=== PATIENT | male | born 1945 | race Caucasian/White ===

== ENCOUNTER 2017-10-07 16:19 | Inpatient (IN) | payer OTHER, MEDICARE ==
[~2017-10-07] VITALS: Ht 180.3 cm; Wt 132.9 kg
[~2017-10-07 16:19] MED LIST: ATENOLOL50 M1 PO; BACTRIM DS TAB1 EACH PO; BUSPIRONE HCL15 M1 PO; DULOXETINE HCL60 MG PO; GABAPENTIN600 M1 PO; GLIPIZIDE5 M2 PO; KEFLEX500 M1 PO; LANTUS SOL100 UNIT/1 SC; LISINOPRIL2.5 M1 PO; PRAVASTATIN SOD40 M2 PO; TAMSULOSIN HCL0.4 M1 PO
--- NOTE | 2017-10-07 16:43 | ED DYSPNEA/ASTHMA COMPLAINT ---
History of Present Illness General Chief Complaint: Dyspnea (COPD, CHF, Other) Stated Complaint: SIB DR. FERRARA FOR SOB Source: patient, family, old records Exam Limitations: no limitations Vital Signs & Intake/Output Vital Signs & Intake/Output Vital Signs Date Time Temp Pulse Resp B/P B/P Pulse O2 O2 Flow FiO2 Mean Ox Delivery Rate 10/07 1812 95 Room Air Room Air 10/07 1813 52 18 146/63 98 Room Air Room Air 10/07 1635 98.6 65 18 138/74 98 Room Air Allergies Coded Allergies: bacitracin (RASH 08/20/16) neomycin (From NEOSPORIN ([id number])) (RASH 08/20/16) polymyxin B (From NEOSPORIN ([id number])) (RASH 08/20/16) Reconcile Medications Aspirin (Ecotrin*) 81 MG TABLET.DR 1 TAB PO BID HEART/BLOOD (Reported) Atenolol 50 MG TABLET 1 TAB PO DAILY HTN (Reported) Buspirone HCl 15 MG TABLET 0.5 TAB PO BID SLEEP (Reported) Clopidogrel Bisulfate (Clopidogrel) 75 MG TABLET 1 TAB PO DAILY BLOOD THINNER (Reported) Duloxetine HCl 60 MG CAPSULE.DR 1 CAP PO DAILY ANXIETY (Reported) Ergocalciferol (Vitamin D2) (Vitamin D2) 50,000 UNIT CAPSULE 1 CAP PO Q2W SUPPLEMENT (Reported) Gabapentin 600 MG TABLET 2 TAB PO BID NEUROPATHY (Reported) Glipizide 5 MG TABLET 1 TAB PO BID DM (Reported) Insulin Glargine,Hum.rec.anlog (Lantus Solostar) 100 UNIT/ML (3 ML) INSULN.PEN 60 UNIT SC QAM DM (Reported) Pravastatin Sodium 40 MG TABLET 1 TAB PO QPM CHOL (Reported) Tamsulosin HCl 0.4 MG CAP.ER.24H 1 CAP PO DAILY URINE (Reported) Triage Note: 72 YO MALE TO TRIAGE WITH FAMILY. PER FAMILY PT WAS JUST SEEN AT DR LAL OFFICE AND SENT IN FOR ABNORMAL EKG. PT ARRIVES ALERT. PT STATES FOR THE PAST 3 DAYS HE HAS BEEN HAVING INCREASEING SOB. DENIES CHEST PAIN/ABD PAIN. DR FARAH IS PTS [employer]. PT TO ER ROOM 2 ON ARRIVAL, EKG COMPLETED. PA AT BEDSIDE. Triage Nurses Notes Reviewed? yes Onset: Gradual Duration: week(s): (1) Timing: recent history Severity: mild, moderate HPI: 72 year old male with history of HTN, IDDM, CKD, poorly compliant with medications reports worsening SOB for the past few days. He is unable to climb stairs, gets short of breath with exertion and reports vague complaint of chest discomfort in his chest with exertion that began last week. He feels like he is not getting enough oxygen. Patient also reports orthopnea, LE edema and dry cough. No fever or chills. He went today for a checkup for these symptoms and was referred to the ER by Dr. Ferrara. Patient also history of fempop bypass several years ago for PVD. Patient had ECHO one month ago with small amount of anterior wall dysfunction but "normal EF". Past History Travel History Traveled to [place] past 21 day No Medical History Any Pertinent Medical History? see below for history Neurological: peripheral neuropathy EENT: NONE Cardiovascular: HTN,CHOL Respiratory: NONE Gastrointestinal: NONE Hepatic: NONE Renal: CKD Musculoskeletal: NONE Psychiatric: NONE Endocrine: IDDM Surgical History Surgical History: none Psychosocial History What is your primary language Urdu Tobacco Use: Quit >30 days ago ETOH Use: denies use Illicit Drug Use: denies illicit drug use Family History Comment: father CAD, ATHEROSCLOEROSIS Hx Contributory? Yes Review of Systems Review of Systems Constitutional: Denies: chills, fever. EENTM: Reports: no symptoms. Respiratory: Reports: cough, short of breath. Denies: sputum production. Cardiovascular: Reports: chest pain, peripheral edema. Denies: palpitations, syncope. GI: Denies: abdominal pain. Genitourinary: Denies: discharge, dysuria, frequency, hematuria. Musculoskeletal: Denies: back pain. Skin: Reports: no symptoms. Neurological/Psychological: Reports: no symptoms. Hematologic/Endocrine: Denies: bruising, bleeding, polyuria. Immunologic/Allergic: Denies: splenectomy. All Other Systems: Reviewed and Negative Physical Exam Physical Exam General Appearance: well developed/nourished, alert, awake, mild distress, moderate distress, obese Head: atraumatic, normal appearance Eyes: Bilateral: normal appearance, PERRL, pale conjunctivae. Ears, Nose, Throat: normal pharynx, hearing grossly normal Neck: normal inspection, supple, full range of motion Respiratory: DIMINISHED BS AT BASES Cardiovascular: irregularly irregular, FAINT HEART SOUNDS Peripheral Pulses: 2+ radial (R), 2+ radial (L), 2+ dorsalis pedis (R), 2+ dorsalis pedis (L) Gastrointestinal: normal bowel sounds, soft Rectal: NO STOOL, SCANT AMOUNT OF PINK BLOOD (REPORTS CONSTIPATION/STRAINING) Extremities: swelling (3+ BILATERAL) Neurologic/Psych: no motor/sensory deficits, awake, alert, oriented x 3 Skin: intact, normal color, warm/dry Core Measures ACS in differential dx? Yes CVA/TIA Diagnosis No Sepsis Present: No Sepsis Focused Exam Completed? No Progress Differential Diagnosis: AMI, CHF, NEW ONSET AFIB, PE, PLEURAL EFFUSION, Plan of Care: Orders Procedure Date/time Status Consistent Carbohydrate 1 10/08 B Active ED Holding Orders 10/07 1833 Active Admit to inpatient 10/07 1833 Active Vital Signs 10/07 1833 Active Code Status 10/07 1833 Active Add-on Test (ER Only) 10/07 1800 Active B-TYPE NATRIURETIC PEP (BNP) 10/07 1715 Active MISTAKE 10/07 1655 Active Telemetry/Cotton Stomper 10/07 1655 Active THYROID STIMULATING HORMONE 10/07 1655 Active TROPONIN LEVEL 10/07 1655 Active PARTIAL THROMBOPLASTIN TIME 10/07 1655 Complete PROTHROMBIN TIME 10/07 1655 Complete MAGNESIUM 10/07 1655 Active FREE T4 10/07 1655 Active COMPREHENSIVE METABOLIC PANEL 10/07 1655 Active CBC WITHOUT DIFFERENTIAL 10/07 1655 Complete EKG 10/07 1620 Active Current Medications Sig/Berhane Start time Last Medication Dose Stop Time Status Admin Heparin Sodium 25,000 UNIT Q24H 10/07 1900 UNVr (Porcine) (Heparin) Sodium Chloride 500 ML Laboratory Tests 10/07/17 1715: Anion Gap 7, Estimated GFR 31 L, BUN/Creatinine Ratio 21.4, Glucose 217 H, Calcium 8.5, Magnesium 2.1, Total Bilirubin 0.2, AST 14 L, ALT 33, Alkaline Phosphatase 55, Troponin I 0.02, Eev-M-Lhgnkojzwdu Pept Pending, Total Protein 6.4, Albumin 3.2 L, Globulin 3.2, Albumin/Globulin Ratio 1.0 L, TSH 4.400 H, Free T4 0.82, PT 12.0, INR 1.14, APTT 30, CBC w Diff NO MAN DIFF REQ, RBC 3.77 L, MCV 89.1, MCH 30.3, RDW 14.7 H, MPV 8.4, Gran % 71.1, Lymphocytes % 16.1 L, Monocytes % 9.5 H, Eosinophils % 3.0, Basophils % 0.3, Absolute Granulocytes 4.6, Absolute Lymphocytes 1.0 L, Absolute Monocytes 0.6, Absolute Eosinophils 0.2, Absolute Basophils 0, PUBS MCHC 34.0 Diagnostic Imaging: Viewed by Me: Radiology Read. Discussed w/RAD: Radiology Read. CXR Impression: PATIENT: AJAY ARREDONDO PRESENT AGE: 72 PATIENT ACCOUNT NO: [id number] : 46 LOCATION: [facility] ORDERING PHYSICIAN: Dariana Nugent MD SERVICE DATE: 10/07/17 EXAM TYPE: RAD - XRY-PORTABLE CHEST XRAY EXAMINATION: XR PORTABLE CHEST CLINICAL INFORMATION: Bradycardia and shortness of breath. COMPARISON: None. TECHNIQUE: A portable AP 85 degrees semiupright view of the chest was obtained. FINDINGS: The lung steel are well moderately well-expanded. There are increased interstitial markings in the lower zones bilaterally. The cardiac silhouette is increased in size. There are no pleural effusions. There is mild prominence of the central pulmonary vasculature. The aortic arch is calcified and unfolded. There are monitor leads overlying the chest. There are no acute osseous findings. IMPRESSION: 1. There is cardiomegaly and there are increased interstitial markings with prominence of the central pulmonary vasculature, consistent with mild/early congestive heart failure. Correlate clinically. DICTATED BY: Bryan Jaeger MD DATE/TIME DICTATED: 10/07/171740 MULTI SITE LEASING CONSULTANT:OLIVIA DATE/TIME TRANSCRIBED:10/07/171740 CONFIDENTIAL, DO NOT COPY WITHOUT APPROPRIATE AUTHORIZATION. <Electronically signed in Other Vendor System> SIGNED BY: Bryan Jaeger MD 10/07/171748 Initial ED EKG: AFIB, RATE IN 40'S Prior EKG: changed Rhythm Strip: atrial fibrillation Departure Departure Time of Disposition: 1835 Disposition: STILL A PATIENT Condition: Stable Clinical Impression Primary Impression: CHF (congestive heart failure) Secondary Impressions: New onset a-fib Referrals: Tiffani Ferrara MD (PCP/Family) Departure Forms: Customer Survey General Discharge Information Admission Note Spoke With: Meenakshi Bruno MD Documentation of Exam: Documentation of any treatments & extenuating circumstances including Concerns Regarding Discharge (functional status, medication knowledge or non-compliance, living conditions, etc.) that warrant an admission rather than observation: [ TELE MONITOR, DIURESIS, MONITOR I/O, HOLD BETA BLOCKERS, SERIAL TROPONIN, CARDIOLOGY CONSULTATION, CONSIDER REPEAT ECHO, ] Critical Care Note Critical Care Note Critical Care Time: non-applicable
[2017-10-07] MEDS ORDERED: VITAMIN D250000 UNIT PO (16:52)
[2017-10-07] MEDS ORDERED: ASPIRIN EC81 M1 PO (16:52)
[2017-10-07] MEDS ORDERED: CLOPIDOGREL75 M1 PO (16:54)
[2017-10-07 17:41] LABS: ABSOLUTE BASOPHIL COUNT 0 /CUMM (0.0-0.2); ABSOLUTE EOSINOPHIL COUNT 0.2 /CUMM (0.0-0.7); ABSOLUTE GRANULOCYTE CT 4.6 /CUMM (1.4-6.5); ABSOLUTE MONOCYTE COUNT 0.6 /CUMM (0.10-0.60); BASOPHIL % 0.3 % (0.0-2.0); GRANULOCYTE % 71.1 % (42.2-75.2); HEMATOCRIT 33.6 % (42-52); MEAN CORPUSCULAR HGB 30.3 PG (27.0-31.0); MEAN CORPUSCULAR VOLUME 89.1 FL (80.0-94.0); MEAN PLATELET VOLUME 8.4 FL (7.4-10.4); PLATELET COUNT 206 /CUMM (130-400); RBC DISTRIBUTION WIDTH 14.7 % (11.5-14.5); RED BLOOD CELL CT 3.77 /CUMM (4.70-6.10); WHITE BLOOD CELL COUNT 6.4 /CUMM (4.8-10.8)
--- NOTE | 2017-10-07 17:49 | RADIOLOGY REPORT ---
EXAMINATION: XR PORTABLE CHEST CLINICAL INFORMATION: Bradycardia and shortness of breath. COMPARISON: None. TECHNIQUE: A portable AP 85 degrees semiupright view of the chest was obtained. FINDINGS: The lung steel are well moderately well-expanded. There are increased interstitial markings in the lower zones bilaterally. The cardiac silhouette is increased in size. There are no pleural effusions. There is mild prominence of the central pulmonary vasculature. The aortic arch is calcified and unfolded. There are monitor leads overlying the chest. There are no acute osseous findings. IMPRESSION: 1. There is cardiomegaly and there are increased interstitial markings with prominence of the central pulmonary vasculature, consistent with mild/early congestive heart failure. Correlate clinically.
[2017-10-07 17:51] LABS: PTT 30 SEC (25-37)
--- NOTE | 2017-10-07 19:55 | History & Physical ---
Danilo Nash MD 10/07/171953: General Information and HPI MD Statement: I have seen and personally examined AJAY ARREDONDO and documented this H&P. The patient is a 72 year old M who presented with a patient stated chief complaint of [dyspnea on exertion]. Source of Information: patient, family Exam Limitations: poor historian History of Present Illness: Patient is a 72-year-old male with a PMH significant for HTN, CKD, PVD status post bypass and stent placement, questionable JOANIE, DJD, cervical disc herniation status post surgical repair, who presented to the ED complaining of 3-4 day history of worsening dyspnea on exertion. He was seen by his PCP today Tiffani Corona MD who referred him to the ED. Patient reports that he has mild dyspnea on exertion at baseline which she attributes to poor physical conditioning however over the last 3-4 days dyspnea on exertion has become severe. He has no dyspnea at rest and is able to recover resting. He has had associated cough mostly dry with minimal sputum production, nasal congestion, worsening lower extremity edema and questionable worsening abdominal distention. He denies shortness of breath while lying flat however reports that he has been sleeping in an upright position with his leg elevated for the past several months. He denies any sick contacts, nausea, vomiting, fever, chills, chest pain, chest discomfort, palpitations. He endorses dizziness upon standing which he states is chronic. The remainder of the review of systems was only positive for constipation, however his last bowel movement was this morning. Allergies/Medications Allergies: Coded Allergies: bacitracin (RASH 08/20/16) neomycin (From NEOSPORIN ([id number])) (RASH 08/20/16) polymyxin B (From NEOSPORIN ([id number])) (RASH 08/20/16) Home Med list Aspirin (Ecotrin*) 81 MG TABLET.DR 1 TAB PO BID HEART/BLOOD (Reported) Atenolol 50 MG TABLET 1 TAB PO DAILY HTN (Reported) Buspirone HCl 15 MG TABLET 0.5 TAB PO BID SLEEP (Reported) Clopidogrel Bisulfate (Clopidogrel) 75 MG TABLET 1 TAB PO DAILY BLOOD THINNER (Reported) Duloxetine HCl 60 MG CAPSULE.DR 1 CAP PO DAILY ANXIETY (Reported) Ergocalciferol (Vitamin D2) (Vitamin D2) 50,000 UNIT CAPSULE 1 CAP PO Q2W SUPPLEMENT (Reported) Gabapentin 600 MG TABLET 2 TAB PO BID NEUROPATHY (Reported) Glipizide 5 MG TABLET 1 TAB PO BID DM (Reported) Insulin Glargine,Hum.rec.anlog (Lantus Solostar) 100 UNIT/ML (3 ML) INSULN.PEN 60 UNIT SC QAM DM (Reported) Insulin Glargine,Hum.rec.anlog (Lantus Solostar) 100 UNIT/ML (3 ML) INSULN.PEN 60 UNIT SC QPM DM Lisinopril 2.5 MG TABLET 1 TAB PO DAILY BP Pravastatin Sodium 40 MG TABLET 1 TAB PO QPM CHOL (Reported) Tamsulosin HCl 0.4 MG CAP.ER.24H 1 CAP PO DAILY URINE (Reported) Past History Travel History Traveled to [place] past 21 day No Medical History Neurological: peripheral neuropathy EENT: NONE Cardiovascular: PVD, HTN, HLD Respiratory: NONE Gastrointestinal: NONE Hepatic: NONE Renal: CKD Musculoskeletal: NONE Psychiatric: NONE Endocrine: IDDM Surgical History Surgical History: fempop bypass, LE stent placement Past Family/Social History Psychosocial History Where do you live? Home Who Do You Live With? spouse Primary Language: Libyan Smoking Status: Former Smoker (60 pack year) ETOH Use: denies use Illicit Drug Use: denies illicit drug use Living Will? no Functional Ability Ambulation: cane Review of Systems Review of Systems Constitutional: Denies: chills, fever. Cardiovascular: Reports: orthopena (questionable based on history), peripheral edema. Denies: chest pain, palpitations, syncope. Respiratory: Reports: cough, short of breath, sputum production (minimal). Denies: wheezing. GI: Reports: constipation, distention. Denies: abdominal pain, nausea, bloody stool , vomiting. Genitourinary: Denies: dysuria, frequency, hematuria. Musculoskeletal: Reports: no symptoms. Skin: Reports: no symptoms. Neurological/Psychological: Denies: headache, numbness, tingling, weakness. Exam & Diagnostic Data Last 24 Hrs of Vital Signs/I&O Vital Signs Date Time Temp Pulse Resp B/P B/P Pulse O2 O2 Flow FiO2 Mean Ox Delivery Rate 10/08 0324 64 97 Room Air 10/07 2205 44 134/78 10/07 2044 97.9 41 20 172/78 96 Room Air 10/07 1813 95 Room Air Room Air 10/07 1813 52 18 146/63 98 Room Air Room Air 10/07 1635 98.6 65 18 138/74 98 Room Air Intake & Output 10/08 0800 10/08 0000 10/07 1600 Intake Total Output Total 1800 Balance -1800 Output, Urine 1800 Patient 302 lb Weight Weight Reported by Patient Measurement Method Physical Exam General Appearance Alert, Oriented X3, Cooperative, No Acute Distress HEENT Atraumatic, PERRLA, EOMI, Mucous Membr. moist/pink Neck Supple, No JVD (difficult to assess ) Cardiovascular Normal S1, Normal S2, irregularly irregular rhythm, systolic murmur 2/6, bradycardia HR 40s Lungs diminished breath sounds, not in respiratory distress, able to speak in full sentences, no accessory muscle use Abdomen Normal Bowel Sounds, Soft, No Tenderness, obese Neurological Normal Speech, Strength at 5/5 X4 Ext, Sensation Intact, Cranial Nerves 3-12 NL Extremities 2+ pitting edema of the LEs bilaterally to the knees, feet were cold with faint but palpable pulses. Last 24 Hrs of Labs/Nando: Laboratory Tests 10/08/17 0312: APTT 40 H 10/08/17 0117: Troponin I 0.02 10/07/17 1715: Anion Gap 7, Estimated GFR 31 L, BUN/Creatinine Ratio 21.4, Glucose 217 H, Calcium 8.5, Magnesium 2.1, Total Bilirubin 0.2, AST 14 L, ALT 33, Alkaline Phosphatase 55, Troponin I 0.02, [id number] Pept 5380 H, Total Protein 6.4, Albumin 3.2 L, Globulin 3.2, Albumin/Globulin Ratio 1.0 L, TSH 4.400 H, Free T4 0.82, PT 12.0, INR 1.14, APTT 30, CBC w Diff NO MAN DIFF REQ, RBC 3.77 L, MCV 89.1, MCH 30.3, RDW 14.7 H, MPV 8.4, Gran % 71.1, Lymphocytes % 16.1 L, Monocytes % 9.5 H, Eosinophils % 3.0, Basophils % 0.3, Absolute Granulocytes 4.6, Absolute Lymphocytes 1.0 L, Absolute Monocytes 0.6, Absolute Eosinophils 0.2, Absolute Basophils 0, PUBS MCHC 34.0 Diagnostic Data EKG Results A. Fib vs possbile A flutter, new onset HR 48 QTc 424 CXR Results There is cardiomegaly and there are increased interstitial markings with prominence of the central pulmonary vasculature, consistent with mild/early congestive heart failure. Assessment/Plan Assessment: Patient is a 72-year-old male with a PMH significant for HTN, CKD, PVD status post bypass and stent placement, questionable JOANIE, DJD, cervical disc herniation status post surgical repair, who presented to the ED complaining of 3-4 day history of worsening dyspnea on exertion with mostly nonproductive cough and worsening lower extremity edema who was referred to the ED by his PCP Tiffani Corona MD. VS on admission: T 98.6, P 65 (dropped to 30s40s), RR 18, BP 138/74, pulse ox 98% on room Labs on admission: WBC 6.4, H/H 11.4/33.6, platelets 206, when necessary 45, creatinine 2.1, glucose 217, Pro-BNP 5380, albumin 3.2, TSH 4.4, Free T4 0.82, Trop 0.02, 0.02 While in the ED patient was started on a heparin drip and given 20 mg IV Lasix. Problem list #New-onset A. fib #Bradycardia #CHF #CKD #Chronic medical problems including HTN, DM, PVD -Admit to telemetry floor -Continue heparin drip started in ED, cardiology consult placed follow-up recommendations -Glucagon for reversal of beta esteban, patient's HR increased to 60s. -Hold patient's home dose of atenolol -Patient's GFR appears to be at baseline, nephrology consult placed for recommendations of Lasix dosing for apparent CHF given worsening lower extremity edema, elevated pro-BNP, and CXR findings open claims representative of CHF -Serial troponin and EKG, first two troponins negative and EKG without signs of acute ST segment changes, THIRD set and a.m. -Echocardiogram - Ambulatory pulse oximetry in AM -Nocturnal pulse ox given patient's questionable history for JOANIE -Continue home doses of lisinopril, buspirone, duloxetine, gabapentin, tamsulosin, aspirin, Plavix -Pravastatin converted to atorvastatin 10 mg -We'll start Levemir 20 mg and NovoLog sliding scale with Accu-Cheks TIDACHS DT prophylaxis: IV heparin, ALPS CODE STATUS: Full code As Ranked By This Provider Problem List: 1. New onset a-fib 2. CHF (congestive heart failure) Core Measures/Misc (06/19) Acute Coronary Syndrome ACS Diagnosis: No Congestive Heart Failure Congestive Heart Failure Diagnosis Yes Last Known EF % 60 (unknown, but report says nl) Comment will obtain echo Cerebrovascular Accident CVA/TIA Diagnosis: No VTE (View Protocol) VTE Risk Factors Age>40 No Mechanical VTE Prophylaxis d/t N/A MechProphylax Ordered No VTE Pharm Prophylaxis d/t NA PharmProphylax ordered Sepsis (View protocol) Sepsis Present: No Priscilla JACINTO,[facility] 10/08/17 0247: Resident Review Statement Resident Statement: examined this patient, discussed with corporate strategy intern, agreed with corporate strategy intern, discussed with family Other Findings: Mr. Arredondo is 72 year old male with past medical history significant for hypertension, with past medical history significant for diabetes complicated with peripheral vascular disease, CK D, hypertension, peripheral vascular disease status post bypass and multiple stent placement, questionable obstructive sleep apnea, degenerative disc disease of L2, L3 who presented to ED with chief complaint of shortness of breath. Patient and family are poor historian. Patient reported history of shortness of breath for the last 3-4 days mainly on exertion, increased in severity and he decided to come to ED for evaluation. Patient also reported productive cough, nasal congestion, denied ear pain, throat pain, that if agent, headache, chest pain, palpitation. He has chronic history of dizziness on rapid movement. Patient has unclear history of orthopnea, reported sleeping in a sitting position for the last couple months because of distended abdomen and it's unclear if he has orthopnea. Patient was evaluated a month ago by Dr. Ness, record from the office revealed normal echocardiogram and normal nuclear stress test. History of weight gain and increased abdominal distention for which according to the patient David Ness MD wanted to start him on water pill but was waiting for Juan Carlos Portillo MD evaluation for the chronic kidney disease. Patient has a remote history of smoking, quit 20 years ago, denied alcohol consumption or drugs. On presentation patient was found to have new onset of atrial fibrillation, with bradycardia of 40 and nonsustained decrease heart rate to 30, a symptomatic. On admission blood pressure 138/74, heart rate 65, temperature 98.6, respiratory rate 18 saturating 98% room air Physical exam he is alert, oriented, not in acute distress. HEENT revealed PERRLA, EOMI, cranial nerves II -12 grossly intact. Examination of the neck showed no JVD (however difficult exam), NO cervical lymphadenopathy. Cardiovascular exam pertinent for irregular S1, S2, no murmurs rubs or gallops appreciated, chest was clear to auscultation bilaterally. Abdominal exam was benign and abdomen soft, with normal bowel sounds in all 4 quadrants. Examination of the lower extremities pedal edema +2 bilateral. Neuro exam pertinent for strength 5 out of 5 in all lower extremities, 5 out of 5 in upper extremities, sensation grossly intact. Labs significant for WBC 6.4, H&H 11.4/33.6, sodium 138, potassium 4.9, BUN 45 and creatinine 2.1 which is baseline, proBNP 5380 EKG new onset atrial fibrillation with bradycardia 46 bpm, no ST changes, QTC 424 Chest x-ray revealed cardiomegaly and increased interstitial markings with prominence of the central pulmonary vasculature, consistent with mild/early congestive heart failure. Problem list #New onset atrial fibrillation #Bradycardia #Acute congestive heart failure #Chronic kidney disease creatinine at baseline #Diabetes mellitus #Questionable obstructive sleep apnea #Peripheral vascular disease Plan -Admit to telemetry floor #New onset atrial fibrillation without rapid ventricular response -Patient denied any history of palpitation or previous history of an irregular rhythm. He had recent history of upper respiratory infection that could participate new onset of atrial fibrillation however he also have risk factors hypertension, diabetes and hyperlipidemia and that may participate silent CT -We'll start heparin drip -Cardiology consultation #Bradycardia -Etiology could be medication induced versus ischemia. No EKG evidence of heart block, no risk for Lyme disease. -Cardiology consultation was obtained with recommendation for glucagon as an antidote for beta esteban atenolol -We'll give 1 mg subcutaneous of glucagon Heart block -Hold atenolol 50 mg daily #Acute congestive heart failure -Again could be precipitated by CT, recent echocardiogram according patient's note from Dr. Ness's office revealed normal echocardiogram and normal nuclear stress test -Patient received Lasix IV 20 mg with good urine output -Continue strict in and out measurement -Consider Lasix 40 mg twice a day, waiting recommendation from cardiology and nephrology -History of progressive shortness of breath, weight gain and distended abdomen. obtain ambulatory pulse ox as patient saturating well on rest room air. #Chronic kidney disease creatinine at baseline -Obtain nephrology consultation for recommendations regarding Lasix dose #Hypertension -Continue lisinopril 2.5 mg daily #Hyperlipidemia -Continue statin, converting dose atorvastatin 10 mg daily #Diabetes mellitus -Patient is getting Lantus 60 units Qam. Patient is poor historian and I doubt his compliance of insulin medication nor diet. Will start Levemir 20 mg daily NovoLog sliding scale medium dose and monitor blood sugar. #Questionable obstructive sleep apnea -Questionable history of orthopnea, patient is poor historian and reported sleeping and sitting position for the last several months. We can obtain nocturnal pulse ox during hospital stay. #Peripheral vascular disease -Continue aspirin and Plavix Home medication continue Bu[place], duloxetine, gabapentin, tumsolin DVT prophylaxis heparin IV Diet consistent carbohydrate 3 Code full Consultation cardiology, nephrology Meenakshi Bruno 10/08/17 0443: Attending MD Review Statement Attending Statement Attending MD Statement: examined this patient, discuss w/resident/PA/TRUST OPERATIONS ASSISTANT, agreed w/resident/PA/TRUST OPERATIONS ASSISTANT, reviewed EMR data (avail), reviewed images, amended to note Attending Assessment/Plan: CC: Shortness of breath PMH: HTN, DM on insulin, CK D stage III, possible JOANIE, peripheral neuropathy, peripheral vascular disease S/P stent bilateral lower extremity, cervical disc surgery Patient came in ER for dyspnea on exertion. 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 He denied any diaphoresis, chest pain, palpitations during this episodes, dyspnea relieved after rest. Since last few months patient has been sleeping in a couch in sitting position with stool under leg, he states that he feels very uneasy lying flat. Last 2 days patient could not even sleep in the sitting position because of shortness of breath. He endorses significant weight gain, stomach bloating, leg edema. Questionable dark and foul-smelling urine. He has mild cough with clear phlegm, it was preceded by upper respiratory symptoms, occurred 2 weeks back, currently better. Never had similar symptoms in the past, follows up with Dr. Ness every 6 months and other investigations were in the normal range, last visit was one month back which is unremarkable. In that visit it was considered that he should take Lasix but this to be decided after discussion with quality assurance supervisor chassis given his kidney disease. He went to see her primary care physician today and was found to have A. fib and was sent to ER. Of note patient had a syncopal episode 3 months back, he felt better after drinking orange juice. Vitals: T 98.6, pulse from 25-55, RR 18, blood pressure 138/74, saturating 98% on room air. On exam: A O 3, cooperative, morbidly obese, no acute distress, neck supple, JVD could not be appreciated, no lymphadenopathy, mucosa moist, no focal neurological deficit, +2 leg edema, no obvious skin rashes or inflammation CVS: S1-S2, irregular. RS: Distant sounds clear, no crackles. Abdomen: Soft, NT, ND, bowel sounds present. Labs: WBC 6.4, hemoglobin 11.4, hematocrit 33.6, platelet 206, sodium 138, potassium 4.9, chloride 105, bicarbonate 25, BUN 45, creatinine 2.1, glucose 217 , calcium 8.5, LFT unremarkable, troponin 0.02, proBNP 5380 INR 1.14 CXR: There is cardiomegaly and there are increased interstitial markings with prominence of the central pulmonary vasculature, consistent with mild/early congestive heart failure. Correlate clinically. ECG: A. fib with bradycardia Assessment and plan 72-year-old male with extensive past medical history presented in ER for progressive worsening of dyspnea on exertion over a month duration, acutely worsened over 3 days associated with increased abdominal girth, increased leg swelling, weight gain. Patient has been using couch to sleep in a sitting position because of feeling uncomfortable in the lying down position and was attributing to abdominal hernia and abdominal distention. Patient was also investigated with sleep study for JOANIE but never followed through to use CPAP. So far all his evaluations and [employer]orer [employer] office was within normal range except they were considering to start Lasix in his last visit, awaiting evaluation by quality assurance supervisor chassis. On examination patient is morbidly obese, JVD could not be appreciated, no obvious crackles but significant leg edema, abdominal distention. Patient's heart rate was ranging between 30s to 45 while in ER in monitor, blood pressure stable, peripheral pulses normal. Patient has elevated creatinine which is unchanged since August and elevated proBNP. Chest x-ray suggestive of congestive heart failure. Given his multiple comorbidities (DM, HTN, JOANIE, CKD, PVD), significant family history for cardiac disease any acute cardiac event should be ruled out as a precipitating cause for his heart failure at the same time patient is having significant bradycardia which might be contributory, patient may be having some conduction abnormality. Patient on atenolol 50 mg since long time, we will hold it for now, cardiology was called suggested to try a dose of glucagon, after glucagon his heart rate is around 40s , patient has been asymptomatic throughout. Patient received 20 mg of Lasix in ER with significant symptomatic improvement. + New-onset heart failure + A. fib with bradycardia + CKD stage III + History of HTN, DM on insulin, possible JOANIE, peripheral neuropathy, peripheral vascular disease S/P stent bilateral lower extremity, cervical disc surgery - Admit to telemetry - Continuous telemetry monitoring - Serial troponin and EKGs - 2-D echocardiogram in a.m. - Continue heparin drip ([id number] 6.7%), - Cardiology consult in a.m. - Hold atenolol - Nephrologic consult in a.m. as requested by cardiology for diuresis with current CKD - Continue rest of his home medications, need to readdress use of Plavix as patient will be needing anticoagulation, will increase the risk of bleeding with aspirin, Plavix and new anticoagulation - Continue Levemir 20 units, moderate scale sliding scale short-acting insulin, titrate up if required
[2017-10-07] MEDS ORDERED: LISINOPRIL2.5 M1 PO ×2 (21:47→21:48)
[2017-10-07] MEDS ORDERED: LANTUS SOL100 UNIT/1 SC (21:48)
[2017-10-08 03:33] LABS: PTT 40 SEC (25-37)
--- NOTE | 2017-10-08 04:44 | Admission Certification ---
Admission Certification Certification Statement - As attending physician, I certify that at the time of - admission, based on clinical presentation, severity of - symptoms, need for further diagnostic testing and - therapeutic interventions, and risk of adverse outcomes - without in-hospital treatment, in my clinical assessment, - this patient requires an acute hospital stay for a minimum - of two nights or longer. I have also considered psychsocial - factors such as support system, advanced age, financial - issues, cognitive issues, and failed out-patient treatments, - past re-admission history, safety of patient, and lack of - compliance as applicable. Specific rationale supporting this admission is: New onset A. fib, bradycardia, new onset congestive heart failure
[2017-10-08 06:13] LABS: ABSOLUTE BASOPHIL COUNT 0 /CUMM (0.0-0.2); ABSOLUTE EOSINOPHIL COUNT 0.2 /CUMM (0.0-0.7); ABSOLUTE GRANULOCYTE CT 5.2 /CUMM (1.4-6.5); ABSOLUTE LYMPH COUNT 1.4 /CUMM (1.2-3.4); ABSOLUTE MONOCYTE COUNT 0.7 /CUMM (0.10-0.60); BASOPHIL % 0.5 % (0.0-2.0); GRANULOCYTE % 69.1 % (42.2-75.2); HEMATOCRIT 34.6 % (42-52); MEAN CORPUSCULAR HGB 30.3 PG (27.0-31.0); MEAN CORPUSCULAR HGB CONC 33.8 G/DL (33.0-37.0); MEAN CORPUSCULAR VOLUME 89.5 FL (80.0-94.0); MEAN PLATELET VOLUME 8.7 FL (7.4-10.4); PLATELET COUNT 187 /CUMM (130-400); RBC DISTRIBUTION WIDTH 15.1 % (11.5-14.5); RED BLOOD CELL CT 3.86 /CUMM (4.70-6.10); WHITE BLOOD CELL COUNT 7.5 /CUMM (4.8-10.8)
[2017-10-08 10:51] LABS: PTT > 120 SEC (25-37)
[2017-10-08 13:31] LABS: PTT 59 SEC (25-37)
--- NOTE | 2017-10-08 14:25 | CT SCAN REPORT ---
EXAMINATION: CT HEAD WITHOUT CONTRAST CLINICAL INFORMATION: Overdose of heparin. Bleeding from ear. COMPARISON: MRI scan of the head dated 04/11/2017. PET CT scan dated 07/08/2013. TECHNIQUE: Contiguous axial imaging was performed from the skull base to vertex without intravenous administration of contrast. DLP: 625.95 mGy-cm FINDINGS: Evaluation is mildly limited by motion artifact. There is no evidence of acute intracranial hemorrhage or territorial infarction. No abnormal mass effect or midline shift is seen. Jin to white matter differentiation is well preserved. No extra-axial fluid collections are identified. The ventricles and sulci are mildly enlarged, consistent with involutional change. Mild periventricular low-attenuation is seen, consistent with ischemic small vessel disease. The osseous structures and soft tissues are normal. Mild mucosal thickening of some of the ethmoid air cells is seen. The mastoid air cells and visualized portions of the paranasal sinuses are otherwise well aerated. IMPRESSION: 1. No acute intracranial pathology. 2. Mild involutional changes and ischemic small vessel disease in the deep white matter. 3. Mild mucosal thickening in some of the ethmoid air cells.
--- NOTE | 2017-10-08 15:19 | History & Physical ---
General Information and HPI Source of Information: patient, family Exam Limitations: poor historian Allergies/Medications Allergies: Coded Allergies: bacitracin (RASH 08/20/16) neomycin (From NEOSPORIN ([id number])) (RASH 08/20/16) polymyxin B (From NEOSPORIN ([id number])) (RASH 08/20/16) Home Med list Aspirin (Ecotrin*) 81 MG TABLET.DR 1 TAB PO BID HEART/BLOOD (Reported) Atenolol 50 MG TABLET 1 TAB PO DAILY HTN (Reported) Buspirone HCl 15 MG TABLET 0.5 TAB PO BID SLEEP (Reported) Clopidogrel Bisulfate (Clopidogrel) 75 MG TABLET 1 TAB PO DAILY BLOOD THINNER (Reported) Duloxetine HCl 60 MG CAPSULE.DR 1 CAP PO DAILY ANXIETY (Reported) Ergocalciferol (Vitamin D2) (Vitamin D2) 50,000 UNIT CAPSULE 1 CAP PO Q2W SUPPLEMENT (Reported) Gabapentin 600 MG TABLET 2 TAB PO BID NEUROPATHY (Reported) Glipizide 5 MG TABLET 1 TAB PO BID DM (Reported) Insulin Glargine,Hum.rec.anlog (Lantus Solostar) 100 UNIT/ML (3 ML) INSULN.PEN 60 UNIT SC QAM DM (Reported) Insulin Glargine,Hum.rec.anlog (Lantus Solostar) 100 UNIT/ML (3 ML) INSULN.PEN 60 UNIT SC QPM DM Lisinopril 2.5 MG TABLET 1 TAB PO DAILY BP Pravastatin Sodium 40 MG TABLET 1 TAB PO QPM CHOL (Reported) Tamsulosin HCl 0.4 MG CAP.ER.24H 1 CAP PO DAILY URINE (Reported) Past History Travel History Traveled to [place] past 21 day No Medical History Neurological: peripheral neuropathy EENT: NONE Cardiovascular: PVD, HTN, HLD Respiratory: NONE Gastrointestinal: NONE Hepatic: NONE Renal: CKD Musculoskeletal: NONE Psychiatric: NONE Endocrine: IDDM Surgical History Surgical History: fempop bypass, LE stent placement Past Family/Social History Psychosocial History Where do you live? Home Who Do You Live With? spouse Primary Language: Burundian Smoking Status: Former Smoker (60 pack year) ETOH Use: denies use Illicit Drug Use: denies illicit drug use Living Will? no Functional Ability Ambulation: cane Exam & Diagnostic Data Diagnostic Data EKG Results A. Fib vs possbile A flutter, new onset HR 48 QTc 424 CXR Results There is cardiomegaly and there are increased interstitial markings with prominence of the central pulmonary vasculature, consistent with mild/early congestive heart failure. Core Measures/Misc (06/19) Cerebrovascular Accident CVA/TIA Diagnosis: No VTE (View Protocol) VTE Risk Factors Age>40 Sepsis (View protocol) Sepsis Present: No
--- NOTE | 2017-10-08 15:33 | PN- Housestaff ---
Glenn JACINTO,Mg 10/08/17 1533: Subjective Follow-up For: Follow-up acute on chronic CHF Complaints: generalized weakness Tele-Events Since Last Visit: Sinus bradycardia Subjective: Patient is seen and examined at the bedside. He was complaining of generalized weakness, abdominal distention, bilateral leg edema. He was feeling much better after he got diuretics. He still felt short of breath on minimal exertion. Review of Systems Constitutional: Reports: no symptoms, weakness. Respiratory: Reports: short of breath. Gastrointestinal: Reports: distention. Objective Last 24 Hrs of Vital Signs/I&O Vital Signs Date Time Temp Pulse Resp B/P B/P Pulse O2 O2 Flow FiO2 Mean Ox Delivery Rate 10/08 1922 96.8 57 20 129/74 95 Room Air 10/08 1859 46 16 167/81 96 Room Air 10/08 1711 96.8 60 19 138/72 95 Room Air 10/08 1457 57 20 125/69 96 Room Air 10/08 1412 98.1 44 20 170/78 95 Room Air 10/08 1043 95.8 50 18 163/77 95 Room Air 10/08 0945 97.1 53 20 150/72 10/08 0945 97.1 53 20 150/72 10/08 0755 97.1 53 20 150/72 94 Room Air 10/08 0614 97.0 52 19 160/64 93 Room Air 10/08 0324 64 97 Room Air 10/07 2205 44 134/78 Intake & Output 10/08 1600 10/08 0800 10/08 0000 Intake Total Output Total 1200 1800 Balance -1200 -1800 Output, Urine 1200 1800 Patient 141.974 kg 136.985 kg Weight Weight Standing Scale Reported by Patient Measurement Method Physical Exam General Appearance: Alert, Oriented X3, Cooperative, No Acute Distress Skin: Palor Cardiovascular: Normal S1, Normal S2 Lungs: bilateral decreased air entry with basilar crackles Abdomen: Soft, distended Neurological: Normal Speech Extremities: bilateral lower leg pitting edema Vascular: Normal Pulses, Pulses Symmetrical Current Medications: Current Medications Sig/Berhane Start time Last Medication Dose Route Stop Time Status Admin Acetaminophen 650 MG Q6P PRN 10/07 2044 AC PO Aspirin 0 .STK-MED ONE 10/08 2143 DC PO Aspirin 325 MG DAILY 10/08 1850 AC 10/08 PO 2145 Aspirin 0 .STK-MED ONE 10/07 2231 DC PO Aspirin Buffered 81 MG BID 10/07 2199 DC 10/08 PO 0945 Atenolol 25 MG DAILY 10/08 1854 AC PO Atorvastatin Calcium 10 MG 1700 10/08 1700 AC 10/08 PO 1730 Buspirone HCl 7.5 MG BID 10/07 2199 AC 10/08 PO 2145 Clopidogrel Bisulfate 75 MG DAILY 10/08 1000 AC 10/08 PO 0945 Dextrose 25 GM ONCE ONE 10/08 0500 DC 10/08 IV 10/08 0501 0450 Duloxetine HCl 60 MG DAILY 10/08 1000 AC 10/08 PO 0945 Furosemide 20 MG 7:30 AM, & 4:30 PM 10/09 0730 AC IV Gabapentin 0 .STK-MED ONE 10/08 2144 DC PO Gabapentin 0 .STK-MED ONE 10/07 2230 DC PO Gabapentin 1,200 MG BID 10/07 2199 AC 10/08 PO 2145 Glucagon 0 .STK-MED ONE 10/07 2230 DC .ROUTE Heparin Sodium 0 .STK-MED ONE 10/08 2100 DC (Porcine) .ROUTE Heparin Sodium 25,000 UNIT Q24H 10/08 1900 AC 10/08 (Porcine) IV 2105 Sodium Chloride 500 ML Heparin Sodium 25,000 UNIT Q24H 10/07 1900 DC 10/08 (Porcine) IV 1345 Sodium Chloride 500 ML Insulin Aspart 0 TIDAC 10/08 0800 AC 10/08 SC 1206 Insulin Detemir 20 UNITS QPM 10/08 2200 CAN SC Insulin Detemir 20 UNITS QPM 10/08 2200 AC 10/08 SC 2159 Lisinopril 2.5 MG DAILY 10/08 1000 AC 10/08 PO 0945 Nitroglycerin 1 GM Q6 10/08 1850 AC TOP Tamsulosin HCl 0.4 MG DAILY 10/08 1000 AC 10/08 PO 0945 Last 24 Hrs of Lab/Nando Results Last 24 Hrs of Labs/Mics: Laboratory Tests 10/08/17 2007: D-Dimer High Sensitivty 280 H 10/08/17 2007: APTT 41 H 10/08/17 1313: APTT 59 H 10/08/17 1006: APTT > 120 *H 10/08/17 0556: Anion Gap 11, Estimated GFR 31 L, BUN/Creatinine Ratio 21.9, Troponin I 0.02, CBC w Diff NO MAN DIFF REQ, RBC 3.86 L, MCV 89.5, MCH 30.3, RDW 15.1 H, MPV 8.7, Gran % 69.1, Lymphocytes % 18.6 L, Monocytes % 8.8, Eosinophils % 3.0, Basophils % 0.5, Absolute Granulocytes 5.2, Absolute Lymphocytes 1.4, Absolute Monocytes 0.7 H, Absolute Eosinophils 0.2, Absolute Basophils 0, PUBS MCHC 33.8 10/08/17 0312: APTT 40 H 10/08/17 0117: Troponin I 0.02 Assessment/Plan Assessment: Patient is a 72-year-old male with a PMH significant for HTN, CKD, PVD status post bypass and stent placement, questionable JOANIE, DJD, cervical disc herniation status post surgical repair, who presented to the ED complaining of 3-4 day history of worsening dyspnea on exertion. He was seen by his PCP Dr Tiffani Corona MD who referred him to the ED. Assessment and plan - Patient is a 72-year-old male with past medical history of hypertension, peripheral vascular disease, chronic kidney disease, presented with chief complaints of shortness of breath and exertion. On examination, he was having bilateral basilar crackles and bilateral pedal edema. On blood work up, he was found to have high creatinine. He was given IV Lasix followed by improvement in respiratory symptoms. His proBNP was 5318, d-dimer was 280. His EKG was showing atrial fibrillation with bradycardia in the range of 56. Current diagnosis - * Acute CHF, Secondary to fluid overload * Bradycardia needed glucagon * Atrial fibrillation * Chronic kidney disease * Type 2 diabetes * Anasarca * Peripheral vascular disease * We'll follow the cardiology recommendation - Advised to start on low dose atenolol, nitropaste, aspiring and plavix. * Daily weight measurement * Strict intake output charting * We'll follow nephrology recommendation * We will decide further Lasix,after discussing with disability specialist as his creatinine is going up. - Advised for Lasix 40-80mg IV BID, depends on diuresis. * We'll keep head end of the bed elevated * We'll continue all home medication * We'll hold for atenolol at present * Patient is on heparin drip. * We will follow echocardiogram * Patient wanted to have evaluated from Dr. Ness. CODE STATUS -full code DVT prophylaxis-heparin Diet-heart healthy diet with fluid restriction Problem List: 1. New onset a-fib 2. CHF (congestive heart failure) Pain Ratin Pain Location: n/a Pain Goal: Remain pain free Pain Plan: Avoid NSAIDs Tomorrow's Labs & Rationales: f/u CBC, BEP Akshat Emmanuel 10/08/17 1535: Attending MD Review Statement Attending Statement Attending MD Statement: examined this patient, discuss w/resident/PA/MANUFACTURING HELPER, agreed w/resident/PA/MANUFACTURING HELPER, discussed with family, reviewed EMR data (avail), discussed with nursing, discussed with case mgmt, reviewed images, amended to note Attending Assessment/Plan: 72-year-old male with extensive past medical history presented in ER for progressive worsening of dyspnea on exertion over a month duration, acutely worsened over 3 days associated with increased abdominal girth, increased leg swelling, weight gain. On examination patient is morbidly obese, JVD could not be appreciated, no obvious crackles but significant leg edema, abdominal distention. Patient's heart rate was ranging between 45 - 60 while in ER in monitor, blood pressure stable, peripheral pulses normal. LABS and imaging reports seen. ER course received glucagon with improvement in HR. EKG with documented afib Chronic congestive heart failure A. fib with bradycardia CKD stage III History of HTN, DM on insulin, possible JOANIE, peripheral neuropathy, peripheral vascular disease S/P stent bilateral lower extremity, cervical disc surgery - Continuous telemetry monitoring, transcutaneous pacemkaer bedside. - Serial troponin negative for [place]. - f/u echo, Cardiology consult, a/c as per cards. antiplatelet therapy as per cards. Pacemaker as per cardiology. CT head negative for intracranail bleed. - Held atenolol, monitor heart rate. - Nephrologic consulted as requested by cardiology for diuresis with current CKD - Continue rest of his home medications. - Continue Levemir 20 units, moderate scale sliding scale short-acting insulin, titrate up if required.
--- NOTE | 2017-10-08 17:03 | Cons- Cardiology ---
General Information and HPI Consulting Request Date of Consult: 10/08/17 Requested By: Meenakshi Bruno MD History of Present Illness: Nilson is a 72 year old male with history of hypertension, dyslipidemia, diabetes and peripheral vascular disease. He has not been able to lie flat for a very long time. Over the past week of so this patient has noted weight gain with leg swelling, severe orthopnea and respiratory distress. He also reports a moderate, nonradiating chest pressure which is new. Recently he has noted episodes of lightheadedness and palpitations. In the ER the patient was found to have mild pulmonary congestion on his chest X -ray and he is in atrial fibrillation of unknown duration with slow heart rate. The patient also has stable renal insufficiency. Allergies/Medications Allergies: Coded Allergies: bacitracin (RASH 08/20/16) neomycin (From NEOSPORIN ([id number])) (RASH 08/20/16) polymyxin B (From NEOSPORIN ([id number])) (RASH 08/20/16) Home Med List: Aspirin (Ecotrin*) 81 MG TABLET.DR 1 TAB PO BID HEART/BLOOD (Reported) Atenolol 50 MG TABLET 1 TAB PO DAILY HTN (Reported) Buspirone HCl 15 MG TABLET 0.5 TAB PO BID SLEEP (Reported) Clopidogrel Bisulfate (Clopidogrel) 75 MG TABLET 1 TAB PO DAILY BLOOD THINNER (Reported) Duloxetine HCl 60 MG CAPSULE.DR 1 CAP PO DAILY ANXIETY (Reported) Ergocalciferol (Vitamin D2) (Vitamin D2) 50,000 UNIT CAPSULE 1 CAP PO Q2W SUPPLEMENT (Reported) Gabapentin 600 MG TABLET 2 TAB PO BID NEUROPATHY (Reported) Glipizide 5 MG TABLET 1 TAB PO BID DM (Reported) Insulin Glargine,Hum.rec.anlog (Lantus Solostar) 100 UNIT/ML (3 ML) INSULN.PEN 60 UNIT SC QAM DM (Reported) Insulin Glargine,Hum.rec.anlog (Lantus Solostar) 100 UNIT/ML (3 ML) INSULN.PEN 60 UNIT SC QPM DM Lisinopril 2.5 MG TABLET 1 TAB PO DAILY BP Pravastatin Sodium 40 MG TABLET 1 TAB PO QPM CHOL (Reported) Tamsulosin HCl 0.4 MG CAP.ER.24H 1 CAP PO DAILY URINE (Reported) Review of Systems Review of Systems: A review of systems is remarkable for non-productive cough. Past History Travel History Traveled to [place] past 21 day No Medical History Neurological: peripheral neuropathy EENT: NONE Cardiovascular: PVD, HTN, HLD Respiratory: NONE Gastrointestinal: NONE Hepatic: NONE Renal: CKD Musculoskeletal: NONE Psychiatric: NONE Endocrine: IDDM Surgical History Surgical History: fempop bypass, LE stent placement Psychosocial History Where Do You Live? Home Who Do You Live With? spouse Primary Language: Albanian Smoking Status: Former Smoker (60 pack year) ETOH Use: denies use Illicit Drug Use: denies illicit drug use Living Will? no Functional Ability Ambulation: cane Exam & Diagnostic Data Vital Signs and I&O Vital Signs Date Time Temp Pulse Resp B/P B/P Pulse O2 O2 Flow FiO2 Mean Ox Delivery Rate 10/08 1457 57 20 125/69 96 Room Air 10/08 1412 98.1 44 20 170/78 95 Room Air 10/08 1043 95.8 50 18 163/77 95 Room Air 10/08 0945 97.1 53 20 150/72 10/08 0945 97.1 53 20 150/72 10/08 0755 97.1 53 20 150/72 94 Room Air 10/08 0614 97.0 52 19 160/64 93 Room Air 10/08 0324 64 97 Room Air 10/07 2205 44 134/78 / 2045 97.9 41 20 172/78 96 Room Air 10/07 1813 95 Room Air Room Air 10/07 1813 52 18 146/63 98 Room Air Room Air Intake & Output 10/08 1600 10/08 0800 10/08 0000 10/07 1600 10/07 0800 10/07 0000 Intake Total Output Total 1200 1800 Balance -1200 -1800 Output, Urine 1200 1800 Patient 313 lb 302 lb Weight Weight Standing Scale Reported by Patient Measurement Method Physical Exam: General: WD/morbidly obese male in NAD; alert and oriented x 3 HEENT: NC/AT, PERRL, EOMI Neck: no JVD, no carotid bruit Heart: irregularly irregular w/o murmur Lungs: clear bilaterally Abdomen: soft, obese, NT, +ve bowel sounds Extremties: 2+ bilateral leg edema Assessment/Plan Assessment/Plan * This patient has newly discovered atrial fibrillation of unknown duration. His heart rate is well controlled, if not a bit slow, on a small dose of Atenolol indicative of underlying conduction system disease. In consideration of his comorbidities, I would decrease his Atenolol to 25mg daily to prevent lightheadedness and a pre-renal state. In consideration of his angina a heart rate in the 50-60 range is otherwise beneficial. Begin IV heparin for stroke prophylaxis. Obtain an echocardiogram. * This morbidly obese male with leg swelling, shortness of breath and new onset atrial fibrillation may have had a pulmonary embolism. Obtain a D-dimer and ABG and if abnormal consider a V/Q scan. He is being anticoagulated in the meantime for atrial fibrillation. It should be noted that his shortness of breath is somewhat out of proportion to his evidence of decompensated CHF and I would prefer not to overdiurese this patient for failure in his setting of renal insufficiency when the issue may be a PE. * This patient has copious risk factors for myocardial ischemia including age, male gender, hypertension, dyslipidemia, tobacco abuse, diabetes and premature coronary artery disease. He also has a marker of coronary atherosclerosis in the form of peripheral vascular disease. Finally, this patient had an outpatient stress test that disclosed at least a small area of ischemia. This patient needs a cardiac catheterization. For now we will treat his angina with Atenolol 25mg daily, NTG paste 1 inch Q 6 hours, IV heparin, aspirin 324mg daily and Plavix 75mg daily. He should remain on a statin. Follow three sets of cardiac enzymes. * Obtain a renal consult. Consult Acknowledgment - Thank you for your consult request.
--- NOTE | 2017-10-08 17:18 | Cons- Nephrology ---
General Information and HPI Consulting Request Date of Consult: 10/08/17 Requested By: Meenakshi Bruno MD History of Present Illness: Mr. 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 He is followed by Dr. Portillo and has developed nephrotic range proteinuria over the past several years. His last visit with Dr. Portillo showed a creatinine of 2.0 in the fall and this was thought to be progression of his CKD. He presents to the hospital with SOB and worsening edema. He was given a single dose of lasix (he is not on this at home) and has had copious diuresis. Cr is 2.1 here. Allergies/Medications Allergies: Coded Allergies: bacitracin (RASH 08/20/16) neomycin (From NEOSPORIN ([id number])) (RASH 08/20/16) polymyxin B (From NEOSPORIN ([id number])) (RASH 08/20/16) Home Med List: Aspirin (Ecotrin*) 81 MG TABLET.DR 1 TAB PO BID HEART/BLOOD (Reported) Atenolol 50 MG TABLET 1 TAB PO DAILY HTN (Reported) Buspirone HCl 15 MG TABLET 0.5 TAB PO BID SLEEP (Reported) Clopidogrel Bisulfate (Clopidogrel) 75 MG TABLET 1 TAB PO DAILY BLOOD THINNER (Reported) Duloxetine HCl 60 MG CAPSULE.DR 1 CAP PO DAILY ANXIETY (Reported) Ergocalciferol (Vitamin D2) (Vitamin D2) 50,000 UNIT CAPSULE 1 CAP PO Q2W SUPPLEMENT (Reported) Gabapentin 600 MG TABLET 2 TAB PO BID NEUROPATHY (Reported) Glipizide 5 MG TABLET 1 TAB PO BID DM (Reported) Insulin Glargine,Hum.rec.anlog (Lantus Solostar) 100 UNIT/ML (3 ML) INSULN.PEN 60 UNIT SC QAM DM (Reported) Insulin Glargine,Hum.rec.anlog (Lantus Solostar) 100 UNIT/ML (3 ML) INSULN.PEN 60 UNIT SC QPM DM Lisinopril 2.5 MG TABLET 1 TAB PO DAILY BP Pravastatin Sodium 40 MG TABLET 1 TAB PO QPM CHOL (Reported) Tamsulosin HCl 0.4 MG CAP.ER.24H 1 CAP PO DAILY URINE (Reported) Review of Systems Review of Systems: As in HPI SOB SALEH worsening bilateral edema Past History Travel History Traveled to [place] past 21 day No Medical History Neurological: peripheral neuropathy EENT: NONE Cardiovascular: PVD, HTN, HLD Respiratory: NONE Gastrointestinal: NONE Hepatic: NONE Renal: CKD Musculoskeletal: NONE Psychiatric: NONE Endocrine: IDDM Surgical History Surgical History: fempop bypass, LE stent placement Psychosocial History Where Do You Live? Home Who Do You Live With? spouse Primary Language: Greenlandic Smoking Status: Former Smoker (60 pack year) ETOH Use: denies use Illicit Drug Use: denies illicit drug use Living Will? no Functional Ability Ambulation: cane Exam & Diagnostic Data Vital Signs and I&O Pleasant Gentleman NAD BP 138/72 P 60 T 96.8 Skin neg rash Eyes anicteric ENT moist Lungs diminished bases Cor RRR Abd soft obese N/T edema Ext 3+ pitting edema Results Pertinent Lab Results: 140 / 107 / 46 Hg 11.7 CXR increased marking bilaterally Assessment/Plan Assessment/Recommendations Assessment: CKD III likely due to diabetic kidney disease. Cr is at baseline and I wound not be concerned if Cr chay a bit with diuresis. He is massively fluid overloaded. Part of this very well may be related to his CKD and nephrotic syndrome. Rec: 24 hr urine for protein/Cr Lasix IV bid (prob will need a dose aroudn 40-80 mg) for next few days Thanks will follow. Recommendations: .
[2017-10-08 20:22] LABS: PTT 41 SEC (25-37)
[2017-10-09 03:43] LABS: PTT > 120 SEC (25-37)
[2017-10-09 05:58] LABS: ABSOLUTE BASOPHIL COUNT 0 /CUMM (0.0-0.2); ABSOLUTE EOSINOPHIL COUNT 0.2 /CUMM (0.0-0.7); ABSOLUTE GRANULOCYTE CT 3.8 /CUMM (1.4-6.5); ABSOLUTE LYMPH COUNT 1.3 /CUMM (1.2-3.4); ABSOLUTE MONOCYTE COUNT 0.7 /CUMM (0.10-0.60); BASOPHIL % 0.6 % (0.0-2.0); EOSINOPHIL % 3.5 % (0-5); GRANULOCYTE % 61.7 % (42.2-75.2); HEMATOCRIT 34.1 % (42-52); MEAN CORPUSCULAR HGB 29.4 PG (27.0-31.0); MEAN CORPUSCULAR HGB CONC 33.1 G/DL (33.0-37.0); MEAN CORPUSCULAR VOLUME 88.7 FL (80.0-94.0); MEAN PLATELET VOLUME 8.2 FL (7.4-10.4); PLATELET COUNT 187 /CUMM (130-400); RBC DISTRIBUTION WIDTH 14.8 % (11.5-14.5); RED BLOOD CELL CT 3.85 /CUMM (4.70-6.10); WHITE BLOOD CELL COUNT 6.1 /CUMM (4.8-10.8)
[2017-10-09 08:30] VITALS: BP 170/78
--- NOTE | 2017-10-09 08:47 | PN- Housestaff ---
Nilesh Gambino 10/09/17 0847: Subjective Follow-up For: New onset A. fib Subjective: Seen and examined patient's, lying in bed comfortably. States that his blood sugars have been dropping around 3- 4 AM. As any chest pain, shortness of breath, palpitations, abdominal pain. Review of Systems Constitutional: Denies: chills, diaphoresis, fever, malaise, weakness, unexplained weight loss. Cardiovascular: Denies: chest pain, edema, orthopena, palpitations, peripheral edema, syncope. Respiratory: Denies: cough, hemoptysis, orthopnea, short of breath, sputum production, stridor, wheezing. Objective Last 24 Hrs of Vital Signs/I&O Vital Signs Date Time Temp Pulse Resp B/P B/P Pulse O2 O2 Flow FiO2 Mean Ox Delivery Rate 10/09 0830 Room Air 10/09 08 97.2 58 18 170/78 94 Room Air 10/09 0601 96.1 53 18 121/77 97 Room Air 10/09 0303 56 20 162/74 95 Room Air 10/09 0034 58 178/88 10/09 0012 59 178/88 10/08 2209 97.0 51 22 172/89 98 Room Air 10/08 1922 96.8 57 20 129/74 95 Room Air 10/08 1859 46 16 167/81 96 Room Air 10/08 1711 96.8 60 19 138/72 95 Room Air 10/08 1457 57 20 125/69 96 Room Air 10/08 1412 98.1 44 20 170/78 95 Room Air 10/08 1043 95.8 50 18 163/77 95 Room Air 10/08 0945 97.1 53 20 150/72 10/08 0945 97.1 53 20 150/72 Intake & Output 10/09 1600 10/09 0800 10/09 0000 Intake Total 628 Output Total 200 500 Balance -200 128 Intake, IV 148 Intake, Oral 480 Output, Urine 200 500 Patient 305 lb Weight Weight Bed scale Measurement Method Physical Exam General Appearance: Alert, Oriented X3, Cooperative, No Acute Distress Cardiovascular: irregularly irregular Lungs: Clear to Auscultation, Normal Air Movement Abdomen: Normal Bowel Sounds, distended Extremities: b/l pitting edema Assessment/Plan Assessment: 72-year-old gentleman with a PMH significant for HTN, CKD III, PVD status post bypass and stent placement, questionable JOANIE, DJD, cervical disc herniation status post surgical repair, current admission for 3-4 day history of worsening dyspnea on exertion and found to be in new onset atrial fibrillation. Mild pulmonary congestion on his chest X-ray. Trop neg x3 Problem list: * Bradycardia needed glucagon * New onset Atrial fibrillation * Chronic kidney disease * Type 2 diabetes * CAD * Peripheral vascular disease Plan: * Daily weight measurement * Strict intake output charting * nephrology on board, apprec recommendations * Holding atenolol for bradycardia, Continuous transcutaneous pacemkaer bedside * continue heparin drip. * follow up echocardiogram * Spoke to who said that patient had a sleep study done here at [facility]. Spoke to Negin who works in the sleep lab who verified this. Will keep patient on autopap at night. * accucheck, FBS is 68, will dose his levemir in the am rather that in the evening * Continue home meds of aspirin, lisinopril, Plavix, gabapentin, buspirone, Cymbalta CODE STATUS -full code DVT prophylaxis-heparin Diet-diabetic Problem List: 1. CHF (congestive heart failure) 2. New onset a-fib Pain Ratin Pain Location: na Pain Goal: Pain 4 or less Pain Plan: current regimen Tomorrow's Labs & Rationales: Akshat Knox 10/09/17 1015: Attending MD Review Statement Attending Statement Attending MD Statement: examined this patient, discuss w/resident/PA/SECRETARY TO THE VICE PRESIDENT, agreed w/resident/PA/SECRETARY TO THE VICE PRESIDENT, discussed with family, reviewed EMR data (avail), discussed with nursing, discussed with case mgmt, reviewed images, amended to note Attending Assessment/Plan: 72-year-old male with extensive past medical history presented in ER for progressive worsening of dyspnea on exertion over a month duration, acutely worsened over 3 days associated with increased abdominal girth, increased leg swelling, weight gain. On examination patient is morbidly obese, JVD could not be appreciated, no obvious crackles but significant leg edema, abdominal distention. Patient's heart rate was ranging between 45 - 60 while in ER in monitor, blood pressure stable, peripheral pulses normal. LABS and imaging reports seen. D DIMER 286 ER course received glucagon with improvement in HR. EKG with documented afib Chronic congestive heart failure A. fib with bradycardia CKD stage III History of HTN, DM on insulin, possible JOANIE, peripheral neuropathy, peripheral vascular disease S/P stent bilateral lower extremity, cervical disc surgery - Continuous transcutaneous pacemkaer bedside. Serial troponin negative for [place]. - f/u echo, F/U B/L lower extremity USG r/o DVT, Cardiology F/U, a/c as per cards. antiplatelet therapy as per cards. Pacemaker as per cardiology. CT head negative for intracranial bleed. - Held atenolol, monitor heart rate. - Nephrologic f/u as requested by cardiology for diuresis with current CKD. - Continue rest of his home medications. - RISS and titrate insulin as needed.
[2017-10-09 12:18] LABS: PTT 43 SEC (25-37)
--- NOTE | 2017-10-09 12:47 | PN- Cardiology ---
Subjective Subjective: * Breathing is improved. * This patient carries a history of nephrotic range proteinuria according to nephrology. * atrial fibrillation with slow heart rate off beta blockade Objective Vital Signs and I&Os Vital Signs Date Time Temp Pulse Resp B/P B/P Pulse O2 O2 Flow FiO2 Mean Ox Delivery Rate 10/09 1150 50 176/90 10/09 0830 Room Air 10/09 0830 97.2 58 18 170/78 94 Room Air 10/09 0601 96.1 53 18 121/77 97 Room Air 10/09 0303 56 20 162/74 95 Room Air 10/09 0034 58 178/88 10/09 0012 59 178/88 10/08 2209 97.0 51 22 172/89 98 Room Air 10/08 1922 96.8 57 20 129/74 95 Room Air 10/08 1859 46 16 167/81 96 Room Air 10/08 1711 96.8 60 19 138/72 95 Room Air 10/08 1457 57 20 125/69 96 Room Air 10/08 1412 98.1 44 20 170/78 95 Room Air Intake & Output 10/09 1600 10/09 0800 10/09 0000 10/08 1600 10/08 0800 10/08 0000 Intake Total 628 Output Total 735 238 0654 1800 Balance -200 128 -1200 -1800 Intake, IV 148 Intake, Oral 480 Output, Urine 681 347 0000 1800 Patient 305 lb 313 lb 302 lb Weight Weight Bed scale Standing Scale Reported by Patient Measurement Method Physical Exam: General: WD/morbidly obese male in NAD; alert and oriented x 3 HEENT: NC/AT, PERRL, EOMI Neck: no JVD, no carotid bruit Heart: irregularly irregular w/o murmur Lungs: clear bilaterally Abdomen: soft, obese, NT, +ve bowel sounds Extremties: 2+ bilateral leg edema Assessment/Plan Assessment/Plan * This patient has newly discovered atrial fibrillation of unknown duration. His heart rate is well controlled, if not a bit slow, on a small dose of Atenolol indicative of underlying conduction system disease. Stop his Atenolol since it is being held consistently for slow heart rate. In consideration of his angina a heart rate in the 50-60 range is otherwise beneficial. Continue IV heparin for stroke prophylaxis. Obtain an echocardiogram. * This morbidly obese male with leg swelling and shortness of breath is likely fluid overloaded due to protein loss in the setting of his nephrotic syndrome, however, medications that are associated with fluid retention should be minimized. Wean down Gabapentin to 400mg BID with a plan to decrease further in a week. Increase Lisinopril to 5mg daily as ACEI are beneficial in the setting of nephrotic syndrome. Increase Lasix to 20mg IV BID. * This patient has copious risk factors for myocardial ischemia including age, male gender, hypertension, dyslipidemia, tobacco abuse, diabetes and premature coronary artery disease. He also has a marker of coronary atherosclerosis in the form of peripheral vascular disease. Finally, this patient had an outpatient stress test that disclosed at least a small area of ischemia. This patient needs a cardiac catheterization. For now we will treat his angina with NTG paste 1 inch Q 6 hours, IV heparin, aspirin 324mg daily and Plavix 75mg daily. He should remain on a statin. Continue telemetry? Yes
[2017-10-09 13:18] VITALS: BP 170/76
--- NOTE | 2017-10-09 13:43 | ULTRASOUND REPORT ---
EXAMINATION: US TRIPLEX OF LOWER EXTREMITIES, BILATERAL CLINICAL INFORMATION: Bilateral lower extremity edema. Hypertension. Evaluate for DVT. COMPARISON: None TECHNIQUE: Color-flow triplex imaging with spectral analysis and compression Doppler were performed on the lower extremities. FINDINGS: Examination is slightly limited due to the patient's body habitus and extensive lower extremity edema. Respiratory variation, normal compression and augmented flow are noted throughout the lower extremities. The visualized common femoral vein, superficial femoral vein, profunda femoral vein, popliteal vein and midcalf peroneal and posterior tibial venous segments show no evidence of deep venous thrombosis. There is no Ramírez's cyst. IMPRESSION: Normal triplex scan without evidence of deep venous thrombosis involving the lower extremities.
[2017-10-09 16:00] VITALS: BP 150/80
[2017-10-09 19:43] LABS: PTT 90 SEC (25-37)
[2017-10-09 23:00] VITALS: BP 140/68
--- NOTE | 2017-10-10 07:24 | PN- Housestaff ---
See Addendum Subjective Follow-up For: New onset A. fib Subjective: Mr Brianna was seen and examined this morning. He is resting comfortably in bed. Patient states that he feels remarkably better. States that his dyspnea on exertion is improved. He states he was able to the bathroom this morning without any complications. He also endorses decreasing in bilateral lower extremity edema. He denies any fever, chills, nausea, vomiting. He is tolerating by mouth intake well. States that he like to speak to Dr. Ness regarding whether it is feasible to proceed for a cardiac cath versus medical management. Review of Systems Constitutional: Reports: see HPI. Objective Last 24 Hrs of Vital Signs/I&O Vital Signs Date Time Temp Pulse Resp B/P B/P Pulse O2 O2 Flow FiO2 Mean Ox Delivery Rate 10/10 0520 75 95 10/10 0331 52 10/10 0128 72 96 10/10 0000 92 CPAP Room Air 10/09 2310 56 95 10/09 2300 96.8 48 14 140/68 92 CPAP Room Air 10/09 1759 Room Air 10/09 1600 97.0 72 22 150/80 97 Room Air 10/09 1519 66 170/70 10/09 1318 65 170/76 10/09 1150 50 176/90 Intake & Output 10/10 1600 10/10 0800 10/10 0000 Intake Total 275 477 Output Total 500 2100 Balance -225 -1623 Intake, IV 275 237 Intake, Oral 240 Number 1 0 Bowel Movements Output, Urine 500 2100 Physical Exam General Appearance: Alert, Oriented X3, Cooperative Cardiovascular: Normal S1, Normal S2, Irregular Rate and Rhythm Lungs: Clear to Auscultation Abdomen: Normal Bowel Sounds, Soft, No Tenderness, DIstended Neurological: Normal Gait, Normal Speech, Strength at 5/5 X4 Ext Extremities: No Clubbing, No Cyanosis, Edema 2+ Vascular: Normal Pulses Current Medications: Current Medications Sig/Berhane Start time Last Medication Dose Route Stop Time Status Admin Acetaminophen 650 MG Q6P PRN 10/07 2044 AC PO Aspirin 325 MG DAILY 10/08 1849 AC 10/09 PO 1146 Atenolol 25 MG DAILY 10/08 1854 DC PO Atorvastatin Calcium 10 MG 1700 10/08 1700 AC 10/09 PO 1559 Buspirone HCl 7.5 MG BID 10/07 2199 AC 10/09 PO 2129 Clopidogrel Bisulfate 75 MG AT BEDTIME 10/09 2200 AC 10/09 PO 2130 Clopidogrel Bisulfate 75 MG DAILY 10/08 1000 DC 10/08 PO 0945 Docusate Sodium 100 MG DAILY NEEDED PRN 10/09 1545 AC 10/09 PO 1713 Duloxetine HCl 60 MG AT BEDTIME 10/09 2200 AC 10/09 PO 2130 Duloxetine HCl 60 MG DAILY 10/08 1000 DC 10/08 PO 0945 Furosemide 20 MG 7:30 AM, & 4:30 PM 10/09 1300 AC 10/10 IV 0822 Furosemide 40 MG 7:30 AM, & 4:30 PM 10/09 0730 DC IV Gabapentin 1,200 MG BID 10/07 2200 AC 10/09 PO 2130 Heparin Sodium 5,000 UNIT .STK-MED ONE 10/09 1250 DC (Porcine) IV 10/09 1251 Heparin Sodium 5,000 UNIT ONCE ONE 10/09 1235 DC 10/09 (Porcine) IV 10/09 1236 1257 Heparin Sodium 25,000 UNIT Q24H 10/08 1900 AC 10/09 (Porcine) IV 1844 Sodium Chloride 500 ML Insulin Aspart 0 TIDAC 10/08 0800 AC 10/10 SC 0822 Insulin Detemir 20 UNITS QAM 10/09 1000 DC SC Insulin Detemir 20 UNITS QPM 10/08 2200 DC SC Lisinopril 5 MG DAILY 10/10 1000 AC PO Lisinopril 2.5 MG ONCE ONE 10/09 1245 DC 10/09 PO 10/09 1246 1519 Lisinopril 2.5 MG DAILY 10/08 1000 DC 10/09 PO 1150 Nitroglycerin 1 GM Q6 10/08 1850 AC 10/10 TOP 0635 Tamsulosin HCl 0.8 MG DAILY 10/09 1000 AC 10/09 PO 1148 Tamsulosin HCl 0.4 MG DAILY 10/08 1000 DC 10/08 PO 0945 Last 24 Hrs of Lab/Nando Results Last 24 Hrs of Labs/Mics: Laboratory Tests 10/10/17 0637: Anion Gap 13, Estimated GFR 31 L, BUN/Creatinine Ratio 17.1, Magnesium 2.0, APTT 45 H, CBC w Diff Pending, WBC Pending, RBC Pending, Hgb Pending, Hct Pending, MCV Pending, MCH Pending, RDW Pending, Plt Count Pending, MPV Pending, Gran % Pending, Lymphocytes % Pending, Monocytes % Pending, Eosinophils % Pending, Basophils % Pending, Absolute Granulocytes Pending, Absolute Lymphocytes Pending, Absolute Monocytes Pending, Absolute Eosinophils Pending, Absolute Basophils Pending, PUBS MCHC Pending 10/09/17 1854: APTT 90 H 10/09/17 1200: pH Cancelled, pCO2 Cancelled, pO2 Cancelled, HCO3 Cancelled, ABG O2 Sat ( Measured) Cancelled, P-50 (Temp Corrected) Cancelled, Carboxyhemoglobin Cancelled, O2 Concentration % Cancelled, Temperature Cancelled, O2 Delivery Method Cancelled, Phlebotomy Draw Site Cancelled 10/09/17 1115: APTT 43 H Orders Radiology Findings: AJAY ARREDONDO Age: 72 : 1945 Gender: M Exam Date: 10/09/2017 10:02 Exam Location: [facility] Ht (in): 71 Wt (lb): 302 BSA: 2.68 BP: 121 / 77 Ordering Physician: Robert Wells MD Referring Physician: David Ness MD Technologist: Tania Noble RDCS Room Number: 102 Indications: AFIB/FLUTTER Rhythm: Atrial fibrillation Technical Quality: Fair, Technically difficult study FINDINGS Left Ventricle Normal size left ventricle. No obvious regional wall motion abnormalities. Normal left ventricular ejection fraction estimated at 55-60%. Right Ventricle Right ventricle not well visualized, grossly normal. Right Atrium Normal right atrial size. Left Atrium Mild to moderate left atrial dilatation. Mitral Valve Mitral valve thickened. [id number] mitral regurgitation. Aortic Valve Trileaflet aortic valve. Diffuse thickening (sclerosis) of the aortic valve cusps without reduced excursion. No aortic stenosis. No aortic regurgitation. Tricuspid Valve Tricuspid valve not well visualized, grossly normal. Mild tricuspid regurgitation. Pulmonic Valve Pulmonic valve not well visualized, grossly normal. Pericardium No pericardial effusion. Great Vessels Aortic root and proximal ascending aorta not well visualized, grossly normal. CONCLUSIONS 1. This was a technically difficult study due to the patient's body habitus. 2. Aortic sclerosis is present with no valvular stenosis or insufficiency. Minimal enlargement of the ascending aorta is present 3. Mitral leaflet thickening is present with mild to moderate mitral insufficiency and mild to moderate left atrial enlargement. 4. There is no significant pericardial fluid detected 5. The left ventricular chamber size is normal with mild to moderate concentric hypertrophy and a normal ejection fraction. There are no visible resting wall motion abnormalities. Additional images were obtained following the administration of IV contrast. 6. Right heart structures were not optimally visualized. Mild tricuspid insufficiency is present. The right ventricular systolic pressure was not accurately assessed. David Ness M.D. (Electronically Signed) Final Date: 10 October 2017 07:53 MEASUREMENTS (Male / Female) Normal Values 2D ECHO LV Diastolic Diameter PLAX 3.8 cm 4.2 - 5.9 / 3.9 - 5.3 cm LV Systolic Diameter PLAX 2.1 cm 2.1 - 4.0 cm LV Fractional Shortening PLAX 44.7 % 25 - 46 % LV Ejection Fraction 2D Teich 76.7 % IVS Diastolic Thickness 1.5 cm LVPW Diastolic Thickness 1.5 cm LV Relative Wall Thickness 0.8 RV Internal Dim ED PLAX 2.8 cm 1.9 - 3.8 cm LVOT Diameter 2.1 cm Aortic Root Diameter 2.9 cm LA Systolic Diameter LX 4.6 cm 3.0 - 4.0 / 2.7 - 3.8 cm LA Volume 50.0 cm 18 - 58 / 22 - 52 cm Ascending Aorta Diameter 3.9 cm DOPPLER AV Peak Velocity 113.0 cm/s AV Peak Gradient 5.1 mmHg AV Mean Velocity 73.9 cm/s AV Mean Gradient 3.0 mmHg AV Velocity Time Integral 25.5 cm LVOT Peak Velocity 74.4 cm/s LVOT Peak Gradient 2.2 mmHg LVOT Mean Velocity 47.8 cm/s LVOT Mean Gradient 1.0 mmHg LVOT Velocity Time Integral 18.5 cm LVOT Stroke Volume 64.1 cm AV Area Cont Eq vti 2.5 cm AV Area Cont Eq pk 2.3 cm MV Peak Velocity 143.0 cm/s MV Peak Gradient 8.2 mmHg MV Mean Velocity 58.2 cm/s MV Mean Gradient 2.0 mmHg Mitral E Point Velocity 118.0 cm/s MV PHT Velocity 149.0 cm/s MV Deceleration [place] 514.0 cm/s MV Pressure Half Time 87.0 ms MV Area PHT 2.5 cm MV Deceleration Time 246.0 ms PV Peak Velocity 88.2 cm/s PV Peak Gradient 3.1 mmHg PV Mean Velocity 54.4 cm/s PV Mean Gradient 1.0 mmHg PV Velocity Time Integral 21.6 cm LV E' Lateral Velocity 9.5 cm/s Mitral E to LV E' Lateral Ratio 12.5 LV E' Septal Velocity 7.5 cm/s Mitral E to LV E' Septal Ratio 15.7 DICTATED BY: Azar Ness MD Assessment/Plan Assessment: 72-year-old gentleman with a PMH significant for HTN, CKD III, PVD status post bypass and stent placement, questionable JOANIE, DJD, cervical disc herniation status post surgical repair, currently admitted for worsening dyspnea on exertion and found to be in new onset atrial fibrillation. Mild pulmonary congestion on his chest X-ray. His troponins were initially negative. Problem list: * New onset Atrial fibrillation * Bradycardia needed glucagon * Chronic kidney disease * Type 2 diabetes * CAD * Peripheral vascular disease Plan: * Daily weight measurement * Strict intake output charting * Nephrology on board, apprec recommendations--> 24 hour urines, will defer to Nephro to assess whether needed. * Holding atenolol for bradycardia. * continue heparin drip --> may consider transition to PO anticoagulation, once approved by cardiology.CHADVASC Score: 5 points. * Echocardiogram results attached. * Spoke to who said that patient had a sleep study done here at [place]. Autopap machine was at bedside. Will continue to encourage use. * Accuchecks: last BS: 170. Levemir:10 units BID. Also ameneded Novolog SS to High Dose. Will continue to monitor. Target BS: 140-180 * Continue home meds: aspirin, lisinopril, Plavix, gabapentin, buspirone, Cymbalta DVT prophylaxis-heparin Diet-diabetic CODE STATUS -full code Problem List: 1. New onset a-fib 2. CHF (congestive heart failure) Pain Ratin Pain Location: No Pain Pain Goal: Remain pain free Pain Plan: Acetaminophen PRN Tomorrow's Labs & Rationales: CBC: monitor H/H in the setting of acute illness ICU Bundle: Monitor Electrolytes in the setting acute illness
--- NOTE | 2017-10-10 07:54 | ECHOCARDIOGRAM REPORT ---
AJAY ARREDONDO Age: 72 : 1945 Gender: M Exam Date: 10/09/2017 10:02 Exam Location: [facility] Ht (in): 71 Wt (lb): 302 BSA: 2.68 BP: 121 / 77 Ordering Physician: Robert Wells MD Referring Physician: David Ness MD Technologist: Tania Noble [facility] Room Number: 102 Indications: AFIB/FLUTTER Rhythm: Atrial fibrillation Technical Quality: Fair, Technically difficult study FINDINGS Left Ventricle Normal size left ventricle. No obvious regional wall motion abnormalities. Normal left ventricular ejection fraction estimated at 55-60%. Right Ventricle Right ventricle not well visualized, grossly normal. Right Atrium Normal right atrial size. Left Atrium Mild to moderate left atrial dilatation. Mitral Valve Mitral valve thickened. [id number] mitral regurgitation. Aortic Valve Trileaflet aortic valve. Diffuse thickening (sclerosis) of the aortic valve cusps without reduced excursion. No aortic stenosis. No aortic regurgitation. Tricuspid Valve Tricuspid valve not well visualized, grossly normal. Mild tricuspid regurgitation. Pulmonic Valve Pulmonic valve not well visualized, grossly normal. Pericardium No pericardial effusion. Great Vessels Aortic root and proximal ascending aorta not well visualized, grossly normal. CONCLUSIONS 1. This was a technically difficult study due to the patient's body habitus. 2. Aortic sclerosis is present with no valvular stenosis or insufficiency. Minimal enlargement of the ascending aorta is present 3. Mitral leaflet thickening is present with mild to moderate mitral insufficiency and mild to moderate left atrial enlargement. 4. There is no significant pericardial fluid detected 5. The left ventricular chamber size is normal with mild to moderate concentric hypertrophy and a normal ejection fraction. There are no visible resting wall motion abnormalities. Additional images were obtained following the administration of IV contrast. 6. Right heart structures were not optimally visualized. Mild tricuspid insufficiency is present. The right ventricular systolic pressure was not accurately assessed. David Ness M.D. (Electronically Signed) Final Date: 10 October 2017 07:53 MEASUREMENTS (Male / Female) Normal Values 2D ECHO LV Diastolic Diameter PLAX 3.8 cm 4.2 - 5.9 / 3.9 - 5.3 cm LV Systolic Diameter PLAX 2.1 cm 2.1 - 4.0 cm LV Fractional Shortening PLAX 44.7 % 25 - 46 % LV Ejection Fraction 2D Teich 76.7 % IVS Diastolic Thickness 1.5 cm LVPW Diastolic Thickness 1.5 cm LV Relative Wall Thickness 0.8 RV Internal Dim ED PLAX 2.8 cm 1.9 - 3.8 cm LVOT Diameter 2.1 cm Aortic Root Diameter 2.9 cm LA Systolic Diameter LX 4.6 cm 3.0 - 4.0 / 2.7 - 3.8 cm LA Volume 50.0 cm 18 - 58 / 22 - 52 cm Ascending Aorta Diameter 3.9 cm DOPPLER AV Peak Velocity 113.0 cm/s AV Peak Gradient 5.1 mmHg AV Mean Velocity 73.9 cm/s AV Mean Gradient 3.0 mmHg AV Velocity Time Integral 25.5 cm LVOT Peak Velocity 74.4 cm/s LVOT Peak Gradient 2.2 mmHg LVOT Mean Velocity 47.8 cm/s LVOT Mean Gradient 1.0 mmHg LVOT Velocity Time Integral 18.5 cm LVOT Stroke Volume 64.1 cm AV Area Cont Eq vti 2.5 cm AV Area Cont Eq pk 2.3 cm MV Peak Velocity 143.0 cm/s MV Peak Gradient 8.2 mmHg MV Mean Velocity 58.2 cm/s MV Mean Gradient 2.0 mmHg Mitral E Point Velocity 118.0 cm/s MV PHT Velocity 149.0 cm/s MV Deceleration Travis 514.0 cm/s MV Pressure Half Time 87.0 ms MV Area PHT 2.5 cm MV Deceleration Time 246.0 ms PV Peak Velocity 88.2 cm/s PV Peak Gradient 3.1 mmHg PV Mean Velocity 54.4 cm/s PV Mean Gradient 1.0 mmHg PV Velocity Time Integral 21.6 cm LV E' Lateral Velocity 9.5 cm/s Mitral E to LV E' Lateral Ratio 12.5 LV E' Septal Velocity 7.5 cm/s Mitral E to LV E' Septal Ratio 15.7
[2017-10-10 08:00] VITALS: BP 160/78
[2017-10-10 08:06] LABS: ABSOLUTE BASOPHIL COUNT 0 /CUMM (0.0-0.2); ABSOLUTE EOSINOPHIL COUNT 0.2 /CUMM (0.0-0.7); ABSOLUTE GRANULOCYTE CT 4.9 /CUMM (1.4-6.5); ABSOLUTE LYMPH COUNT 1.2 /CUMM (1.2-3.4); ABSOLUTE MONOCYTE COUNT 0.7 /CUMM (0.10-0.60); BASOPHIL % 0.5 % (0.0-2.0); EOSINOPHIL % 2.9 % (0-5); HEMATOCRIT 35.7 % (42-52); MEAN CORPUSCULAR HGB 29.9 PG (27.0-31.0); MEAN CORPUSCULAR HGB CONC 33.9 G/DL (33.0-37.0); MEAN CORPUSCULAR VOLUME 88.4 FL (80.0-94.0); RBC DISTRIBUTION WIDTH 14.5 % (11.5-14.5); RED BLOOD CELL CT 4.04 /CUMM (4.70-6.10)
[2017-10-10 08:22] LABS: PTT 45 SEC (25-37)
[2017-10-10 09:09] LABS: GRANULOCYTE % 69.2 % (42.2-75.2)
--- NOTE | 2017-10-10 10:33 | PN- Nephrology ---
Assessment/Plan Assessment: 1. Edema. Suspect due to diabetic nephropathy. It may be helpful to obtain the 24-hour urine for total protein and total creatinine and creatinine clearance. If it seems that does not have 10 g per day, it may be helpful to obtain a urine protein electrophoresis on that same specimen. 2. Chronic kidney disease due to diabetic nephropathy 3. Diabetes mellitus Suggestion: 1. 24-hour urine for total protein and total creatinine and creatinine clearance obtain a urine protein left phoresis 2. He instructed with regards to a low-sodium diet. This needs to be a 2 g sodium diet. Apparently, the patient's was not adding any salt however the food selection seem to be a matter of more salt someone to have. Subjective Subjective: Issue and feels better. Reports that is voided quite a bit and that his weight is quite down. He also mentions that Dr. Portillo had performed some studies with regards to the degree of proteinuria recently. I cannot find those results. The ones in the computer here in the hospital date back to 2013. He is down from roughly 305 pounds down to 297. One weight was 3 07/05/2015. Objective Vital Signs and I&Os Vital Signs Date Time Temp Pulse Resp B/P B/P Pulse O2 O2 Flow FiO2 Mean Ox Delivery Rate 10/10 1123 75 124/76 10/10 1016 78 148/82 10/10 0800 Room Air 10/10 0800 98.1 75 20 160/78 95 Room Air 10/10 0520 75 95 10/10 0331 52 10/10 0128 72 96 10/10 0000 92 CPAP Room Air 10/09 2310 56 95 10/09 2300 96.8 48 14 140/68 92 CPAP Room Air 10/09 1759 Room Air 10/09 1600 97.0 72 22 150/80 97 Room Air 10/09 1519 66 170/70 10/09 1318 65 170/76 Intake & Output 10/10 1600 10/10 0400 10/09 1600 10/09 0400 10/08 1600 10/08 0400 Intake Total 275 477 648 628 Output Total 500 2099 2049 700 1200 1800 Balance -225 -1623 -1402 -72 -1200 -1800 Intake, IV 275 237 168 148 Intake, Oral 240 480 480 Number 1 0 Bowel Movements Output, Urine 500 2099 2049 700 1200 1800 Patient 297 lb 305 lb 313 lb 302 lb Weight Weight Bed scale Bed scale Standing Scale Reported by Patient Measurement Method Physical Exam General Appearance: well developed/nourished, no apparent distress, alert, awake , obese Head: atraumatic, normal appearance Ears, Nose, Throat: normal pharynx, hearing grossly normal Respiratory: chest non-tender, no respiratory distress, crackles Cardiovascular: edema Abdomen: normal bowel sounds, soft, non-tender, no organomegaly Back: normal inspection, ppitting sacral edema Current Medications: Current Medications Sig/Berhane Start time Last Medication Dose Route Stop Time Status Admin Acetaminophen 650 MG Q6P PRN 10/07 2045 AC PO Aspirin 325 MG DAILY 10/08 1850 AC 10/10 PO 1017 Atenolol 25 MG DAILY 10/08 1854 DC PO Atorvastatin Calcium 10 MG 1700 10/08 1700 AC 10/09 PO 1559 Buspirone HCl 7.5 MG BID 10/07 2200 AC 10/10 PO 1017 Clopidogrel Bisulfate 75 MG AT BEDTIME 10/09 2200 AC 10/09 PO 2130 Clopidogrel Bisulfate 75 MG DAILY 10/08 1000 DC 10/08 PO 0945 Docusate Sodium 100 MG DAILY NEEDED PRN 10/09 1545 AC 10/09 PO 1713 Duloxetine HCl 60 MG AT BEDTIME 10/09 2200 AC 10/09 PO 2130 Duloxetine HCl 60 MG DAILY 10/08 1000 DC 10/08 PO 0945 Furosemide 20 MG 7:30 AM, & 4:30 PM 10/09 1300 AC 10/10 IV 0822 Furosemide 40 MG 7:30 AM, & 4:30 PM 10/09 0730 DC IV Gabapentin 1,200 MG BID 10/07 2200 AC 10/10 PO 1016 Heparin Sodium 5,400 UNIT ONCE ONE 10/10 0915 DC 10/10 (Porcine) IV 10/10 0916 0913 Heparin Sodium 5,000 UNIT .STK-MED ONE 10/09 1250 DC (Porcine) IV 10/09 1251 Heparin Sodium 5,000 UNIT ONCE ONE 10/09 1235 DC 10/09 (Porcine) IV 10/09 1236 1257 Heparin Sodium 25,000 UNIT Q24H 10/08 1900 AC 10/10 (Porcine) IV 0913 Sodium Chloride 500 ML Insulin Aspart 0 TIDAC 10/08 0800 AC 10/10 SC 0822 Insulin Detemir 20 UNITS QAM 10/09 1000 DC SC Lisinopril 5 MG DAILY 10/10 1000 AC 10/10 PO 1016 Lisinopril 2.5 MG ONCE ONE 10/09 1245 DC 10/09 PO 10/09 1246 1519 Lisinopril 2.5 MG DAILY 10/08 1000 DC 10/09 PO 1150 Nitroglycerin 1 GM Q6 10/08 1850 AC 10/10 TOP 0635 Tamsulosin HCl 0.8 MG DAILY 10/09 1000 AC 10/10 PO 1017 Results Pertinent Lab Results: Laboratory Tests 10/10 10/09 10/09 0637 1854 1200 Blood Gas pH Cancelled pCO2 Cancelled pO2 Cancelled HCO3 Cancelled ABG O2 Sat (Measured) Cancelled P-50 (Temp Corrected) Cancelled Carboxyhemoglobin Cancelled O2 Concentration % Cancelled Temperature Cancelled O2 Delivery Method Cancelled Chemistry Sodium (137 - 145 mmol/L) 141 Potassium (3.5 - 5.1 mmol/L) 4.9 Chloride (98 - 107 mmol/L) 105 Carbon Dioxide (22 - 30 mmol/L) 23 Anion Gap (5 - 16) 13 BUN (9 - 20 mg/dL) 36 H Creatinine (0.7 - 1.2 mg/dL) 2.1 H Estimated GFR (>60 ml/min) 31 L BUN/Creatinine Ratio (7 - 25 %) 17.1 Magnesium (1.6 - 2.3 mg/dL) 2.0 Coagulation APTT (25 - 37 SEC) 45 H 90 H Hematology CBC w Diff NO MAN DIFF REQ WBC (4.8 - 10.8 /CUMM) 7.0 RBC (4.70 - 6.10 /CUMM) 4.04 L Hgb (14.0 - 18.0 G/DL) 12.1 L Hct (42 - 52 %) 35.7 L MCV (80.0 - 94.0 FL) 88.4 MCH (27.0 - 31.0 PG) 29.9 RDW (11.5 - 14.5 %) 14.5 Plt Count (/CUMM) Gran % (42.2 - 75.2 %) 69.2 Lymphocytes % (20.5 - 51.1 %) 17.5 L Monocytes % (1.7 - 9.3 %) 9.9 H Eosinophils % (0 - 5 %) 2.9 Basophils % (0.0 - 2.0 %) 0.5 Absolute Granulocytes (1.4 - 6.5 /CUMM) 4.9 Absolute Lymphocytes (1.2 - 3.4 /CUMM) 1.2 Absolute Monocytes (0.10 - 0.60 /CUMM) 0.7 H Absolute Eosinophils (0.0 - 0.7 /CUMM) 0.2 Absolute Basophils (0.0 - 0.2 /CUMM) 0 PUBS MCHC (33.0 - 37.0 G/DL) 33.9 Miscellaneous Phlebotomy Draw Site Cancelled 10/09 10/09 10/09 5881 0422 0251 Chemistry Sodium (137 - 145 mmol/L) 142 Potassium (3.5 - 5.1 mmol/L) 4.4 Chloride (98 - 107 mmol/L) 108 H Carbon Dioxide (22 - 30 mmol/L) 24 Anion Gap (5 - 16) 10 BUN (9 - 20 mg/dL) 40 H Creatinine (0.7 - 1.2 mg/dL) 2.0 H Estimated GFR (>60 ml/min) 33 L BUN/Creatinine Ratio (7 - 25 %) 20.0 Coagulation APTT (25 - 37 SEC) 43 H > 120 *H Hematology CBC w Diff NO MAN DIFF REQ WBC (4.8 - 10.8 /CUMM) 6.1 RBC (4.70 - 6.10 /CUMM) 3.85 L Hgb (14.0 - 18.0 G/DL) 11.3 L Hct (42 - 52 %) 34.1 L MCV (80.0 - 94.0 FL) 88.7 MCH (27.0 - 31.0 PG) 29.4 RDW (11.5 - 14.5 %) 14.8 H Plt Count (130 - 400 /CUMM) 187 MPV (7.4 - 10.4 FL) 8.2 Gran % (42.2 - 75.2 %) 61.7 Lymphocytes % (20.5 - 51.1 %) 21.9 Monocytes % (1.7 - 9.3 %) 12.3 H Eosinophils % (0 - 5 %) 3.5 Basophils % (0.0 - 2.0 %) 0.6 Absolute Granulocytes (1.4 - 6.5 /CUMM) 3.8 Absolute Lymphocytes (1.2 - 3.4 /CUMM) 1.3 Absolute Monocytes (0.10 - 0.60 /CUMM) 0.7 H Absolute Eosinophils (0.0 - 0.7 /CUMM) 0.2 Absolute Basophils (0.0 - 0.2 /CUMM) 0 PUBS MCHC (33.0 - 37.0 G/DL) 33.1 10/09 10/08 10/08 10/08 0000 2006 2006 1999 Blood Gas pH (7.35 - 7.45 PH) 7.37 pCO2 (35 - 45 TORR) 41 pO2 (80 - 100 TORR) 77 L HCO3 (21 - 28 MEQ/L) 23 ABG O2 Sat (Measured) (>96.0 %) 93.0 L Carboxyhemoglobin (1.5 - 5.0 %) 0.4 L O2 Concentration % RA Temperature (97.0 - 100.0 FARH) 98.6 Coagulation APTT (25 - 37 SEC) 41 H D-Dimer High Sensitivty (0 - 243 ng/ml) 280 H Miscellaneous Phlebotomy Draw Site RIGHT RADIAL Urines Ur Random Creatinine (mg/dL) 30.5 Urine Total Volume (600 - 1500 ML/24HR) 5575 H Urine Creatinine (1.0 - 2.0 g/24HR) 1.7 10/08 10/08 10/08 10/08 1313 1006 0556 0312 Chemistry Sodium (137 - 145 mmol/L) 140 Potassium (3.5 - 5.1 mmol/L) 4.5 Chloride (98 - 107 mmol/L) 107 Carbon Dioxide (22 - 30 mmol/L) 22 Anion Gap (5 - 16) 11 BUN (9 - 20 mg/dL) 46 H Creatinine (0.7 - 1.2 mg/dL) 2.1 H Estimated GFR (>60 ml/min) 31 L BUN/Creatinine Ratio (7 - 25 %) 21.9 Troponin I (<0.11 ng/ml) 0.02 Coagulation APTT (25 - 37 SEC) 59 H > 120 *H 40 H Hematology CBC w Diff NO MAN DIFF REQ WBC (4.8 - 10.8 /CUMM) 7.5 RBC (4.70 - 6.10 /CUMM) 3.86 L Hgb (14.0 - 18.0 G/DL) 11.7 L Hct (42 - 52 %) 34.6 L MCV (80.0 - 94.0 FL) 89.5 MCH (27.0 - 31.0 PG) 30.3 RDW (11.5 - 14.5 %) 15.1 H Plt Count (130 - 400 /CUMM) 187 MPV (7.4 - 10.4 FL) 8.7 Gran % (42.2 - 75.2 %) 69.1 Lymphocytes % (20.5 - 51.1 %) 18.6 L Monocytes % (1.7 - 9.3 %) 8.8 Eosinophils % (0 - 5 %) 3.0 Basophils % (0.0 - 2.0 %) 0.5 Absolute Granulocytes (1.4 - 6.5 /CUMM) 5.2 Absolute Lymphocytes (1.2 - 3.4 /CUMM) 1.4 Absolute Monocytes (0.10 - 0.60 /CUMM) 0.7 H Absolute Eosinophils (0.0 - 0.7 /CUMM) 0.2 Absolute Basophils (0.0 - 0.2 /CUMM) 0 PUBS MCHC (33.0 - 37.0 G/DL) 33.8 10/08 10/07 0117 1715 Chemistry Sodium (137 - 145 mmol/L) 138 Potassium (3.5 - 5.1 mmol/L) 4.9 Chloride (98 - 107 mmol/L) 105 Carbon Dioxide (22 - 30 mmol/L) 25 Anion Gap (5 - 16) 7 BUN (9 - 20 mg/dL) 45 H Creatinine (0.7 - 1.2 mg/dL) 2.1 H Estimated GFR (>60 ml/min) 31 L BUN/Creatinine Ratio (7 - 25 %) 21.4 Glucose (65 - 99 mg/dL) 217 H Calcium (8.4 - 10.2 mg/dL) 8.5 Magnesium (1.6 - 2.3 mg/dL) 2.1 Total Bilirubin (0.2 - 1.3 mg/dL) 0.2 AST (17 - 59 U/L) 14 L ALT (21 - 72 U/L) 33 Alkaline Phosphatase (< 127 U/L) 55 Troponin I (<0.11 ng/ml) 0.02 0.02 Pyd-O-Forggsjyvzg Pept (<125 pg/mL) 5380 H Total Protein (6.3 - 8.2 g/dL) 6.4 Albumin (3.5 - 5.0 g/dL) 3.2 L Globulin (1.9 - 4.2 gm/dL) 3.2 Albumin/Globulin Ratio (1.1 - 2.2 %) 1.0 L TSH (0.270 - 4.200 uIU/mL) 4.400 H Free T4 (0.78 - 2.44 ng/dL) 0.82 Coagulation PT (9.4 - 12.5 SEC) 12.0 INR (0.90 - 1.17) 1.14 APTT (25 - 37 SEC) 30 Hematology CBC w Diff NO MAN DIFF REQ WBC (4.8 - 10.8 /CUMM) 6.4 RBC (4.70 - 6.10 /CUMM) 3.77 L Hgb (14.0 - 18.0 G/DL) 11.4 L Hct (42 - 52 %) 33.6 L MCV (80.0 - 94.0 FL) 89.1 MCH (27.0 - 31.0 PG) 30.3 RDW (11.5 - 14.5 %) 14.7 H Plt Count (130 - 400 /CUMM) 206 MPV (7.4 - 10.4 FL) 8.4 Gran % (42.2 - 75.2 %) 71.1 Lymphocytes % (20.5 - 51.1 %) 16.1 L Monocytes % (1.7 - 9.3 %) 9.5 H Eosinophils % (0 - 5 %) 3.0 Basophils % (0.0 - 2.0 %) 0.3 Absolute Granulocytes (1.4 - 6.5 /CUMM) 4.6 Absolute Lymphocytes (1.2 - 3.4 /CUMM) 1.0 L Absolute Monocytes (0.10 - 0.60 /CUMM) 0.6 Absolute Eosinophils (0.0 - 0.7 /CUMM) 0.2 Absolute Basophils (0.0 - 0.2 /CUMM) 0 PUBS MCHC (33.0 - 37.0 G/DL) 34.0
[2017-10-10 11:23] VITALS: BP 124/76
[2017-10-10 15:57] LABS: PTT 108 SEC (25-37)
[2017-10-10 16:00] VITALS: BP 130/72
--- NOTE | 2017-10-10 18:41 | PN- Cardiology ---
Subjective Subjective: The patient reports that he is feeling better. No chest pain. Shortness of breath is improving. No palpitations. No diaphoresis. No nausea or vomiting. Objective Vital Signs and I&Os Vital Signs Date Time Temp Pulse Resp B/P B/P Pulse O2 O2 Flow FiO2 Mean Ox Delivery Rate 10/10 1123 75 124/76 10/10 1016 78 148/82 10/10 0800 Room Air 10/10 08 98.1 75 20 160/78 95 Room Air 10/10 0520 75 95 10/10 0331 52 10/10 0128 72 96 10/10 0000 92 CPAP Room Air 10/09 2310 56 95 10/09 2300 96.8 48 14 140/68 92 CPAP Room Air Intake & Output 10/10 1600 10/10 0000 10/09 1600 10/09 0000 Intake Total 1942 275 477 648 628 Output Total 2200 500 2100 2049 200 500 Balance -258 -225 -1623 -1402 -200 128 Intake, IV 342 275 237 168 148 Intake, Oral 1600 240 480 480 Number 1 1 0 Bowel Movements Output, Urine 2200 500 2100 2050 200 500 Patient 297 lb 305 lb Weight Weight Bed scale Bed scale Measurement Method Physical Exam: Gen: The patient is in no acute distress HEENT: Normal nose, ears, and oropharynx. Pupils equal bilaterally. Conjunctiva normal. Neck: Supple with no JVD, no masses, and no thyromegaly Lungs: Clear to auscultation with normal respiratory effort Heart: S1, S2, no murmurs. 2+ peripheral edema, 2+ pulses in the lower extremities bilaterally Abdomen: Soft, nontender, no masses. No hepatomegaly. No splenomegaly Extremities: No clubbing or cyanosis. Normal muscle strength in the upper and lower extremities Skin: Normal skin turgor with no skin ulcers or lesions noted. Current Medications: Current Medications Sig/Berhane Start time Last Medication Dose Route Stop Time Status Admin Acetaminophen 650 MG Q6P PRN 10/07 2044 AC PO Aspirin 325 MG DAILY 10/08 1850 AC 10/10 PO 1017 Atorvastatin Calcium 10 MG 1700 10/08 1700 AC 10/10 PO 1715 Buspirone HCl 7.5 MG BID 10/07 2199 AC 10/10 PO 1017 Clopidogrel Bisulfate 75 MG AT BEDTIME 10/09 2199 AC 10/09 PO 2130 Docusate Sodium 100 MG DAILY NEEDED PRN 10/09 1545 AC 10/09 PO 1713 Duloxetine HCl 60 MG AT BEDTIME 10/09 220 AC 10/09 PO 2130 Furosemide 20 MG 7:30 AM, & 4:30 PM 10/09 1300 AC 10/10 IV 1715 Gabapentin 1,200 MG BID 10/07 2200 AC 10/10 PO 1016 Heparin Sodium 5,400 UNIT ONCE ONE 10/10 0915 DC 10/10 (Porcine) IV 10/10 0916 0913 Heparin Sodium 10,000 UNIT .STK-MED ONE 10/10 0903 DC (Porcine) IV 10/10 0904 Heparin Sodium 25,000 UNIT Q24H 10/08 1900 AC 10/10 (Porcine) IV 1608 Sodium Chloride 500 ML Insulin Aspart 0 TIDAC 10/08 0800 AC 10/10 SC 1716 Lisinopril 5 MG DAILY 10/10 1000 AC 10/10 PO 1016 Nitroglycerin 1 GM Q6 10/08 1850 AC 10/10 TOP 1118 Tamsulosin HCl 0.8 MG DAILY 10/09 1000 AC 10/10 PO 1017 Results Last 48 Hrs of Labs/Mics: Laboratory Tests 10/10/17 1500: APTT 108 *H 10/10/17 1304: Ur Creatinine 24 Hour Pending, Ur Total Protein 24 Hr Pending, Protein/Creat Ratio 24h Pending, U Protein Electrophores Pending, Urine Albumin (%) Pending, U Jfxme-2-Jtwwjxus Pending, U Kirqf-2-Ilenxkwo Pending, U Beta Globulin Pending, U Gamma Globulin Pending, U Abnormal Prot Band 1 Pending, U Abnormal Prot Band 2 Pending, U Abnormal Prot Band 3 Pending 10/10/17 0637: Anion Gap 13, Estimated GFR 31 L, BUN/Creatinine Ratio 17.1, Magnesium 2.0, APTT 45 H, CBC w Diff NO MAN DIFF REQ, RBC 4.04 L, MCV 88.4, MCH 29.9, RDW 14.5, Gran % 69.2, Lymphocytes % 17.5 L, Monocytes % 9.9 H, Eosinophils % 2.9, Basophils % 0.5, Absolute Granulocytes 4.9, Absolute Lymphocytes 1.2, Absolute Monocytes 0.7 H, Absolute Eosinophils 0.2, Absolute Basophils 0, PUBS MCHC 33.9 10/09/17 1854: APTT 90 H 10/09/17 1200: pH Cancelled, pCO2 Cancelled, pO2 Cancelled, HCO3 Cancelled, ABG O2 Sat ( Measured) Cancelled, P-50 (Temp Corrected) Cancelled, Carboxyhemoglobin Cancelled, O2 Concentration % Cancelled, Temperature Cancelled, O2 Delivery Method Cancelled, Phlebotomy Draw Site Cancelled 10/09/17 1115: APTT 43 H 10/09/17 0547: Anion Gap 10, Estimated GFR 33 L, BUN/Creatinine Ratio 20.0, CBC w Diff NO MAN DIFF REQ, RBC 3.85 L, MCV 88.7, MCH 29.4, RDW 14.8 H, MPV 8.2, Gran % 61.7, Lymphocytes % 21.9, Monocytes % 12.3 H, Eosinophils % 3.5, Basophils % 0.6, Absolute Granulocytes 3.8, Absolute Lymphocytes 1.3, Absolute Monocytes 0.7 H, Absolute Eosinophils 0.2, Absolute Basophils 0, [facility] 33.1 10/09/17 0258: APTT > 120 *H 10/09/17 0000: pH 7.37, pCO2 41, pO2 77 L, HCO3 23, ABG O2 Sat (Measured) 93.0 L, Carboxyhemoglobin 0.4 L, O2 Concentration % RA, Temperature 98.6, Phlebotomy Draw Site RIGHT RADIAL 10/08/172006: D-Dimer High Sensitivty 280 H 10/08/172006: APTT 41 H 10/08/17 2000: Ur Random Creatinine 30.5, Urine Total Volume 5575 H, Urine Creatinine 1.7 Recent Imaging Studies: Bilateral lower extremity Doppler study: Normal triplex scan without evidence of deep venous thrombosis involving the lower extremities. Echocardiogram October 10, 2017: 1. This was a technically difficult study due to the patient's body habitus. 2. Aortic sclerosis is present with no valvular stenosis or insufficiency. Minimal enlargement of the ascending aorta is present 3. Mitral leaflet thickening is present with mild to moderate mitral insufficiency and mild to moderate left atrial enlargement. 4. There is no significant pericardial fluid detected 5. The left ventricular chamber size is normal with mild to moderate concentric hypertrophy and a normal ejection fraction. There are no visible resting wall motion abnormalities. Additional images were obtained following the administration of IV contrast. 6. Right heart structures were not optimally visualized. Mild tricuspid insufficiency is present. The right ventricular systolic pressure was not accurately assessed. Assessment/Plan Assessment/Plan Assessment: 1. New onset atrial fibrillation 2. Acute on chronic kidney disease 3. Diabetes mellitus 4. Peripheral arterial disease 5. History of coronary artery disease 6. Acute heart failure with preserved ejection fraction plan: * Continue IV Lasix * Monitor input and output with daily weights * Continue IV heparin * Continue other cardiac medications Continue telemetry? Yes
[2017-10-10 23:03] LABS: PTT 48 SEC (25-37)
[2017-10-11] VITALS: BP 130/80
[2017-10-11 06:55] LABS: ABSOLUTE BASOPHIL COUNT 0 /CUMM (0.0-0.2); ABSOLUTE EOSINOPHIL COUNT 0.2 /CUMM (0.0-0.7); ABSOLUTE GRANULOCYTE CT 3.4 /CUMM (1.4-6.5); ABSOLUTE LYMPH COUNT 1.3 /CUMM (1.2-3.4); ABSOLUTE MONOCYTE COUNT 0.8 /CUMM (0.10-0.60); BASOPHIL % 0.4 % (0.0-2.0); EOSINOPHIL % 3.9 % (0-5); GRANULOCYTE % 59.2 % (42.2-75.2); HEMATOCRIT 32.6 % (42-52); MEAN CORPUSCULAR HGB 29.4 PG (27.0-31.0); MEAN CORPUSCULAR HGB CONC 32.9 G/DL (33.0-37.0); MEAN CORPUSCULAR VOLUME 89.4 FL (80.0-94.0); MEAN PLATELET VOLUME 8.1 FL (7.4-10.4); PLATELET COUNT 165 /CUMM (130-400); RBC DISTRIBUTION WIDTH 14.8 % (11.5-14.5); RED BLOOD CELL CT 3.65 /CUMM (4.70-6.10); WHITE BLOOD CELL COUNT 5.8 /CUMM (4.8-10.8)
[2017-10-11 07:03] LABS: PTT 51 SEC (25-37)
--- NOTE | 2017-10-11 07:13 | PN- Housestaff ---
See Addendum Subjective Follow-up For: New Onset A Fib Subjective: Mr Brianna was seen and examined this morning. He is resting comfortably on the chair beside his bed. Patient states that he feels remarkably better. States he's had no issues overnight. Was able to get some rest. Patient also reports that he feels that his lower extremity edema has improved. He denies and chest pain or dyspnea. Denies any fever, chills, nausea or vomiting. He tolerating by mouth intake well. Review of Systems Constitutional: Reports: see HPI. Objective Last 24 Hrs of Vital Signs/I&O Vital Signs Date Time Temp Pulse Resp B/P B/P Pulse O2 O2 Flow FiO2 Mean Ox Delivery Rate 10/11 0300 68 10/11 0103 75 95 10/11 0000 95 Room Air 2.0L 10/11 0000 96.4 64 20 130/80 95 Nasal 2.0L Cannula 10/10 2255 94 96 10/10 1600 94 Room Air 10/10 1600 97.5 74 18 130/72 94 Room Air 10/10 1123 75 124/76 10/10 1016 78 148/82 Intake & Output 10/11 1600 10/11 0800 10/11 0000 Intake Total 650 1094 Output Total 800 1225 Balance -150 -131 Intake, IV 450 194 Intake, Oral 200 900 Output, Urine 800 1225 Patient 132.903 kg Weight Physical Exam General Appearance: Alert, Oriented X3, Cooperative Cardiovascular: Regular Rate, Normal S1, Normal S2 Lungs: Clear to Auscultation Abdomen: Normal Bowel Sounds, Soft, No Tenderness, Distended Neurological: Normal Gait, Normal Speech Extremities: Edema 3+ R>L Vascular: Normal Pulses Assessment/Plan Assessment: 72-year-old gentleman with a PMH significant for HTN, CKD III, PVD status post bypass and stent placement, questionable JOANIE, DJD, cervical disc herniation status post surgical repair, currently admitted for worsening dyspnea on exertion and found to be in new onset atrial fibrillation. Mild pulmonary congestion on his chest X-ray. His troponins were initially negative. Problem list: * New onset Atrial fibrillation, now in sinus rhythm * Bradycardia needed glucagon * Chronic kidney disease * Type 2 diabetes * CAD * Peripheral vascular disease Plan: * Daily weight measurement * Strict intake output charting * Will convert the patient to Lasix PO, 20 BID. To be transitioned to Lasix 20 daily at the time of discharge. * Nephrology on board, apprec recommendations--> 24 hour urines. * Holding atenolol for bradycardia, will christy be disconitnued at the time of discharge. * continue heparin drip --> may consider transition to PO anticoagulation, once approved by cardiology.CHADVASC Score: 5 points. * Echocardiogram performed, No WMA. * Spoke to who said that patient had a sleep study done here at [facility]. Autopap machine was at bedside. Will continue to encourage use. * Accuchecks: FS,142,180 Levemir:10 units BID. Also ameneded Novolog SS to High Dose. Will continue to monitor. Target BS: 140-180, * Continue home meds: aspirin, lisinopril, Plavix, gabapentin, buspirone, Cymbalta DVT prophylaxis-heparin Diet-diabetic CODE STATUS -full code Problem List: 1. New onset a-fib 2. CHF (congestive heart failure) Pain Ratin Pain Location: No Pain Endorsed Pain Goal: Remain pain free Pain Plan: Acetaminophen Tomorrow's Labs & Rationales: No Labs - Patient christy be discharged in AM
[2017-10-11 08:00] VITALS: BP 132/82
--- NOTE | 2017-10-11 10:31 | PN- Cardiology ---
Subjective Subjective: Feeling better. Shortness of breath is slightly improved. No chest pain. No palpitations. No diaphoresis. No nausea or vomiting. The patient is now in sinus rhythm on telemetry. Objective Vital Signs and I&Os Vital Signs Date Time Temp Pulse Resp B/P B/P Pulse O2 O2 Flow FiO2 Mean Ox Delivery Rate 10/11 955 77 140/82 10/11 0800 94 Room Air 10/11 799 97.6 72 20 132/82 95 Room Air 10/11 0300 68 10/11 0103 75 95 10/11 0000 95 Room Air 2.0L 10/11 0000 96.4 64 20 130/80 95 Nasal 2.0L Cannula 10/10 2255 94 96 10/10 1600 94 Room Air 10/10 1600 97.5 74 18 130/72 94 Room Air 10/10 1123 75 124/76 Intake & Output 10/11 1600 10/11 0800 10/11 0000 10/10 1600 10/10 0810/10 0000 Intake Total 650 1094 1942 275 477 Output Total 800 1225 2200 500 2100 Balance -150 -131 -258 -225 -1623 Intake, IV 450 194 342 275 237 Intake, Oral 640 722 4092 240 Number 1 1 0 Bowel Movements Output, Urine 800 1225 2200 500 2100 Patient 293 lb 297 lb Weight Weight Bed scale Measurement Method Physical Exam: Gen: The patient is in no acute distress HEENT: Normal nose, ears, and oropharynx. Pupils equal bilaterally. Conjunctiva normal. Neck: Supple with no JVD, no masses, and no thyromegaly Lungs: Clear to auscultation with normal respiratory effort Heart: S1, S2, no murmurs. 2+ peripheral edema, 2+ pulses in the lower extremities bilaterally Abdomen: Soft, nontender, no masses. No hepatomegaly. No splenomegaly Extremities: No clubbing or cyanosis. Normal muscle strength in the upper and lower extremities Skin: Normal skin turgor with no skin ulcers or lesions noted. Current Medications: Current Medications Sig/Berhane Start time Last Medication Dose Route Stop Time Status Admin Acetaminophen 650 MG Q6P PRN 10/07 204 AC PO Apixaban 5 MG BID 10/11 1030 UNVr PO Aspirin 325 MG DAILY 10/08 1850 AC 10/11 PO 0956 Atorvastatin Calcium 10 MG 1700 10/08 1700 AC 10/10 PO 1715 Buspirone HCl 7.5 MG BID 10/07 2200 AC 10/11 PO 0956 Clopidogrel Bisulfate 75 MG AT BEDTIME 10/09 2200 AC 10/10 PO 2154 Docusate Sodium 100 MG DAILY NEEDED PRN 10/09 1545 AC 10/09 PO 1713 Duloxetine HCl 60 MG AT BEDTIME 10/09 2200 AC 10/10 PO 2154 Furosemide 20 MG 7:30 AM, & 4:30 PM 10/11 1630 AC PO Furosemide 20 MG 7:30 AM, & 4:30 PM 10/09 1300 DC 10/11 IV 0812 Gabapentin 1,200 MG BID 10/07 2200 AC 10/11 PO 0956 Heparin Sodium 5,400 UNIT ONCE ONE 10/11 0845 DC 10/11 (Porcine) IV 10/11 0846 0838 Heparin Sodium 5,000 UNIT .STK-MED ONE 10/10 2335 DC (Porcine) IV 10/10 2336 Heparin Sodium 25,000 UNIT Q24H 10/08 1900 AC 10/11 (Porcine) IV 0834 Sodium Chloride 500 ML Insulin Aspart 0 TIDAC 10/08 0800 AC 10/11 SC 0812 Lisinopril 5 MG DAILY 10/10 1000 AC 10/11 PO 0956 Nitroglycerin 1 GM Q6 10/08 1850 AC 10/11 TOP 0524 Tamsulosin HCl 0.8 MG DAILY 10/09 1000 AC 10/11 PO 0956 Results Last 48 Hrs of Labs/Mics: Laboratory Tests 10/11/17 0600: Anion Gap 12, Estimated GFR 35 L, Glucose 151 H, Calcium 8.8, Phosphorus 4.2, Magnesium 2.0, Total Bilirubin 0.5, AST 19, ALT 35, Albumin 3.3 L, APTT 51 H, CBC w Diff NO MAN DIFF REQ, RBC 3.65 L, MCV 89.4, MCH 29.4, RDW 14.8 H, MPV 8.1, Gran % 59.2, Lymphocytes % 22.6, Monocytes % 13.9 H, Eosinophils % 3.9, Basophils % 0.4, Absolute Granulocytes 3.4, Absolute Lymphocytes 1.3, Absolute Monocytes 0.8 H, Absolute Eosinophils 0.2, Absolute Basophils 0, PUBS MCHC 32.9 L 10/10/17 2225: APTT 48 H 10/10/17 1500: APTT 108 *H 10/10/17 1304: Ur Creatinine 24 Hour Pending, Ur Total Protein 24 Hr Pending, Protein/Creat Ratio 24h Pending, U Protein Electrophores Pending, Urine Albumin (%) Pending, U [id number] Pending, U Fimve-[id number] Pending, U Beta Globulin Pending, U Gamma Globulin Pending, U Abnormal Prot Band 1 Pending, U Abnormal Prot Band 2 Pending, U Abnormal Prot Band 3 Pending 10/10/17 0637: Anion Gap 13, Estimated GFR 31 L, BUN/Creatinine Ratio 17.1, Magnesium 2.0, APTT 45 H, CBC w Diff NO MAN DIFF REQ, RBC 4.04 L, MCV 88.4, MCH 29.9, RDW 14.5, Gran % 69.2, Lymphocytes % 17.5 L, Monocytes % 9.9 H, Eosinophils % 2.9, Basophils % 0.5, Absolute Granulocytes 4.9, Absolute Lymphocytes 1.2, Absolute Monocytes 0.7 H, Absolute Eosinophils 0.2, Absolute Basophils 0, PUBS MCHC 33.9 10/09/17 1854: APTT 90 H 10/09/17 1200: pH Cancelled, pCO2 Cancelled, pO2 Cancelled, HCO3 Cancelled, ABG O2 Sat ( Measured) Cancelled, P-50 (Temp Corrected) Cancelled, Carboxyhemoglobin Cancelled, O2 Concentration % Cancelled, Temperature Cancelled, O2 Delivery Method Cancelled, Phlebotomy Draw Site Cancelled 10/09/17 1115: APTT 43 H Assessment/Plan Assessment/Plan Assessment: 1. New onset atrial fibrillation, converted to sinus rhythm 2. Acute on chronic kidney disease, improved 3. Diabetes mellitus 4. Peripheral arterial disease 5. History of coronary artery disease 6. Acute heart failure with preserved ejection fraction (HFpEF) Plan: * Change Lasix to 20 mg by mouth twice a day while in the hospital, and 20 mg daily after discharge * Start Eliquis 5 mg by mouth twice a day * Discontinue IV heparin when first dose of Eliquis is given * Continue other cardiac medications. * Likely ready for discharge either later today or tomorrow * Follow up with Dr. Ness in one week after discharge Continue telemetry? Yes
--- NOTE | 2017-10-11 11:44 | PN- Nephrology ---
Assessment/Plan Assessment: 1. Edema. Suspect due to diabetic nephropathy. The 24-hour urine for total protein and total creatinine and creatinine clearance are still pending. If it seems that does not have 10 g per day, it may be helpful to obtain a urine protein electrophoresis on that same specimen. 2. Chronic kidney disease due to diabetic nephropathy 3. Diabetes mellitus Suggestion: 1. Await 24-hour urine for total protein and total creatinine and creatinine clearance along with a urine protein electrophoresis 2. Today we discussed not only sodium restriction and also caloric restriction. Discussed the fact with the patient that weight loss would be a good idea. In addition, he mentioned that he does have an exercise cycle. I suggested to him that 70% of weight loss is caloric restriction not exercise. For this reason, a consult with dietitian would be in order Subjective Subjective: Patient feels well. He is pleased with the amount of weight he has lost Objective Vital Signs and I&Os Vital Signs Date Time Temp Pulse Resp B/P B/P Pulse O2 O2 Flow FiO2 Mean Ox Delivery Rate 10/11 0956 77 140/82 10/11 0800 94 Room Air 10/11 0800 97.6 72 20 132/82 95 Room Air 10/11 0300 68 10/11 0103 75 95 10/11 0000 95 Room Air 2.0L 10/11 0000 96.4 64 20 130/80 95 Nasal 2.0L Cannula 10/10 2255 94 96 10/10 1600 94 Room Air 10/10 1600 97.5 74 18 130/72 94 Room Air Intake & Output 10/11 1600 10/11 0400 10/10 1600 10/10 0400 10/09 1600 10/09 0400 Intake Total 650 1094 2217 477 648 628 Output Total 800 1225 2700 2099 2049 700 Balance -150 -131 -483 -1623 -1402 -72 Intake, IV 450 194 617 237 168 148 Intake, Oral 653 648 2373 240 480 480 Number 2 0 Bowel Movements Output, Urine 800 1225 2700 2099 2049 700 Patient 293 lb 297 lb 305 lb Weight Weight Bed scale Bed scale Measurement Method Physical Exam: General Appearance: well developed/nourished, no apparent distress, alert, awake , obese, sitting up in a chair Head: atraumatic, normal appearance Ears, Nose, Throat: normal pharynx, hearing grossly normal Respiratory: chest non-tender, no respiratory distress, crackles Cardiovascular: edema Abdomen: normal bowel sounds, soft, non-tender, no organomegaly Back: normal inspection, ppitting sacral edema Current Medications: Current Medications Sig/Berhane Start time Last Medication Dose Route Stop Time Status Admin Acetaminophen 650 MG Q6P PRN 10/07 2045 AC PO Apixaban 5 MG BID 10/11 1030 AC 10/11 PO 1124 Aspirin 325 MG DAILY 10/08 1850 AC 10/11 PO 0956 Atorvastatin Calcium 10 MG 1700 10/08 1700 AC 10/10 PO 1715 Buspirone HCl 7.5 MG BID 10/07 2200 AC 10/11 PO 0956 Clopidogrel Bisulfate 75 MG AT BEDTIME 10/09 2200 AC 10/10 PO 2154 Docusate Sodium 100 MG DAILY NEEDED PRN 10/09 1545 AC 10/09 PO 1713 Duloxetine HCl 60 MG AT BEDTIME 10/09 2200 AC 10/10 PO 2154 Furosemide 20 MG 7:30 AM, & 4:30 PM 10/11 1630 AC PO Furosemide 20 MG 7:30 AM, & 4:30 PM 10/09 1300 DC 10/11 IV 0812 Gabapentin 1,200 MG BID 10/07 2200 AC 10/11 PO 0956 Heparin Sodium 5,400 UNIT ONCE ONE 10/11 0845 DC 10/11 (Porcine) IV 10/11 0846 0838 Heparin Sodium 5,000 UNIT .STK-MED ONE 10/10 2335 DC (Porcine) IV 10/10 2336 Heparin Sodium 25,000 UNIT Q24H 10/08 1900 DC 10/11 (Porcine) IV 0834 Sodium Chloride 500 ML Insulin Aspart 0 TIDAC 10/08 0800 AC 10/11 SC 0812 Lisinopril 5 MG DAILY 10/10 1000 AC 10/11 PO 0956 Nitroglycerin 1 GM Q6 10/08 1850 AC 10/11 TOP 0524 Tamsulosin HCl 0.8 MG DAILY 10/09 1000 AC 10/11 PO 0956 Results Pertinent Lab Results: Laboratory Tests 10/11 10/10 10/10 10/10 0600 2225 1500 1304 Chemistry Sodium (137 - 145 mmol/L) 141 Potassium (3.5 - 5.1 mmol/L) 4.5 Chloride (98 - 107 mmol/L) 101 Carbon Dioxide (22 - 30 mmol/L) 27 Anion Gap (5 - 16) 12 BUN (9 - 20 mg/dL) 35 H Creatinine (0.7 - 1.2 mg/dL) 1.9 H Estimated GFR (>60 ml/min) 35 L Glucose (65 - 99 mg/dL) 151 H Calcium (8.4 - 10.2 mg/dL) 8.8 Phosphorus (2.5 - 4.5 mg/dL) 4.2 Magnesium (1.6 - 2.3 mg/dL) 2.0 Total Bilirubin (0.2 - 1.3 mg/dL) 0.5 AST (17 - 59 U/L) 19 ALT (21 - 72 U/L) 35 Albumin (3.5 - 5.0 g/dL) 3.3 L Coagulation APTT (25 - 37 SEC) 51 H 48 H 108 *H Hematology CBC w Diff NO MAN DIFF REQ WBC (4.8 - 10.8 /CUMM) 5.8 RBC (4.70 - 6.10 /CUMM) 3.65 L Hgb (14.0 - 18.0 G/DL) 10.7 L Hct (42 - 52 %) 32.6 L MCV (80.0 - 94.0 FL) 89.4 MCH (27.0 - 31.0 PG) 29.4 RDW (11.5 - 14.5 %) 14.8 H Plt Count (130 - 400 /CUMM) 165 MPV (7.4 - 10.4 FL) 8.1 Gran % (42.2 - 75.2 %) 59.2 Lymphocytes % (20.5 - 51.1 %) 22.6 Monocytes % (1.7 - 9.3 %) 13.9 H Eosinophils % (0 - 5 %) 3.9 Basophils % (0.0 - 2.0 %) 0.4 Absolute Granulocytes (1.4 - 6.5 /CUMM) 3.4 Absolute Lymphocytes (1.2 - 3.4 /CUMM) 1.3 Absolute Monocytes (0.10 - 0.60 /CUMM) 0.8 H Absolute Eosinophils (0.0 - 0.7 /CUMM) 0.2 Absolute Basophils (0.0 - 0.2 /CUMM) 0 PUBS MCHC (33.0 - 37.0 G/DL) 32.9 L Urines Ur Creatinine 24 Hour Pending Ur Total Protein 24 Hr Pending Protein/Creat Ratio 24h Pending U Protein Electrophores Pending Urine Albumin (%) Pending U [id number] Pending U Edbws-[id number] Pending U Beta Globulin Pending U Gamma Globulin Pending U Abnormal Prot Band 1 Pending U Abnormal Prot Band 2 Pending U Abnormal Prot Band 3 Pending 10/10 10/09 10/09 0637 1854 1200 Blood Gas pH Cancelled pCO2 Cancelled pO2 Cancelled HCO3 Cancelled ABG O2 Sat (Measured) Cancelled P-50 (Temp Corrected) Cancelled Carboxyhemoglobin Cancelled O2 Concentration % Cancelled Temperature Cancelled O2 Delivery Method Cancelled Chemistry Sodium (137 - 145 mmol/L) 141 Potassium (3.5 - 5.1 mmol/L) 4.9 Chloride (98 - 107 mmol/L) 105 Carbon Dioxide (22 - 30 mmol/L) 23 Anion Gap (5 - 16) 13 BUN (9 - 20 mg/dL) 36 H Creatinine (0.7 - 1.2 mg/dL) 2.1 H Estimated GFR (>60 ml/min) 31 L BUN/Creatinine Ratio (7 - 25 %) 17.1 Magnesium (1.6 - 2.3 mg/dL) 2.0 Coagulation APTT (25 - 37 SEC) 45 H 90 H Hematology CBC w Diff NO MAN DIFF REQ WBC (4.8 - 10.8 /CUMM) 7.0 RBC (4.70 - 6.10 /CUMM) 4.04 L Hgb (14.0 - 18.0 G/DL) 12.1 L Hct (42 - 52 %) 35.7 L MCV (80.0 - 94.0 FL) 88.4 MCH (27.0 - 31.0 PG) 29.9 RDW (11.5 - 14.5 %) 14.5 Plt Count (/CUMM) Gran % (42.2 - 75.2 %) 69.2 Lymphocytes % (20.5 - 51.1 %) 17.5 L Monocytes % (1.7 - 9.3 %) 9.9 H Eosinophils % (0 - 5 %) 2.9 Basophils % (0.0 - 2.0 %) 0.5 Absolute Granulocytes (1.4 - 6.5 /CUMM) 4.9 Absolute Lymphocytes (1.2 - 3.4 /CUMM) 1.2 Absolute Monocytes (0.10 - 0.60 /CUMM) 0.7 H Absolute Eosinophils (0.0 - 0.7 /CUMM) 0.2 Absolute Basophils (0.0 - 0.2 /CUMM) 0 PUBS MCHC (33.0 - 37.0 G/DL) 33.9 Miscellaneous Phlebotomy Draw Site Cancelled 10/09 10/09 10/09 7848 2018 4547 Chemistry Sodium (137 - 145 mmol/L) 142 Potassium (3.5 - 5.1 mmol/L) 4.4 Chloride (98 - 107 mmol/L) 108 H Carbon Dioxide (22 - 30 mmol/L) 24 Anion Gap (5 - 16) 10 BUN (9 - 20 mg/dL) 40 H Creatinine (0.7 - 1.2 mg/dL) 2.0 H Estimated GFR (>60 ml/min) 33 L BUN/Creatinine Ratio (7 - 25 %) 20.0 Coagulation APTT (25 - 37 SEC) 43 H > 120 *H Hematology CBC w Diff NO MAN DIFF REQ WBC (4.8 - 10.8 /CUMM) 6.1 RBC (4.70 - 6.10 /CUMM) 3.85 L Hgb (14.0 - 18.0 G/DL) 11.3 L Hct (42 - 52 %) 34.1 L MCV (80.0 - 94.0 FL) 88.7 MCH (27.0 - 31.0 PG) 29.4 RDW (11.5 - 14.5 %) 14.8 H Plt Count (130 - 400 /CUMM) 187 MPV (7.4 - 10.4 FL) 8.2 Gran % (42.2 - 75.2 %) 61.7 Lymphocytes % (20.5 - 51.1 %) 21.9 Monocytes % (1.7 - 9.3 %) 12.3 H Eosinophils % (0 - 5 %) 3.5 Basophils % (0.0 - 2.0 %) 0.6 Absolute Granulocytes (1.4 - 6.5 /CUMM) 3.8 Absolute Lymphocytes (1.2 - 3.4 /CUMM) 1.3 Absolute Monocytes (0.10 - 0.60 /CUMM) 0.7 H Absolute Eosinophils (0.0 - 0.7 /CUMM) 0.2 Absolute Basophils (0.0 - 0.2 /CUMM) 0 PUBS MCHC (33.0 - 37.0 G/DL) 33.1 10/09 10/08 10/08 10/08 0000 2006 2006 1999 Blood Gas pH (7.35 - 7.45 PH) 7.37 pCO2 (35 - 45 TORR) 41 pO2 (80 - 100 TORR) 77 L HCO3 (21 - 28 MEQ/L) 23 ABG O2 Sat (Measured) (>96.0 %) 93.0 L Carboxyhemoglobin (1.5 - 5.0 %) 0.4 L O2 Concentration % RA Temperature (97.0 - 100.0 FARH) 98.6 Coagulation APTT (25 - 37 SEC) 41 H D-Dimer High Sensitivty (0 - 243 ng/ml) 280 H Miscellaneous Phlebotomy Draw Site RIGHT RADIAL Urines Ur Random Creatinine (mg/dL) 30.5 Urine Total Volume (600 - 1500 ML/24HR) 5575 H Urine Creatinine (1.0 - 2.0 g/24HR) 1.7 10/08 1313 Coagulation APTT (25 - 37 SEC) 59 H
[2017-10-11 16:00] VITALS: BP 118/60
[2017-10-11 22:38] VITALS: BP 150/80
[2017-10-12 06:53] VITALS: BP 190/100
[2017-10-12] MEDS ORDERED: LASIX20 M1 PO ×3 (07:19→13:16)
[2017-10-12] MEDS ORDERED: ELIQUIS5 M1 PO ×2 (07:19→11:56)
--- NOTE | 2017-10-12 07:23 | Patient Discharge Instructions ---
Discharge Instructions General Discharge Information You were seen/treated for: A Fib Edema CHF Special Instructions: Please follow up with your PCP withing seven days. Please have your PCP do a medication reconcilliation. Your Gabapentin dose needs to be weaned down. Please speak to your PCP about this. Please follow up with the tele marketing executive Dr Ness in seven days. We have provided you with a referral. You may need angiogram and cardiac exercise specialist as an outpatient Your Atenolol has been stopped so please talk to your tele marketing executive if you started having high BP or palpitation. Diet Continue normal diet: No Recommended Diet: Heart Healthy, Low Fat, Limit Sodium Activity Full Activity/No Limits: No (As tolerated) Acute Coronary Syndrome Inclusion Criteria At DC or during hospital stay patient has or had the following: ACS DIAGNOSIS No Discharge Core Measures Meds if any: Prescribed or Continued at Discharge Meds if any: NOT Prescribed or Continued at Discharge Congestive Heart Failure Inclusion Criteria At DC or during hospital stay patient has or had the following: CHF DIAGNOSIS No Discharge Core Measures Meds if any: Prescribed or Continued at Discharge Meds if any: NOT Prescribed or Continued at Discharge Cerebrovascular accident Inclusion Criteria At DC or during hospital stay patient has or had the following: CVA/TIA Diagnosis No Discharge Core Measures Meds if any: Prescribed or Continued at Discharge Meds if any: NOT Prescribed or Continued at Discharge Venous thromboembolism Inclusion Criteria VTE Diagnosis No VTE Type NONE VTE Confirmed by (Test) NONE Discharge Core Measures - Per Current guidelines, there needs to be overlap - treatment for the first 5 days of Warfarin therapy. - If discharged on Warfarin prior to 5 days of - overlap therapy, the patient will need to be - assessed for post discharge needs including - *Post discharge parental anticoagulation - *Warfarin and/or parental anticoagulation education - *Follow up date to check INR post discharge At least 5 days overlap therapy as Inpatient No Meds if any: Prescribed or Continued at Discharge Note: Overlap Therapy is Warfarin and Anticoagulant Meds if any: NOT Prescribed or Continued at Discharge
[2017-10-12 08:31] VITALS: BP 176/82
--- NOTE | 2017-10-12 09:54 | PN- Housestaff ---
Glenn JACINTO,Mg 10/12/17 0954: Subjective Follow-up For: Bradycardia secondary to atenolol toxicity Acute on chronic CHF Complaints: no complaints Tele-Events Since Last Visit: No any overnight events Subjective: Patient is seen and examined at the bedside. He was feeling much comfortable. He denies any dyspnea on exertion. Review of Systems Constitutional: Denies: no symptoms. Objective Last 24 Hrs of Vital Signs/I&O Vital Signs Date Time Temp Pulse Resp B/P B/P Pulse O2 O2 Flow FiO2 Mean Ox Delivery Rate 10/12 1021 176/82 10/12 0831 176/82 10/12 0656 68 182/94 10/12 0653 97.6 67 20 190/100 95 Room Air 10/12 0601 60 96 10/12 0226 77 97 10/12 0000 Room Air 10/11 2302 78 95 10/11 2238 98.4 65 20 150/80 95 Intake & Output 10/12 1600 10/12 0800 10/12 0000 Intake Total 500 300 360 Output Total 500 1425 350 Balance 0 -1125 10 Intake, Oral 500 300 360 Output, Urine 500 1425 350 Physical Exam General Appearance: Alert, Oriented X3, Cooperative, No Acute Distress Skin: pale Cardiovascular: Normal S1, Normal S2 Lungs: mild basilar crackles Abdomen: Soft, No Tenderness, distended Extremities: bilateral lower extremity edema Vascular: Normal Pulses, Pulses Symmetrical Current Medications: Current Medications Sig/Berhane Start time Last Medication Dose Route Stop Time Status Admin Acetaminophen 650 MG .STK-MED ONE 10/12 0036 DC PO 10/12 0037 Acetaminophen 650 MG Q6P PRN 10/07 2045 DCD PO Apixaban 5 MG BID 10/11 1030 DCD 10/12 PO 1020 Aspirin 325 MG DAILY 10/08 1850 DCD 10/12 PO 1020 Atorvastatin Calcium 10 MG 1700 10/08 1700 DCD 10/11 PO 1703 Buspirone HCl 7.5 MG BID 10/07 2199 DCD 10/12 PO 1022 Clopidogrel Bisulfate 75 MG AT BEDTIME 10/09 2199 DCD 10/11 PO 2134 Docusate Sodium 100 MG DAILY NEEDED PRN 10/09 1545 DCD 10/09 PO 1713 Duloxetine HCl 60 MG AT BEDTIME 10/09 2199 DCD 10/11 PO 2135 Furosemide 20 MG 7:30 AM, & 4:30 PM 10/11 1630 DCD 10/12 PO 0819 Gabapentin 1,200 MG BID 10/07 2200 DCD 10/12 PO 1022 Insulin Aspart 0 TIDAC 10/08 0800 DCD 10/12 SC 1222 Insulin Detemir 10 UNITS BID 10/11 1203 DCD 10/12 SC 1023 Lisinopril 5 MG DAILY 10/10 1000 DCD 10/12 PO 0656 Nitroglycerin 1 GM Q6 10/08 1850 DCD 10/12 TOP 0547 Sodium Chloride 2 SPRAY Q2P PRN 10/11 1815 DCD 10/11 NGOZI 2014 Tamsulosin HCl 0.8 MG DAILY 10/09 1000 DCD 10/12 PO 1021 Assessment/Plan Assessment: 72-year-old gentleman with a PMH significant for HTN, CKD III, PVD status post bypass and stent placement, questionable JOANIE, DJD, cervical disc herniation status post surgical repair, currently admitted for worsening dyspnea on exertion and found to be in new onset atrial fibrillation. Mild pulmonary congestion on his chest X-ray. His troponins were initially negative. Problem list: * New onset Atrial fibrillation, now in sinus rhythm * Bradycardia needed glucagon * Chronic kidney disease * Type 2 diabetes * CAD * Peripheral vascular disease Plan - * Plan is to discharge today. * Discussed with the exercise equipment repair technician, Dr. Ness advised to discharge patient on tablet, Lasix 20 milligrams once a day. * We discussed with the patient that we hold the atenolol. Because of the bradycardia. He may have rebound tachycardia and hypertension. We advised him to follow-up with exercise equipment repair technician within a week of discharge. Patient * We also advised him to check the weight daily and make a log and follow-up with exercise equipment repair technician within a week of discharge. * We also advised him to take the medication as prescribed. * Continue home meds: aspirin, lisinopril, Plavix, gabapentin, buspirone, Cymbalta * We discussed with the attending about the diabetic management at home. Advised to continue Levemir as before and Glimipride Diet-diabetic CODE STATUS -full code Problem List: 1. Beta esteban toxicity 2. Severe sinus bradycardia Pain Ratin Pain Location: Not applicable Pain Goal: Remain pain free Pain Plan: Avoid NSAIDs Tomorrow's Labs & Rationales: Not applicable DVT/Prophylaxis: early ambulation low risk Akshat Emmanuel 10/12/17 1336: Attending MD Review Statement Attending Statement Attending MD Statement: examined this patient, discuss w/resident/PA/COPY CUTTER, agreed w/resident/PA/COPY CUTTER, discussed with family, reviewed EMR data (avail), discussed with nursing, discussed with case mgmt, reviewed images, amended to note Attending Assessment/Plan: 72-year-old male with extensive past medical history presented in ER for progressive worsening of dyspnea on exertion over a month duration, acutely worsened over 3 days associated with increased abdominal girth, increased leg swelling, weight gain. Patient seen/examined bedside. His swelling has decreased, shortness of breath improving. cr stabilsing. Chronic congestive heart failure A. fib with bradycardia CKD stage III with proteinuria. History of HTN, DM on insulin, possible JOANIE, peripheral neuropathy, peripheral vascular disease S/P stent bilateral lower extremity, cervical disc surgery f/u echo with LVEF 55-60% with no RWMA, F/U B/L lower extremity USG no DVT, Cardiology F/U, a/c as per cards. antiplatelet therapy as per cards. CT head negative for intracranial bleed. Held atenolol, monitor heart rate. C/w lasix PO. Continue rest of his home medications. RISS and titrate insulin as needed. Anticipate discharge as per cardiology and nephrology. O/P ischemic w/u as per cardiology. patient can be discharged in stable condition. f/u cardiology Dr Ness in 1 week of discharge. F/u nephrology in [address] month of [address] Portillo.
[2017-10-12 10:21] VITALS: BP 176/82
--- NOTE | 2017-10-12 11:49 | PN- Cardiology ---
Subjective Subjective: The patient is doing well today. He denies any symptoms. His respiratory status has improved. He is anxious to go home. Objective Vital Signs and I&Os Vital Signs Date Time Temp Pulse Resp B/P B/P Pulse O2 O2 Flow FiO2 Mean Ox Delivery Rate 10/12 1021 176/82 10/12 0831 176/82 10/12 0656 68 182/94 10/12 0653 97.6 67 20 190/100 95 Room Air 10/12 0601 60 96 10/12 0226 77 97 10/12 0000 Room Air 10/11 2302 78 95 10/11 2238 98.4 65 20 150/80 95 10/11 1600 97.6 67 18 118/60 98 Room Air Intake & Output 10/12 1600 10/12 0800 10/12 0000 10/11 1600 10/11 0810/11 0000 Intake Total 300 778 177 6773 650 1094 Output Total 2050 439 9068 800 1225 Balance 300 -1125 10 142 -150 -131 Intake, IV 192 450 194 Intake, Oral 300 306 772 1116 200 900 Output, Urine 5464 291 6339 800 1225 Patient 293 lb Weight Physical Exam: General Appearance: Alert, Oriented X3, Cooperative Cardiovascular: Regular Rate, Normal S1, Normal S2, 1/6 systolic murmur left sternal border Lungs: Clear to Auscultation and percussion bilaterally Abdomen: Normal Bowel Sounds, Soft, No Tenderness, Distended Neurological: Normal/nonfocal Extremities: 1-2+ edema, greater on the right side Vascular: Normal Pulses Current Medications: Current Medications Sig/Berhane Start time Last Medication Dose Route Stop Time Status Admin Acetaminophen 650 MG .STK-MED ONE 10/12 0036 DC PO 10/12 0037 Acetaminophen 650 MG Q6P PRN 10/07 2045 AC PO Apixaban 5 MG BID 10/11 1030 AC 10/12 PO 1020 Aspirin 325 MG DAILY 10/08 1850 AC 10/12 PO 1020 Atorvastatin Calcium 10 MG 1700 10/08 1700 AC 10/11 PO 1703 Buspirone HCl 7.5 MG BID 10/07 2200 AC 10/12 PO 1022 Clopidogrel Bisulfate 75 MG AT BEDTIME 10/09 2200 AC 10/11 PO 2134 Docusate Sodium 100 MG DAILY NEEDED PRN 10/09 1545 AC 10/09 PO 1713 Duloxetine HCl 60 MG AT BEDTIME 10/09 2200 AC 10/11 PO 2135 Furosemide 20 MG 7:30 AM, & 4:30 PM 10/11 1630 AC 10/12 PO 0819 Gabapentin 1,200 MG BID 10/07 2200 AC 10/12 PO 1022 Insulin Aspart 0 TIDAC 10/08 0800 AC 10/12 SC 0819 Insulin Detemir 10 UNITS BID 10/11 1203 AC 10/12 SC 1023 Lisinopril 5 MG DAILY 10/10 1000 AC 10/12 PO 0656 Nitroglycerin 1 GM Q6 10/08 1850 AC 10/12 TOP 0547 Sodium Chloride 2 SPRAY Q2P PRN 10/11 1815 AC 10/11 NGOZI 2014 Tamsulosin HCl 0.8 MG DAILY 10/09 1000 AC 10/12 PO 1021 Results Last 48 Hrs of Labs/Mics: Laboratory Tests 10/11/17 0600: Anion Gap 12, Estimated GFR 35 L, Glucose 151 H, Calcium 8.8, Phosphorus 4.2, Magnesium 2.0, Total Bilirubin 0.5, AST 19, ALT 35, Albumin 3.3 L, APTT 51 H, CBC w Diff NO MAN DIFF REQ, RBC 3.65 L, MCV 89.4, MCH 29.4, RDW 14.8 H, MPV 8.1, Gran % 59.2, Lymphocytes % 22.6, Monocytes % 13.9 H, Eosinophils % 3.9, Basophils % 0.4, Absolute Granulocytes 3.4, Absolute Lymphocytes 1.3, Absolute Monocytes 0.8 H, Absolute Eosinophils 0.2, Absolute Basophils 0, PUBS MCHC 32.9 L 10/10/17 2225: APTT 48 H 10/10/17 1500: APTT 108 *H 10/10/17 1304: Ur Creatinine 24 Hour 2.23, Ur Total Protein 24 Hr 8251 H, Protein/Creat Ratio 24h 3700 H, U Protein Electrophores SEE NOTE, Urine Albumin (%) 62, U Alpha-1- Globulin 4, U Hdajr-8-Lylxjydw 6, U Beta Globulin 12, U Gamma Globulin 16 Assessment/Plan Assessment/Plan Assessment: 1. New onset atrial fibrillation, reverted to sinus rhythm, back in atrial fibrillation today with relatively slow ventricular rate 2. Acute on chronic kidney disease, improved 3. Diabetes mellitus 4. Peripheral arterial disease 5. History of coronary artery disease 6. Acute heart failure with preserved ejection fraction (HFpEF) Plan: * Continue Lasix 20 mg by mouth twice a day while in the hospital, and 20 mg daily after discharge * Continue Eliquis 5 mg by mouth twice a day * From my perspective, the patient is stable for discharge home today. * Continue other cardiac medications. * Follow up with Dr. Ness in one week after discharge * I will obtain an event monitor as an outpatient * At the time of the next office visit in one week, the patient I will discuss further the role of cardiac catheterization as an outpatient. Continue telemetry? No
[2017-10-12] MEDS ORDERED: LISINOPRIL5 M1 PO (11:56)
[2017-10-12] MEDS ORDERED: ASPIRIN325 M2 PO (12:02)
[2017-10-12] MEDS ORDERED: GABAPENTIN400 M2 PO ×2 (12:02→13:16)
--- NOTE | 2017-10-12 12:06 | PN- Nephrology ---
Assessment/Plan Assessment: 1. Edema. It is not surprising that he has 8 g of protein in his urine. 2. Chronic kidney disease due to diabetic nephropathy 3. Diabetes mellitus 4. Congestive heart failure 5. Afib Suggestion: 1. Agree with discharge. He should see Juan Carlos Portillo MD and/or Anamaria Aleman in the office within a month. He is to be followed by the congestive heart failure clinic per Dr. Ness. Subjective Subjective: Still with lower some edema but much better than he was. We had a discussion at the fact that any sort of sodium in virtually all food has sodium, his kidneys will actively retain sodium. Objective Vital Signs and I&Os Vital Signs Date Time Temp Pulse Resp B/P B/P Pulse O2 O2 Flow FiO2 Mean Ox Delivery Rate 10/12 1021 176/82 10/12 0831 176/82 10/12 0656 68 182/94 10/12 0653 97.6 67 20 190/100 95 Room Air 10/12 0601 60 96 10/12 0226 77 97 10/12 0000 Room Air 10/11 2302 78 95 10/11 2238 98.4 65 20 150/80 95 10/11 1600 97.6 67 18 118/60 98 Room Air Intake & Output 10/12 1600 10/12 0400 10/11 1600 10/11 0400 10/10 1600 10/10 0400 Intake Total 021 965 4166 1094 2217 477 Output Total 0470 719 6706 1225 2700 2100 Balance -825 10 -8 -131 -483 -1623 Intake, IV 642 194 617 237 Intake, Oral 788 304 3601 900 1600 240 Number 2 0 Bowel Movements Output, Urine 4800 339 5923 1225 2700 2100 Patient 293 lb 297 lb Weight Weight Bed scale Measurement Method Physical Exam: General Appearance: well developed/nourished, no apparent distress, alert, awake , obese, sitting up in a chair Head: atraumatic, normal appearance Ears, Nose, Throat: normal pharynx, hearing grossly normal Respiratory: chest non-tender, no respiratory distress, crackles Cardiovascular: edema Abdomen: normal bowel sounds, soft, non-tender, no organomegaly Back: normal inspection, ppitting sacral edema Current Medications: Current Medications Sig/Berhane Start time Last Medication Dose Route Stop Time Status Admin Acetaminophen 650 MG .STK-MED ONE 10/12 35 DC PO 01/10 0037 Acetaminophen 650 MG Q6P PRN 10/07 2045 AC PO Apixaban 5 MG BID 10/11 1030 AC 10/12 PO 1020 Aspirin 325 MG DAILY 10/08 1850 AC 10/12 PO 1020 Atorvastatin Calcium 10 MG 1700 10/08 1700 AC 10/11 PO 1703 Buspirone HCl 7.5 MG BID 10/07 2200 AC 10/12 PO 1022 Clopidogrel Bisulfate 75 MG AT BEDTIME 10/09 2200 AC 10/11 PO 2134 Docusate Sodium 100 MG DAILY NEEDED PRN 10/09 1545 AC 10/09 PO 1713 Duloxetine HCl 60 MG AT BEDTIME 10/09 2200 AC 10/11 PO 2135 Furosemide 20 MG 7:30 AM, & 4:30 PM 10/11 1630 AC 10/12 PO 0819 Gabapentin 1,200 MG BID 10/07 2200 AC 10/12 PO 1022 Insulin Aspart 0 TIDAC 10/08 0800 AC 10/12 SC 0819 Insulin Detemir 10 UNITS BID 10/11 1203 AC 10/12 SC 1023 Lisinopril 5 MG DAILY 10/10 1000 AC 10/12 PO 0656 Nitroglycerin 1 GM Q6 10/08 1850 AC 10/12 TOP 0547 Sodium Chloride 2 SPRAY Q2P PRN 10/11 1815 AC 10/11 NGOZI 2014 Tamsulosin HCl 0.8 MG DAILY 10/09 1000 AC 10/12 PO 1021 Results Pertinent Lab Results: Laboratory Tests 10/11 10/10 10/10 0600 2225 1500 Chemistry Sodium (137 - 145 mmol/L) 141 Potassium (3.5 - 5.1 mmol/L) 4.5 Chloride (98 - 107 mmol/L) 101 Carbon Dioxide (22 - 30 mmol/L) 27 Anion Gap (5 - 16) 12 BUN (9 - 20 mg/dL) 35 H Creatinine (0.7 - 1.2 mg/dL) 1.9 H Estimated GFR (>60 ml/min) 35 L Glucose (65 - 99 mg/dL) 151 H Calcium (8.4 - 10.2 mg/dL) 8.8 Phosphorus (2.5 - 4.5 mg/dL) 4.2 Magnesium (1.6 - 2.3 mg/dL) 2.0 Total Bilirubin (0.2 - 1.3 mg/dL) 0.5 AST (17 - 59 U/L) 19 ALT (21 - 72 U/L) 35 Albumin (3.5 - 5.0 g/dL) 3.3 L Coagulation APTT (25 - 37 SEC) 51 H 48 H 108 *H Hematology CBC w Diff NO MAN DIFF REQ WBC (4.8 - 10.8 /CUMM) 5.8 RBC (4.70 - 6.10 /CUMM) 3.65 L Hgb (14.0 - 18.0 G/DL) 10.7 L Hct (42 - 52 %) 32.6 L MCV (80.0 - 94.0 FL) 89.4 MCH (27.0 - 31.0 PG) 29.4 RDW (11.5 - 14.5 %) 14.8 H Plt Count (130 - 400 /CUMM) 165 MPV (7.4 - 10.4 FL) 8.1 Gran % (42.2 - 75.2 %) 59.2 Lymphocytes % (20.5 - 51.1 %) 22.6 Monocytes % (1.7 - 9.3 %) 13.9 H Eosinophils % (0 - 5 %) 3.9 Basophils % (0.0 - 2.0 %) 0.4 Absolute Granulocytes (1.4 - 6.5 /CUMM) 3.4 Absolute Lymphocytes (1.2 - 3.4 /CUMM) 1.3 Absolute Monocytes (0.10 - 0.60 /CUMM) 0.8 H Absolute Eosinophils (0.0 - 0.7 /CUMM) 0.2 Absolute Basophils (0.0 - 0.2 /CUMM) 0 PUBS MCHC (33.0 - 37.0 G/DL) 32.9 L 10/10 10/10 10/09 1304 0637 1854 Chemistry Sodium (137 - 145 mmol/L) 141 Potassium (3.5 - 5.1 mmol/L) 4.9 Chloride (98 - 107 mmol/L) 105 Carbon Dioxide (22 - 30 mmol/L) 23 Anion Gap (5 - 16) 13 BUN (9 - 20 mg/dL) 36 H Creatinine (0.7 - 1.2 mg/dL) 2.1 H Estimated GFR (>60 ml/min) 31 L BUN/Creatinine Ratio (7 - 25 %) 17.1 Magnesium (1.6 - 2.3 mg/dL) 2.0 Coagulation APTT (25 - 37 SEC) 45 H 90 H Hematology CBC w Diff NO MAN DIFF REQ WBC (4.8 - 10.8 /CUMM) 7.0 RBC (4.70 - 6.10 /CUMM) 4.04 L Hgb (14.0 - 18.0 G/DL) 12.1 L Hct (42 - 52 %) 35.7 L MCV (80.0 - 94.0 FL) 88.4 MCH (27.0 - 31.0 PG) 29.9 RDW (11.5 - 14.5 %) 14.5 Plt Count (/CUMM) Gran % (42.2 - 75.2 %) 69.2 Lymphocytes % (20.5 - 51.1 %) 17.5 L Monocytes % (1.7 - 9.3 %) 9.9 H Eosinophils % (0 - 5 %) 2.9 Basophils % (0.0 - 2.0 %) 0.5 Absolute Granulocytes (1.4 - 6.5 /CUMM) 4.9 Absolute Lymphocytes (1.2 - 3.4 /CUMM) 1.2 Absolute Monocytes (0.10 - 0.60 /CUMM) 0.7 H Absolute Eosinophils (0.0 - 0.7 /CUMM) 0.2 Absolute Basophils (0.0 - 0.2 /CUMM) 0 PUBS MCHC (33.0 - 37.0 G/DL) 33.9 Urines Ur Creatinine 24 Hour (0.63 - 2.50 g/24 h) 2.23 Ur Total Protein 24 Hr (<150 mg/24 h) 8251 H Protein/Creat Ratio 24h (< OR = 84) 3700 H U Protein Electrophores (()) SEE NOTE Urine Albumin (%) (() %) 62 U Rfnbr-2-Fpimbfmc (() %) 4 U Ltpef-4-Dizzlfhz (() %) 6 U Beta Globulin (() %) 12 U Gamma Globulin (() %) 16 Imaging/Other Studies: AJAY ARREDONDO Age: 72 : 1945 Gender: M Exam Date: 10/09/2017 10:02 Exam Location: [facility] Ht (in): 71 Wt (lb): 302 BSA: 2.68 BP: 121 / 77 Ordering Physician: Robert Wells MD Referring Physician: David Ness MD Technologist: Tania Noble [facility] Room Number: 102 Indications: AFIB/FLUTTER Rhythm: Atrial fibrillation Technical Quality: Fair, Technically difficult study FINDINGS Left Ventricle Normal size left ventricle. No obvious regional wall motion abnormalities. Normal left ventricular ejection fraction estimated at 55-60%. Right Ventricle Right ventricle not well visualized, grossly normal. Right Atrium Normal right atrial size. Left Atrium Mild to moderate left atrial dilatation. Mitral Valve Mitral valve thickened. Gepv-df-ltpnessg mitral regurgitation. Aortic Valve Trileaflet aortic valve. Diffuse thickening (sclerosis) of the aortic valve cusps without reduced excursion. No aortic stenosis. No aortic regurgitation. Tricuspid Valve Tricuspid valve not well visualized, grossly normal. Mild tricuspid regurgitation. Pulmonic Valve Pulmonic valve not well visualized, grossly normal. Pericardium No pericardial effusion. Great Vessels Aortic root and proximal ascending aorta not well visualized, grossly normal. CONCLUSIONS 1. This was a technically difficult study due to the patient's body habitus. 2. Aortic sclerosis is present with no valvular stenosis or insufficiency. Minimal enlargement of the ascending aorta is present 3. Mitral leaflet thickening is present with mild to moderate mitral insufficiency and mild to moderate left atrial enlargement. 4. There is no significant pericardial fluid detected 5. The left ventricular chamber size is normal with mild to moderate concentric hypertrophy and a normal ejection fraction. There are no visible resting wall motion abnormalities. Additional images were obtained following the administration of IV contrast. 6. Right heart structures were not optimally visualized. Mild tricuspid insufficiency is present. The right ventricular systolic pressure was not accurately assessed. David Ness M.D. (Electronically Signed) Final Date: 10 October 2017 07:53 MEASUREMENTS (Male / Female) Normal Values 2D ECHO LV Diastolic Diameter PLAX 3.8 cm 4.2 - 5.9 / 3.9 - 5.3 cm LV Systolic Diameter PLAX 2.1 cm 2.1 - 4.0 cm LV Fractional Shortening PLAX 44.7 % 25 - 46 % LV Ejection Fraction 2D Teich 76.7 % IVS Diastolic Thickness 1.5 cm LVPW Diastolic Thickness 1.5 cm LV Relative Wall Thickness 0.8 RV Internal Dim ED PLAX 2.8 cm 1.9 - 3.8 cm LVOT Diameter 2.1 cm Aortic Root Diameter 2.9 cm LA Systolic Diameter LX 4.6 cm 3.0 - 4.0 / 2.7 - 3.8 cm LA Volume 50.0 cm 18 - 58 / 22 - 52 cm Ascending Aorta Diameter 3.9 cm DOPPLER AV Peak Velocity 113.0 cm/s AV Peak Gradient 5.1 mmHg AV Mean Velocity 73.9 cm/s AV Mean Gradient 3.0 mmHg AV Velocity Time Integral 25.5 cm LVOT Peak Velocity 74.4 cm/s LVOT Peak Gradient 2.2 mmHg LVOT Mean Velocity 47.8 cm/s LVOT Mean Gradient 1.0 mmHg LVOT Velocity Time Integral 18.5 cm LVOT Stroke Volume 64.1 cm AV Area Cont Eq vti 2.5 cm AV Area Cont Eq pk 2.3 cm MV Peak Velocity 143.0 cm/s MV Peak Gradient 8.2 mmHg MV Mean Velocity 58.2 cm/s MV Mean Gradient 2.0 mmHg Mitral E Point Velocity 118.0 cm/s MV PHT Velocity 149.0 cm/s MV Deceleration [place] 514.0 cm/s MV Pressure Half Time 87.0 ms MV Area PHT 2.5 cm MV Deceleration Time 246.0 ms PV Peak Velocity 88.2 cm/s PV Peak Gradient 3.1 mmHg PV Mean Velocity 54.4 cm/s PV Mean Gradient 1.0 mmHg PV Velocity Time Integral 21.6 cm LV E' Lateral Velocity 9.5 cm/s Mitral E to LV E' Lateral Ratio 12.5 LV E' Septal Velocity 7.5 cm/s Mitral E to LV E' Septal Ratio 15.7 DICTATED BY: Azar Ness MD DATE/TIME DICTATED:10/10/17752 DIE CUTTER:OLIVIA DATE/TIME TRANSCRIBED:10/10/17752 CONFIDENTIAL, DO NOT COPY WITHOUT APPROPRIATE AUTHORIZATION. <Electronically signed in Other Vendor System> SIGNED BY: Azar Ness MD 10/10/17753
[2017-10-12] MEDS ORDERED: GLIPIZIDE5 M2 PO (13:16)
[2017-10-12] MEDS ORDERED: VITAMIN D250000 UNIT PO (13:16)
[2017-10-12] MEDS ORDERED: LANTUS SOL100 UNIT/1 SC (13:16)
== END 2017-10-12 13:45 | DRG 291 ==
LOC: ERH 16:19 → ERHI 18:33 → CRI 18:33 → ERHI 10-08 14:57 → ENRESERV 10-09 06:58 → ENTRNSPT 10-09 07:43 → EDTRNSPTSTS 10-09 07:47 → CRI 10-09 08:01 → CMPTRNSPT 10-09 08:16 → CRI 10-09 11:35 → 1NO 10-11 22:37 → ENPENDDIS 10-12 11:59 → ENTRNSPT 10-12 13:25 → EDTRNSPTSTS 10-12 13:33 → EDTRNSPT 10-12 13:33 → 1NO 10-12 13:45 → CMPTRNSPT 10-12 13:55
PROVIDERS: Emergency Medicine; Internal Medicine; Internal Medicine Adolescent Medicine; Student in an Organized Health Care Education/Training Program
PROC: 5A09357 Assistance with Respiratory Ventilation, Less than 24 Consecutive Hours, Continuous Positive Airway Pressure (ICD-10-PCS; principal; 2017-10-09)
DX: I13.0 Hypertensive heart and chronic kidney disease with heart failure and stage 1 through stage 4 chronic kidney disease, or unspecified chronic kidney disease (principal); I50.33 Acute on chronic diastolic (congestive) heart failure; E11.22 Type 2 diabetes mellitus with diabetic chronic kidney disease; E11.42 Type 2 diabetes mellitus with diabetic polyneuropathy; Z68.41 Body mass index [BMI] 40.0-44.9, adult; I48.91 Unspecified atrial fibrillation; E66.01 Morbid (severe) obesity due to excess calories; G47.33 Obstructive sleep apnea (adult) (pediatric); R00.1 Bradycardia, unspecified; Z87.891 Personal history of nicotine dependence; N18.3 Chronic kidney disease, stage 3 (moderate); E11.51 Type 2 diabetes mellitus with diabetic peripheral angiopathy without gangrene
CPT/HCPCS: 1NP; CCU; ERO; 36415; 71045; 82436; 82570; 84166; 93005; 93010; 93970; 96374; 97116-GO; 97161-GP; 97530-GO; C8929; J1610; J1644; J1940; J3490; Q9957

== ENCOUNTER 2017-11-08 11:42 | Inpatient (IN) | payer OTHER, MEDICARE ==
[~2017-11-08] VITALS: Ht 180.3 cm; Wt 125.6 kg
[~2017-11-08 11:42] MED LIST changes: +ASPIRIN EC81 M1 PO; +ASPIRIN325 M2 PO; +CLOPIDOGREL75 M1 PO; +ELIQUIS5 M1 PO; +GABAPENTIN400 M2 PO; +LASIX20 M1 PO; +LISINOPRIL5 M1 PO; +VITAMIN D250000 UNIT PO
[2017-11-08 12:46] LABS: ABSOLUTE BASOPHIL COUNT 0 /CUMM (0.0-0.2); ABSOLUTE EOSINOPHIL COUNT 0.2 /CUMM (0.0-0.7); ABSOLUTE GRANULOCYTE CT 5.2 /CUMM (1.4-6.5); ABSOLUTE LYMPH COUNT 1.1 /CUMM (1.2-3.4); ABSOLUTE MONOCYTE COUNT 0.4 /CUMM (0.10-0.60); BASOPHIL % 0.3 % (0.0-2.0); EOSINOPHIL % 2.2 % (0-5); GRANULOCYTE % 75.4 % (42.2-75.2); HEMATOCRIT 23.9 % (42-52); MEAN CORPUSCULAR HGB CONC 33.8 G/DL (33.0-37.0); MEAN CORPUSCULAR VOLUME 88.5 FL (80.0-94.0); MEAN PLATELET VOLUME 8.6 FL (7.4-10.4); PLATELET COUNT 238 /CUMM (130-400); RBC DISTRIBUTION WIDTH 14.5 % (11.5-14.5); WHITE BLOOD CELL COUNT 6.9 /CUMM (4.8-10.8)
--- NOTE | 2017-11-08 15:29 | ED AMS/SEIZURE/WEAK/DIZZY ---
History of Present Illness General Chief Complaint: Fall Stated Complaint: RIGHT SIDE PAIN/BACK PAIN S/P FALL Source: patient, family Exam Limitations: no limitations Allergies Coded Allergies: bacitracin (RASH 08/20/16) neomycin (From NEOSPORIN ([id number])) (RASH 08/20/16) polymyxin B (From NEOSPORIN ([id number])) (RASH 08/20/16) Reconcile Medications Apixaban (Eliquis) 5 MG TABLET 5 MG PO BID A. Fib Aspirin (Aspirin*) 325 MG TABLET 325 MG PO DAILY [facility] Buspirone HCl 15 MG TABLET 0.5 TAB PO BID SLEEP (Reported) Clopidogrel Bisulfate (Clopidogrel) 75 MG TABLET 1 TAB PO DAILY BLOOD THINNER (Reported) Duloxetine HCl 60 MG CAPSULE.DR 1 CAP PO DAILY ANXIETY (Reported) Ergocalciferol (Vitamin D2) (Vitamin D2) 50,000 UNIT CAPSULE 1 CAP PO Q2W SUPPLEMENT . Furosemide (Lasix) 20 MG TABLET 1 TAB PO DAILY Fluid Retention . Gabapentin 400 MG CAPSULE 1 CAP PO BID Nerve Pain . Glipizide 5 MG TABLET 1 TAB PO BID DM . Insulin Glargine,Hum.rec.anlog (Lantus Solostar) 100 UNIT/ML (3 ML) INSULN.PEN 60 UNIT SC QPM DM . Lisinopril 5 MG TABLET 5 MG PO DAILY HTN Pravastatin Sodium 40 MG TABLET 1 TAB PO QPM CHOL (Reported) Tamsulosin HCl 0.4 MG CAP.ER.24H 2 CAP PO DAILY URINE (Reported) Triage Note: PT STATES THAT HE FELL YESTERDAY HITTING HIS R SIDE FLANK AREA, ALSO STATES THAT PT WAS DISCHARGED FROM HERE 3 WEEKS AGO AFTER BEING ADMITTED FOR CHF, VISITING NURSE CAME OUT THIS AM AND TOOK PTS VITALS AND TOLD HIME NOT TO TAKE HIS AM LASIX OR BP MEDS, BP 92/61, PT ALERT AND ORIENTED AND DENIES FEELING WEAK, DOES COMPLAINS THAT HIS VISION HAS BEEN OFF. STATES THAT PTS BLOOD SUGAR HAS BEEN OFF ALSO Triage Nurses Notes Reviewed? yes Onset: Gradual Duration: day(s): Timing: single episode today Injury Environment: home No Modifying Factors: none HPI: PATIENT IS A 72 Y/O MALE, PMH OF STAGE 3 CKD, CHF, TYPE 2 DM, HTN, HLD, PAD (S/P FEMPOP BIPASS AND BILATERAL STENTING), DIABETIC NEUROPATHY, AND DEPRESSION, PRESENTING FOR 1 DAY OF DIZZINESS AND GAIT INSTABILITY LEADING TO A FALL. PATIENT STATES HE COMMONLY GETS DIZZIY WHEN SITTING/STANDING UP. PATIENT STOOD UP AND BEGAN WALKING YESTERDAY WHEN HIS LEGS GAVE OUT AND HE FELL ONTO A DOG CRATE, HITTING HIS HEAD, SHOULDER, FLANK, AND HIP ON HIS RIGHT SIDE. HE REPORTS PAIN IN THOSE AREAS TO TOUCH AND MOVEMENT. HE DENIES LOC AND ANY LACERATIONS. PATIENT REPORTS THAT HE WAS RECENTLY HOSPITALIZED AND DIAGNOSED WITH CHF FOR WHICH HE WAS PLACED ON LASIX. PATIENT HAS NOT BEEN HYDRATING PROPERLY AT HOME AND STATES HIS URINE HAS BEEN CLOUDY AND DARK. PATIENT HAD A CAROTID US YESTERDAY REVEALING 60-65% STENOSIS BILATERALLY AND HE WAS ADVISED TO GO TO THE HOSPITAL AT THAT TIME BUT HE REFUSED. PATIENT DENIES FEVER, CHILLS, HEADACHE, BLURRY VISION, CP, SOB, ABDOMINAL PAIN, N/V, DIARRHEA, CONSTIPATION, AND DYSURIA. (Mp Stevenson) Vital Signs & Intake/Output Vital Signs & Intake/Output Vital Signs Date Time Temp Pulse Resp B/P B/P Pulse O2 O2 Flow FiO2 Mean Ox Delivery Rate 11/08 1814 98.0 57 16 138/65 99 Room Air 11/08 1654 Room Air 11/08 1529 97.5 71 16 121/59 99 Room Air 11/08 1211 94.0 71 20 92/61 95 Room Air (Fabienne JACINTO,Piyush Leal) Past History Travel History Traveled to [place] past 21 day No Medical History Any Pertinent Medical History? see below for history Neurological: peripheral neuropathy EENT: NONE Cardiovascular: PVD, HTN, HLD Respiratory: NONE Gastrointestinal: NONE Hepatic: NONE Renal: CKD Musculoskeletal: disk herniation, ARTHRITIS Psychiatric: anxiety, depression Endocrine: IDDM Blood Disorders: NONE Cancer(s): NONE MAIL MESSENGER CONTRACTOR/Reproductive: NONE History of MRSA: No History of VRE: No History of CDIFF: No Influenza Vaccine: 09/05/17 Surgical History Surgical History: fempop bypass, LE stent placement CERIVCAL C5 Psychosocial History Who do you live with Family Services at Home Home Health Aide, Nursing, Occupational Therapy, Physical Therapy What is your primary language Syriac Tobacco Use: Never used ETOH Use: denies use Illicit Drug Use: denies illicit drug use Family History Hx Contributory? No (Mp Stevenson) Review of Systems Review of Systems Constitutional: Reports: see HPI. EENTM: Reports: no symptoms. Respiratory: Reports: no symptoms. Cardiovascular: Reports: edema. GI: Reports: no symptoms. Genitourinary: Reports: see HPI. Musculoskeletal: Reports: see HPI. Skin: Reports: no symptoms. Neurological/Psychological: Reports: see HPI. Hematologic/Endocrine: Reports: no symptoms. Immunologic/Allergic: Reports: no symptoms. All Other Systems: Reviewed and Negative (Mp Stevenson) Physical Exam Physical Exam General Appearance: no apparent distress, alert, awake, comfortable, obese Head: atraumatic, normal appearance Eyes: Bilateral: normal appearance, PERRL, EOMI. Ears, Nose, Throat: normal ENT inspection Neck: supple, full range of motion Respiratory: normal breath sounds, chest non-tender, no respiratory distress, lungs clear Gastrointestinal: soft, non-tender Rectal: heme positive stool, no gross blood/melena Back: normal inspection Extremities: pedal edema Neurologic/Psych: alert, oriented x 3, normal gait Skin: intact Core Measures ACS in differential dx? No CVA/TIA Diagnosis No Sepsis Present: No Sepsis Focused Exam Completed? No (Mp Stevenson) Progress Differential Diagnosis: anemia, electrolyte imbalance, GI bleed Diagnostic Imaging: Viewed by Me: Radiology Read, CT Scan. Discussed w/RAD: Radiology Read, CT Scan. Radiology Impression: PATIENT: AJAY ARREDONDO PRESENT AGE: 72 PATIENT ACCOUNT NO: [id number] : 46 LOCATION: [facility] ORDERING PHYSICIAN: Mp BARBOZA SERVICE DATE: 11/08/17 EXAM TYPE : RAD - XRY-PORTABLE CHEST XRAY EXAMINATION: XR PORTABLE CHEST CLINICAL INFORMATION: Dizziness and lightheaded COMPARISON: 10/07/2017 TECHNIQUE: Portable frontal view of the chest was obtained. FINDINGS: The lungs are well expanded. No consolidation, edema, or significant effusion. No pneumothorax. The cardiomediastinal silhouette remains prominent. Degenerative changes at the shoulders. IMPRESSION: No acute pulmonary finding. DICTATED BY: Tanya JACINTO, Baljinder DATE/TIME DICTATED:11/08/171629 EDUCATION PROFESSIONAL:OLIVIA DATE/TIME TRANSCRIBED:11/08/171629 CONFIDENTIAL, DO NOT COPY WITHOUT APPROPRIATE AUTHORIZATION. <Electronically signed in Other Vendor System> SIGNED BY: Tanya JACINTO,Baljinder 11/08/17 1634 Initial ED EKG: rate (47), AFIB (Mp Stevenson) Plan of Care: Orders Procedure Date/time Status Consistent Carbohydrate 1 11/09 B Active Pathway - chart 11/08 1909 Active House Staff 11/08 191 Active Code Status 11/08 191 Active Intake & Output 11/08 1828 Active BLOOD PRODUCT PICKUP 11/[address] in observation 11/08 170 Active Misc Message 11/08 170 Active ED Holding Orders 11/08 170 Active Vital Signs 11/08 170 Active Code Status 11/08 1702 Complete Patient Data 11/08 1646 Active LEUKOCYTE POOR (PACKED CELLS) 11/08 1643 Active Add-on Test (ER Only) 11/08 1559 Active Add-on Test (ER Only) 11/08 1529 Active FingerStick- Glucose 11/08 1313 Active TYPE & SCREEN (NOT X-MATCH) 11/08 1230 Active URINALYSIS 11/08 1216 Complete TROPONIN LEVEL 11/08 1216 Complete COMPREHENSIVE METABOLIC PANEL 11/08 1216 Complete CBC WITHOUT DIFFERENTIAL 11/08 1216 Complete EKG 11/08 1216 Active VTE Mechanical Prophylaxis 11/08 UNK Active Current Medications Sig/Berhane Start time Last Medication Dose Stop Time Status Admin Sodium Chloride 1,000 ML ONCE ONE 11/08 1700 AC 11/08 (Normal Saline 0.9%) 11/09 0619 1813 Laboratory Tests 11/08/17 1520: Urinalysis LIGHT H, Urine Color YEL, Urine Clarity CLEAR, Urine pH 6.0, Ur Specific [place] 1.020, Urine Protein 30 H, Urine Ketones NEG, Urine Nitrite NEG, Urine Bilirubin NEG, Urine Urobilinogen 0.2, Ur Leukocyte Esterase NEG, Ur Microscopic SEDIMENT EXAMINED, Urine WBC RARE, Urine Hemoglobin NEG, Urine Glucose NEG 11/08/17 1230: Anion Gap 13, Estimated GFR 19 L, BUN/Creatinine Ratio 37.3 H, Glucose 152 H, Calcium 9.2, Total Bilirubin 0.2, AST 14 L, ALT 28, Alkaline Phosphatase 45, Troponin I 0.04, Total Protein 6.3, Albumin 3.5, Globulin 2.8, Albumin/Globulin Ratio 1.3, CBC w Diff NO MAN DIFF REQ, RBC 2.70 L, MCV 88.5, MCH 30.0, MCHC 33.8, RDW 14.5, MPV 8.6, Gran % 75.4 H, Lymphocytes % 15.8 L, Monocytes % 6.3, Eosinophils % 2.2, Basophils % 0.3, Absolute Granulocytes 5.2, Absolute Lymphocytes 1.1 L, Absolute Monocytes 0.4, Absolute Eosinophils 0.2, Absolute Basophils 0 (Fabienne JACINTO,Piyush Leal) Departure Departure Disposition: STILL A PATIENT Condition: Stable Clinical Impression Primary Impression: Symptomatic anemia Secondary Impressions: Acute blood loss anemia, Acute kidney injury Referrals: Chloe JACINTO,Tiffani Leal (PCP/Family) Departure Forms: Customer Survey General Discharge Information Observation Note Spoke With: Liat Harris MD Physician Advisor Notified: PIYUSH FONTANEZ DO Place Patient In: Non-ED OBS Care Area Rationale for Observation: My rational for observation is as follows . Patient will require blood transfusion. GI consultation. Colonoscopy. High risk. Acute blood loss. Symptomatic. Unsteady on his feet. Medically not safe for discharge. Physical therapy consultation. (Mp Stevenson) PA/PUBLIC ADDRESS SYSTEMS MECHANIC Co-Sign Statement Statement: ED Attending supervision documentation- [X] I saw and evaluated the patient. I have also reviewed all the pertinent lab results and diagnostic results. I agree with the findings and the plan of care as documented in the PA's/PUBLIC ADDRESS SYSTEMS MECHANIC's documentation. Patient presents for evaluation of injury sustained status post fall yesterday. Physical examination reveals a nonfocal neurologic exam but patient's color appears somewhat pale. [] I have reviewed the ED Record and agree with the PA's/PUBLIC ADDRESS SYSTEMS MECHANIC's documentation. [] Additions or exceptions (if any) to the PAs/PUBLIC ADDRESS SYSTEMS MECHANIC's note and plan are summarized below: [] (Fabienne JACINTO,Piyush Leal) Critical Care Note Critical Care Note Critical Care Time: 30-74 min (35) (Mp Stevenson)
--- NOTE | 2017-11-08 16:34 | RADIOLOGY REPORT ---
EXAMINATION: XR PORTABLE CHEST CLINICAL INFORMATION: Dizziness and lightheaded COMPARISON: 10/07/2017 TECHNIQUE: Portable frontal view of the chest was obtained. FINDINGS: The lungs are well expanded. No consolidation, edema, or significant effusion. No pneumothorax. The cardiomediastinal silhouette remains prominent. Degenerative changes at the shoulders. IMPRESSION: No acute pulmonary finding.
--- NOTE | 2017-11-08 16:54 | RADIOLOGY REPORT ---
EXAMINATION: XR SHOULDER, RIGHT CLINICAL INFORMATION: Shoulder pain after fall. COMPARISON: Right shoulder radiographs dated June 08, 2012. TECHNIQUE: AP external rotation, Grashey, scapular Y, and axillary views of the right shoulder. FINDINGS: The humeral head appears well-seated within the glenoid fossa. The acromioclavicular joint appears maintained. No definite fracture. The visualized right hemithorax is clear. IMPRESSION: No fracture or dislocation. No change from prior study.
--- NOTE | 2017-11-08 17:14 | CT SCAN REPORT ---
EXAMINATION: CT HEAD WITHOUT CONTRAST CLINICAL INFORMATION: Fall hit head. COMPARISON: Prior CT examinations most recent 10/08/2017 TECHNIQUE: Contiguous axial imaging was performed from the skull base to vertex without intravenous administration of contrast. DLP: 620 mGy-cm FINDINGS: There is no evidence of acute intracranial hemorrhage or territorial infarction. No abnormal mass effect or midline shift is seen. Jin to white matter differentiation is well preserved. No extra-axial fluid collections are identified. The ventricles are normal in size. There is no abnormal attenuation within the brain parenchyma. The osseous structures and soft tissues are normal. The mastoid air cells and visualized portions of the paranasal sinuses are well aerated. IMPRESSION: No acute intracranial pathology.
--- NOTE | 2017-11-08 19:04 | History & Physical ---
Marifer JACINTO,[facility] 11/08/17 1904: General Information and HPI MD Statement: I have seen and personally examined AJAY ARREDONDO and documented this H&P. The patient is a 72 year old M who presented with a patient stated chief complaint of [GI bleed]. Source of Information: patient, family, old records Exam Limitations: no limitations History of Present Illness: 72 year-old male with a PMH significant for HTN, T2DM, HLD, CAD, CKD3, PVD S/P bypass and stenting, recent diagnosis CHF and A.fib who presented to the ED complaining. Last month the patient was diagnosed with new also CHF and atrial fibrillation for which he was started on Lasix, Eliquis, and aspirin dose was increased to 325. For 24 hours prior to admission patient started to feel dizzy especially when he stands from sitting, he reported one backward fall and hitting the back of his head. The patient denies palpitation, shortness breath, or chest pain prior to the fall. He denies loss of consciousness or seizure activity. The patient endorsed intermittent bright red per rectum. The last episode was after he started taking liquids around 15 days ago. He also reported dark stool and dark urine. The patient has never had colonoscopy in the past. Allergies/Medications Allergies: Coded Allergies: bacitracin (RASH 08/20/16) neomycin (From NEOSPORIN ([id number])) (RASH 08/20/16) polymyxin B (From NEOSPORIN ([id number])) (RASH 08/20/16) Home Med list Apixaban (Eliquis) 5 MG TABLET 5 MG PO BID A. Fib Aspirin (Aspirin*) 325 MG TABLET 325 MG PO DAILY Heart Health Buspirone HCl 15 MG TABLET 0.5 TAB PO BID SLEEP (Reported) Clopidogrel Bisulfate (Clopidogrel) 75 MG TABLET 1 TAB PO DAILY BLOOD THINNER (Reported) Duloxetine HCl 60 MG CAPSULE.DR 1 CAP PO DAILY ANXIETY (Reported) Ergocalciferol (Vitamin D2) (Vitamin D2) 50,000 UNIT CAPSULE 1 CAP PO Q2W SUPPLEMENT . Furosemide (Lasix) 20 MG TABLET 1 TAB PO DAILY Fluid Retention . Gabapentin 400 MG CAPSULE 1 CAP PO BID Nerve Pain . Glipizide 5 MG TABLET 1 TAB PO BID DM . Insulin Glargine,Hum.rec.anlog (Lantus Solostar) 100 UNIT/ML (3 ML) INSULN.PEN 60 UNIT SC QPM DM . Lisinopril 5 MG TABLET 5 MG PO DAILY HTN Pravastatin Sodium 40 MG TABLET 1 TAB PO QPM CHOL (Reported) Tamsulosin HCl 0.4 MG CAP.ER.24H 2 CAP PO DAILY URINE (Reported) Past History Travel History Traveled to [place] past 21 day No Medical History Neurological: peripheral neuropathy EENT: NONE Cardiovascular: PVD, HTN, HLD Respiratory: NONE Gastrointestinal: NONE Hepatic: NONE Renal: CKD Musculoskeletal: disk herniation, ARTHRITIS Psychiatric: anxiety, depression Endocrine: IDDM Blood Disorders: NONE Cancer(s): NONE SPRAY BLENDER/Reproductive: NONE History of MRSA: No History of VRE: No History of CDIFF: No Influenza Vaccine: 09/05/17 Surgical History Surgical History: fempop bypass, LE stent placement CERIVCAL C5 Past Family/Social History Psychosocial History Who Do You Live With? spouse Services at Home: Home Health Aide, Nursing, Occupational Therapy, Physical Therapy Primary Language: Latvian ETOH Use: denies use Illicit Drug Use: denies illicit drug use Living Will? no Functional Ability Ambulation: cane Review of Systems Review of Systems Constitutional: Reports: weakness. Denies: chills, diaphoresis, fever, malaise, unexplained weight loss. EENTM: Reports: visual changes. Denies: blurred vision, double vision, epistaxis, nasal pain. Cardiovascular: Reports: peripheral edema. Denies: chest pain, orthopena, palpitations. Respiratory: Denies: cough, orthopnea, short of breath, stridor, wheezing. GI: Reports: melena, bloody stool, changes in stool. Denies: constipation, diarrhea , nausea, vomiting. Genitourinary: Denies: dysuria, hematuria. Musculoskeletal: Denies: back pain. Skin: Denies: rash. Neurological/Psychological: Denies: headache, numbness, tingling. Exam & Diagnostic Data Last 24 Hrs of Vital Signs/I&O Vital Signs Date Time Temp Pulse Resp B/P B/P Pulse O2 O2 Flow FiO2 Mean Ox Delivery Rate 11/08 1814 98.0 57 16 138/65 99 Room Air 11/08 1654 Room Air 11/08 1529 97.5 71 16 121/59 99 Room Air 11/08 1211 94.0 71 20 92/61 95 Room Air Intake & Output 11/08 1600 11/08 0800 02 0000 Intake Total Output Total Balance Patient 124.738 kg Weight Physical Exam General Appearance Alert, Oriented X3, Cooperative, No Acute Distress Skin No Rashes HEENT Atraumatic, PERRLA, EOMI, Mucous Membr. moist/pink Neck No JVD Cardiovascular Normal S1, Normal S2, irregular , 1/6 systolic murmur on the left sternal border Lungs Clear to Auscultation, decrease air-entry over lung base bl Abdomen Soft, No Tenderness, large 5 X 6 umbilical hernia, no tenderness Neurological Normal Speech Extremities No Clubbing, No Cyanosis, +1 bl LE edema Last 24 Hrs of Labs/Nando: Laboratory Tests 11/08/17 1520: Urinalysis LIGHT H, Urine Color YEL, Urine Clarity CLEAR, Urine pH 6.0, Ur Specific [place] 1.020, Urine Protein 30 H, Urine Ketones NEG, Urine Nitrite NEG, Urine Bilirubin NEG, Urine Urobilinogen 0.2, Ur Leukocyte Esterase NEG, Ur Microscopic SEDIMENT EXAMINED, Urine WBC RARE, Urine Hemoglobin NEG, Urine Glucose NEG 11/08/17 1230: Anion Gap 13, Estimated GFR 19 L, BUN/Creatinine Ratio 37.3 H, Glucose 152 H, Calcium 9.2, Total Bilirubin 0.2, AST 14 L, ALT 28, Alkaline Phosphatase 45, Troponin I 0.04, Total Protein 6.3, Albumin 3.5, Globulin 2.8, Albumin/Globulin Ratio 1.3, CBC w Diff NO MAN DIFF REQ, RBC 2.70 L, MCV 88.5, MCH 30.0, MCHC 33.8, RDW 14.5, MPV 8.6, Gran % 75.4 H, Lymphocytes % 15.8 L, Monocytes % 6.3, Eosinophils % 2.2, Basophils % 0.3, Absolute Granulocytes 5.2, Absolute Lymphocytes 1.1 L, Absolute Monocytes 0.4, Absolute Eosinophils 0.2, Absolute Basophils 0 Assessment/Plan Assessment: 72-year-old male with extensive past medical history who was recently diagnosed with CHF and atrial fibrillation and was started on Lasix and Eliquis who presented with 1 day of dizziness, dark stool, one episode of bright red blood per rectum, and orthostatic hypotension. The patient also reported one episode of fall where he strike his head against the floor. On the ED the patient was found to be hypotensive, WLILOW, elevated BUN/creatinine ratio, with a hemoglobin of 8 that dropped from 12 week ago. The patient is taking aspirin 325 mg daily even though he denies abdominal pain upper GI still high in the list given the massive drop in hemoglobin coupled with the hypotension and dark stool. #Hemorrhagic anemia most likely secondary to GI bleed: Given the patient's presentation upper GI bleed will need to be ruled out but also he hse never had colonoscopy done and he reported long history of intermittent lower GI bleed(can be hemorrhoids) so also colonoscopy will most likely be needed at some point. * patinet will be placed in [facility] * We will transfuse patient with 1 pack of RBCs given the symptomatic anemia * We will continue patient IV fluid * We will keep patient nothing by mouth starting midnight for upper endoscopy * We will start patient IV Protonix twice a day * We will hold all antihypertensive medication * We will hold aspirin 325 mg daily * We will hold Eliquis * We will order CBCT every 8 hours * We will call GI consult #CHF/atrial fibrillation * We will hold Eliquis and aspirin * We will continue clopidogrel( for PAD stent) * We will continue Lasix * We will consult cardiology #PAD stent The patient had peripheral artery disease status post stenting less than a year ago. * We will continue clopidogrel * We will consult vascular to discuss if we can hold clopidogrel #WILLOW Most likely related to prerenal related to hypotension and blood loss * Patient received 1 pack of RBCs * We'll continue IV fluids * Repeat renal function frequently #T2DM/HTN * We will stop the oral antihypertensive * We will stop all oral antihyperglycemic * We will start patient insulin sliding scale * Patient will be on diabetic diet when he is ready to be on diet * Frequent finger stick glucose level Nothing by mouth DVT prophylaxis with Alps only given the GI bleed' Full codeFC As Ranked By This Provider Problem List: 1. Acute kidney injury 2. Acute blood loss anemia Core Measures/Misc (06/19) Acute Coronary Syndrome ACS Diagnosis: No Congestive Heart Failure Congestive Heart Failure Diagnosis No Cerebrovascular Accident CVA/TIA Diagnosis: No VTE (View Protocol) VTE Risk Factors Age>40 No Mechanical VTE Prophylaxis d/t N/A MechProphylax Ordered No VTE Pharm Prophylaxis d/t Bleeding (Active) Sepsis (View protocol) Sepsis Present: No Liat Harris MD 11/09/17 1320: Core Measures/Misc (06/19) Acute Coronary Syndrome ACS Diagnosis: No Congestive Heart Failure Congestive Heart Failure Diagnosis No Attending MD Review Statement Attending Statement Attending MD Statement: examined this patient, discuss w/resident/PA/DISC SANDER, agreed w/resident/PA/DISC SANDER, reviewed EMR data (avail) Attending Assessment/Plan: 72M PMH HTN, T2DM, HLD, PVD s/p multiple lower extremity stents on ASA and Plavix, HFpEF, recently diagnosed atrial fibrillation placed on Eliquis, presents with 1 week of worsening fatigue, dyspnea on exertion, and pallor. Had a fall a few days ago landing on his right side and hitting his head without loss of consciousness. Has had no complaints of confusion, vision changes, or neurological deficit. He does reports some black stools and some bloody stools in the past week. He was found to have a Hgb of 8.1 down from 12 a week ago. He is hemodynamically stable. EKG shows rate controlled atrial fibrillation at 48. 1. Acute upper GI bleed 2. Symptomatic acute blood loss anemia 3. PVD 4. Chronic atrial fibrillation Plan - Admit to general medicine - PPI - Clear liquid diet, no reds - GI consult - Hold ASA and Eliquis - Cardiology and vascular consults - Trend CBC - Continue remaining home medications - Avoid NSAIDs - DVT PPx with ALPS
[2017-11-08 21:36] VITALS: BP 132/84
[2017-11-09 00:53] LABS: ABSOLUTE BASOPHIL COUNT 0 /CUMM (0.0-0.2); ABSOLUTE EOSINOPHIL COUNT 0.2 /CUMM (0.0-0.7); ABSOLUTE LYMPH COUNT 1.6 /CUMM (1.2-3.4); ABSOLUTE MONOCYTE COUNT 0.6 /CUMM (0.10-0.60); BASOPHIL % 0.4 % (0.0-2.0); EOSINOPHIL % 3.4 % (0-5); GRANULOCYTE % 63.1 % (42.2-75.2); HEMATOCRIT 24.9 % (42-52); MEAN CORPUSCULAR HGB 30.2 PG (27.0-31.0); MEAN CORPUSCULAR HGB CONC 33.8 G/DL (33.0-37.0); MEAN CORPUSCULAR VOLUME 89.2 FL (80.0-94.0); MEAN PLATELET VOLUME 8.6 FL (7.4-10.4); PLATELET COUNT 212 /CUMM (130-400); RED BLOOD CELL CT 2.79 /CUMM (4.70-6.10); WHITE BLOOD CELL COUNT 6.4 /CUMM (4.8-10.8)
[2017-11-09 04:11] LABS: ABSOLUTE BASOPHIL COUNT 0 /CUMM (0.0-0.2); ABSOLUTE EOSINOPHIL COUNT 0.2 /CUMM (0.0-0.7); ABSOLUTE GRANULOCYTE CT 3.6 /CUMM (1.4-6.5); ABSOLUTE LYMPH COUNT 1.7 /CUMM (1.2-3.4); ABSOLUTE MONOCYTE COUNT 0.6 /CUMM (0.10-0.60); BASOPHIL % 0.6 % (0.0-2.0); EOSINOPHIL % 3.6 % (0-5); HEMATOCRIT 24.5 % (42-52); MEAN CORPUSCULAR HGB 29.7 PG (27.0-31.0); MEAN CORPUSCULAR HGB CONC 32.9 G/DL (33.0-37.0); MEAN PLATELET VOLUME 8.5 FL (7.4-10.4); PLATELET COUNT 217 /CUMM (130-400); RBC DISTRIBUTION WIDTH 14.6 % (11.5-14.5); RED BLOOD CELL CT 2.72 /CUMM (4.70-6.10); WHITE BLOOD CELL COUNT 6.2 /CUMM (4.8-10.8)
--- NOTE | 2017-11-09 06:32 | Cons- Gastroenterology ---
General Information and HPI Consulting Request Date of Consult: 11/09/17 Requested By: Liat Harris MD Reason for Consult: Notified of a.m. consult by hospitalist service to assess anemia & intermittent OB-positive stool (currently OB-neg), in patient on outpt ASA, Plavix, & Eliquis. 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 JOANIE, DJD, recently in [facility] 10/07/17 to 10/12/17, with SOB & SALEH, found to be in afib then, with slow VR. 10/07/17: EKG- new onset atrial fibrillation with bradycardia 46 bpm, no ST changes, QTC 424. At that time, labs were significant for WBC 6.4, H&H 11.4/33.6, sodium 138, potassium 4.9, BUN /Cr 45/2.1, GFR 31, which were baseline, proBNP 5380. CXR then showed CHF. He was initially treated with IV heparin, ASA, & Plavix. He had been on Plavix per vascular surgery. 10/09/17: Echo- LVEF 55-60%, w/o wall motion abnl, mild to mod dilated LA, mild to mod MR, mild TR, no . His ACEI were increased & he was diuresed. *He was D/C 10/12/17, on ASA 325 mg daily, Plavix & Eliquis. He denied any NSAID use. The pt presented to the [place] [facility] 11/08/17 at 11:42 a.m. c/o dizziness. 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 He denied any preceding chest pain, shortness of breath, palpitations, seizure, or LOC. Upon arrival, BP 92/61, P 71 , R 20, T "94" (97.5 on repeat), O2 sat RA 95%. He was found to have worsening anemia and worsening CKD. His BP improved after IVF. He denied any abdominal trauma, but apparently hit his right flank when he fell. The patient denied any overt GI bleeding, hematemesis, or melena (*although this contradicted what he allegedly told the medical team). He rarely had GERD, for which he took Tums. He denied any odynophagia or dysphagia, aside from the fact that he had issues with mastication, due to being edentulous. He denied any nausea, vomiting, abdominal pain, early satiety, diarrhea, constipation, obstipation, tenesmus, or change in stool caliber. He denied any fevers, chills, jaundice, symptoms of UTI, or URI. He denied any weight loss or change in appetite. He denied any FHx of GI Ca, GI disease, or inherited liver disease. He had never had an EGD or baseline colonoscopy. He was given solids to eat the p.m. of 11/08/17. He was transfused 1u PRBC the p.m. of admission, on 11/08/17. He denied any prior transfusions. He remotely smoked over 40 years ago. He denied any EtOH or illicit drugs. He reportedly had OB-positive stool on 11/08/17. However, my digital rectal exam of 11/09/17 showed brown, OB-negative stool. The medical service held his aspirin and Eliquis on admission, but continued his Plavix. The patient was not certain when he last took his Eliquis. I advised both cardiology & vascular consults to comment on these issues, as the patient was not certain when his B/L LE stents were placed. He denied any epistaxis, gum bleeding, hemoptysis, or gross hematuria. Aside from his chronic peripheral neuropathy, he denied any acute neurologic symptoms. He was empirically rxd Protonix 40 mg IV BID. *No coags were sent on admission, as the patient was on Eliquis. 11/03/15: B12 627, folate 9.7 08/26/17: Hep Bs Ab, Hep Bs Ag, Hep B core Ab, Hep C Ab- all neg. 10/07/17: PT 12.0, INR 1.14, PTT 30. 11/08/17: Admission labs 12:30 p.m.- WBC 6.9, H/H 8.1/23.9, MCV 88.5, RDW 14.5, PLT 238, glu 152, BUN/Cr 123/3.3, GFR 19, Na 138, K 5.7, HCO3 20, AG 13, Ca 9.2, alb 3.5, glob 2.8, TBil 0.2, alk phos 45, AST 14, ALT 28, troponin 0.04; U/A- clear, yellow, 1.020, 6.0, rare WBC, light amorph, 30+ prot, micro-otherwise neg , neg nitrite, neg esterase. 11/08/17: 10:32 p.m.- WBC 6.4, H/H 8.4/24.9 (*post 1u PRBC), PLT 212, BUN/Cr 116 /3.2, GFR 19, Na 140, K 4.9, HCO3 21, AG 13. 11/09/17: 03:54 a.m.- WBC 6.2, H/H 8.1/24.5, PLT 217. 11/09/07: 07:55 a.m.- WBC 5.5, H/H 8.3/24.9, PLT 221, BUN/Cr 109/2.9, GFR 22, Na 142, K 4.8, HCO3 19, AG 12. 11/08/17: XRY-PORTABLE CHEST XRAY- No acute pulmonary finding. DJD. 11/08/17: XR SHOULDER, RIGHT- No fracture or dislocation. No change from prior study. 11/08/17: CT HEAD WO IV CONTRAST- No acute intracranial pathology. 11/08/17: EKG- slow afib @ 48, nl axis, NSST. Allergies/Medications Allergies: Coded Allergies: bacitracin (RASH 08/20/16) neomycin (From NEOSPORIN ([id number])) (RASH 08/20/16) polymyxin B (From NEOSPORIN ([id number])) (RASH 08/20/16) Home Med List: Apixaban (Eliquis) 5 MG TABLET 5 MG PO BID A. Fib Aspirin (Aspirin*) 325 MG TABLET 325 MG PO DAILY Heart Health Buspirone HCl 15 MG TABLET 0.5 TAB PO BID SLEEP (Reported) Clopidogrel Bisulfate (Clopidogrel) 75 MG TABLET 1 TAB PO DAILY BLOOD THINNER (Reported) Duloxetine HCl 60 MG CAPSULE.DR 1 CAP PO DAILY ANXIETY (Reported) Ergocalciferol (Vitamin D2) (Vitamin D2) 50,000 UNIT CAPSULE 1 CAP PO Q2W SUPPLEMENT . Furosemide (Lasix) 20 MG TABLET 1 TAB PO DAILY Fluid Retention . Gabapentin 400 MG CAPSULE 1 CAP PO BID Nerve Pain . Glipizide 5 MG TABLET 1 TAB PO BID DM . Insulin Glargine,Hum.rec.anlog (Lantus Solostar) 100 UNIT/ML (3 ML) INSULN.PEN 60 UNIT SC QPM DM . Lisinopril 5 MG TABLET 5 MG PO DAILY HTN Pravastatin Sodium 40 MG TABLET 1 TAB PO QPM CHOL (Reported) Tamsulosin HCl 0.4 MG CAP.ER.24H 2 CAP PO DAILY URINE (Reported) Current Medications: Current Medications Sig/Berhane Start time Last Medication Dose Route Stop Time Status Admin Atorvastatin Calcium 20 MG 1700 11/09 1700 AC PO Buspirone HCl 7.5 MG BID 11/09 2200 AC PO Buspirone HCl 7.5 MG BID 11/08 2200 DC 11/09 PO 1144 Clopidogrel Bisulfate 75 MG DAILY 11/09 1000 DC PO Dextrose/Sodium 1,000 ML Q20H 11/10 0000 AC Chloride IV Dextrose/Sodium 1,000 ML Q20H 11/09 1415 DC Chloride IV Duloxetine HCl 60 MG DAILY 11/09 1000 CAN PO Furosemide 20 MG DAILY 11/09 1024 AC 11/09 PO 1141 Furosemide 20 MG DAILY 11/09 1000 CAN PO Gabapentin 400 MG BID 11/08 2200 AC 11/09 PO 1141 Insulin Aspart 0 Q6 11/09 1800 CAN SC Insulin Aspart 0 TIDAC 11/09 0800 DC SC Insulin Detemir 30 UNITS ONCE ONE 11/08 2130 DC 11/08 SC 11/08 213 2147 Insulin Human Regular 0 Q6 11/09 1800 AC SC Lisinopril 5 MG DAILY 11/09 1000 CAN PO Pantoprazole Sodium 40 MG BID 11/08 2200 AC 11/09 IV 1141 Pantoprazole Sodium 40 MG BID 11/08 2200 CAN IV Pantoprazole Sodium 0 .STK-MED ONE 11/08 2055 DC IV Polyethylene Glycol 1 GAL ONCE ONE 11/09 1600 AC PO 11/09 1601 Sodium Chloride 1,000 ML ONCE ONE 11/08 1700 DC 11/08 IV 11/09 0519 1813 Tamsulosin HCl 0.8 MG DAILY 11/09 1000 AC 11/09 PO 1141 Past History Travel History Traveled to [place] past 21 day No Medical History Blood Transfusion Hx: Yes (04/07/18) Neurological: peripheral neuropathy EENT: hearing loss Cardiovascular: CHF, PVD, HTN, HLD Respiratory: NONE Gastrointestinal: NONE Hepatic: NONE Renal: CKD Musculoskeletal: disk herniation (C5), degen joint disease, falls, ARTHRITIS Psychiatric: anxiety, depression Endocrine: IDDM (peripheral neuropathy) Blood Disorders: anemia Cancer(s): NONE 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 FATHER (CA/CABG). , Age 80; Cause: ESRD (end stage renal disease). Psychosocial History Where Do You Live? Home Who Do You Live With? spouse (ex- (his 2nd)) Services at Home: Home Health Aide, Nursing, Occupational Therapy, Physical Therapy Primary Language: Hebrew Smoking Status: Former Smoker ETOH Use: denies use Illicit Drug Use: denies illicit drug use Living Will? no Power of Area Relief Pilot/HCP? no Other Social History: x 2. Lives with 2nd ex-. Remote < 10 pk yr cigarette smoker, D/C late 's. No EtOH. No illicit drugs. Multiple tattoos. Had 3 children. 1 son- 32, suicide. 2 dtrs- [employer]. 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 Functional Ability ADLs Independent: dressing, eating, toileting, bathing. Ambulation: cane IADLs Independent: shopping, housework, finances, food prep, telephone, transportation , medication admin. 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 Review of Systems Constitutional: Denies: chills, diaphoresis, fever, malaise, weakness, unexplained weight loss. EENTM: Reports: hearing changes (ASSINIBOINE AND GROS VENTRE TRIBES). Denies: blurred vision, double vision, visual changes, eye pain, eye drainage, eye tearing, icterus, ear discharge, ear pain, ear redness, nasal congestion, epistaxis, nasal pain, throat pain, throat swelling, mouth pain, tooth pain (edentulous). Cardiovascular: Reports: peripheral edema (mild). Denies: chest pain, edema, orthopena, palpitations, syncope. Respiratory: Denies: cough, hemoptysis, orthopnea, short of breath, sputum production, stridor, wheezing. GI: Denies: abdominal pain, bloating, constipation, diarrhea, distention, bowel incontinence, melena, nausea, bloody stool, changes in stool, vomiting, steatorrhea. Genitourinary: Denies: discharge, dysuria, frequency, hematuria, hesitation, nocturia, pain, urgency. Musculoskeletal: Reports: joint pain (DJD/C5 surgery), muscle pain (right flank post fall). Denies: back pain, gout, joint swelling, muscle stiffness, neck pain. Skin: Denies: cysts, change in skin color, change in hair/nails, dryness, erythema, jaundice, lesions, lymphangitis, lumps, moles, rash. Neurological/Psychological: Reports: numbness (hx peripheral neuropathy). Denies: anxiety, ataxia, cognitive dysfunction, confusion, depressed, dementia, emotional problems, headache, paresthesia, pre-existing deficit, petit mal seizures, tingling, tremors, tonic-clonic seizures, unable to move lower ext, unable to move upper ext, weakness. Hematologic/Endocrine: Denies: bruising, bleeding, polyuria, polydipsia. Immunologic/Allergic: Denies: splenectomy, HIV/AIDS, lymphadenopathy. All Other Systems: Reviewed and Negative Exam & Diagnostic Data Vital Signs and I&O Vital Signs Date Time Temp Pulse Resp B/P B/P Pulse O2 O2 Flow FiO2 Mean Ox Delivery Rate 11/08 2135 98.4 60 18 132/84 99 Room Air 11/08 2054 97.2 61 20 155/70 100 Room Air 11/08 1814 98.0 57 16 138/65 99 Room Air 11/08 1654 Room Air 11/08 1529 97.5 71 16 121/59 99 Room Air 11/08 1211 94.0 71 20 92/61 95 Room Air Intake & Output 11/09 1600 11/09 0400 11/08 1600 11/08 0400 11/07 0400 Intake Total 500 Output Total 1000 300 Balance -1000 200 Intake, Blood 350 Product Intake, Oral 150 Output, Urine 1000 300 Patient 275 lb 275 lb Weight Physical Exam: Well-developed, well-nourished, obese elderly male, non-toxic appearing, chronically ill, in no apparent distress. ASSINIBOINE AND GROS VENTRE TRIBES. Sclera anicteric. Conjunctiva slightly pale. Oropharynx clear. No oral thrush. No aphthous ulcers. Edentulous. There is no adenopathy, thyromegaly, or JVD. Post C-spine scar. No peripheral stigmata of inflammatory bowel disease or chronic liver disease on exam. No spiders on the anterior chest wall. No gynecomastia. No CVA tenderness. Lungs: clear to A&P. No wheezing, rales, or rhonchi. Heart exam: irregularly irregular rate rhythm, S1 and S2, with I/ systolic murmur. Abdominal exam: normal bowel sounds, soft obese belly, nontender, without guarding or rebound. Small reducible ventral hernia; otherwise no mass. No organomegaly. No fluid shift. No pulsatile mass. No epigastric bruit. Digital rectal exam by myself 11/09/17: *brown stool, OB-negative, no mass, normal sphincter tone, smooth minimally enlarged prostate without nodule, no external hemorrhoids, no fissure. (Reportedly had OB+ stool on admission, 11/08/17). Extremities: without cyanosis or clubbing. Trace edema. No palpable cords. + DJD. Multiple tattoos. No palmar erythema. No Dupuytren's contractures. Distal pulses 1+ bilaterally. DTRs 2+ bilaterally. Alert and oriented x 3. Motor 5/5 B/L. Moves all extremities. No focal CN defects. A detailed exam for peripheral neuropathy was deferred, but was present by history. No tremor. No asterixis. Results Pertinent Lab Results: Laboratory Tests 11/09 11/09 0755 0354 Chemistry Sodium (137 - 145 mmol/L) 142 Potassium (3.5 - 5.1 mmol/L) 4.8 Chloride (98 - 107 mmol/L) 110 H Carbon Dioxide (22 - 30 mmol/L) 19 L Anion Gap (5 - 16) 12 BUN (9 - 20 mg/dL) 109 *H Creatinine (0.7 - 1.2 mg/dL) 2.9 H Estimated GFR (>60 ml/min) 22 L BUN/Creatinine Ratio (7 - 25 %) 37.6 H Hematology CBC w Diff NO MAN DIFF REQ NO MAN DIFF REQ WBC (4.8 - 10.8 /CUMM) 5.5 6.2 RBC (4.70 - 6.10 /CUMM) 2.80 L 2.72 L Hgb (14.0 - 18.0 G/DL) 8.3 L 8.1 L Hct (42 - 52 %) 24.9 L 24.5 L MCV (80.0 - 94.0 FL) 88.8 90.0 MCH (27.0 - 31.0 PG) 29.7 29.7 MCHC (33.0 - 37.0 G/DL) 33.4 32.9 L RDW (11.5 - 14.5 %) 14.9 H 14.6 H Plt Count (130 - 400 /CUMM) 221 217 MPV (7.4 - 10.4 FL) 9.0 8.5 Gran % (42.2 - 75.2 %) 60.7 59.0 Lymphocytes % (20.5 - 51.1 %) 26.4 27.7 Monocytes % (1.7 - 9.3 %) 8.8 9.1 Eosinophils % (0 - 5 %) 3.5 3.6 Basophils % (0.0 - 2.0 %) 0.6 0.6 Absolute Granulocytes (1.4 - 6.5 /CUMM) 3.3 3.6 Absolute Lymphocytes (1.2 - 3.4 /CUMM) 1.5 1.7 Absolute Monocytes (0.10 - 0.60 /CUMM) 0.5 0.6 Absolute Eosinophils (0.0 - 0.7 /CUMM) 0.2 0.2 Absolute Basophils (0.0 - 0.2 /CUMM) 0 0 /11/08 2232 1520 Chemistry Sodium (137 - 145 mmol/L) 140 Potassium (3.5 - 5.1 mmol/L) 4.9 Chloride (98 - 107 mmol/L) 107 Carbon Dioxide (22 - 30 mmol/L) 21 L Anion Gap (5 - 16) 13 BUN (9 - 20 mg/dL) 116 *H Creatinine (0.7 - 1.2 mg/dL) 3.2 H Estimated GFR (>60 ml/min) 19 L BUN/Creatinine Ratio (7 - 25 %) 36.9 H Hematology CBC w Diff NO MAN DIFF REQ WBC (4.8 - 10.8 /CUMM) 6.4 RBC (4.70 - 6.10 /CUMM) 2.79 L Hgb (14.0 - 18.0 G/DL) 8.4 L Hct (42 - 52 %) 24.9 L MCV (80.0 - 94.0 FL) 89.2 MCH (27.0 - 31.0 PG) 30.2 MCHC (33.0 - 37.0 G/DL) 33.8 RDW (11.5 - 14.5 %) 15.0 H Plt Count (130 - 400 /CUMM) 212 MPV (7.4 - 10.4 FL) 8.6 Gran % (42.2 - 75.2 %) 63.1 Lymphocytes % (20.5 - 51.1 %) 24.3 Monocytes % (1.7 - 9.3 %) 8.8 Eosinophils % (0 - 5 %) 3.4 Basophils % (0.0 - 2.0 %) 0.4 Absolute Granulocytes (1.4 - 6.5 /CUMM) 4.0 Absolute Lymphocytes (1.2 - 3.4 /CUMM) 1.6 Absolute Monocytes (0.10 - 0.60 /CUMM) 0.6 Absolute Eosinophils (0.0 - 0.7 /CUMM) 0.2 Absolute Basophils (0.0 - 0.2 /CUMM) 0 Urines Urinalysis LIGHT H Urine Color (YEL,AMB,STR) YEL Urine Clarity (CLEAR) CLEAR Urine pH (5.0 - 8.0) 6.0 Ur Specific [place] (1.001 - 1.035) 1.020 Urine Protein (NEG,<30 MG/DL) 30 H Urine Ketones (NEG) NEG Urine Nitrite (NEG) NEG Urine Bilirubin (NEG) NEG Urine Urobilinogen (0.1 - 1.0 EU/dl) 0.2 Ur Leukocyte Esterase (NEG) NEG Ur Microscopic SEDIMENT EXAMINED Urine WBC (0 - 2 /HPF) RARE Urine Hemoglobin (NEG) NEG Urine Glucose (N MG/DL) NEG 11/08 1230 Chemistry Sodium (137 - 145 mmol/L) 138 Potassium (3.5 - 5.1 mmol/L) 5.7 H Chloride (98 - 107 mmol/L) 105 Carbon Dioxide (22 - 30 mmol/L) 20 L Anion Gap (5 - 16) 13 BUN (9 - 20 mg/dL) 123 *H Creatinine (0.7 - 1.2 mg/dL) 3.3 H Estimated GFR (>60 ml/min) 19 L BUN/Creatinine Ratio (7 - 25 %) 37.3 H Glucose (65 - 99 mg/dL) 152 H Calcium (8.4 - 10.2 mg/dL) 9.2 Total Bilirubin (0.2 - 1.3 mg/dL) 0.2 AST (17 - 59 U/L) 14 L ALT (21 - 72 U/L) 28 Alkaline Phosphatase (< 127 U/L) 45 Troponin I (<0.11 ng/ml) 0.04 Total Protein (6.3 - 8.2 g/dL) 6.3 Albumin (3.5 - 5.0 g/dL) 3.5 Globulin (1.9 - 4.2 gm/dL) 2.8 Albumin/Globulin Ratio (1.1 - 2.2 %) 1.3 Hematology CBC w Diff NO MAN DIFF REQ WBC (4.8 - 10.8 /CUMM) 6.9 RBC (4.70 - 6.10 /CUMM) 2.70 L Hgb (14.0 - 18.0 G/DL) 8.1 L Hct (42 - 52 %) 23.9 L MCV (80.0 - 94.0 FL) 88.5 MCH (27.0 - 31.0 PG) 30.0 MCHC (33.0 - 37.0 G/DL) 33.8 RDW (11.5 - 14.5 %) 14.5 Plt Count (130 - 400 /CUMM) 238 MPV (7.4 - 10.4 FL) 8.6 Gran % (42.2 - 75.2 %) 75.4 H Lymphocytes % (20.5 - 51.1 %) 15.8 L Monocytes % (1.7 - 9.3 %) 6.3 Eosinophils % (0 - 5 %) 2.2 Basophils % (0.0 - 2.0 %) 0.3 Absolute Granulocytes (1.4 - 6.5 /CUMM) 5.2 Absolute Lymphocytes (1.2 - 3.4 /CUMM) 1.1 L Absolute Monocytes (0.10 - 0.60 /CUMM) 0.4 Absolute Eosinophils (0.0 - 0.7 /CUMM) 0.2 Absolute Basophils (0.0 - 0.2 /CUMM) 0 Imaging/Other Studies: 11/08/17: XRY-PORTABLE CHEST XRAY- No acute pulmonary finding. DJD. 11/08/17: XR SHOULDER, RIGHT- No fracture or dislocation. No change from prior study. 11/08/17: CT HEAD WO IV CONTRAST- No acute intracranial pathology. 11/08/17: EKG- slow afib @ 48, nl axis, NSST. 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 JOANIE, DJD, recently in [facility] 10/07/17 to 10/12/17, with SOB & SALEH, found to be in afib then, with slow VR. 10/07/17: EKG- new onset atrial fibrillation with bradycardia 46 bpm, no ST changes, QTC 424. At that time, labs were significant for WBC 6.4, H&H 11.4/33.6, sodium 138, potassium 4.9, BUN /Cr 45/2.1, GFR 31, which were baseline, proBNP 5380. CXR then showed CHF. He was initially treated with IV heparin, ASA, & Plavix. He had been on Plavix per vascular surgery. 10/09/17: Echo- LVEF 55-60%, w/o wall motion abnl, mild to mod dilated LA, mild to mod MR, mild TR, no . His ACEI were increased & he was diuresed. *He was D/C 10/12/17, on ASA 325 mg daily, Plavix & Eliquis. He denied any NSAID use. The pt presented to the [facility] 11/08/17 at 11:42 a.m. c/o dizziness. 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 He denied any preceding chest pain, shortness of breath, palpitations, seizure, or LOC. Upon arrival, BP 92/61, P 71 , R 20, T "94" (97.5 on repeat), O2 sat RA 95%. He was found to have worsening anemia and worsening CKD. His BP improved after IVF. He denied any abdominal trauma, but apparently hit his right flank when he fell. The patient denied any overt GI bleeding, hematemesis, or melena (*although this contradicted what he allegedly told the medical team). He rarely had GERD, for which he took Tums. He denied any odynophagia or dysphagia, aside from the fact that he had issues with mastication, due to being edentulous. He denied any nausea, vomiting, abdominal pain, early satiety, diarrhea, constipation, obstipation, tenesmus, or change in stool caliber. He denied any fevers, chills, jaundice, symptoms of UTI, or URI. He denied any weight loss or change in appetite. He denied any FHx of GI Ca, GI disease, or inherited liver disease. He had never had an EGD or baseline colonoscopy. He was given solids to eat the p.m. of 11/08/17. He was transfused 1u PRBC the p.m. of admission, on 11/08/17. He denied any prior transfusions. He remotely smoked over 40 years ago. He denied any EtOH or illicit drugs. He reportedly had OB-positive stool on 11/08/17. However, my digital rectal exam of 11/09/17 showed brown, OB-negative stool. The medical service held his aspirin and Eliquis on admission, but continued his Plavix. The patient was not certain when he last took his Eliquis. I advised both cardiology & vascular consults to comment on these issues, as the patient was not certain when his B/L LE stents were placed. He denied any epistaxis, gum bleeding, hemoptysis, or gross hematuria. Aside from his chronic peripheral neuropathy, he denied any acute neurologic symptoms. He was empirically rxd Protonix 40 mg IV BID. *No coags were sent on admission, as the patient was on Eliquis. 11/03/15: B12 627, folate 9.7 08/26/17: Hep Bs Ab, Hep Bs Ag, Hep B core Ab, Hep C Ab- all neg. 10/07/17: PT 12.0, INR 1.14, PTT 30. 11/08/17: Admission labs 12:30 p.m.- WBC 6.9, H/H 8.1/23.9, MCV 88.5, RDW 14.5, PLT 238, glu 152, BUN/Cr 123/3.3, GFR 19, Na 138, K 5.7, HCO3 20, AG 13, Ca 9.2, alb 3.5, glob 2.8, TBil 0.2, alk phos 45, AST 14, ALT 28, troponin 0.04; U/A- clear, yellow, 1.020, 6.0, rare WBC, light amorph, 30+ prot, micro-otherwise neg , neg nitrite, neg esterase. 11/08/17: 10:32 p.m.- WBC 6.4, H/H 8.4/24.9 (*post 1u PRBC), PLT 212, BUN/Cr 116 /3.2, GFR 19, Na 140, K 4.9, HCO3 21, AG 13. 11/09/17: 03:54 a.m.- WBC 6.2, H/H 8.1/24.5, PLT 217. 11/09/07: 07:55 a.m.- WBC 5.5, H/H 8.3/24.9, PLT 221, BUN/Cr 109/2.9, GFR 22, Na 142, K 4.8, HCO3 19, AG 12. 11/08/17: XRY-PORTABLE CHEST XRAY- No acute pulmonary finding. DJD. 11/08/17: XR SHOULDER, RIGHT- No fracture or dislocation. No change from prior study. 11/08/17: CT HEAD WO IV CONTRAST- No acute intracranial pathology. 11/08/17: EKG- slow afib @ 48, nl axis, NSST. *The patient has numerous comorbidities. He reportedly had OB positive stool on admission 11/08/17, at which point, he was on ASA, Plavix, & Eliquis. The patient is an extremely poor historian. He could not recall when his B/L LE stents were placed. He was reportedly brown Plavix by vascular surgery. The patient's ASA & Eliquis were held on admission 11/08/17. The patient was not certain when he last took his Eliquis. His Plavix was continued until 11/09/17. He had worsening of his CKD. He was seen by cardiology, who agreed with holding ASA and Eliquis for now, but they deferred to vascular surgery regarding the Plavix issue. I spoke with the medical house staff at length, and they are awaiting a return call from vascular surgery. *From a GI perspective, if one antiplatelet agent had to be continued, I would prefer to continue the aspirin, instead of Plavix. Even though the Plavix was eventually held by the medical team, it is still on board in the patient's system for 4-5 days. Theoretically, this could make a large polypectomy challenging. No anemia workup was sent prior to the 11/08/17: transfusion 1u PRBC. I am not certain of the patient's iron studies, nor EPO level. Additionally, when the patient fell and reportedly hit his head (initial CT head- negative), he reportedly hit his right flank. My 04/19: digital rectal exam showed brown, OB-negative stool (although stools were reportedly OB-positive on admission, 11/08/17). It is probably unlikely, but a retroperitoneal bleed should probably be excluded. The patient had never had an EGD or baseline colonoscopy. The risks and benefits of EGD and colonoscopy were discussed with the patient, and he wished to proceed. There was no FHx pertinent to the GI tract. *SUGGEST: Clears po, then NPO after 11:59 p.m. on Tue11/09/17, for baseline EGD/baseline colonoscopy on 11/10/17. *Golytely- 1 gallon po on Tue11/09/17, to start at 4 p.m., over 4-5 hours. *Agree with empiric IV Protonix 40 mg BID. *ASA & Eliquis on hold, per cardiology. *Advise vascular surgery input regarding holding Plavix (uncertain when B/L LE stents placed). *Consider adding Fe, TIBC, ferritin, B12, RBC folate, MMA, EPO levels to pre-transfx admit labs (defer to renal for IV Fe/EPO, etc.). *Check CBC BID for now. *Keep Hgb > 8 (prob ASHD & PAD). Supplemental O2 as needed. Strict I/O's. If H/H drop further, consideration for non-contrast CT AP to r/o retroperitoneal bleed. No NSAIDS. If any new neuro changes occur, agree with cardiology to consider repeat CT head, to r/o SDH or ICB. The above was discussed with the medical house staff & with Dr. Ness. Further GI recommendations to follow, depending on clinical course. Problem List: 1. Symptomatic anemia 2. Acute kidney injury 3. Stool guaiac positive Copies To: Steven JACINTO,Liat; Alvarado JACINTO,Franco Garcia; Aureliano JACINTO,Diane; Chloe JACINTO,Tiffani DRosa; Grover JACINTO,W Sriram Consult Acknowledgment - Thank you for your consult request.
[2017-11-09 06:54] VITALS: BP 134/76
--- NOTE | 2017-11-09 08:19 | Cons- Cardiology ---
Tristan Flores 11/09/17 0819: General Information and HPI Consulting Request Date of Consult: 11/09/17 Requested By: Liat Harris MD Reason for Consult: lower GI bleeding to address his current anticoagulation treatment. Source of Information: patient, old records Exam Limitations: no limitations History of Present Illness: This is 72 year-old man with medical history of A-fib currently on Eliquis, DM type 2, CAD, CKD stage 4, peripheral vascular disease status post bypass and stenting, diastolic congestive heart failure with HEpEF. he presented to the ED with c/o of dizziness and inability to walk due to gait issues. also , he report that he felt down and hit his head, back and right side. Also he report having black stools for the past days no bright bleeding, fever, chills or ABD pain. the Hemoccult test done in the emergency department came back positive, on his recent hospitalization in October 2017 patient was started on heparin at that time and his Hemoccult was negative. he is currently on ASA, Plavix and Eliquis. His aspirin at the leak was stopped by the primary team yesterday on the day of admission the continue his Plavix giving his high risk in the bilateral femoral stent. he was evaluated by the oil and gas exploration technician and the patient will undergo EGD and colonoscopy for further evaluation. he received 1 unit of packed RBCs as His H&H in 11/01/2017 was 12.6/37.4 that dropped to 8.1/23.9. He denies any chest pain, shortness breath, fever, chills, abdominal pain, constipation, diarrhea, hematuria, dysuria, headaches. Allergies/Medications Allergies: Coded Allergies: bacitracin (RASH 08/20/16) neomycin (From NEOSPORIN ([id number])) (RASH 08/20/16) polymyxin B (From NEOSPORIN ([id number])) (RASH 08/20/16) Home Med List: Apixaban (Eliquis) 5 MG TABLET 5 MG PO BID A. Fib Aspirin (Aspirin*) 81 MG TAB.CHEW 1 TAB PO DAILY cad/pvd Buspirone HCl 15 MG TABLET 0.5 TAB PO BID SLEEP (Reported) Duloxetine HCl 60 MG CAPSULE.DR 1 CAP PO DAILY ANXIETY (Reported) Ergocalciferol (Vitamin D2) (Vitamin D2) 50,000 UNIT CAPSULE 1 CAP PO Q2W SUPPLEMENT . Furosemide (Lasix) 20 MG TABLET 1 TAB PO DAILY Fluid Retention . Gabapentin 400 MG CAPSULE 1 CAP PO BID Nerve Pain . Glipizide 5 MG TABLET 1 TAB PO BID DM . Insulin Glargine,Hum.rec.anlog (Lantus Solostar) 100 UNIT/ML (3 ML) INSULN.PEN 60 UNIT SC QPM DM . Lisinopril 5 MG TABLET 5 MG PO DAILY HTN Pantoprazole Sodium (Protonix) 40 MG TABLET.DR 1 TAB PO BID GI BLEED . Pravastatin Sodium 40 MG TABLET 1 TAB PO QPM CHOL (Reported) Tamsulosin HCl 0.4 MG CAP.ER.24H 2 CAP PO DAILY URINE (Reported) Current Medications: Current Medications Sig/Berhane Start time Last Medication Dose Route Stop Time Status Admin Atorvastatin Calcium 20 MG 1700 11/09 1700 AC PO Buspirone HCl 7.5 MG BID 11/08 2200 AC 11/08 PO 2110 Clopidogrel Bisulfate 75 MG DAILY 11/09 1000 AC PO Duloxetine HCl 60 MG DAILY 11/09 1000 CAN PO Furosemide 20 MG DAILY 11/09 1024 AC PO Furosemide 20 MG DAILY 11/09 1000 CAN PO Gabapentin 400 MG BID 11/08 2200 AC 11/08 PO 2110 Insulin Aspart 0 TIDAC 11/09 0800 AC SC Insulin Detemir 30 UNITS ONCE ONE 11/08 2130 DC 11/08 SC 11/08 2131 2147 Lisinopril 5 MG DAILY 11/09 1000 CAN PO Pantoprazole Sodium 40 MG BID 11/08 2200 AC 11/08 IV 2100 Pantoprazole Sodium 40 MG BID 11/08 2200 CAN IV Pantoprazole Sodium 0 .STK-MED ONE 11/08 205 DC IV Sodium Chloride 1,000 ML ONCE ONE 11/08 1700 DC 11/08 IV 11/09 0619 1813 Tamsulosin HCl 0.8 MG DAILY 11/09 1000 AC PO Review of Systems Review of Systems: See HPI. Past History Travel History Traveled to [place] past 21 day No Medical History Blood Transfusion Hx: Yes Neurological: peripheral neuropathy EENT: NONE Cardiovascular: CHF, PVD, HTN, HLD Respiratory: NONE Gastrointestinal: NONE Hepatic: NONE Renal: CKD Musculoskeletal: disk herniation, ARTHRITIS Psychiatric: anxiety, depression Endocrine: IDDM Blood Disorders: NONE Cancer(s): NONE REIMBURSEMENT LIAISON/Reproductive: NONE Surgical History Surgical History: fempop bypass, LE stent placement CERIVCAL C5 Psychosocial History Who Do You Live With? spouse Services at Home: Home Health Aide, Nursing, Occupational Therapy, Physical Therapy Primary Language: [place] Smoking Status: Former Smoker ETOH Use: denies use Illicit Drug Use: denies illicit drug use Living Will? no Functional Ability Ambulation: cane ECHO Results (as available) Date of last Echo 10/09/17 EF% 60 Exam & Diagnostic Data Vital Signs and I&O Vital Signs Date Time Temp Pulse Resp B/P B/P Pulse O2 O2 Flow FiO2 Mean Ox Delivery Rate 11/09 0654 98.2 65 18 134/76 96 11/08 2136 98.4 60 18 132/84 99 Room Air 11/08 2054 97.2 61 20 155/70 100 Room Air 11/08 1814 98.0 57 16 138/65 99 Room Air 11/08 1654 Room Air 11/08 1529 97.5 71 16 121/59 99 Room Air 11/08 1211 94.0 71 20 92/61 95 Room Air Intake & Output 11/09 1600 11/09 0800 11/09 0000 11/08 1600 11/08 0800 11/08 0000 Intake Total 500 Output Total 1000 300 Balance -1000 200 Intake, Blood 350 Product Intake, Oral 150 Output, Urine 1000 300 Patient 276 lb 275 lb 275 lb Weight Weight Bed scale Measurement Method Physical Exam: Gen: The patient is in no acute distress HEENT: Normal nose, ears, and oropharynx. Pupils equal bilaterally. Conjunctiva normal. Neck: Supple with no JVD, no masses, and no thyromegaly Lungs: Clear to auscultation with normal respiratory effort Heart: Irregular irregular, S1, S2, no murmurs. 1+ peripheral edema on the left side mainly, 2+ pulses in the lower extremities bilaterally. Abdomen: Soft, nontender, no masses. No hepatomegaly. No splenomegaly Extremities: No clubbing or cyanosis. Normal muscle strength in the upper and lower extremities Labs/Nando Results: Laboratory Tests 11/09 11/09 0755 0354 Chemistry Sodium (137 - 145 mmol/L) 142 Potassium (3.5 - 5.1 mmol/L) 4.8 Chloride (98 - 107 mmol/L) 110 H Carbon Dioxide (22 - 30 mmol/L) 19 L Anion Gap (5 - 16) 12 BUN (9 - 20 mg/dL) 109 *H Creatinine (0.7 - 1.2 mg/dL) 2.9 H Estimated GFR (>60 ml/min) 22 L BUN/Creatinine Ratio (7 - 25 %) 37.6 H Hematology CBC w Diff NO MAN DIFF REQ NO MAN DIFF REQ WBC (4.8 - 10.8 /CUMM) 5.5 6.2 RBC (4.70 - 6.10 /CUMM) 2.80 L 2.72 L Hgb (14.0 - 18.0 G/DL) 8.3 L 8.1 L Hct (42 - 52 %) 24.9 L 24.5 L MCV (80.0 - 94.0 FL) 88.8 90.0 MCH (27.0 - 31.0 PG) 29.7 29.7 MCHC (33.0 - 37.0 G/DL) 33.4 32.9 L RDW (11.5 - 14.5 %) 14.9 H 14.6 H Plt Count (130 - 400 /CUMM) 221 217 MPV (7.4 - 10.4 FL) 9.0 8.5 Gran % (42.2 - 75.2 %) 60.7 59.0 Lymphocytes % (20.5 - 51.1 %) 26.4 27.7 Monocytes % (1.7 - 9.3 %) 8.8 9.1 Eosinophils % (0 - 5 %) 3.5 3.6 Basophils % (0.0 - 2.0 %) 0.6 0.6 Absolute Granulocytes (1.4 - 6.5 /CUMM) 3.3 3.6 Absolute Lymphocytes (1.2 - 3.4 /CUMM) 1.5 1.7 Absolute Monocytes (0.10 - 0.60 /CUMM) 0.5 0.6 Absolute Eosinophils (0.0 - 0.7 /CUMM) 0.2 0.2 Absolute Basophils (0.0 - 0.2 /CUMM) 0 0 02/06 02/ 2232 1520 Chemistry Sodium (137 - 145 mmol/L) 140 Potassium (3.5 - 5.1 mmol/L) 4.9 Chloride (98 - 107 mmol/L) 107 Carbon Dioxide (22 - 30 mmol/L) 21 L Anion Gap (5 - 16) 13 BUN (9 - 20 mg/dL) 116 *H Creatinine (0.7 - 1.2 mg/dL) 3.2 H Estimated GFR (>60 ml/min) 19 L BUN/Creatinine Ratio (7 - 25 %) 36.9 H Hematology CBC w Diff NO MAN DIFF REQ WBC (4.8 - 10.8 /CUMM) 6.4 RBC (4.70 - 6.10 /CUMM) 2.79 L Hgb (14.0 - 18.0 G/DL) 8.4 L Hct (42 - 52 %) 24.9 L MCV (80.0 - 94.0 FL) 89.2 MCH (27.0 - 31.0 PG) 30.2 MCHC (33.0 - 37.0 G/DL) 33.8 RDW (11.5 - 14.5 %) 15.0 H Plt Count (130 - 400 /CUMM) 212 MPV (7.4 - 10.4 FL) 8.6 Gran % (42.2 - 75.2 %) 63.1 Lymphocytes % (20.5 - 51.1 %) 24.3 Monocytes % (1.7 - 9.3 %) 8.8 Eosinophils % (0 - 5 %) 3.4 Basophils % (0.0 - 2.0 %) 0.4 Absolute Granulocytes (1.4 - 6.5 /CUMM) 4.0 Absolute Lymphocytes (1.2 - 3.4 /CUMM) 1.6 Absolute Monocytes (0.10 - 0.60 /CUMM) 0.6 Absolute Eosinophils (0.0 - 0.7 /CUMM) 0.2 Absolute Basophils (0.0 - 0.2 /CUMM) 0 Urines Urinalysis LIGHT H Urine Color (YEL,AMB,STR) YEL Urine Clarity (CLEAR) CLEAR Urine pH (5.0 - 8.0) 6.0 Ur Specific [place] (1.001 - 1.035) 1.020 Urine Protein (NEG,<30 MG/DL) 30 H Urine Ketones (NEG) NEG Urine Nitrite (NEG) NEG Urine Bilirubin (NEG) NEG Urine Urobilinogen (0.1 - 1.0 EU/dl) 0.2 Ur Leukocyte Esterase (NEG) NEG Ur Microscopic SEDIMENT EXAMINED Urine WBC (0 - 2 /HPF) RARE Urine Hemoglobin (NEG) NEG Urine Glucose (N MG/DL) NEG 11/08 1230 Chemistry Sodium (137 - 145 mmol/L) 138 Potassium (3.5 - 5.1 mmol/L) 5.7 H Chloride (98 - 107 mmol/L) 105 Carbon Dioxide (22 - 30 mmol/L) 20 L Anion Gap (5 - 16) 13 BUN (9 - 20 mg/dL) 123 *H Creatinine (0.7 - 1.2 mg/dL) 3.3 H Estimated GFR (>60 ml/min) 19 L BUN/Creatinine Ratio (7 - 25 %) 37.3 H Glucose (65 - 99 mg/dL) 152 H Calcium (8.4 - 10.2 mg/dL) 9.2 Total Bilirubin (0.2 - 1.3 mg/dL) 0.2 AST (17 - 59 U/L) 14 L ALT (21 - 72 U/L) 28 Alkaline Phosphatase (< 127 U/L) 45 Troponin I (<0.11 ng/ml) 0.04 Total Protein (6.3 - 8.2 g/dL) 6.3 Albumin (3.5 - 5.0 g/dL) 3.5 Globulin (1.9 - 4.2 gm/dL) 2.8 Albumin/Globulin Ratio (1.1 - 2.2 %) 1.3 Hematology CBC w Diff NO MAN DIFF REQ WBC (4.8 - 10.8 /CUMM) 6.9 RBC (4.70 - 6.10 /CUMM) 2.70 L Hgb (14.0 - 18.0 G/DL) 8.1 L Hct (42 - 52 %) 23.9 L MCV (80.0 - 94.0 FL) 88.5 MCH (27.0 - 31.0 PG) 30.0 MCHC (33.0 - 37.0 G/DL) 33.8 RDW (11.5 - 14.5 %) 14.5 Plt Count (130 - 400 /CUMM) 238 MPV (7.4 - 10.4 FL) 8.6 Gran % (42.2 - 75.2 %) 75.4 H Lymphocytes % (20.5 - 51.1 %) 15.8 L Monocytes % (1.7 - 9.3 %) 6.3 Eosinophils % (0 - 5 %) 2.2 Basophils % (0.0 - 2.0 %) 0.3 Absolute Granulocytes (1.4 - 6.5 /CUMM) 5.2 Absolute Lymphocytes (1.2 - 3.4 /CUMM) 1.1 L Absolute Monocytes (0.10 - 0.60 /CUMM) 0.4 Absolute Eosinophils (0.0 - 0.7 /CUMM) 0.2 Absolute Basophils (0.0 - 0.2 /CUMM) 0 Diagnostic Data CXR Results EXAMINATION: XR PORTABLE CHEST CLINICAL INFORMATION: Dizziness and lightheaded COMPARISON: 10/07/2017 TECHNIQUE: Portable frontal view of the chest was obtained. FINDINGS: The lungs are well expanded. No consolidation, edema, or significant effusion. No pneumothorax. The cardiomediastinal silhouette remains prominent. Degenerative changes at the shoulders. IMPRESSION: No acute pulmonary finding. Other Results EXAMINATION: CT HEAD WITHOUT CONTRAST CLINICAL INFORMATION: Fall hit head. COMPARISON: Prior CT examinations most recent 10/08/2017 TECHNIQUE: Contiguous axial imaging was performed from the skull base to vertex without intravenous administration of contrast. DLP: 620 mGy-cm FINDINGS: There is no evidence of acute intracranial hemorrhage or territorial infarction. No abnormal mass effect or midline shift is seen. Jin to white matter differentiation is well preserved. No extra-axial fluid collections are identified. The ventricles are normal in size. There is no abnormal attenuation within the brain parenchyma. The osseous structures and soft tissues are normal. The mastoid air cells and visualized portions of the paranasal sinuses are well aerated. IMPRESSION: No acute intracranial pathology. EXAM TYPE: RAD - XRY-SHOULDER COMPLETE-RIGHT EXAMINATION: XR SHOULDER, RIGHT CLINICAL INFORMATION: Shoulder pain after fall. COMPARISON: Right shoulder radiographs dated June 08, 2012. TECHNIQUE: AP external rotation, Grashey, scapular Y, and axillary views of the right shoulder. FINDINGS: The humeral head appears well-seated within the glenoid fossa. The acromioclavicular joint appears maintained. No definite fracture. The visualized right hemithorax is clear. IMPRESSION: No fracture or dislocation. No change from prior study. Assessment/Plan Assessment/Plan This is 72 year-old man with medical history of A-fib currently on Eliquis, DM type 2, CAD, CKD stage 4, peripheral vascular disease status post bypass and stenting, diastolic congestive heart failure with HEpEF. he presented to the ED with c/o of dizziness and inability to walk due to gait issues. Assessment: -Gastroenterology bleeding with acute blood loss anemia -Acute on chronic anemia due to both blood loss and the CKD. -Atrial fibrillation-currently rate under control. -Acute on chronic kidney disease -Generalized weakness/ fall and hit his head. -Diabetes mellitus -Peripheral arterial disease -History of coronary artery disease -heart failure with preserved ejection fraction (HFpEF) Recommendation: -Continue stopping his Eliquis and aspirin as he will under go EGD and colonoscopy. -We'll need to contact his vascular surgeon to address the need of the dual antiplatelet therapy for his stent as that with his eliquis for the A-fib increase his risk for bleeding. -Also obtain the records from vascular surgeon. -Continue the patient home by mouth Lasix to prevernt the patient undergo to decompensating diastolic CHF as his kidney function improved compared with the date of admission and he may need additional blood transfusion to keep his H&H > 8 g/dl. -Monitor input and output with daily weight. -Monitor his blood pressure. -Also, he will need PT eval. -If he develop any neurologic abnormality reconsiders rescanning his head to rule out any hematoma or hemorrhage. Copies To: Marry JACINTO,Tj Wills; Chloe JACINTO,Tiffani Leal; Lindsey JACINTO,Juan Carlos Pederson. Consult Acknowledgment - Thank you for your consult request. Jonathan Ness MD 11/09/17 6371: Assessment/Plan Assessment/Plan Attending addendum: The patient was seen and examined by myself and I agree with the plan as outlined above. Consult Acknowledgment - Thank you for your consult request.
--- NOTE | 2017-11-09 09:14 | PN- Housestaff ---
Thee JACINTO,Dallin 11/09/17 0914: Subjective Follow-up For: GI bleed symptomatic anemia Subjective: patient is complaining of some right sided back pain after his fall prior to admission, otherwise no new complaints denies melena or BRBPR since admission Review of Systems Constitutional: Reports: see HPI. Objective Last 24 Hrs of Vital Signs/I&O Vital Signs Date Time Temp Pulse Resp B/P B/P Pulse O2 O2 Flow FiO2 Mean Ox Delivery Rate 11/09 1508 98.2 62 20 126/60 98 Room Air 11/09 1141 80 132/80 11/09 0654 98.2 65 18 134/76 96 11/08 2136 98.4 60 18 132/84 99 Room Air 11/08 2054 97.2 61 20 155/70 100 Room Air Intake & Output 11/09 1600 11/09 0800 11/09 0000 Intake Total 720 500 Output Total 650 1000 300 Balance 70 -1000 200 Intake, Blood 350 Product Intake, IV 20 Intake, Oral 700 150 Number 0 Bowel Movements Output, Urine 650 1000 300 Patient 124.965 kg 124.738 kg Weight Weight Bed scale Measurement Method Physical Exam General Appearance: Alert, Oriented X3, Cooperative, No Acute Distress Cardiovascular: Normal S1, Normal S2, No Murmurs Lungs: Clear to Auscultation, Normal Air Movement Abdomen: Normal Bowel Sounds, Soft, No Tenderness, No Masses, guiaic negative Extremities: No Clubbing, No Cyanosis, Normal Pulses, mild b/l le edema Current Medications: Current Medications Sig/Berhane Start time Last Medication Dose Route Stop Time Status Admin Atorvastatin Calcium 20 MG 1700 11/09 1700 AC 11/09 PO 1650 Buspirone HCl 7.5 MG BID 11/09 2200 AC PO Buspirone HCl 7.5 MG BID 11/08 220 DC 11/09 PO 1144 Clopidogrel Bisulfate 75 MG DAILY 11/09 1000 DC PO Dextrose/Sodium 1,000 ML Q20H 11/10 0000 AC Chloride IV Dextrose/Sodium 1,000 ML Q20H 11/09 1415 DC 11/09 Chloride IV 1443 Duloxetine HCl 60 MG DAILY 11/09 1000 CAN PO Furosemide 20 MG DAILY 11/09 1024 AC 11/09 PO 1141 Furosemide 20 MG DAILY 11/09 1000 CAN PO Gabapentin 400 MG BID 11/08 2200 AC 11/09 PO 1141 Guaifenesin 10 ML Q6P PRN 11/09 1700 AC PO Insulin Aspart 0 Q6 11/09 1800 CAN SC Insulin Aspart 0 TIDAC 11/09 0800 DC SC Insulin Detemir 30 UNITS ONCE ONE 11/080 DC 11/08 SC 11/08 213 2147 Insulin Human Regular 0 Q6 11/09 1800 AC SC Lisinopril 5 MG DAILY 11/09 1000 CAN PO Pantoprazole Sodium 40 MG BID 11/08 2200 AC 11/09 IV 1141 Pantoprazole Sodium 40 MG BID 11/08 2200 CAN IV Pantoprazole Sodium 0 .STK-MED ONE 11/08 2055 DC IV Polyethylene Glycol 1 GAL ONCE ONE 11/09 1600 DC 11/09 PO 11/09 1601 1650 Sodium Chloride 1,000 ML ONCE ONE 11/08 1700 DC 11/08 IV 11/09 06 1813 Tamsulosin HCl 0.8 MG DAILY 11/09 1000 AC 11/09 PO 1141 Last 24 Hrs of Lab/Nando Results Last 24 Hrs of Labs/Mics: Laboratory Tests 11/09/17 0755: Anion Gap 12, Estimated GFR 22 L, BUN/Creatinine Ratio 37.6 H, CBC w Diff NO MAN DIFF REQ, RBC 2.80 L, MCV 88.8, MCH 29.7, MCHC 33.4, RDW 14.9 H, MPV 9.0, Gran % 60.7, Lymphocytes % 26.4, Monocytes % 8.8, Eosinophils % 3.5, Basophils % 0.6, Absolute Granulocytes 3.3, Absolute Lymphocytes 1.5, Absolute Monocytes 0.5 , Absolute Eosinophils 0.2, Absolute Basophils 0 11/09/17 0354: CBC w Diff NO MAN DIFF REQ, RBC 2.72 L, MCV 90.0, MCH 29.7, MCHC 32.9 L, RDW 14.6 H, MPV 8.5, Gran % 59.0, Lymphocytes % 27.7, Monocytes % 9.1, Eosinophils % 3.6, Basophils % 0.6, Absolute Granulocytes 3.6, Absolute Lymphocytes 1.7, Absolute Monocytes 0.6, Absolute Eosinophils 0.2, Absolute Basophils 0 11/08/172: Anion Gap 13, Estimated GFR 19 L, BUN/Creatinine Ratio 36.9 H, CBC w Diff NO MAN DIFF REQ, RBC 2.79 L, MCV 89.2, MCH 30.2, MCHC 33.8, RDW 15.0 H, MPV 8.6, Gran % 63.1, Lymphocytes % 24.3, Monocytes % 8.8, Eosinophils % 3.4, Basophils % 0.4, Absolute Granulocytes 4.0, Absolute Lymphocytes 1.6, Absolute Monocytes 0.6 , Absolute Eosinophils 0.2, Absolute Basophils 0 Assessment/Plan Assessment: 72-year-old male with extensive past medical history who was recently diagnosed with CHF and atrial fibrillation and was started on Lasix and Eliquis who presented with 1 day of GI bleed and dizziness. The patient fell without loss of consciousness prior to admission consistent with orthostatic hypotension from acute blood loss anemia and hypovolemia. On arrival, the patient was hypotensive with WILLOW, hemoglobin dropped to 8 from 12 acutely. The patient is taking aspirin 325mg, plavix and eliquis. Acute blood loss anemia: Secondary to GI bleed with multiple anticoagulats/antiplatelet agents Guiaic positive on presentation, subsequently negative after blood thinners held CBC stable s/p 1 unit pRBC transfusion Continue to trend CBC GI consulted, appreciate recommendations Cardiology and vascular surgery consulted regarding anticoagulation and preop risk eval Continue IV PPI BID NPO for colonoscopy EGD with GI tmrw Antihypertensives on hold Discussed withholding antiplatelet agents with vascular surgery for possible GI intervention Will discuss between specialists, ongoing anticoagulation plan prior to discharge is patients clinical condition is stabilized CHF: Resume lasix Continue statin Recently prescribed atenolol? Plan to resume ACEi when WILLOW improves Atrial fibrillation: Continue rate control medications Hold anticoagulation pending upper endoscopy and colonoscopy Appreciate cardiology's recommendations PVD with stent: Hold plavix periprocedure until bleeding abates and CBC stable Await formal vascular surgery consultation Acute kidney injury: Prerenal from hypovolemia and acute blood loss anemia Renal function improved s/p 1 unit pRBC transfusion and intravascular volume resuscitation Trend BEP, Cr 3.3 -> 2.9, baseline < 2 DM Hold oral hypoglycemics Accuchecks TIDAC/HS, Q6H while NPO Novolog insulin sliding scale Novolin with D5-1/2NS while NPO prior to EGD/colonoscopy NPO DVT ppx-mechanical ALPs with active bleeding Full code Problem List: 1. CHF (congestive heart failure) 2. New onset a-fib 3. Acute blood loss anemia 4. Acute kidney injury 5. Stool guaiac positive Pain Ratin Pain Location: right lumbar back Pain Goal: Pain 4 or less Pain Plan: prn Tomorrow's Labs & Rationales: cbc, bep Liat Harris MD 11/09/17 1324: Attending MD Review Statement Attending Statement Attending MD Statement: examined this patient, discuss w/resident/PA/PHARMACEUTICAL LABORATORY TECHNICIAN, agreed w/resident/PA/PHARMACEUTICAL LABORATORY TECHNICIAN, reviewed EMR data (avail) Attending Assessment/Plan: 72M PMH HTN, T2DM, HLD, PVD s/p multiple lower extremity stents on ASA and Plavix, HFpEF, recently diagnosed atrial fibrillation placed on Eliquis, presents with 1 week of worsening fatigue, dyspnea on exertion, and pallor. Had a fall a few days ago landing on his right side and hitting his head without loss of consciousness. Has had no complaints of confusion, vision changes, or neurological deficit. He does reports some black stools and some bloody stools in the past week. He was found to have a Hgb of 8.1 down from 12 a week ago. He is hemodynamically stable. EKG shows rate controlled atrial fibrillation at 48. 1. Acute upper GI bleed 2. Symptomatic acute blood loss anemia 3. PVD 4. Chronic atrial fibrillation Plan - Continue on general medicine - NPO after midnight - Bowel prep tonight for upper and lower endoscopy tomorrow - PPI - Clear liquid diet, no reds - GI consult - Hold ASA and Eliquis - Cardiology and vascular consults - Trend CBC - Continue remaining home medications - Avoid NSAIDs - DVT PPx with ALPS
[2017-11-09 09:40] LABS: ABSOLUTE BASOPHIL COUNT 0 /CUMM (0.0-0.2); ABSOLUTE EOSINOPHIL COUNT 0.2 /CUMM (0.0-0.7); ABSOLUTE GRANULOCYTE CT 3.3 /CUMM (1.4-6.5); ABSOLUTE LYMPH COUNT 1.5 /CUMM (1.2-3.4); ABSOLUTE MONOCYTE COUNT 0.5 /CUMM (0.10-0.60); BASOPHIL % 0.6 % (0.0-2.0); EOSINOPHIL % 3.5 % (0-5); GRANULOCYTE % 60.7 % (42.2-75.2); HEMATOCRIT 24.9 % (42-52); MEAN CORPUSCULAR HGB 29.7 PG (27.0-31.0); MEAN CORPUSCULAR HGB CONC 33.4 G/DL (33.0-37.0); MEAN CORPUSCULAR VOLUME 88.8 FL (80.0-94.0); PLATELET COUNT 221 /CUMM (130-400); RBC DISTRIBUTION WIDTH 14.9 % (11.5-14.5); WHITE BLOOD CELL COUNT 5.5 /CUMM (4.8-10.8)
[2017-11-09 15:08] VITALS: BP 126/60
--- NOTE | 2017-11-09 17:50 | Cons- Vascular Surgery ---
General Information and HPI Consulting Request Date of Consult: 11/09/17 Requested By: Liat Harris MD History of Present Illness: 72-year-old man with multiple medical issues who in summer of 2016 underwent lower extremity stent placement. He also has history of A. fib and has been maintained on eliquis. He is also on aspirin and Plavix. He presented with GI bleed and dizziness and was found to have anemia. After surgery was consulted there is okay to stop Plavix prior to colonoscopy. Allergies/Medications Allergies: Coded Allergies: bacitracin (RASH 08/20/16) neomycin (From NEOSPORIN ([id number])) (RASH 08/20/16) polymyxin B (From NEOSPORIN ([id number])) (RASH 08/20/16) Home Med List: Apixaban (Eliquis) 5 MG TABLET 5 MG PO BID A. Fib Aspirin (Aspirin*) 325 MG TABLET 325 MG PO DAILY [facility] Buspirone HCl 15 MG TABLET 0.5 TAB PO BID SLEEP (Reported) Clopidogrel Bisulfate (Clopidogrel) 75 MG TABLET 1 TAB PO DAILY BLOOD THINNER (Reported) Duloxetine HCl 60 MG CAPSULE.DR 1 CAP PO DAILY ANXIETY (Reported) Ergocalciferol (Vitamin D2) (Vitamin D2) 50,000 UNIT CAPSULE 1 CAP PO Q2W SUPPLEMENT . Furosemide (Lasix) 20 MG TABLET 1 TAB PO DAILY Fluid Retention . Gabapentin 400 MG CAPSULE 1 CAP PO BID Nerve Pain . Glipizide 5 MG TABLET 1 TAB PO BID DM . Insulin Glargine,Hum.rec.anlog (Lantus Solostar) 100 UNIT/ML (3 ML) INSULN.PEN 60 UNIT SC QPM DM . Lisinopril 5 MG TABLET 5 MG PO DAILY HTN Pravastatin Sodium 40 MG TABLET 1 TAB PO QPM CHOL (Reported) Tamsulosin HCl 0.4 MG CAP.ER.24H 2 CAP PO DAILY URINE (Reported) Past History Medical History Blood Transfusion Hx: Yes (04/07/18) Neurological: peripheral neuropathy EENT: hearing loss Cardiovascular: CHF, PVD, HTN, HLD Respiratory: NONE Gastrointestinal: NONE Hepatic: NONE Renal: CKD Musculoskeletal: disk herniation (C5), degen joint disease, falls, ARTHRITIS Psychiatric: anxiety, depression Endocrine: IDDM (peripheral neuropathy) Blood Disorders: anemia Cancer(s): NONE CELLAR PACKER/Reproductive: NONE Surgical History Pertinent Surgical History: laminectomy (C5), fempop bypass, B/L LE stent placement CERIVCAL C5 Family History Relations & Conditions If Any: MOTHER, , Age 80; Cause: Cancer of unknown origin. FATHER (SD/CABG). , Age 80; Cause: ESRD (end stage renal disease). Psychosocial History Where Do You Live? Home Who Do You Live With? spouse (ex- (his 2nd)) Services at Home: Home Health Aide, Nursing, Occupational Therapy, Physical Therapy Primary Language: Macedonian Smoking Status: Former Smoker ETOH Use: denies use Illicit Drug Use: denies illicit drug use Living Will? 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 no Other Social History: x 2. Lives with 2nd ex-. Remote < 10 pk yr cigarette smoker, D/C late s. No EtOH. No illicit drugs. Multiple tattoos. Had 3 children. 1 son- 32, suicide. 2 dtrs- [employer]. 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 Functional Ability ADLs Independent: dressing, eating, toileting, bathing. Ambulation: cane IADLs Independent: shopping, housework, finances, food prep, telephone, transportation , medication admin. 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/Employer: Owned [employer] Review of Systems Review of Systems: Patient denies headache, complaining of dizziness, denies cough, palpitation, diarrhea, obstipation Exam & Diagnostic Data Vital Signs and I&O Vital Signs Date Time Temp Pulse Resp B/P B/P Pulse O2 O2 Flow FiO2 Mean Ox Delivery Rate 11/09 1508 98.2 62 20 126/60 98 Room Air 11/09 1141 80 132/80 11/09 0654 98.2 65 18 134/76 96 11/08 2136 98.4 60 18 132/84 99 Room Air 11/08 2054 97.2 61 20 155/70 100 Room Air 11/08 1814 98.0 57 16 138/65 99 Room Air Intake & Output 11/09 1600 11/09 0800 11/09 0000 11/08 1600 11/08 0800 11/08 0000 Intake Total 720 500 Output Total 650 1000 300 Balance 70 -1000 200 Intake, Blood 350 Product Intake, IV 20 Intake, Oral 700 150 Number 0 Bowel Movements Output, Urine 650 1000 300 Patient 276 lb 275 lb 275 lb Weight Weight Bed scale Measurement Method Physical Exam: Patient is alert and oriented 3 Lungs: Clear Cardiovascular: Irregular Abdomen: Obese, nontender nondistended Extremities: Well perfused. Assessment/Plan Assessment/Plan 72-year-old man with multiple medical issues with GI bleed who will undergo colonoscopy tomorrow. The patient has been on Eliquis, aspirin and Plavix. From the Peripheral vascular standpoint, it is certainly okay to stop Plavix prior to colonoscopy in the setting of GI bleed and anemia. If the patient will be maintained on Eliquis post colonoscopy, then baby aspirin alone in addition to Eliquis shall be enough. Consult Acknowledgment - Thank you for your consult request. Attending MD Review Statement Attending Statement Attending MD Statement: examined this patient, discuss w/resident/PA/DISPATCHER CLERK
[2017-11-09 22:06] VITALS: BP 140/70
--- NOTE | 2017-11-10 06:49 | PN- Housestaff ---
Thee JACINTO,Dallin 11/10/17 0649: Subjective Follow-up For: fall, gi bleed, symptomatic anemia Subjective: patient did golytely bowel prep overnight, no complaints of dizziness or orthostatic symptoms, only fatigue. no nausea, vomiting or bright red blood per rectum, frequent bms overnight with prep Review of Systems Constitutional: Reports: see HPI. Objective Last 24 Hrs of Vital Signs/I&O Vital Signs Date Time Temp Pulse Resp B/P B/P Pulse O2 O2 Flow FiO2 Mean Ox Delivery Rate 11/10 1415 97.9 62 20 136/62 98 Room Air 11/10 1059 Room Air Room Air 11/10 0840 80 128/80 11/10 0735 97.5 64 18 136/64 97 11/10 0000 96 Room Air 11/09 2206 97.7 66 19 140/70 96 Room Air 11/09 1508 98.2 62 20 126/60 98 Room Air Intake & Output 11/10 1600 11/10 0800 11/10 0000 Intake Total 319 585 8612 Output Total 600 Balance 0 250 2700 Intake, IV 600 250 Intake, Oral 0 0 2700 Number 1 0 Bowel Movements Output, Urine 600 Patient 124.483 kg 124.483 kg Weight Weight Bed scale Measurement Method Physical Exam General Appearance: Alert, Oriented X3, Cooperative, No Acute Distress Cardiovascular: Regular Rate, Normal S1, Normal S2, No Murmurs Lungs: Clear to Auscultation, Normal Air Movement Abdomen: Normal Bowel Sounds, Soft, No Tenderness, No Masses Extremities: No Clubbing, No Cyanosis, Normal Pulses, 2+ b/l lower extremity pitting edema Current Medications: Current Medications Sig/Berhane Start time Last Medication Dose Route Stop Time Status Admin Atorvastatin Calcium 20 MG 1700 11/09 1700 AC 11/09 PO 1650 Buspirone HCl 7.5 MG BID 11/09 2200 AC 11/10 PO 0840 Dextrose/Sodium 1,000 ML Q20H 11/10 0000 AC 11/10 Chloride IV 0100 Furosemide 20 MG DAILY 11/09 1024 AC 11/10 PO 0840 Gabapentin 400 MG BID 11/08 2200 AC 11/10 PO 0840 Guaifenesin 10 ML Q6P PRN 11/09 1700 AC PO Insulin Human Regular 0 Q6 11/09 1800 AC 11/09 SC 1930 Pantoprazole Sodium 40 MG BID 11/08 2200 AC 11/10 IV 0840 Polyethylene Glycol 1 GAL ONCE ONE 11/09 1600 DC 11/09 PO 11/09 1601 1650 Tamsulosin HCl 0.8 MG DAILY 11/09 1000 AC 11/10 PO 0840 Last 24 Hrs of Lab/Nando Results Last 24 Hrs of Labs/Mics: Laboratory Tests 11/10/17 06: Anion Gap 14, Estimated GFR 23 L, BUN/Creatinine Ratio 33.7 H, PT 13.8 H, INR 1.32 H, CBC w Diff NO MAN DIFF REQ, RBC 2.60 L, MCV 89.3, MCH 30.4, MCHC 34.0, RDW 15.0 H, MPV 8.9, Gran % 54.8, Lymphocytes % 30.3, Monocytes % 10.9 H, Eosinophils % 3.6, Basophils % 0.4, Absolute Granulocytes 3.0, Absolute Lymphocytes 1.7, Absolute Monocytes 0.6, Absolute Eosinophils 0.2, Absolute Basophils 0 11/10/17 0408: PT Cancelled, INR Cancelled Assessment/Plan Assessment: 72-year-old male with extensive past medical history who was recently diagnosed with CHF and atrial fibrillation and was started on Lasix and Eliquis who presented with 1 day of GI bleed and dizziness. The patient fell without loss of consciousness prior to admission consistent with orthostatic hypotension from acute blood loss anemia and hypovolemia. On arrival, the patient was hypotensive with WILLOW, hemoglobin dropped to 8 from 12 acutely. The patient is taking aspirin 325mg, plavix and eliquis. Acute blood loss anemia: Secondary to GI bleed with multiple anticoagulats/antiplatelet agents Guiaic positive on presentation, subsequently negative after blood thinners held CBC stable s/p 1 unit pRBC transfusion Continue to trend CBC consider 1 more unit pRBC transfusion as hemoglobin <8 this morning GI consulted, appreciate recommendations Cardiology and vascular surgery consulted regarding anticoagulation and preop risk eval Continue IV PPI BID NPO on d5-1/2ns awaiting colonoscopy/EGD with GI Antihypertensives on hold Will discuss between specialists,anticoagulation regimen prior to discharge CHF: Resume lasix Continue statin Plan to resume ACEi when WILLOW improves Atrial fibrillation: Continue rate control medications Hold anticoagulation pending upper endoscopy and colonoscopy Appreciate cardiology's recommendations PVD with stent: Hold plavix periprocedure until bleeding abates and CBC stable Await formal vascular surgery consultation Acute kidney injury: Prerenal from hypovolemia and acute blood loss anemia Renal function improved s/p 1 unit pRBC transfusion and intravascular volume resuscitation Trend BEP, Cr 3.3 -> 2.9, baseline < 2 DM Hold oral hypoglycemics Accuchecks TIDAC/HS, Q6H while NPO Novolog insulin sliding scale Novolin with D5-1/2NS while NPO prior to EGD/colonoscopy NPO DVT ppx-mechanical ALPs with active bleeding Full code Problem List: 1. CHF (congestive heart failure) 2. New onset a-fib 3. Acute blood loss anemia 4. Acute kidney injury 5. Symptomatic anemia Pain Ratin Pain Location: n/a Pain Goal: Pain 4 or less Pain Plan: prn Tomorrow's Labs & Rationales: cbc, bep Liat Harris MD 11/10/17 1319: Attending MD Review Statement Attending Statement Attending MD Statement: examined this patient, discuss w/resident/PA/MARKETING ADMINISTRATIVE ASSISTANT, agreed w/resident/PA/MARKETING ADMINISTRATIVE ASSISTANT, reviewed EMR data (avail) Attending Assessment/Plan: 72M PMH HTN, T2DM, HLD, PVD s/p multiple lower extremity stents on ASA and Plavix, HFpEF, recently diagnosed atrial fibrillation placed on Eliquis, presents with 1 week of worsening fatigue, dyspnea on exertion, and pallor. Had a fall a few days ago landing on his right side and hitting his head without loss of consciousness. Has had no complaints of confusion, vision changes, or neurological deficit. He does reports some black stools and some bloody stools in the past week. He was found to have a Hgb of 8.1 down from 12 a week ago. He is hemodynamically stable. EKG shows rate controlled atrial fibrillation at 48. No complaints today. CBC stable. 1. Acute upper GI bleed 2. Symptomatic acute blood loss anemia 3. PVD 4. Chronic atrial fibrillation Plan - Continue on general medicine - Bowel prep tonight for upper and lower endoscopy today - PPI - Resume diet post-procedure - GI consult - Hold ASA and Eliquis, follow GI recommendations - Cardiology and vascular consults - Trend CBC - Continue remaining home medications - Avoid NSAIDs - DVT PPx with ALPS
[2017-11-10 07:35] VITALS: BP 136/64
[2017-11-10 08:23] LABS: ABSOLUTE BASOPHIL COUNT 0 /CUMM (0.0-0.2); ABSOLUTE EOSINOPHIL COUNT 0.2 /CUMM (0.0-0.7); ABSOLUTE LYMPH COUNT 1.7 /CUMM (1.2-3.4); ABSOLUTE MONOCYTE COUNT 0.6 /CUMM (0.10-0.60); BASOPHIL % 0.4 % (0.0-2.0); EOSINOPHIL % 3.6 % (0-5); GRANULOCYTE % 54.8 % (42.2-75.2); HEMATOCRIT 23.2 % (42-52); MEAN CORPUSCULAR HGB 30.4 PG (27.0-31.0); MEAN CORPUSCULAR VOLUME 89.3 FL (80.0-94.0); MEAN PLATELET VOLUME 8.9 FL (7.4-10.4); PLATELET COUNT 182 /CUMM (130-400); PT 13.8 SEC (9.4-12.5); WHITE BLOOD CELL COUNT 5.5 /CUMM (4.8-10.8)
--- NOTE | 2017-11-10 11:31 | PN- Cardiology ---
Subjective Subjective: Feeling well. No palpitations. No chest pain. No shortness of breath. No diaphoresis. No urther bleeding noted Objective Vital Signs and I&Os Vital Signs Date Time Temp Pulse Resp B/P B/P Pulse O2 O2 Flow FiO2 Mean Ox Delivery Rate 11/10 1059 Room Air Room Air 11/10 0840 80 128/80 11/10 0735 97.5 64 18 136/64 97 11/10 0000 96 Room Air 11/09 2206 97.7 66 19 140/70 96 Room Air 11/09 1508 98.2 62 20 126/60 98 Room Air 11/09 1141 80 132/80 Intake & Output 11/10 1600 11/10 0800 11/10 0000 11/09 1600 11/09 0800 11/09 0000 Intake Total 250 2700 720 500 Output Total 650 1000 300 Balance 250 2700 70 -1000 200 Intake, Blood 350 Product Intake, IV 250 20 Intake, Oral 0 2700 700 150 Number 0 0 Bowel Movements Output, Urine 650 1000 300 Patient 274 lb 276 lb 275 lb Weight Weight Bed scale Bed scale Measurement Method Physical Exam: Gen: The patient is in no acute distress HEENT: Normal nose, ears, and oropharynx. Pupils equal bilaterally. Conjunctiva normal. Neck: Supple with no JVD, no masses, and no thyromegaly Lungs: Clear to auscultation with normal respiratory effort Heart: Irregular irregular, S1, S2, no murmurs. 1+ peripheral edema on the left side mainly, 2+ pulses in the lower extremities bilaterally. Abdomen: Soft, nontender, no masses. No hepatomegaly. No splenomegaly Extremities: No clubbing or cyanosis. Normal muscle strength in the upper and lower extremities Results Last 48 Hrs of Labs/Mics: Laboratory Tests 11/10/17626: Anion Gap 14, Estimated GFR 23 L, BUN/Creatinine Ratio 33.7 H, PT 13.8 H, INR 1.32 H, CBC w Diff NO MAN DIFF REQ, RBC 2.60 L, MCV 89.3, MCH 30.4, MCHC 34.0, RDW 15.0 H, MPV 8.9, Gran % 54.8, Lymphocytes % 30.3, Monocytes % 10.9 H, Eosinophils % 3.6, Basophils % 0.4, Absolute Granulocytes 3.0, Absolute Lymphocytes 1.7, Absolute Monocytes 0.6, Absolute Eosinophils 0.2, Absolute Basophils 0 11/10/17 0408: PT Cancelled, INR Cancelled 11/09/17 0755: Anion Gap 12, Estimated GFR 22 L, BUN/Creatinine Ratio 37.6 H, CBC w Diff NO MAN DIFF REQ, RBC 2.80 L, MCV 88.8, MCH 29.7, MCHC 33.4, RDW 14.9 H, MPV 9.0, Gran % 60.7, Lymphocytes % 26.4, Monocytes % 8.8, Eosinophils % 3.5, Basophils % 0.6, Absolute Granulocytes 3.3, Absolute Lymphocytes 1.5, Absolute Monocytes 0.5 , Absolute Eosinophils 0.2, Absolute Basophils 0 11/09/17 0354: CBC w Diff NO MAN DIFF REQ, RBC 2.72 L, MCV 90.0, MCH 29.7, MCHC 32.9 L, RDW 14.6 H, MPV 8.5, Gran % 59.0, Lymphocytes % 27.7, Monocytes % 9.1, Eosinophils % 3.6, Basophils % 0.6, Absolute Granulocytes 3.6, Absolute Lymphocytes 1.7, Absolute Monocytes 0.6, Absolute Eosinophils 0.2, Absolute Basophils 0 11/08/17 2232: Anion Gap 13, Estimated GFR 19 L, BUN/Creatinine Ratio 36.9 H, CBC w Diff NO MAN DIFF REQ, RBC 2.79 L, MCV 89.2, MCH 30.2, MCHC 33.8, RDW 15.0 H, MPV 8.6, Gran % 63.1, Lymphocytes % 24.3, Monocytes % 8.8, Eosinophils % 3.4, Basophils % 0.4, Absolute Granulocytes 4.0, Absolute Lymphocytes 1.6, Absolute Monocytes 0.6 , Absolute Eosinophils 0.2, Absolute Basophils 0 11/08/17 1520: Urinalysis LIGHT H, Urine Color YEL, Urine Clarity CLEAR, Urine pH 6.0, Ur Specific [place] 1.020, Urine Protein 30 H, Urine Ketones NEG, Urine Nitrite NEG, Urine Bilirubin NEG, Urine Urobilinogen 0.2, Ur Leukocyte Esterase NEG, Ur Microscopic SEDIMENT EXAMINED, Urine WBC RARE, Urine Hemoglobin NEG, Urine Glucose NEG 11/08/17 1230: Anion Gap 13, Estimated GFR 19 L, BUN/Creatinine Ratio 37.3 H, Glucose 152 H, Calcium 9.2, Total Bilirubin 0.2, AST 14 L, ALT 28, Alkaline Phosphatase 45, Troponin I 0.04, Total Protein 6.3, Albumin 3.5, Globulin 2.8, Albumin/Globulin Ratio 1.3, CBC w Diff NO MAN DIFF REQ, RBC 2.70 L, MCV 88.5, MCH 30.0, MCHC 33.8, RDW 14.5, MPV 8.6, Gran % 75.4 H, Lymphocytes % 15.8 L, Monocytes % 6.3, Eosinophils % 2.2, Basophils % 0.3, Absolute Granulocytes 5.2, Absolute Lymphocytes 1.1 L, Absolute Monocytes 0.4, Absolute Eosinophils 0.2, Absolute Basophils 0 Recent Imaging Studies: Echocardiogram 10/10/17: 1. This was a technically difficult study due to the patient's body habitus. 2. Aortic sclerosis is present with no valvular stenosis or insufficiency. Minimal enlargement of the ascending aorta is present 3. Mitral leaflet thickening is present with mild to moderate mitral insufficiency and mild to moderate left atrial enlargement. 4. There is no significant pericardial fluid detected 5. The left ventricular chamber size is normal with mild to moderate concentric hypertrophy and a normal ejection fraction. There are no visible resting wall motion abnormalities. Additional images were obtained following the administration of IV contrast. 6. Right heart structures were not optimally visualized. Mild tricuspid insufficiency is present. The right ventricular systolic pressure was not accurately assessed. Assessment/Plan Assessment/Plan Assessment: 1. Atrial fibrillation, with rate under control 2. Acute on chronic kidney disease 3. Diabetes mellitus 4. Coronary artery disease 5. HFpEF 6. GI bleed with acute blood loss anemia while on antiplatelet medications and anticoagulation Plan: * Anticoagulation and antiplatelet medications are on hold for GI bleed. * GI workup pending. * Restart Eliquis and aspirin once cleared by cardiology. Cleared by vascular to stay off Plavix while on Eliquis and aspirin * Continue other cardiac medications Continue telemetry? Not applicable
[2017-11-10 14:15] VITALS: BP 136/62
--- NOTE | 2017-11-10 17:39 | Proc Note Gastroenterology ---
Gastroenterology Procedure Date of Last Colonoscopy: Never Procedure Date: 11/10/17 GI Procedure(s): Combined baseline upper endoscopy to the third portion of the duodenum, plus baseline colonoscopy to the terminal ileum General Handling Supervisor: ZACHARY YAÑEZ MD ASA Classification: IV Indications: (*Please refer to my inpatient GI consultation of 11/09/17: symptomatic anemia, intermittent OB positive stool, acute on chronic renal insufficiency, post ASA 325 mg daily, Plavix, & Eliquis). 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 JOANIE, DJD, recently in [facility] 10/07/17 to 10/12/17, with SOB & SALEH, found to be in new onset afib then, with slow VR. *He was D/C 10/12/17, on ASA 325 mg daily, Plavix & Eliquis. He denied any NSAID use. *The patient was readmitted to [facility] 11/08/17, presenting with symptomatic anemia and intermittent brown OB-positive stool. *GI review of systems from above and below were negative. 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 Imaging studies of his head were negative. He claimed he hit his right flank when he fell, but otherwise denied any abdominal trauma. *The patient denied having had any prior EGD or baseline colonoscopy. There was no family history pertinent to the GI tract. ASA & Eliquis were held on admission, 11/08/17. Plavix was held on 11/09/17. The patient was seen in consultation by cardiology & vascular surgery. As per vascular surgery consult of 11/09/17, they would be okay with resumption of only single agent anti-platelet therapy in the form of ECASA 81 mg daily (without resumption of Plavix), in conjunction with resumption of A/C therapy (i.e.- Eliquis), after the patient's GI tract is cleared via EGD/colonoscopy. Meds Received: O2- 10L via NRB mask, & MAC, as per Dr. Rodgers, of [place] [facility]. Patient's Tolerance: good Complications: None Extent Reached: D3/TI Procedure: Combined baseline upper endoscopy to the third portion of the duodenum, plus baseline colonoscopy to the terminal ileum, were performed with the Olympus high -definition videoscopes from above and below, after obtaining informed consent from the patient for each procedure prior to IV sedation, with the manager cardiac and pulse oximeter, after 1 gallon of GoLYTELY, with the assistance of Dr. Rodgers, of [place] [facility]. *Documenting photographs were obtained from above and below, and placed inside the patient's chart, at the conclusion of the procedures. Baseline upper endoscopy to the third portion of the duodenum was performed with the Olympus high definition videoendoscope, after obtaining informed consent from the patient, with the manager cardiac and pulse oximeter, with the assistance of Dr. Rodgers, of [place] [facility]. The patient was edentulous. A mouthpiece was placed in the usual fashion to protect the patient 's oral cavity. The patient was placed in the left lateral decubitus position and sedated by [place] [facility]. At this point, the endoscope was advanced through the fenestrated hole in the NRB mask, into the mouth, then into the esophagus, using direct visualization technique. The vocal cords appeared normal. The esophageal mucosa appeared normal. There were no esophageal rings, webs, lesions, strictures, or ulcers. There was no monilia or vesicles. There was no esophageal ribbing. The Z line was well demarcated at 45 cm. There was no hiatal hernia pouch. No significant esophageal inflammation was seen. There were no ectopic islands, nor gross Mcmillan's esophagus. There were no esophageal or gastric varices, nor any Aysha Navarro tear. The farias of the stomach distended normally with air insufflation. Direct and retroflexed views of the stomach were performed. There was nothing endoscopically to suggest gastroparesis or portal gastropathy. The mucosa of the gastric cardia, fundus, lesser curvature, incisura, & body appeared normal, without any gastric ulcers or gastric lesions. There were some faint, nonbleeding linear antral erosions in the prepyloric region. Biopsies were deferred, as theoretically, antiplatelet agents were still on board, although most of the Eliquis had probably worn off ( CKD). The pylorus was patent, without any gastric outlet obstruction or channel ulcer. The duodenal bulb had some erythema at the posterior aspect, consistent with duodenitis. For similar reasons, biopsies were deferred. The duodenal sweep & third portion of the duodenum appeared normal, without any duodenal ulcers, distal ulcerations, or angiodysplasias. I was not able to see the ampulla with the direct-viewing scope. The folds of the second & third portions of the duodenum were normal in caliber, without any flattening, nodularity, scalloping, or mosaic pattern. No active upper GI bleeding was seen. The patient tolerated the procedure well. After completing the preliminary baseline upper endoscopy to the third portion of the duodenum, baseline colonoscopy to the terminal ileum was performed with the Olympus high-definition video colonoscope, after obtaining informed consent from the patient, with the manager cardiac and pulse oximeter, after 1 gallon of GoLYTELY, with the assistance of Dr. Rodgers, of [place] [facility]. The prep was fair. Some tenacious, thick, dark brown liquid stool, was tediously washed and suctioned clear, as best as possible. The disposable brush was used to unclog the channels of the colonoscope. The dark liquid was aggressively washed from the rectosigmoid. The prep improved to a certain extent in the transverse colon, but dark liquid recurred in the lower right colon & cecum. Again, the vast majority of this was tediously washed and suctioned clear. Additionally, seeds were washed clear from the base of the cecum. The patient was in the left lateral decubitus position throughout the procedure. Direct views of the rectum failed to reveal any external hemorrhoids, fissures, or perianal disease. Digital rectal exam was unremarkable, without any masses. Sphincter tone was normal. Retroflexion in the rectum failed to reveal any gross proctitis, rectal ulcers, or rectal lesions. There were some mild internal hemorrhoids, without any active bleeding. The colonic mucosa was carefully inspected, both upon insertion and upon withdrawal of the colonoscope. Withdrawal time was exceedingly adequate. Visibility was improved, when washing while exiting the terminal ileum. No definite diverticula were seen. The cecum, base of the appendix, and ileocecal valve were all identified. The last 10 cm of the terminal ileum were entered, and appeared normal. Confirmatory photographs were obtained & placed inside the patient's chart. The colonic mucosa appeared intact and within normal limits to the terminal ileum, without any large polyps, lesions, gross colitis, ileitis, or angiodysplasias, although theoretically, a tiny incidental polyp could have been obscured by the prep. The patient was made aware of this postoperatively. No active upper or lower GI bleeding was seen. The patient tolerated both procedures well. Impression: 1. Faint, nonbleeding linear antral erosions in the prepyloric region (biopsies deferred). 2. Erythema of posterior aspect of duodenal bulb, consistent with duodenitis ( biopsies deferred). 3. Mild internal hemorrhoids, without any active bleeding. 4. Normal colonic mucosa to the terminal ileum, but fair prep, despite 1 gallon GoLYTELY. [*No active upper or lower GI bleeding seen to D3/TI]. Recommendations: The patient's anemia is multifactorial (GI ooze, post dual anti-platelet agents & A/C therapy; CKD; rule out retroperitoneal bleed post fall, etc.). *Transfuse to Hgb > 8, with hx ASHD & PAD. *If H/H drop further, consideration for non- contrast CT AP to r/o retroperitoneal bleed. No NSAIDS. Supplemental O2 as needed. Strict I/O's. If any new neuro changes occur, agree with cardiology to consider repeat CT head, to r/o SDH or ICB. Feed patient as tolerated. *If no evidence of retroperitoneal bleed, resume Eliquis along with ECASA 81 mg po daily, without resuming Plavix (*please refer to vascular surgery consult note of 11/09/17). Check CBC BID for now. *Check stool Ag for H. pylori, in view of antral gastritis (bxs deferred). *Consider adding Fe, TIBC, ferritin, B12, RBC folate, MMA, EPO levels to pre-transfx admit labs (defer to renal for IV Fe/EPO, etc.). May switch IV PPI to po route BID. *The patient was advised to contact my office for an outpatient PillCam, while on Eliquis & ECASA 81 mg daily. He had been given my office number. *Please call GI if patient actively bleeds (? tagged RBC, ? CTA but CKD). Otherwise, the patient was advised to call my office for an outpatient PillCam, as above. Although the colonic mucosa was normal to the TI on this baseline study, with the fair prep, consider follow-up surveillance colonoscopy in 5 years (i.e.- 11/2022), after a 2 day prep. The above was discussed with the patient, the medical house staff, Dr. Pederson ( covering for Dr. Ness), & Dr. Harris, postoperatively. *Further inpatient GI follow-up as needed.* Follow-up Colonscopy Screening in 5 years CC: Steven JACINTO,Liat; Alvarado JACINTO,Franco Garcia; [facility]; Chloe JACINTO,Tiffani Leal; Grover JACINTO,Azar Bhatia; [facility]; Loc Pederson MD
--- NOTE | 2017-11-10 18:24 | CT SCAN REPORT ---
EXAMINATION: CT ABDOMEN AND PELVIS WITHOUT CONTRAST CLINICAL INFORMATION: Back pain. Anemia. Blood loss. Presumptive diagnosis of retroperitoneal bleed. COMPARISON: Chest x-ray dated 11/08/2017. TECHNIQUE: Multidetector volumetric imaging was performed from the superior aspect of the liver through the pubic symphysis. Sagittal and coronal reformatted images were obtained on the technologist workstation. DLP: 1373.37 mGy-cm. FINDINGS: RETROPERITONEUM: No evidence of retroperitoneal hematoma seen. LUNG BASES: There are multiple 2 mm diameter micronodules in the lung bases bilaterally, some of which are densely calcified, most likely all representing incidental granulomas, not appreciated on previous portable chest x-ray. Mild dependent atelectatic changes are noted in the lung bases bilaterally. LIVER, GALLBLADDER, AND BILIARY TREE: The liver is normal in size, shape, and heterogeneous in attenuation with patchy areas of low attenuation seen likely related to beam hardening artifact given patient's body habitus. No focal hepatic lesion on noncontrast imaging. No biliary ductal dilatation is present. The gallbladder is unremarkable with no evidence of radiopaque gallstones, gallbladder wall thickening, or obvious pericholecystic inflammatory changes. PANCREAS: Markedly atrophic with prominent fatty infiltration seen in region of the pancreatic head and uncinate process. No pancreatic ductal dilatation or peripancreatic stranding/collection seen. SPLEEN, ADRENAL GLANDS: 1.4 x 1.2 cm accessory splenule is seen along the anterior margin of the splenic hilum. Spleen and adrenal glands are unremarkable on noncontrast imaging. KIDNEYS AND URETERS: The kidneys are bilaterally mildly atrophic with macro lobulations, cortical thinning and perinephric stranding seen. No hydronephrosis, hydroureter, or calculi seen. No perinephric stranding. BLADDER: Markedly distended, but otherwise unremarkable. No bladder calculi or wall thickening. PELVIC VISCERA: Heterogeneous prostate gland is seen with coarse internal calcifications. Seminal vesicles bilaterally are symmetric and unremarkable. GASTROINTESTINAL TRACT: The small and large bowel are unremarkable. The appendix is unremarkable. ABDOMINAL WALL: No significant hernia is appreciated. LYMPH NODES, VASCULAR: Moderate atherosclerotic calcifications of the aorta and branch vessels, including both renal artery origins are noted. No abdominal or pelvic adenopathy or free fluid collection is seen. Several small subcentimeter sized periportal lymph nodes are noted. OSSEOUS STRUCTURES: There is prominent vertebral spondylosis seen in the lower thoracic spine and mild vertebral spondylosis in the lumbar spine. Moderate degenerative disc disease is seen at L2-L3 with small posterior disc osteophyte complex causing indentation of the thecal sac. There is also moderate degenerative disc disease at T12-L1 and L1-L2. IMPRESSION: 1. No evidence of retroperitoneal hematoma. No intra-abdominal hematoma. 2. Several incidental findings include multiple calcified and noncalcified micronodules in the lung bases bilaterally, most consistent with granulomatous lung disease, atrophic pancreas and kidneys, markedly distended bladder, moderate atherosclerotic calcifications and multilevel degenerative changes in the spine.
[2017-11-10 21:58] VITALS: BP 112/64
[2017-11-11 05:27] VITALS: BP 128/76
--- NOTE | 2017-11-11 06:51 | PN- Housestaff ---
Subjective Follow-up For: GI bleeding symptomatic anemia acute kidney injury Subjective: slept well overnight, still complains of fatigue no dizziness, lightheaded, or orthostatic hypotension no more episodes of GI bleeding Review of Systems Constitutional: Reports: see HPI. Objective Last 24 Hrs of Vital Signs/I&O Vital Signs Date Time Temp Pulse Resp B/P B/P Pulse O2 O2 Flow FiO2 Mean Ox Delivery Rate 11/11 526 98.2 65 20 128/76 96 11/10 2158 97.9 71 19 112/64 98 Room Air 11/10 1652 Room Air 11/10 1415 97.9 62 20 136/62 98 Room Air 11/10 1059 Room Air Room Air Intake & Output 11/11 1600 11/11 0800 11/11 0000 Intake Total 450 250 Output Total Balance 450 250 Intake, Blood 350 Product Intake, Oral 100 250 Number 1 Bowel Movements Patient 125.645 kg Weight Physical Exam General Appearance: Alert, Oriented X3, Cooperative, No Acute Distress Neck: Supple, No JVD Cardiovascular: Regular Rate, Normal S1, Normal S2, No Murmurs Abdomen: Normal Bowel Sounds, Soft, No Tenderness, No Masses Extremities: No Clubbing, No Cyanosis, Normal Pulses, 2+ bilateral lower extremity edema Current Medications: Current Medications Sig/Berhane Start time Last Medication Dose Route Stop Time Status Admin Apixaban 5 MG BID 11/11 1000 AC PO Aspirin 81 MG DAILY 11/11 1000 AC PO Atorvastatin Calcium 20 MG 1700 11/09 1700 AC 11/10 PO 1822 Buspirone HCl 7.5 MG BID 11/09 2200 AC 11/10 PO 2114 Chlorhexidine 1 GM .STK-MED ONE 11/10 1611 DC Gluconate TOP 11/10 1612 Dextrose/Sodium 1,000 ML Q20H 11/10 0000 DC 11/10 Chloride IV 0100 Ferrous Sulfate 325 MG DAILY 11/10 1620 AC 11/10 PO 1822 Furosemide 20 MG DAILY 11/09 1024 AC 11/10 PO 0840 Gabapentin 400 MG BID 11/08 2200 AC 11/10 PO 2114 Guaifenesin 10 ML Q6P PRN 11/09 1700 AC PO Insulin Aspart 0 TIDAC 11/10 1700 AC 11/11 SC 0826 Insulin Human Regular 0 Q6 11/09 1800 DC 11/09 SC 1930 Omeprazole 40 MG 1/2H B/BREAKF/DINNER 11/10 1630 AC 11/11 PO 0600 Pantoprazole Sodium 40 MG BID 11/08 2200 DC 11/10 IV 0840 Tamsulosin HCl 0.8 MG DAILY 11/09 1000 AC 11/10 PO 0840 Last 24 Hrs of Lab/Nando Results Last 24 Hrs of Labs/Mics: Laboratory Tests 11/11/17 0737: Sodium Pending, Potassium Pending, Chloride Pending, Carbon Dioxide Pending, Anion Gap Pending, BUN Pending, Creatinine Pending, BUN/Creatinine Ratio Pending , Total Bilirubin Pending, Direct Bilirubin Pending, AST Pending, ALT Pending, Alkaline Phosphatase Pending, Total Protein Pending, Albumin Pending, CBC w Diff NO MAN DIFF REQ, RBC 2.99 L, MCV 89.1, MCH 30.2, MCHC 33.9, RDW 16.0 H, MPV 8.7, Gran % 61.1, Lymphocytes % 24.0, Monocytes % 10.1 H, Eosinophils % 4.4, Basophils % 0.4, Absolute Granulocytes 3.1, Absolute Lymphocytes 1.2, Absolute Monocytes 0.5, Absolute Eosinophils 0.2, Absolute Basophils 0 Assessment/Plan Assessment: 72-year-old male with extensive past medical history who was recently diagnosed with CHF and atrial fibrillation and was started on Lasix and Eliquis who presented with 1 day of GI bleed and dizziness. The patient fell without loss of consciousness prior to admission consistent with orthostatic hypotension from acute blood loss anemia and hypovolemia. On arrival, the patient was hypotensive with WILLOW, hemoglobin dropped to 8 from 12 acutely. The patient was taking aspirin 325mg, plavix and eliquis. Acute blood loss anemia: Secondary to GI bleed with multiple anticoagulants/antiplatelet agents Received 2 units pRBC transfusion s/p EGD and colonoscopy with some small non bleeding ulcers in antrum and duodenum and mild internal hemorrhoids CT negative for retroperitoneal hemorrhage Cardiology and vascular surgery consulted regarding anticoagulation, appreciate recommendations Change to PO PPI BID CHF: Resume lasix Continue statin Resume ACEi on discharge Atrial fibrillation: Continue rate control medications Hold anticoagulation pending upper endoscopy and colonoscopy Appreciate cardiology's recommendations PVD with stent: Hold plavix periprocedure until bleeding abates and CBC stable Await formal vascular surgery consultation Acute kidney injury: Prerenal from hypovolemia and acute blood loss anemia Renal function improved s/p 2 unit pRBC transfusion and intravascular volume resuscitation Trend BEP, baseline < 2 Atrophic kidneys and distended bladder on CT Continue tamsulosin DM Hold oral hypoglycemics Accuchecks TIDAC/HS Novolog insulin sliding scale Heart healthy diet DVT ppx-mechanical ALPs Full code Problem List: 1. CHF (congestive heart failure) 2. New onset a-fib 3. Symptomatic anemia 4. Acute blood loss anemia 5. Acute kidney injury 6. Stool guaiac positive Pain Ratin Pain Location: n/a Pain Goal: Pain 4 or less Pain Plan: prn Tomorrow's Labs & Rationales: none
[2017-11-11] MEDS ORDERED: ASPIRIN81 M4 PO (09:00)
--- NOTE | 2017-11-11 09:04 | Patient Discharge Instructions ---
Discharge Instructions General Discharge Information You were seen/treated for: GI bleed Special Instructions: You had a GI bleed that required blood transfusion. Your blood thinner medications have been changed. Continue eliquis. Stop plavix. Aspirin dose reduced from 325mg to 81mg. Follow up with your vascular surgeon, computer programmer chief, and primary care physician after discharge. You should follow up with Dr. Tuttle in two weeks for further workup and treatment of your GI bleed. Acute Coronary Syndrome Inclusion Criteria At DC or during hospital stay patient has or had the following: ACS DIAGNOSIS No Discharge Core Measures Meds if any: Prescribed or Continued at Discharge Meds if any: NOT Prescribed or Continued at Discharge Congestive Heart Failure Inclusion Criteria At DC or during hospital stay patient has or had the following: CHF DIAGNOSIS No Discharge Core Measures Meds if any: Prescribed or Continued at Discharge Meds if any: NOT Prescribed or Continued at Discharge Cerebrovascular accident Inclusion Criteria At DC or during hospital stay patient has or had the following: CVA/TIA Diagnosis No Discharge Core Measures Meds if any: Prescribed or Continued at Discharge Meds if any: NOT Prescribed or Continued at Discharge Venous thromboembolism Inclusion Criteria VTE Diagnosis No VTE Type NONE VTE Confirmed by (Test) NONE Discharge Core Measures - Per Current guidelines, there needs to be overlap - treatment for the first 5 days of Warfarin therapy. - If discharged on Warfarin prior to 5 days of - overlap therapy, the patient will need to be - assessed for post discharge needs including - *Post discharge parental anticoagulation - *Warfarin and/or parental anticoagulation education - *Follow up date to check INR post discharge At least 5 days overlap therapy as Inpatient No Meds if any: Prescribed or Continued at Discharge Note: Overlap Therapy is Warfarin and Anticoagulant Meds if any: NOT Prescribed or Continued at Discharge
[2017-11-11 09:27] LABS: ABSOLUTE BASOPHIL COUNT 0 /CUMM (0.0-0.2); ABSOLUTE EOSINOPHIL COUNT 0.2 /CUMM (0.0-0.7); ABSOLUTE GRANULOCYTE CT 3.1 /CUMM (1.4-6.5); ABSOLUTE LYMPH COUNT 1.2 /CUMM (1.2-3.4); ABSOLUTE MONOCYTE COUNT 0.5 /CUMM (0.10-0.60); BASOPHIL % 0.4 % (0.0-2.0); EOSINOPHIL % 4.4 % (0-5); GRANULOCYTE % 61.1 % (42.2-75.2); HEMATOCRIT 26.6 % (42-52); MEAN CORPUSCULAR HGB 30.2 PG (27.0-31.0); MEAN CORPUSCULAR HGB CONC 33.9 G/DL (33.0-37.0); MEAN CORPUSCULAR VOLUME 89.1 FL (80.0-94.0); MEAN PLATELET VOLUME 8.7 FL (7.4-10.4); PLATELET COUNT 205 /CUMM (130-400); RED BLOOD CELL CT 2.99 /CUMM (4.70-6.10)
[2017-11-11] MEDS ORDERED: PROTONIX40 M3 PO ×2 (09:35→10:39)
[2017-11-11 11:15] VITALS: BP 124/52
--- NOTE | 2017-11-11 11:52 | PN- Cardiology ---
Subjective Subjective: Feeling well. No cardiac complaints. No chest pain. No shortness of breath. No diaphoresis. No palpitations. Objective Vital Signs and I&Os Vital Signs Date Time Temp Pulse Resp B/P B/P Pulse O2 O2 Flow FiO2 Mean Ox Delivery Rate 11/11 1115 62 124/52 11/11 0527 98.2 65 20 128/76 96 11/10 2158 97.9 71 19 112/64 98 Room Air 11/10 1652 Room Air 11/10 1415 97.9 62 20 136/62 98 Room Air Intake & Output 11/11 1600 11/11 0811/11 0000 11/10 1600 11/10 0811/10 0000 Intake Total 450 250 078 512 7952 Output Total 600 Balance 450 250 0 250 2700 Intake, Blood 350 Product Intake, IV 600 250 Intake, Oral 100 250 0 0 2700 Number 1 1 0 Bowel Movements Output, Urine 600 Patient 277 lb 274 lb 274 lb Weight Weight Bed scale Measurement Method Physical Exam: Gen: The patient is in no acute distress HEENT: Normal nose, ears, and oropharynx. Pupils equal bilaterally. Conjunctiva normal. Neck: Supple with no JVD, no masses, and no thyromegaly Lungs: Clear to auscultation with normal respiratory effort Heart: Irregular irregular, S1, S2, no murmurs. 1+ peripheral edema on the left side mainly, 2+ pulses in the lower extremities bilaterally. Abdomen: Soft, nontender, no masses. No hepatomegaly. No splenomegaly Extremities: No clubbing or cyanosis. Normal muscle strength in the upper and lower extremities Current Medications: Current Medications Sig/Berhane Start time Last Medication Dose Route Stop Time Status Admin Apixaban 5 MG BID 11/11 1000 AC 11/11 PO 1113 Aspirin 81 MG DAILY 11/11 1000 AC 11/11 PO 1111 Atorvastatin Calcium 20 MG 1700 11/09 1700 AC 11/10 PO 1822 Buspirone HCl 7.5 MG BID 11/09 2200 AC 11/11 PO 1112 Chlorhexidine 1 GM .STK-MED ONE 11/10 1611 DC Gluconate TOP 11/10 1612 Dextrose/Sodium 1,000 ML Q20H 11/10 0000 DC 11/10 Chloride IV 0100 Ferrous Sulfate 325 MG DAILY 11/10 1620 AC 11/11 PO 1115 Furosemide 20 MG DAILY 11/11 1038 AC 11/11 PO 1117 Furosemide 20 MG DAILY 11/09 1024 DC 11/10 PO 0840 Gabapentin 400 MG BID 11/08 2200 AC 11/11 PO 1117 Guaifenesin 10 ML Q6P PRN 11/09 1700 AC PO Insulin Aspart 0 TIDAC 11/10 1700 AC 11/11 SC 0826 Insulin Human Regular 0 Q6 11/09 1800 DC 11/09 SC 1930 Omeprazole 40 MG 1/2H B/BREAKF/DINNER 11/10 1630 AC 11/11 PO 0600 Pantoprazole Sodium 40 MG BID 11/08 2200 DC 11/10 IV 0840 Tamsulosin HCl 0.8 MG DAILY 11/09 1000 AC 11/11 PO 1115 Results Last 48 Hrs of Labs/Mics: Laboratory Tests 11/11/17 0737: Anion Gap 9, Estimated GFR 26 L, BUN/Creatinine Ratio 27.2 H, Total Bilirubin 0.4, Direct Bilirubin 0.3, AST 16 L, ALT 26, Alkaline Phosphatase 48, Total Protein 6.2 L, Albumin 3.4 L, CBC w Diff NO MAN DIFF REQ, RBC 2.99 L, MCV 89.1, MCH 30.2, MCHC 33.9, RDW 16.0 H, MPV 8.7, Gran % 61.1, Lymphocytes % 24.0 , Monocytes % 10.1 H, Eosinophils % 4.4, Basophils % 0.4, Absolute Granulocytes 3.1, Absolute Lymphocytes 1.2, Absolute Monocytes 0.5, Absolute Eosinophils 0.2, Absolute Basophils 0 11/10/17 0627: Anion Gap 14, Estimated GFR 23 L, BUN/Creatinine Ratio 33.7 H, Total Bilirubin 0.2, Direct Bilirubin 0.2, AST 18, ALT 32, Alkaline Phosphatase 46, Total Protein 6.1 L, Albumin 3.5, PT 13.8 H, INR 1.32 H, CBC w Diff NO MAN DIFF REQ , RBC 2.60 L, MCV 89.3, MCH 30.4, MCHC 34.0, RDW 15.0 H, MPV 8.9, Gran % 54.8, Lymphocytes % 30.3, Monocytes % 10.9 H, Eosinophils % 3.6, Basophils % 0.4, Absolute Granulocytes 3.0, Absolute Lymphocytes 1.7, Absolute Monocytes 0.6, Absolute Eosinophils 0.2, Absolute Basophils 0 11/10/17 0408: PT Cancelled, INR Cancelled Assessment/Plan Assessment/Plan Assessment: 1. Atrial fibrillation, with rate under control 2. Acute on chronic kidney disease 3. Diabetes mellitus 4. Coronary artery disease 5. HFpEF 6. GI bleed with acute blood loss anemia while on antiplatelet medications and anticoagulation Plan: * Anticoagulation and antiplatelet medications are on hold for GI bleed. * Cleared by GI to restart aspirin and Eliquis. Okay to keep off Plavix as per vascular * Continue other cardiac medications * Follow up with Dr. Ness after discharge Continue telemetry? Not applicable
--- NOTE | 2017-11-11 12:58 | Discharge Summary ---
Visit Information Visit Dates Admission Date: 11/09/17 Discharge Date: 11/11/17 Hospital Course Course Attending Physician: Liat Harris MD Primary Care Physician: Tiffani Corona MD Hospital Course: 72-year-old male with extensive past medical history who was recently diagnosed with CHF and atrial fibrillation and was started on Lasix and Eliquis who presented with 1 day of GI bleed and dizziness. The patient fell without loss of consciousness prior to admission consistent with orthostatic hypotension from acute blood loss anemia and hypovolemia. On arrival, the patient was hypotensive with WILLOW, hemoglobin dropped to 8 from 12 acutely. The patient was taking aspirin 325mg, plavix and eliquis. Acute blood loss anemia: Secondary to GI bleed with multiple anticoagulants/antiplatelet agents Received 2 units pRBC transfusion s/p EGD and colonoscopy with some small non bleeding ulcers in antrum and duodenum and mild internal hemorrhoids CT negative for retroperitoneal hemorrhage Cardiology and vascular surgery consulted regarding anticoagulation, appreciate recommendations Change to PO PPI BID CHF: Resume lasix Continue statin Resume ACEi on discharge Atrial fibrillation: Continue rate control medications Hold anticoagulation pending upper endoscopy and colonoscopy Appreciate cardiology's recommendations PVD with stent: Hold plavix periprocedure until bleeding abates and CBC stable Await formal vascular surgery consultation Acute kidney injury: Prerenal from hypovolemia and acute blood loss anemia Renal function improved s/p 2 unit pRBC transfusion and intravascular volume resuscitation Trend BEP, baseline < 2 Atrophic kidneys and distended bladder on CT Continue tamsulosin DM Hold oral hypoglycemics Accuchecks TIDAC/HS Novolog insulin sliding scale Heart healthy diet DVT ppx-mechanical ALPs Allergies: Coded Allergies: bacitracin (RASH //) neomycin (From NEOSPORIN ([id number])) (RASH //) polymyxin B (From NEOSPORIN ([id number])) (RASH //) Disposition Summary Disposition Principal Diagnosis: Acute blood loss anemia GI bleed Discharge Instructions General Discharge Information Code Status: Full Code Medications at Discharge Discharge Medications: Stop taking the following medications: Clopidogrel Bisulfate (Clopidogrel) 75 MG TABLET ORAL DAILY Qty = 90 Aspirin (Aspirin*) 325 MG TABLET ORAL DAILY Qty = 30 Continue taking these medications: Duloxetine HCl (Duloxetine HCl) 60 MG CAPSULE. 1 Capsule ORAL DAILY Qty = 30 Comments: NOT GIVEN IN HOSPITAL Tamsulosin HCl (Tamsulosin HCl) 0.4 MG CAP.ER.24H 2 Capsule ORAL DAILY Qty = 180 Comments: Last Taken: 11/11/17 Time: 1115 AM Buspirone HCl (Buspirone HCl) 15 MG TABLET 0.5 Tablet ORAL TWICE DAILY Qty = 90 Comments: Last Taken: 11/11/17 Time: 1115 AM Pravastatin Sodium (Pravastatin Sodium) 40 MG TABLET 1 Tablet ORAL Every night Qty = 90 Comments: Last Taken: 11/10/17 Time: 6:30 PM LIPITOR (ATORVASTATIN) 20 MG GIVEN Apixaban (Eliquis) 5 MG TABLET 5 Milligram ORAL TWICE DAILY Qty = 60 Comments: Last Taken: 11/11/17 Time: 1115 AM Lisinopril (Lisinopril) 5 MG TABLET 5 Milligram ORAL DAILY Qty = 30 Comments: NOT GIVEN IN HOSPITAL Furosemide (Lasix) 20 MG TABLET 1 Tablet ORAL DAILY Qty = 30 Instructions: . Comments: Last Taken: 11/11/17 Time: 1115 AM Glipizide (Glipizide) 5 MG TABLET 1 Tablet ORAL TWICE DAILY Qty = 90 Instructions: . Comments: NOT GIVEN IN HOSPITAL Ergocalciferol (Vitamin D2) (Vitamin D2) 50,000 UNIT CAPSULE 1 Capsule ORAL EVERY 2 WEEKS Qty = 60 Instructions: . Comments: NOT GIVEN IN HOSPITAL Insulin Glargine,Hum.rec.anlog (Lantus Solostar) 100 UNIT/ML (3 ML) INSULN.PEN 60 Unit Inject into fatty tissue Every night Qty = 15 Instructions: . Comments: NOT GIVEN IN HOSPITAL Gabapentin (Gabapentin) 400 MG CAPSULE 1 Capsule ORAL TWICE DAILY Qty = 30 Instructions: . Comments: Last Taken: 11/11/17 Time: 1115 AM Start taking the following new medications: Pantoprazole Sodium (Protonix) 40 MG TABLET.DR 1 Tablet ORAL TWICE DAILY Qty = 30 No Refills Instructions: . Comments: Last Taken:11/10/17 Time: 0830 AM IV Aspirin (Aspirin*) 81 MG TAB.CHEW 1 Tablet ORAL DAILY Qty = 30 No Refills Comments: Last Taken:11/11/17 Time: 1115 AM
== END 2017-11-11 13:22 | disposition home health service (06) | DRG 378 ==
LOC: ERH 11:42 → ERHI 17:02 → ENRESERV 19:31 → ENTRNSPT 21:03 → EDTRNSPTSTS 21:06 → EDTRNSPT 21:06 → 2NB 21:15 → CMPTRNSPT 21:31 → 2NB 11-09 10:19 → ENPENDDIS 11-11 10:48 → ENTRNSPT 11-11 13:10 → CMPTRNSPT 11-11 13:18 → 2NB 11-11 13:22
PROVIDERS: Emergency Medicine; Student in an Organized Health Care Education/Training Program
PROC: 30233N1 Transfusion of Nonautologous Red Blood Cells into Peripheral Vein, Percutaneous Approach (ICD-10-PCS; 2017-11-08)
PROC: 0DJ08ZZ Inspection of Upper Intestinal Tract, Via Natural or Artificial Opening Endoscopic (ICD-10-PCS; principal; 2017-11-10)
PROC: 0DJD8ZZ Inspection of Lower Intestinal Tract, Via Natural or Artificial Opening Endoscopic (ICD-10-PCS; principal; 2017-11-10)
DX: K92.2 Gastrointestinal hemorrhage, unspecified (principal); N17.9 Acute kidney failure, unspecified; D62 Acute posthemorrhagic anemia; I13.0 Hypertensive heart and chronic kidney disease with heart failure and stage 1 through stage 4 chronic kidney disease, or unspecified chronic kidney disease; I50.30 Unspecified diastolic (congestive) heart failure; E11.22 Type 2 diabetes mellitus with diabetic chronic kidney disease; E11.42 Type 2 diabetes mellitus with diabetic polyneuropathy; I48.91 Unspecified atrial fibrillation; D63.1 Anemia in chronic kidney disease; E86.1 Hypovolemia; N18.3 Chronic kidney disease, stage 3 (moderate); I73.9 Peripheral vascular disease, unspecified; I25.10 Atherosclerotic heart disease of native coronary artery without angina pectoris; Z79.4 Long term (current) use of insulin; K29.80 Duodenitis without bleeding; K64.8 Other hemorrhoids; Z79.02 Long term (current) use of antithrombotics/antiplatelets; Z79.84 Long term (current) use of oral hypoglycemic drugs; Z87.891 Personal history of nicotine dependence
CPT/HCPCS: 2NBSP; 36415; 71045; 73030-RT; 74176; 81001; 82436; 86920; 93005; 93010; J1815; J3490; J7042; P9016

== ENCOUNTER 2018-04-17 17:38 | Inpatient (IN) | payer OTHER, MEDICARE ==
[~2018-04-17] VITALS: Ht 180.3 cm; Wt 121.6 kg
[~2018-04-17 17:38] MED LIST changes: +ASPIRIN81 M4 PO; +PROTONIX40 M3 PO
[2018-04-17 18:49] LABS: ABSOLUTE BASOPHIL COUNT 0 /CUMM (0.0-0.2); ABSOLUTE EOSINOPHIL COUNT 0.2 /CUMM (0.0-0.7); ABSOLUTE GRANULOCYTE CT 3.9 /CUMM (1.4-6.5); ABSOLUTE LYMPH COUNT 1.5 /CUMM (1.2-3.4); ABSOLUTE MONOCYTE COUNT 0.6 /CUMM (0.10-0.60); BASOPHIL % 0.8 % (0.0-2.0); GRANULOCYTE % 62.8 % (42.2-75.2); HEMATOCRIT 26.9 % (42-52); MEAN CORPUSCULAR HGB 29.2 PG (27.0-31.0); MEAN CORPUSCULAR HGB CONC 33.5 G/DL (33.0-37.0); MEAN CORPUSCULAR VOLUME 87.2 FL (80.0-94.0); MEAN PLATELET VOLUME 7.9 FL (7.4-10.4); PLATELET COUNT 247 /CUMM (130-400); RBC DISTRIBUTION WIDTH 17.6 % (11.5-14.5); RED BLOOD CELL CT 3.09 /CUMM (4.70-6.10); WHITE BLOOD CELL COUNT 6.2 /CUMM (4.8-10.8)
--- NOTE | 2018-04-17 18:55 | RADIOLOGY REPORT ---
EXAMINATION: XR CHEST CLINICAL INFORMATION: Chest pain COMPARISON: Chest x-ray 11/08/2017 TECHNIQUE: 2 views of the chest were obtained. FINDINGS: Lungs are clear. No pulmonary vascular congestion. There is no pleural effusion. The heart size is normal. The cardiac and mediastinal contours are normal. There are calcifications of the thoracic aorta. There are multilevel degenerative changes of dorsal spine. IMPRESSION: Unremarkable examination.
--- NOTE | 2018-04-17 19:46 | ED GENERAL ADULT ---
History of Present Illness General Chief Complaint: Chest Pain Stated Complaint: SIB DR DOMINIQUE "FLUID AROUND HEART IN LUNGS"? Source: patient, family Exam Limitations: no limitations Vital Signs & Intake/Output Vital Signs & Intake/Output Vital Signs Date Time Temp Pulse Resp B/P B/P Pulse O2 O2 Flow FiO2 Mean Ox Delivery Rate 04/17 2215 98.4 46 20 120/76 98 04/17 2206 Room Air 04/17 2023 42 18 116/56 99 Room Air 04/17 1910 Room Air 04/17 1857 98.6 45 18 152/70 97 Room Air ED Intake and Output 04/18 0000 04/17 1200 Intake Total 120 Output Total 600 Balance -480 Intake, Oral 120 Output, Urine 600 Patient 279 lb Weight Weight Bed scale Measurement Method Allergies Coded Allergies: bacitracin (RASH 08/20/16) neomycin (From NEOSPORIN ([id number])) (RASH 08/20/16) polymyxin B (From NEOSPORIN ([id number])) (RASH 08/20/16) Reconcile Medications Aspirin (Aspirin*) 81 MG TAB.CHEW 1 TAB PO DAILY cad/pvd Buspirone HCl 15 MG TABLET 0.5 TAB PO BID SLEEP (Reported) Duloxetine HCl 60 MG CAPSULE. 1 CAP PO DAILY ANXIETY (Reported) Ergocalciferol (Vitamin D2) (Vitamin D2) 50,000 UNIT CAPSULE 1 CAP PO Q2W SUPPLEMENT . Furosemide (Lasix) 20 MG TABLET 1 TAB PO DAILY Fluid Retention . Gabapentin 400 MG CAPSULE 1 CAP PO BID Nerve Pain . Glipizide 5 MG TABLET 1 TAB PO BID DM . Insulin Degludec (Tresiba Flextouch U-100) 100 UNIT/ML (3 ML) INSULN.PEN 44 UNITS SC DAILY DIABETES (Reported) Lisinopril 5 MG TABLET 5 MG PO DAILY HTN Pantoprazole Sodium (Protonix) 40 MG TABLET.DR 1 TAB PO BID GI BLEED . Pravastatin Sodium 40 MG TABLET 1 TAB PO QPM CHOL (Reported) Tamsulosin HCl 0.4 MG CAP.ER.24H 1 CAP PO DAILY URINE (Reported) Warfarin Sodium (Coumadin) 5 MG TABLET 1 TAB PO DAILY afib (Reported) Triage Note: PT WAS AT [facility]IMARY D[facility]. WHEN WAS CONCERED THAT HE MAY HAVE ASPIRATED. ALSO CONCERED FOR LOW HBG. HX OF BLOOD TRANSFUSIONS. HX DIABETES,AFIB AND KIDNEY FAILURE SENT FOR EVAL. Triage Nurses Notes Reviewed? yes HPI: This is a 72-year-old male with past medical history significant for CAD, CHF, hypertension, hyperlipidemia, insulin dependent diabetes, neuropathy, presented to the emergency department with several days of progressive dyspnea. Patient also states that he has had increased weakness. He has had increased swelling in his legs. Ports that he has been compliant with his medications. He reports that he has had a change in the color of his stool. He had a history of upper GI bleed, requiring endoscopy. (Bakari Lyle MD) Past History Travel History Traveled to [place] past 21 day No Medical History Any Pertinent Medical History? see below for history Neurological: peripheral neuropathy EENT: hearing loss Cardiovascular: CHF, PVD, HTN, HLD Respiratory: NONE Gastrointestinal: NONE Hepatic: NONE Renal: CKD Musculoskeletal: disk herniation (C5), degen joint disease, falls, ARTHRITIS Psychiatric: anxiety, depression Endocrine: IDDM (peripheral neuropathy) Blood Disorders: anemia Cancer(s): NONE FACE WORKER/Reproductive: NONE History of MRSA: No History of VRE: No History of CDIFF: No Influenza Vaccine: 09/05/17 Surgical History Surgical History: laminectomy (C5), fempop bypass, B/L LE stent placement CERIVCAL C5 Psychosocial History Who do you live with Family Services at Home 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 FATHER ([place]/CABG). , Age 80; Cause: ESRD (end stage renal disease). Hx Contributory? No (Bakari Lyle MD) Review of Systems Review of Systems Constitutional: Reports: malaise, weakness. Denies: chills, diaphoresis, fever, unexplained weight loss. EENTM: Reports: no symptoms. Respiratory: Reports: short of breath. Cardiovascular: Reports: edema. Denies: chest pain. GI: Reports: no symptoms. Genitourinary: Reports: no symptoms. Musculoskeletal: Reports: no symptoms. Skin: Reports: no symptoms. Neurological/Psychological: Reports: no symptoms. Hematologic/Endocrine: Reports: no symptoms. Immunologic/Allergic: Reports: no symptoms. (Bakari Lyle MD) Physical Exam Physical Exam General Appearance: well developed/nourished, no apparent distress, alert, awake , comfortable Head: atraumatic, normal appearance Eyes: Bilateral: normal appearance. Ears, Nose, Throat: normal pharynx, normal ENT inspection Neck: normal inspection, supple, full range of motion, JVD Respiratory: crackles Cardiovascular: edema, bradycardia Gastrointestinal: normal bowel sounds, soft, non-tender Back: normal inspection, normal range of motion Extremities: swelling Neurologic/Psych: no motor/sensory deficits, awake, alert, oriented x 3 Comments: Obese elderly gentleman, no acute distress. Become short of breath with minimal exertion. Crackles in bilateral bases. 3+ bilateral pedal edema. Core Measures ACS in differential dx? Yes CVA/TIA Diagnosis: No Sepsis Present: No Sepsis Focused Exam Completed? No (Valdo JACINTO,[place]) Progress Differential Diagnoses I considered the following diagnoses in my evaluation of the patient: CHF exacerbation, lower suspicion for ACS, some concern for upper GI bleed versus lower GI bleed given change in stool color. Doubt pulmonary embolism in this patient based on exam, history, and presentation. Likewise, low suspicion for thoracic aortic disease. Low suspicion for acute CVA. Plan of Care: Orders Procedure Date/time Status CHF Diet 04/18 B Active TROPONIN LEVEL 04/18 0800 Active EKG 04/18 0800 Active PROTHROMBIN TIME 04/18 0600 Active CBC WITHOUT DIFFERENTIAL 04/18 0600 Active BASIC ELECTROLYTES PLUS BUN&CR 04/18 0600 Active TROPONIN LEVEL 04/18 0000 Active EKG 04/18 0000 Active Weight 04/17 2205 Complete Vital Signs 04/17 2205 Complete Teach/Educate 04/17 2205 Active Pain Treatment and Response 04/17 2205 Active Nutritional Intake, Monitor 04/17 2205 Active Isolation 04/17 2205 Active Intake & Output 04/17 2205 Complete Patient Care Conference 04/17 2205 Active Activity/Ambulation 04/17 2205 Complete FingerStick- Glucose 04/17 2112 Active Pathway - chart 04/17 2110 Active House Staff 04/17 2110 Active EKG 04/17 2051 Active Patient Data 04/17 2019 Active Admit to inpatient 04/17 2016 Active Code Status 04/17 2016 Active Intake & Output 04/17 1909 Active PARTIAL THROMBOPLASTIN TIME 04/17 190 Complete PROTHROMBIN TIME 04/17 1908 Complete TYPE & SCREEN (NOT X-MATCH) 07/16 1908 Complete TSH REFLEX 04/17 180 Complete B-TYPE NATRIURETIC PEP (BNP) 04/17 180 Complete TROPONIN LEVEL 04/17 180 Complete MAGNESIUM 04/17 180 Complete COMPREHENSIVE METABOLIC PANEL 04/17 180 Complete CBC WITHOUT DIFFERENTIAL 04/17 1804 Complete EKG 04/17 1742 Active TRC EVALUATION (GEN) 04/17 UNK Active Saline Lock 04/17 UNK Active Lab Add-on Test 04/17 UNK Active Weight 04/17 UNK Active VTE Mechanical Prophylaxis 04/17 UNK Active Vital Signs 04/17 UNK Active Nursing Misc 04/17 UNK Active Intake & Output 04/17 UNK Complete Activity/Ambulation 04/17 UNK Active Current Medications Sig/Berhane Start time Last Medication Dose Stop Time Status Admin Pravastatin Sodium 40 MG 1700 04/18 1700 AC (Pravachol) Buspirone HCl 7.5 MG BID 04/18 0900 AC (Buspar) Duloxetine HCl 60 MG DAILY 04/18 09 AC (Cymbalta) Furosemide 20 MG DAILY 04/18 0900 AC (Lasix) Insulin Detemir 20 UNITS BID 04/18 0900 AC (Levemir) Lisinopril 5 MG DAILY 04/18 09 CAN (Prinivil) Tamsulosin HCl 0.4 MG DAILY 04/18 09 AC (Flomax) Insulin Aspart 0 TIDAC 04/18 0800 AC (NovoLOG) Omeprazole 40 MG DAILY AC 04/18 0700 AC (Prilosec) Atropine Sulfate 0.5 MG DAILY PRN 04/18 0000 AC (Atropine) Pantoprazole Sodium 40 MG ONCE ONE 04/17 220 CAN (Protonix) 04/17 220 Tramadol HCl 50 MG Q8P PRN 04/17 2145 AC (Ultram) Gabapentin 400 MG BID 04/17 2131 AC 04/17 (Neurontin) 2300 Acetaminophen 650 MG Q6P PRN 04/17 2115 AC (Tylenol) Laboratory Tests 04/17/182005: PT 31.7 H, INR 2.88 H, APTT 42 H 04/17/181907: Iiu-H-Fbebbjbneuv Pept Cancelled 04/17/18 180: Anion Gap 10, Estimated GFR 26 L, BUN/Creatinine Ratio 22.0, Glucose 103 H, Calcium 8.5, Magnesium 2.2, Total Bilirubin 0.3, AST 19, ALT 38, Alkaline Phosphatase 69, Troponin I < 0.01, Cdp-X-Jupsmtbaktm Pept 3400 H, Total Protein 6.5, Albumin 3.3 L, Globulin 3.2, Albumin/Globulin Ratio 1.0 L, TSH &T3 &Free T4 Intrp 3.400, CBC w Diff NO MAN DIFF REQ, RBC 3.09 L, MCV 87.2, MCH 29.2, MCHC 33.5, RDW 17.6 H, MPV 7.9, Gran % 62.8, Lymphocytes % 23.4, Monocytes % 10.0 H, Eosinophils % 3.0, Basophils % 0.8, Absolute Granulocytes 3.9, Absolute Lymphocytes 1.5, Absolute Monocytes 0.6, Absolute Eosinophils 0.2, Absolute Basophils 0 Labs show ongoing microcytic anemia. Troponin negative, EKG is nonischemic but does reveal a bradycardic atrial fibrillation. We will start IV Lasix, admit inpatient service for further management. Patient remained stable while in the emergency department. Initial ED EKG: bradycardic afib (Bakari Lyle MD) Departure Departure Time of Disposition: 2051 Disposition: STILL A PATIENT Condition: Stable Clinical Impression Primary Impression: Acute exacerbation of CHF (congestive heart failure) Secondary Impressions: Anemia Referrals: Chloe JACINTO,Tiffani Leal (PCP/Family) Departure Forms: Customer Survey General Discharge Information Admission Note Spoke With: Geno Anderson MD Documentation of Exam: Documentation of any treatments & extenuating circumstances including Concerns Regarding Discharge (functional status, medication knowledge or non-compliance, living conditions, etc.) that warrant an admission rather than observation: IV diuresis, repeat EKG, serial labs, possible endoscopy/colonoscopy for suspected GI bleed. (Bakari Lyle MD) Resident Co-Sign Statement Statement: ED Attending supervision documentation- [] I saw and evaluated the patient. I have also reviewed all the pertinent lab results and diagnostic results. I agree with the findings and the plan of care as documented in the Resident's documentation. [X] I have reviewed the ED Record and agree with the Resident's documentation. [] Additions or exceptions (if any) to the Resident's note and plan are summarized below: [] (Opal JACINTO,Danilo Sanchez) Critical Care Note Critical Care Note Critical Care Time: non-applicable (Valdo JACINTO,Bakari)
[2018-04-17 20:26] LABS: PT 31.7 SEC (9.4-12.5); PTT 42 SEC (25-37)
--- NOTE | 2018-04-17 21:15 | History & Physical ---
Mick Sylvester 04/17/182113: General Information and HPI History of Present Illness: Nilson Reed is a 72 YO male with a PMHx. of AFib, HFpEF, T2DM, and HTN who presents to the ED with a chief complaint of "lower extremity edema, dyspnea, and melena." Patient states that over the past four days he has been experiencing dark, tarry stools. Patient, however, denies any abdominal pain and blood in the stool. Patient also notes increasingly being short of breath, for which he states he was last normal about one week ago. Patient also states he has noticed weight gain of approximately 10 pounds over the past week. Patient states he has difficulty laying flat due to experiencing dyspnea when supine or laying on his side. Patient denies chest pain, dizziness, and lightheadedness. Patient also admits to neuropathy in his feet with increased swelling of the legs, left greater than the right. Patient also notes right hand numbness, lower extremity tingling, and difficulty walking due to generalized weakness, for which he utilizes a cane for ambulation. Patient lives at home with his ex-. Patient denies any alcohol consumption. Patient follows Dr. Corona (PCP), Dr. Ansari (Cardiology), and Dr. Tuttle ( Gastroenterology). Allergies/Medications Allergies: Coded Allergies: bacitracin (RASH 08/20/16) neomycin (From NEOSPORIN ([id number])) (RASH 08/20/16) polymyxin B (From NEOSPORIN ([id number])) (RASH 08/20/16) Home Med list Aspirin (Aspirin*) 81 MG TAB.CHEW 1 TAB PO DAILY cad/pvd Buspirone HCl 15 MG TABLET 0.5 TAB PO BID SLEEP (Reported) Duloxetine HCl 60 MG CAPSULE.DR 1 CAP PO DAILY ANXIETY (Reported) Ergocalciferol (Vitamin D2) (Vitamin D2) 50,000 UNIT CAPSULE 1 CAP PO Q2W SUPPLEMENT . Furosemide (Lasix) 20 MG TABLET 1 TAB PO DAILY Fluid Retention . Gabapentin 400 MG CAPSULE 1 CAP PO BID Nerve Pain . Glipizide 5 MG TABLET 1 TAB PO BID DM . Insulin Degludec (Tresiba Flextouch U-100) 100 UNIT/ML (3 ML) INSULN.PEN 44 UNITS SC DAILY DIABETES (Reported) Lisinopril 5 MG TABLET 5 MG PO DAILY HTN Pantoprazole Sodium (Protonix) 40 MG TABLET.DR 1 TAB PO BID GI BLEED . Pravastatin Sodium 40 MG TABLET 1 TAB PO QPM CHOL (Reported) Tamsulosin HCl 0.4 MG CAP.ER.24H 1 CAP PO DAILY URINE (Reported) Warfarin Sodium (Coumadin) 5 MG TABLET 1 TAB PO DAILY afib (Reported) Past History Travel History Traveled to [place] past 21 day No Medical History Neurological: peripheral neuropathy EENT: hearing loss Cardiovascular: CHF, PVD, HTN, HLD Respiratory: NONE Gastrointestinal: NONE Hepatic: NONE Renal: CKD Musculoskeletal: disk herniation (C5), degen joint disease, falls, ARTHRITIS Psychiatric: anxiety, depression Endocrine: IDDM (peripheral neuropathy) Blood Disorders: anemia Cancer(s): NONE APPLICATIONS SPECIALIST/Reproductive: NONE History of MRSA: No History of VRE: No History of CDIFF: No Influenza Vaccine: 09/05/17 Surgical History Surgical History: laminectomy (C5), fempop bypass, B/L LE stent placement CERIVCAL C5 Past Family/Social History Family History Relations & Conditions if any MOTHER, , Age 80; Cause: Cancer of unknown origin. FATHER (ND/CABG). , Age 80; Cause: ESRD (end stage renal disease). Psychosocial History Who Do You Live With? spouse (ex- (his 2nd)) Services at Home: Home Health Aide, Nursing, Occupational Therapy, Physical Therapy Primary Language: Telugu ETOH Use: denies use Living Will? no Power of Kitchen Designer/HCP? no Functional Ability ADLs Independent: dressing, eating, toileting, bathing. Ambulation: cane IADLs Independent: shopping, housework, finances, food prep, telephone, transportation , medication admin. Review of Systems Review of Systems Constitutional: Denies: diaphoresis, fever, malaise. EENTM: Denies: double vision, visual changes. Cardiovascular: Reports: edema, orthopena, peripheral edema. Denies: chest pain, palpitations. Respiratory: Reports: orthopnea, short of breath. Denies: cough. GI: Reports: melena, changes in stool. Denies: abdominal pain, constipation, diarrhea, bloody stool. Genitourinary: Denies: dysuria. Musculoskeletal: Denies: joint pain. Skin: Denies: no symptoms. Neurological/Psychological: Reports: numbness, tingling. Denies: headache, weakness. Exam & Diagnostic Data Last 24 Hrs of Vital Signs/I&O Vital Signs Date Time Temp Pulse Resp B/P B/P Pulse O2 O2 Flow FiO2 Mean Ox Delivery Rate 04/175 98.4 46 20 120/76 98 04/17 2206 Room Air 04/17 2023 42 18 116/56 99 Room Air 04/17 1910 Room Air 04/17 1857 98.6 45 18 152/70 97 Room Air Physical Exam General Appearance Alert, Oriented X3, No Acute Distress Skin No Rashes, No Breakdown HEENT Atraumatic, PERRLA Neck Supple, No JVD Lymphatic Cervical nl Cardiovascular Regular Rate (bradycardia), Normal S1, Normal S2 Lungs Clear to Auscultation, Normal Air Movement Abdomen Normal Bowel Sounds, Soft Neurological Strength at 5/5 X4 Ext, Normal Tone, Sensation Intact Extremities 2+ pedal edema extending to knees Vascular Normal Pulses Assessment/Plan Assessment: Imaging: CXR: Lungs are clear. No pulmonary vascular congestion. There is no pleural effusion. The heart size is normal. The cardiac and mediastinal contours are normal. There are calcifications of the thoracic aorta. There are multilevel degenerative changes of dorsal spine. Unremarkable examination. Last ECHO 10/10/2017 - Normal size left ventricle. No obvious regional wall motion abnormalities. Normal left ventricular ejection fraction estimated at 55-60%. 1. This was a technically difficult study due to the patient's body habitus. 2. Aortic sclerosis is present with no valvular stenosis or insufficiency. Minimal enlargement of the ascending aorta is present 3. Mitral leaflet thickening is present with mild to moderate mitral insufficiency and mild to moderate left atrial enlargement. 4. There is no significant pericardial fluid detected 5. The left ventricular chamber size is normal with mild to moderate concentric hypertrophy and a normal ejection fraction. There are no visible resting wall motion abnormalities. Additional images were obtained following the administration of IV contrast. 6. Right heart structures were not optimally visualized. Mild tricuspid insufficiency is present. The right ventricular systolic pressure was not accurately assessed. Pertinent Labs: pBNP 3400; Alb 3.3 PT 31.7; INR 2.88; PTT 42 Hgb 9.0; Hct 26.9 BUN 55; Cr 2.5 Assessment: 1. CHF exacerbation 2. Anemia, with history of GI related bleeding 3. Bradycardia 4. h/o Diabetes Mellitus with assoiciated peripheral neuropathy 5. h/o Atrial Fibrillation 6. h/o HTN Plan: * Congestive Heart Failure - Admit to telemetry for cardiac monitoring and assessment of vitals - Follow Serial EKG and Troponin - Lasix 20 mg BID diuresis; markers of adequate diuresis include resolution of dyspnea, decreased JVP, Cr normalization, return to baseline weight. - pBNP 3400; pBNP value > 400, highly suggestive of HF > 95% probability - AM Cardiology Consultation; ECHO in morning to assess EF and ventricular wall motion - If needed, oxygen therapy to maintain saturation > 92% via NC or face mask - Assess progression/resolution of sx.; correlate with Alderson Heart Failure score - Diet: Salt restriction - Positioning: Elevate head of bed and/or extra head pillows - Monitor K, Mg, & Cr - Daily weights; restrict fluids (<1500 ml) - Strict I&Os - IV Atropine 0.5 mg prn; bradycardia at baseline - PPI GI PPx.; Omeprazole PO 40 mg - DVT PPx.; Intermittent pnuematic compression device * Anemia - Low Hgb/Hct with a past history of gastric and duodenal ulcers and internal hemorrhoids - Monitor Heme/Hct. with CBC every 8 hours; transfuse to maintain hemoglobin at > 8 g/dl - Hold anticoagulation at present - Consult GI if Hgb continues to decrease As Ranked By This Provider Problem List: 1. Acute exacerbation of CHF (congestive heart failure) 2. Anemia 3. Diabetes 4. Hypertension Core Measures/Misc (06/19) Acute Coronary Syndrome ACS Diagnosis: No Congestive Heart Failure Congestive Heart Failure Diagnosis Yes Last Known EF % 55 (10/10/2017) Cerebrovascular Accident CVA/TIA Diagnosis: No VTE (View Protocol) VTE Risk Factors Acute Medical Illness No Mechanical VTE Prophylaxis d/t N/A MechProphylax Ordered No VTE Pharm Prophylaxis d/t NA PharmProphylax ordered Sepsis (View protocol) Sepsis Present: No If YES complete Sepsis Event Note If YES complete Sepsis Event Note Geno Anderson MD 04/17/182: Core Measures/Misc (06/19) Sepsis (View protocol) If YES complete Sepsis Event Note If YES complete Sepsis Event Note Attending Review Statement Attending Statement Attending MD Statement: examined this patient, discuss w/resident/PA/SHOP WORKER, agreed w/resident/PA/SHOP WORKER, discussed with family (is), reviewed EMR data (avail), discussed with nursing, amended to note Attending Assessment/Plan: 72-year-old male with history of heart failure with preserved ejection fraction, chronic kidney disease stage IV, atrial fibrillation on anticoagulation, insulin -dependent diabetes mellitus, gastrointestinal bleed during last hospitalization with EGD revealing nonbleeding antral erosions as well as duodenitis. He was also noted to have mild internal hemorrhoids at that time with no active bleeding. Was in his usual state of health for the past few days but has been complaining of progressively worsening lower extremity swelling and progressively worsening dyspnea on exertion. He also reports having dark stools recently. He saw his primary care provider and reported the above complaints and was promptly referred to the emergency room for further evaluation. He arrived emergency room afebrile hemodynamically table. Did not appear to be in any respiratory distress. He did not require oxygen supplementation. He was given Lasix 20 mg intravenously and referred to the medical service for further management. On evaluation by the medical team we found the patient in no distress. He denies any history of chest pain or palpitations. Denied any bright red blood per rectum. Reports compliance with his medications including his diuretics. He has never been referred to the CHF clinic according to the patient. Records reveal that he was on Eliquis in the past but appears at some point following discharge he was transitioned to Coumadin. He is also on atenolol. On examination we found him sitting up comfortably in his chair speaking in complete sentences. Not requiring oxygen supplementation. He had adequate entry bilaterally with no added sounds. He had no jugular venous distention. He did have bilateral lower extremity pedal edema of 1-2+. No calf tenderness. Chest x-ray was reported as normal with no report of congestion. His BNP was elevated at over 3000 however this is in the setting of chronic kidney disease. Renal function is at baseline. Hemoglobin level is noted to be slightly lower at baseline. INR is therapeutic. He was guaiac positive in the emergency room. In the ER patient was noted to be bradycardic with heart rates in the 40s and going down as low as 30s. No ischemic changes. Heart rate did improve while he was active. Problems: 1. Dyspnea on exertion 2. Gastrointestinal bleed 3. Atrial fibrillation: Currently bradycardic. Rule out sick sinus syndrome 4. Chronic kidney stage IV 5. Chronic anemia; multifactorial Plan: -Patient shortness of breath is likely due to a combination of his worsening anemia, bradycardia superimposed his chronic heart failure with preserved ejection fraction. His leg swelling be suggestive of volume overload secondary to acute decompensation of his CHF. -Admit to the in-patient medical service. Monitor on the telemetry unit. Serial cardiac enzynmes and repeat EKG in am. Cariology Consult. Hold off repeat echo pending evaluation by his cardiology service -Diuresis with lasix 20mg IV daily. Daily in/ot and weights. -Hold Atenolol given his bradycardia. Atropine at the bedside. -Check TSH level. -Monitor H/H q 8h. Hold coumadin for now. Trasnfuse for Hb < 8. GI consultation if Hb continues to trend down. Dimitri Felix 04/17/18 2207: Core Measures/Misc (06/19) Sepsis (View protocol) If YES complete Sepsis Event Note If YES complete Sepsis Event Note Resident Review Statement Resident Statement: examined this patient, discussed with equine intern, agreed with equine intern, amended to note Other Findings: Mr Reed is a 72 year old man w/ a PMHx of HFpEF, Afib on DOAC(10/20 w/ bradycardia), GI bleedperipheral vascular disease, hypertension, hyperlipidemia, Chronic kidney disease stage IIIB, PAD post mult outpt B/L LE stents, degenerative joint disease, anxiety, depression, insulin-dependent diabetes with peripheral neuropathy, anemia (previous blood transfusions) was sent to the hospital by her primary care physician for chief concern of pedal edema, acute onset of dyspnea and melena. Last admission to [facility] November 2017. He was known to be in his usual state of health until one week ago, when he started noticing acute onset of dyspnea on exertion, which progressed to dyspnea at rest in the last 24 hours. Orthopnea positive. Also noticed that he had worsening pedal edema in the last 3-4 days, and increasing weight gain of approximately 10 pounds in the last 1 week. Reported to have medication noncompliance. Also reported to have dark tarry stools, 3-4 episodes so far. No bright red bleeding per rectum. No changes in appetite, abdominal pain nausea or vomiting. No recent use of NSAIDs. No chest pain, palpitations, lightheadedness or dizziness. He follows up with his dinner cook, Dr. Dillard who evaluated with a Holter monitor in less than one week ago, results of which are currently unknown to the patient. He was seen by his primary care physician, and was sent to the emergency room for evaluation. Last EGD and colonoscopy 11/20 with gastroenterology with found some small non bleeding antral and duodenal ulcers and mild internal hemorrhoids but no evidence of active bleeding. At the time of admission-temperature 98.6, pulse rate 45 (bradycardia), respiration 18, blood pressure 152/70, 97% on room air. General Exam: AAOx3, No acute distress, Skin: No rashes, no breakdown;HEENT: PERRLA, EOMI;Neck: Supple, No JVD; No cervical lymphadenopathy;CVS: irregular Rate, bradycardia, Normal S1,S2, No MGR;Resp: Normal air entry, no ronchi/rales; Abdomen: Soft, No tenderness, Normal Bowel Sounds, umbilical hernia;Neuro: Normal Speech, Strength 5/5 b/l x 4 extremities, Sensation intact, CN III-XII NL , Reflexes 2+;Extremities: No cyanosis, 2+pedal edema upto knee. Pertinent lab findings: WBC 6.2, hemoglobin 9.0 (12.1 in 10/2017), MCV 87.2, RDW 17.6, platelet count 247. Sodium 142, potassium 5.0, chloride 106, bicarbonate 25. BUN 55, creatinine 2.5 ( 2.1- sr Cr baseline ) Glucose 103 Liver chemistries-AST 19, ALT 38, alkaline phosphatase 29 Troponin I 0.01. TSH-pending INR 2.88 ProBNP-3400 Guiac positive. Chest x ray- Lungs are clear. No pulmonary vascular congestion. There is no pleural effusion. Last echo- 10 October 2017 1. Normal left ventricular ejection fraction estimated at 55-60%. 2. Aortic sclerosis is present with no valvular stenosis or insufficiency. Minimal enlargement of the ascending aorta is present 3. Mitral leaflet thickening is present with mild to moderate mitral insufficiency and mild to moderate left atrial enlargement. 4. There is no significant pericardial fluid detected 5. The left ventricular chamber size is normal with mild to moderate concentric hypertrophy and a normal ejection fraction. There are no visible resting wall motion abnormalities. Additional images were obtained following the administration of IV contrast. 6. Right heart structures were not optimally visualized. Mild tricuspid insufficiency is present. The right ventricular systolic pressure was not accurately assessed. Etiology in this case is likely multifactorial w/ acute decompensated heart failure due to medication noncompliance, or natural progression of disease. He also had giuseppe, arrythmia and low albminemia is likely contributing to dyspnea.P Ossible precipitating event, increase salt intake+medication noncompliance chronic diastolic left-sided+right-sided heart failure. Other etiologies such as myocardial ischemia, dysrhythmia, hypertension, nephrotic syndrome should be kept in mind. In regards to management of diabetes, he should be long acting insulin and iss. Problem list: #1 acute on chronic HFpEF #2 bradycardia, paroxysmal atrial fibrillation #3 insulin-dependent diabetes with neuropathy #4 acute on chronic anemia, likely blood loss and anemia of chronic disease #5 history of CTD stage IV #6 history of depression, anxiety #7 history of hypertension Plan: -admit the patient on telemetry -follow serial EKGs, troponins -daily Ins and Outs -daily weights -IV diuretics furosemide 20 mg daily -Check BEP daily while on diuretics. -Check TSHR -2D cardiac echo after conferring w/ cardiology -Pacer pads at bedside, and hold all beta blockers. iv Atropine 0.5mg availabe at bedside prn. -Elevate head of the bed to reduce venous return, given his orthopnea. -Consider NIPPV, if worsening clincial state. - Avoid ACEi for now. Restart after checking BEP in the am. -CHF diet, 2gm salt restriction -Machine Learning Intern on dietary compliance -Continue levemir 20 units bid. He has taken his AM dose of insulin today, and would check blood sugar in the pm again, but would start long acting in the am. -Continue buspirone and duloxetine. -Hold all oral-hypoglycemic drugs -Given his INR 2.88, and giuseppe would hold off on AC for now. Redose in the am after being evaluated by cardia and GI. -Recheck CBC In the am. type and cross match. Protonix po. Checklist: 1. DVT PPx- ALPS for now. INR 2.88 on coumadin 2. Consults- Cardiology, GI if Hb drops. 3. Full code.
--- NOTE | 2018-04-17 21:23 | Admission Certification ---
Admission Certification Certification Statement - As attending physician, I certify that at the time of - admission, based on clinical presentation, severity of - symptoms, need for further diagnostic testing and - therapeutic interventions, and risk of adverse outcomes - without in-hospital treatment, in my clinical assessment, - this patient requires an acute hospital stay for a minimum - of two nights or longer. I have also considered psychsocial - factors such as support system, advanced age, financial - issues, cognitive issues, and failed out-patient treatments, - past re-admission history, safety of patient, and lack of - compliance as applicable. Specific rationale supporting this admission is: Patient is being admitted for management of CHF
[2018-04-17] MEDS ORDERED: LANTUS SOL100 UNIT/1 SC (21:31)
[2018-04-17] MEDS ORDERED: TRESIBA FL100 UNIT/1 SC (21:32)
[2018-04-17] MEDS ORDERED: COUMADIN5 M2 PO (21:59)
[2018-04-17 22:15] VITALS: BP 120/76
[2018-04-18 06:48] VITALS: BP 144/68
--- NOTE | 2018-04-18 07:05 | PN- Housestaff ---
Hero Palma 04/18/18 0704: Subjective Follow-up For: Acute on chronic CHF exacerbation, atrial fibrillation, melena Tele-Events Since Last Visit: Patient bradycardic overnight in atrial fibrillation, with prolonged MN interval of 0.8 seconds. Rate overnight ranged from 29-40, additionally with multiple stops of 3 seconds. Subjective: Patient seen resting comfortably in the bed. Overnight the patient was bradycardic with the lowest being 29 bpm, associated with prolonged QR of 0.8 seconds as well as 3.0 second pause between beats. While in the patient's room, the patient again had a 3 second pause and was bradycardic to the high 20s, but the patient was acutely asymptomatic. Patient complains of generalized fatigue that has been worsening for the last week or so, accompanied by shortness of breath, that brought him to the emergency department. The patient follows with Dr. Otero for atrial fibrillation, but is on no AV lynette blocking agents and does not yet have any implanted cardiac pacemaker, pacer pads by the bedside. In this setting the patient also complained of darkening stools over the last week. The patient is on iron supplementation at home. He had previously been seen here at the hospital in early November, and worked up for similar complaints. The patient had a colonoscopy in October that found nonbleeding antral erosions in the prepyloric region, and erythema of the duodenal bulb consistent with duodenitis, as well as mild internal hemorrhoids without active bleeding. Of note, the patient also complains of night sweats overnight in the hospital bed, but reports that he has not had the symptoms before. Review of Systems Constitutional: Reports: fever, weakness. Denies: chills. Cardiovascular: Reports: peripheral edema. Denies: chest pain, palpitations, syncope. Respiratory: Reports: short of breath. Denies: cough, wheezing. Gastrointestinal: Reports: melena. Denies: abdominal pain, vomiting. Objective Last 24 Hrs of Vital Signs/I&O Vital Signs Date Time Temp Pulse Resp B/P B/P Pulse O2 O2 Flow FiO2 Mean Ox Delivery Rate 04/18 0648 98.8 34 20 144/68 95 Room Air 04/17 2215 98.4 46 20 120/76 98 04/17 2206 Room Air 04/173 42 18 116/56 99 Room Air 04/17 1910 Room Air 04/17 1857 98.6 45 18 152/70 97 Room Air Intake & Output 04/18 0800 04/18 0000 04/17 1600 Intake Total 120 120 Output Total 1000 600 Balance -880 -480 Intake, Oral 120 120 Output, Urine 1000 600 Patient 126.552 kg Weight Weight Bed scale Measurement Method Physical Exam General Appearance: Alert, Oriented X3, Cooperative, No Acute Distress HEENT: Atraumatic, PERRLA, EOMI Neck: Supple, No JVD, No thryomegaly, +2 Carotid Pulse wo Bruit Cardiovascular: Bradycardic and irregular, difficult to distinguish heart sounds due to rate Lungs: Clear to Auscultation Abdomen: Normal Bowel Sounds, Soft, No Tenderness, Fluid wave positive Neurological: Normal Gait, Normal Speech, Strength at 5/5 X4 Ext Extremities: Edema and diminished peripheral pulses Current Medications: Current Medications Sig/Berhane Start time Last Medication Dose Route Stop Time Status Admin Acetaminophen 650 MG Q6P PRN 04/17 2115 AC PO Atropine Sulfate 0.5 MG DAILY PRN 04/18 0000 AC IV Buspirone HCl 7.5 MG BID 04/18 900 AC PO Buspirone HCl 7.5 MG BID 04/17 2131 DC PO Dextrose 25 GM ONCE ONE 04/18 0645 DC 04/18 IV 04/18 0646 0639 Duloxetine HCl 60 MG DAILY 04/18 09 AC PO Furosemide 40 MG DAILY 04/18 09 DC IV Furosemide 20 MG DAILY 04/18 09 AC IV Furosemide 0 .STK-MED ONE 04/17 2009 DC IV Furosemide 20 MG ONCE ONE 04/17 1930 DC 04/17 IV 04/17 1932011 Gabapentin 400 MG BID 04/17 2131 AC 04/17 PO 2300 Insulin Aspart 0 TIDAC 04/18 0800 AC SC Insulin Detemir 20 UNITS BID 04/18 0900 AC SC Lisinopril 5 MG DAILY 04/18 0900 CAN PO Omeprazole 40 MG DAILY AC 04/18 0700 AC 04/18 PO 0609 Pantoprazole Sodium 40 MG ONCE ONE 04/17 2200 CAN IV 04/17 220 Pravastatin Sodium 40 MG 1700 04/18 1700 AC PO Tamsulosin HCl 0.4 MG DAILY 04/18 0900 AC PO Tramadol HCl 50 MG Q8P PRN 04/17 2145 AC PO Last 24 Hrs of Lab/Nando Results Last 24 Hrs of Labs/Mics: Laboratory Tests 04/18/18 0640: Sodium Pending, Potassium Pending, Chloride Pending, Carbon Dioxide Pending, Anion Gap Pending, BUN Pending, Creatinine Pending, BUN/Creatinine Ratio Pending , PT Pending, INR Pending, CBC w Diff Pending, WBC Pending, RBC Pending, Hgb Pending, Hct Pending, MCV Pending, MCH Pending, MCHC Pending, RDW Pending, Plt Count Pending, MPV Pending 04/18/18 0000: Glucose Pending, Troponin I 0.01 04/17/182005: PT 31.7 H, INR 2.88 H, APTT 42 H 04/17/18 1908: Xzx-Y-Zvjrdicsyae Pept Cancelled 04/17/18 1805: Anion Gap 10, Estimated GFR 26 L, BUN/Creatinine Ratio 22.0, Glucose 103 H, Calcium 8.5, Magnesium 2.2, Total Bilirubin 0.3, AST 19, ALT 38, Alkaline Phosphatase 69, Troponin I < 0.01, Qaq-D-Ppdysczaucd Pept 3400 H, Total Protein 6.5, Albumin 3.3 L, Globulin 3.2, Albumin/Globulin Ratio 1.0 L, TSH &T3 &Free T4 Intrp 3.400, CBC w Diff NO MAN DIFF REQ, RBC 3.09 L, MCV 87.2, MCH 29.2, MCHC 33.5, RDW 17.6 H, MPV 7.9, Gran % 62.8, Lymphocytes % 23.4, Monocytes % 10.0 H, Eosinophils % 3.0, Basophils % 0.8, Absolute Granulocytes 3.9, Absolute Lymphocytes 1.5, Absolute Monocytes 0.6, Absolute Eosinophils 0.2, Absolute Basophils 0, Lyme Disease Antibody Pending Assessment/Plan Assessment: Patient is a 72-year-old male with heart failure with preserved ejection fraction, atrial fibrillation and severe bradycardia, presenting with worsening fatigue and shortness of breath. 1. Atrial fibrillation with slow ventricular response and severe bradycardia symptomatic secondary to bradycardia INR 2.64, INR needs to be lower for the patient go for pacemaker placement, so holding coumadin dopamine drip 2. Acute on chronic exacerbation of HFpEF positive abdominal fluid wave, but is nondistended and does not complain of abdominal pain 3. Anemia 7.0 hemoglobin supplementation 4. Chronic kidney disease 5. Diabetes mellitus units insulin detemir twice daily Problem List: 1. Atrial fibrillation with slow ventricular response 2. Bradycardia 3. Acute exacerbation of CHF (congestive heart failure) 4. Anemia 5. Chronic kidney disease (CKD) 6. Diabetes 7. Hypertension Pain Ratin Pain Location: none Pain Goal: Remain pain free Pain Plan: Tylenol Tomorrow's Labs & Rationales: CBC this afternoon to monitor H&H DVT/Prophylaxis: mechanical Sybil Ansari MD 04/18/18 1009: Attending MD Review Statement Attending Statement Attending MD Statement: examined this patient, discuss w/resident/PA/ASSISTANT FRONT END MANAGER, agreed w/resident/PA/ASSISTANT FRONT END MANAGER, discussed with family, reviewed EMR data (avail), discussed with nursing, discussed with case mgmt, reviewed images Attending Assessment/Plan: 72-year-old male past medical history of diabetes, CKD fairly advanced with GFR in the 20s, chronic heart failure with preserved ejection fraction and history of anemia with a GI bleed. He is here with complaints of shortness of breath and what appears to be a CHF exacerbation. We are giving him IV Lasix 20 mg daily. Is complaining of dark stool but we are attributing that to the oral iron as his crit is stable. The issue is bradycardia and significant pauses. He is on no AV lynette blocking drugs and overnight he dipped down to the 20s with 3 second pauses. We spoke to Dr. Gonzalez who is covering for Dr. 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 His INR is drifting down it was 2.8 on admission is 2.6 today.
[2018-04-18 08:04] LABS: ABSOLUTE BASOPHIL COUNT 0 /CUMM (0.0-0.2); ABSOLUTE EOSINOPHIL COUNT 0.2 /CUMM (0.0-0.7); ABSOLUTE LYMPH COUNT 1.5 /CUMM (1.2-3.4); ABSOLUTE MONOCYTE COUNT 0.7 /CUMM (0.10-0.60); BASOPHIL % 0.5 % (0.0-2.0); EOSINOPHIL % 3.5 % (0-5); GRANULOCYTE % 61.4 % (42.2-75.2); MEAN CORPUSCULAR HGB CONC 33.1 G/DL (33.0-37.0); MEAN CORPUSCULAR VOLUME 87.8 FL (80.0-94.0); MEAN PLATELET VOLUME 8.1 FL (7.4-10.4); PLATELET COUNT 245 /CUMM (130-400); RBC DISTRIBUTION WIDTH 17.9 % (11.5-14.5); RED BLOOD CELL CT 3.42 /CUMM (4.70-6.10); WHITE BLOOD CELL COUNT 6.5 /CUMM (4.8-10.8)
[2018-04-18 08:20] LABS: PT 29.1 SEC (9.4-12.5)
--- NOTE | 2018-04-18 12:15 | Cons- Cardiology ---
General Information and HPI Consulting Request Date of Consult: 04/18/18 Requested By: Sybil Ansari MD Reason for Consult: Atrial fibrillation, bradycardia, dyspnea Source of Information: patient, old records Exam Limitations: no limitations History of Present Illness: The patient is a 72-year-old gentleman with a past medical history of atrial fibrillation, chronic congestive heart failure with preserved LV systolic function, type 2 diabetes mellitus and hypertension. He presents to our hospital with symptoms of increasing dyspnea, severe fatigue as well as lower extremity edema. The patient states he has had chronic fatigue for several months, and has had concurrent increasing dyspnea over the past several weeks. There has been an overall weight gain of approximately 10 pounds over the past several weeks as well. Symptoms of dyspnea occur with exertion; however, he has well describes increasing orthopnea. There is no concurrent chest pain or palpitations. As an outpatient, the patient has been noted to be in atrial fibrillation chronically and is anticoagulated with warfarin (due to underlying renal dysfunction). He has been tolerant of and compliant with his medication regimen. He has had long-standing bradycardia with his atrial fibrillation. On arrival, the patient was noted to be in mild congestive heart failure. Telemetry demonstrated underlying bradycardia with heart rates of 40; however, with severe bradycardia and heart rates of 20s while sleeping. Allergies/Medications Allergies: Coded Allergies: bacitracin (RASH 08/20/16) neomycin (From NEOSPORIN ([id number])) (RASH 08/20/16) polymyxin B (From NEOSPORIN ([id number])) (RASH 08/20/16) Home Med List: Aspirin (Aspirin*) 81 MG TAB.CHEW 1 TAB PO DAILY cad/pvd Buspirone HCl 15 MG TABLET 0.5 TAB PO BID SLEEP (Reported) Duloxetine HCl 60 MG CAPSULE.DR 1 CAP PO DAILY ANXIETY (Reported) Ergocalciferol (Vitamin D2) (Vitamin D2) 50,000 UNIT CAPSULE 1 CAP PO Q2W SUPPLEMENT . Furosemide (Lasix) 20 MG TABLET 1 TAB PO DAILY Fluid Retention . Gabapentin 400 MG CAPSULE 1 CAP PO BID Nerve Pain . Glipizide 5 MG TABLET 1 TAB PO BID DM . Insulin Degludec (Tresiba Flextouch U-100) 100 UNIT/ML (3 ML) INSULN.PEN 44 UNITS SC DAILY DIABETES (Reported) Lisinopril 5 MG TABLET 5 MG PO DAILY HTN Pantoprazole Sodium (Protonix) 40 MG TABLET.DR 1 TAB PO BID GI BLEED . Pravastatin Sodium 40 MG TABLET 1 TAB PO QPM CHOL (Reported) Tamsulosin HCl 0.4 MG CAP.ER.24H 1 CAP PO DAILY URINE (Reported) Warfarin Sodium (Coumadin) 5 MG TABLET 1 TAB PO DAILY afib (Reported) Current Medications: Current Medications Sig/Berhane Start time Last Medication Dose Route Stop Time Status Admin Acetaminophen 650 MG Q6P PRN 04/17 2115 AC PO Atropine Sulfate 0.5 MG DAILY PRN 04/18 0000 AC IV Buspirone HCl 7.5 MG BID 04/18 0900 AC 04/18 PO 0834 Buspirone HCl 7.5 MG BID 04/17 2131 DC PO Dextrose 25 GM ONCE ONE 04/18 0645 DC 04/18 IV 04/18 0646 0639 Duloxetine HCl 60 MG DAILY 04/18 0900 AC 04/18 PO 0834 Furosemide 40 MG DAILY 04/18 0900 DC IV Furosemide 20 MG DAILY 04/18 0900 AC 04/18 IV 0835 Furosemide 0 .STK-MED ONE 04/17 2009 DC IV Furosemide 20 MG ONCE ONE 04/17 1930 DC 04/17 IV 04/17 1932011 Gabapentin 400 MG BID 04/17 2131 AC 04/18 PO 0835 Insulin Aspart 0 TIDAC 04/18 0800 AC 04/18 SC 0833 Insulin Detemir 20 UNITS BID 04/18 0900 AC 04/18 SC 0835 Lisinopril 5 MG DAILY 04/18 0900 CAN PO Omeprazole 40 MG DAILY AC 04/18 0700 AC 04/18 PO 0609 Pantoprazole Sodium 40 MG ONCE ONE 04/17 2200 CAN IV 04/17 2201 Pravastatin Sodium 40 MG 1700 04/18 1700 AC PO Tamsulosin HCl 0.4 MG DAILY 04/18 0900 AC 04/18 PO 0836 Tramadol HCl 50 MG Q8P PRN 04/17 2145 AC PO Review of Systems Review of Systems: The review of systems is negative for chest pains, palpitations nor lightheadedness. Positive for increasing fatigue as well as dyspnea as above The remainder of the 14 point review of systems is noncontributory with the exception of above. Past History Travel History Traveled to [place] past 21 day No Medical History Neurological: peripheral neuropathy EENT: hearing loss Cardiovascular: CHF, PVD, HTN, HLD Respiratory: NONE Gastrointestinal: NONE Hepatic: NONE Renal: CKD Musculoskeletal: disk herniation (C5), degen joint disease, falls, ARTHRITIS Psychiatric: anxiety, depression Endocrine: IDDM (peripheral neuropathy) Blood Disorders: anemia Cancer(s): NONE FLATWORK PRESSER/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 FATHER ([place]AB[place]). , Age 80; Cause: ESRD (end stage renal disease). Psychosocial History Who Do You Live With? spouse (ex- (his 2nd)) Services at Home: Home Health Aide, Nursing, Occupational Therapy, Physical Therapy Primary Language: Citizen Of [place] Smoking Status: Former Smoker ETOH Use: denies use Living Will? no Power of Manager Medicaid/HCP? no Functional Ability ADLs Independent: dressing, eating, toileting, bathing. Ambulation: cane IADLs Independent: shopping, housework, finances, food prep, telephone, transportation , medication admin. Exam & Diagnostic Data Vital Signs and I&O Vital Signs Date Time Temp Pulse Resp B/P B/P Pulse O2 O2 Flow FiO2 Mean Ox Delivery Rate 04/18 0836 41 144/68 04/18 0800 95 Room Air 04/18 0648 98.8 34 20 144/68 95 Room Air 04/17 2215 98.4 46 20 120/76 98 04/17 2206 Room Air 04/17 2023 42 18 116/56 99 Room Air 04/17 1910 Room Air 04/17 1857 98.6 45 18 152/70 97 Room Air Intake & Output 04/18 1600 04/18 0800 04/18 0000 04/17 1600 04/17 0800 04/17 0000 Intake Total 120 120 Output Total 1000 600 Balance -880 -480 Intake, Oral 120 120 Output, Urine 1000 600 Patient 279 lb Weight Weight Bed scale Measurement Method Physical Exam: General: Nontoxic, no apparent distress. HEENT: Sclera and conjunctiva within normal limits, without xanthelasmas. Neck: Carotids 2+ without bruits. Respiratory: Clear to auscultation, air movement is good, without accessory respiratory muscle use. Heart: Irregularly irregular rate and rhythm, without murmurs, without JVD. Abdomen: Soft, nontender, no masses, normoactive bowel sounds. Extremities: Without clubbing, cyanosis, without edema. Neuro: Nonfocal exam, strength, 5 out of 5 Skin: Within normal limits without lesions. Psych: Mood and affect: Normal Labs/Nando Results: Laboratory Tests 04/18 04/18 04/18 0815 0800 0640 Chemistry Sodium (137 - 145 mmol/L) 142 Potassium (3.5 - 5.1 mmol/L) 4.1 Chloride (98 - 107 mmol/L) 106 Carbon Dioxide (22 - 30 mmol/L) 25 Anion Gap (5 - 16) 11 BUN (9 - 20 mg/dL) 47 H Creatinine (0.7 - 1.2 mg/dL) 2.3 H Estimated GFR (>60 ml/min) 28 L BUN/Creatinine Ratio (7 - 25 %) 20.4 Troponin I Cancelled Coagulation PT (9.4 - 12.5 SEC) 29.1 H INR (0.90 - 1.17) 2.64 H Hematology CBC w Diff NO MAN DIFF REQ WBC (4.8 - 10.8 /CUMM) 6.5 RBC (4.70 - 6.10 /CUMM) 3.42 L Hgb (14.0 - 18.0 G/DL) 9.9 L Hct (42 - 52 %) 30.0 L MCV (80.0 - 94.0 FL) 87.8 MCH (27.0 - 31.0 PG) 29.0 MCHC (33.0 - 37.0 G/DL) 33.1 RDW (11.5 - 14.5 %) 17.9 H Plt Count (130 - 400 /CUMM) 245 MPV (7.4 - 10.4 FL) 8.1 Gran % (42.2 - 75.2 %) 61.4 Lymphocytes % (20.5 - 51.1 %) 23.5 Monocytes % (1.7 - 9.3 %) 11.1 H Eosinophils % (0 - 5 %) 3.5 Basophils % (0.0 - 2.0 %) 0.5 Absolute Granulocytes (1.4 - 6.5 /CUMM) 4.0 Absolute Lymphocytes (1.2 - 3.4 /CUMM) 1.5 Absolute Monocytes (0.10 - 0.60 /CUMM) 0.7 H Absolute Eosinophils (0.0 - 0.7 /CUMM) 0.2 Absolute Basophils (0.0 - 0.2 /CUMM) 0 Serology Lyme Disease Antibody Pending 04/18 04/17 04/17 0000 2005 190 Chemistry Sodium (137 - 145 mmol/L) 143 Potassium (3.5 - 5.1 mmol/L) 4.0 Chloride (98 - 107 mmol/L) 107 Carbon Dioxide (22 - 30 mmol/L) 22 Anion Gap (5 - 16) 13 Glucose (65 - 99 mg/dL) 85 Magnesium (1.6 - 2.3 mg/dL) 2.2 Troponin I (<0.11 ng/ml) 0.01 Iaw-M-Afrvsoatgfj Pept Cancelled Coagulation PT (9.4 - 12.5 SEC) 31.7 H INR (0.90 - 1.17) 2.88 H APTT (25 - 37 SEC) 42 H 04/17 1805 Chemistry Sodium (137 - 145 mmol/L) 142 Potassium (3.5 - 5.1 mmol/L) 5.0 Chloride (98 - 107 mmol/L) 106 Carbon Dioxide (22 - 30 mmol/L) 25 Anion Gap (5 - 16) 10 BUN (9 - 20 mg/dL) 55 H Creatinine (0.7 - 1.2 mg/dL) 2.5 H Estimated GFR (>60 ml/min) 26 L BUN/Creatinine Ratio (7 - 25 %) 22.0 Glucose (65 - 99 mg/dL) 103 H Calcium (8.4 - 10.2 mg/dL) 8.5 Magnesium (1.6 - 2.3 mg/dL) 2.2 Total Bilirubin (0.2 - 1.3 mg/dL) 0.3 AST (17 - 59 U/L) 19 ALT (21 - 72 U/L) 38 Alkaline Phosphatase (< 127 U/L) 69 Troponin I (<0.11 ng/ml) < 0.01 Ben-F-Vbayfldudqq Pept (<125 pg/mL) 3400 H Total Protein (6.3 - 8.2 g/dL) 6.5 Albumin (3.5 - 5.0 g/dL) 3.3 L Globulin (1.9 - 4.2 gm/dL) 3.2 Albumin/Globulin Ratio (1.1 - 2.2 %) 1.0 L TSH &T3 &Free T4 Intrp (0.27 - 4.20 uIU/mL) 3.400 Hematology CBC w Diff NO MAN DIFF REQ WBC (4.8 - 10.8 /CUMM) 6.2 RBC (4.70 - 6.10 /CUMM) 3.09 L Hgb (14.0 - 18.0 G/DL) 9.0 L Hct (42 - 52 %) 26.9 L MCV (80.0 - 94.0 FL) 87.2 MCH (27.0 - 31.0 PG) 29.2 MCHC (33.0 - 37.0 G/DL) 33.5 RDW (11.5 - 14.5 %) 17.6 H Plt Count (130 - 400 /CUMM) 247 MPV (7.4 - 10.4 FL) 7.9 Gran % (42.2 - 75.2 %) 62.8 Lymphocytes % (20.5 - 51.1 %) 23.4 Monocytes % (1.7 - 9.3 %) 10.0 H Eosinophils % (0 - 5 %) 3.0 Basophils % (0.0 - 2.0 %) 0.8 Absolute Granulocytes (1.4 - 6.5 /CUMM) 3.9 Absolute Lymphocytes (1.2 - 3.4 /CUMM) 1.5 Absolute Monocytes (0.10 - 0.60 /CUMM) 0.6 Absolute Eosinophils (0.0 - 0.7 /CUMM) 0.2 Absolute Basophils (0.0 - 0.2 /CUMM) 0 Serology Lyme Disease Antibody Cancelled Assessment/Plan Assessment/Plan 72-year-old gentleman with a past medical history of atrial fibrillation, chronic congestive heart failure with preserved LV systolic function, type 2 diabetes mellitus and hypertension. He presents to our hospital with symptoms of increasing dyspnea, severe fatigue as well as lower extremity edema Dyspnea: The patient presents with dyspnea, consistent with acute on chronic congestive heart failure with preserved LV systolic function. His presenting BNP was elevated; however, this is in the setting of chronic renal insufficiency. He has been diuresed overnight with a net output of approximately 1.2 L and is improved. The underlying acute trigger for his congestive heart failure may be secondary to bradycardia. Atrial fibrillation/bradycardia: The patient has had long-standing bradycardia with atrial fibrillation; however, is currently demonstrating increasing symptoms with fatigue as well as congestive heart failure. There may as well be a component of significant cardiac output reduction due to bradycardia affecting his kidney function. At this time, we will hold his anticoagulation of warfarin and plan on transferring to [facility] on April 20 for a pacemaker implantation of either a biventricular device or his lead placement pacemaker. Thank you for allowing us to participate in the care of your patient. Please do not hesitate to contact us further with any questions. Sincerely, Oleksandr Yoder MD [facility] Consult Acknowledgment - Thank you for your consult request.
[2018-04-18 14:09] VITALS: BP 140/90
[2018-04-18 16:19] VITALS: BP 158/56
[2018-04-18 16:41] LABS: ABSOLUTE BASOPHIL COUNT 0 /CUMM (0.0-0.2); ABSOLUTE EOSINOPHIL COUNT 0.2 /CUMM (0.0-0.7); ABSOLUTE GRANULOCYTE CT 3.9 /CUMM (1.4-6.5); ABSOLUTE LYMPH COUNT 1.3 /CUMM (1.2-3.4); ABSOLUTE MONOCYTE COUNT 0.7 /CUMM (0.10-0.60); BASOPHIL % 0.5 % (0.0-2.0); EOSINOPHIL % 3.1 % (0-5); GRANULOCYTE % 63.6 % (42.2-75.2); HEMATOCRIT 28.5 % (42-52); MEAN CORPUSCULAR HGB CONC 33.4 G/DL (33.0-37.0); MEAN CORPUSCULAR VOLUME 86.9 FL (80.0-94.0); MEAN PLATELET VOLUME 7.7 FL (7.4-10.4); PLATELET COUNT 241 /CUMM (130-400); RBC DISTRIBUTION WIDTH 18.1 % (11.5-14.5); RED BLOOD CELL CT 3.28 /CUMM (4.70-6.10); WHITE BLOOD CELL COUNT 6.1 /CUMM (4.8-10.8)
[2018-04-18 21:44] VITALS: BP 140/76
[2018-04-19 06:35] VITALS: BP 180/82
[2018-04-19 06:38] VITALS: BP 188/84
--- NOTE | 2018-04-19 07:04 | PN- Housestaff ---
Hero Palma 04/19/18 0704: Subjective Follow-up For: Acute on chronic CHF exacerbation, atrial fibrillation, melena Tele-Events Since Last Visit: Overnight patient in A. fib from rate 31-40 Subjective: Patient seen resting comfortably in the bed. Overnight, patient was bradycardic but no other acute events. This morning his blood pressure was noted to be elevated Review of Systems Constitutional: Denies: diaphoresis, fever, weakness. Cardiovascular: Reports: orthopena, peripheral edema. Denies: chest pain, palpitations. Respiratory: Reports: orthopnea, short of breath. Denies: cough. Gastrointestinal: Denies: abdominal pain, nausea, vomiting. Neurological/Psychological: Reports: headache. Objective Last 24 Hrs of Vital Signs/I&O Vital Signs Date Time Temp Pulse Resp B/P B/P Pulse O2 O2 Flow FiO2 Mean Ox Delivery Rate 04/19 0638 98.4 36 18 188/84 97 Room Air 04/19 0635 36 180/82 04/18 2144 98.3 52 18 140/76 95 Room Air 04/18 1600 95 Room Air 04/18 1409 98.1 52 18 140/90 95 Room Air 04/18 1159 Room Air 04/18 0836 41 144/68 04/18 0800 95 Room Air Intake & Output 04/19 0800 04/19 0000 04/18 1600 Intake Total 200 400 700 Output Total 650 1250 1800 Balance -450 -850 -1100 Intake, Oral 200 400 700 Output, Urine 650 1250 1800 Patient 124.908 kg Weight Weight Bed scale Measurement Method Physical Exam General Appearance: Alert, Oriented X3, Cooperative, No Acute Distress HEENT: Atraumatic, PERRLA, EOMI Cardiovascular: Normal S1, Normal S2, Bradycardic rate, irregular Lungs: Clear to Auscultation Abdomen: Soft, No Tenderness Neurological: Normal Gait, Normal Speech Extremities: Bilateral peripheral edema Current Medications: Current Medications Sig/Berhane Start time Last Medication Dose Route Stop Time Status Admin Acetaminophen 650 MG Q6P PRN 04/17 2115 AC PO Atropine Sulfate 0.5 MG DAILY PRN 04/18 0000 AC IV Buspirone HCl 7.5 MG BID 04/18 09 AC 04/18 PO 2204 Dextrose 25 GM .STK-MED ONE 04/18 1829 DC IV 04/18 183 Duloxetine HCl 60 MG DAILY 04/18 0900 AC 04/18 PO 0834 Furosemide 20 MG DAILY 04/18 0900 AC 04/19 IV 0618 Gabapentin 400 MG BID 04/17 2131 AC 04/18 PO 2204 Insulin Aspart 0 TIDAC 04/18 08 AC 04/18 SC 1737 Insulin Detemir 20 UNITS BID 04/18 0900 AC 04/18 SC 2205 Omeprazole 40 MG DAILY AC 04/18 07 AC 04/19 PO 0618 Patient Medication 1 ED ONE ONE 04/18 1715 DC Teaching ED 04/18 1716 Pravastatin Sodium 40 MG 1700 04/18 1700 AC 04/18 PO 1737 Tamsulosin HCl 0.4 MG DAILY 04/18 09 AC 04/18 PO 0836 Tramadol HCl 50 MG Q8P PRN 04/17 2145 AC PO Last 24 Hrs of Lab/Nando Results Last 24 Hrs of Labs/Mics: Laboratory Tests 04/19/18 0615: Sodium Pending, Potassium Pending, Chloride Pending, Carbon Dioxide Pending, Anion Gap Pending, BUN Pending, Creatinine Pending, BUN/Creatinine Ratio Pending , PT Pending, INR Pending, CBC w Diff Pending, WBC Pending, RBC Pending, Hgb Pending, Hct Pending, MCV Pending, MCH Pending, MCHC Pending, RDW Pending, Plt Count Pending, MPV Pending 04/18/18 1600: Ferritin Cancelled 04/18/18 1555: CBC w Diff NO MAN DIFF REQ, RBC 3.28 L, MCV 86.9, MCH 29.0, MCHC 33.4, RDW 18.1 H, MPV 7.7, Gran % 63.6, Lymphocytes % 21.8, Monocytes % 11.0 H, Eosinophils % 3.1, Basophils % 0.5, Absolute Granulocytes 3.9, Absolute Lymphocytes 1.3, Absolute Monocytes 0.7 H, Absolute Eosinophils 0.2, Absolute Basophils 0 04/18/18 0815: Anion Gap 11, Estimated GFR 28 L, BUN/Creatinine Ratio 20.4 04/18/18 0800: Troponin I Cancelled Assessment/Plan Assessment: Patient is a 72-year-old male with heart failure with preserved ejection fraction, atrial fibrillation and severe bradycardia, presenting with worsening fatigue and shortness of breath. 1. Atrial fibrillation with slow ventricular response and severe bradycardia symptomatic secondary to bradycardia coumadin and 5 mg vitamin K p.o. given today dopamine drip 2. Acute on chronic exacerbation of HFpEF positive abdominal fluid wave, but is nondistended and does not complain of abdominal pain 3. Hypertension after amlodipine 4. Anemia 7.0 5. Chronic kidney disease 6. Diabetes mellitus units insulin detemir twice daily Problem List: 1. Atrial fibrillation with slow ventricular response 2. Acute exacerbation of CHF (congestive heart failure) 3. Bradycardia 4. Hypertension 5. Diabetes 6. Anemia 7. Chronic kidney disease (CKD) Pain Ratin Pain Location: none Pain Goal: Pain 4 or less Pain Plan: tylenol Tomorrow's Labs & Rationales: BEP & INR Sybil Ansari MD 04/19/18 0959: Attending MD Review Statement Attending Statement Attending MD Statement: examined this patient, discuss w/resident/PA/SENIOR SALES MANAGER, agreed w/resident/PA/SENIOR SALES MANAGER, reviewed EMR data (avail), discussed with nursing, discussed with case mgmt, reviewed images Attending Assessment/Plan: Overall patient is feeling okay. We discussed with cardiology and the INR is 2.2 so we will give him low-dose vitamin K 5 mg p.o. in anticipation of him getting his pacemaker placed tomorrow. We will switch the IV Lasix to p.o. as we are treating acute diastolic heart failure and will follow closely for transfer to [place] for pacemaker with HIS lead.
[2018-04-19 07:57] LABS: ABSOLUTE BASOPHIL COUNT 0 /CUMM (0.0-0.2); ABSOLUTE EOSINOPHIL COUNT 0.2 /CUMM (0.0-0.7); ABSOLUTE GRANULOCYTE CT 4.3 /CUMM (1.4-6.5); ABSOLUTE LYMPH COUNT 1.3 /CUMM (1.2-3.4); ABSOLUTE MONOCYTE COUNT 0.6 /CUMM (0.10-0.60); BASOPHIL % 0.5 % (0.0-2.0); EOSINOPHIL % 3.4 % (0-5); HEMATOCRIT 31.4 % (42-52); MEAN CORPUSCULAR HGB 29.1 PG (27.0-31.0); MEAN CORPUSCULAR HGB CONC 33.1 G/DL (33.0-37.0); MEAN CORPUSCULAR VOLUME 87.7 FL (80.0-94.0); PLATELET COUNT 253 /CUMM (130-400); RBC DISTRIBUTION WIDTH 18.1 % (11.5-14.5); RED BLOOD CELL CT 3.58 /CUMM (4.70-6.10); WHITE BLOOD CELL COUNT 6.5 /CUMM (4.8-10.8)
--- NOTE | 2018-04-19 10:14 | PN- Cardiology ---
Subjective Subjective: The patient is awake, alert, feels improved following diuresis The patient has had an approximate 4 L of diuresis net over the past 72 hours The events of the last 24 hours as well as telemetry were reviewed. Telemetry demonstrates continued significant bradycardia with pauses of up to 3 seconds. Review of Systems: The review of systems is negative for chest pains, palpitations nor lightheadedness. The remainder of the 14 point review of systems is noncontributory with the exception of above. Objective Vital Signs and I&Os Vital Signs Date Time Temp Pulse Resp B/P B/P Pulse O2 O2 Flow FiO2 Mean Ox Delivery Rate 04/19 0928 154/68 04/19 0638 98.4 36 18 188/84 97 Room Air 04/19 0635 36 180/82 04/18 2144 98.3 52 18 140/76 95 Room Air 04/18 1600 95 Room Air 04/18 1409 98.1 52 18 140/90 95 Room Air 04/18 1159 Room Air Intake & Output 04/19 1600 04/19 0800 04/19 0000 04/18 1600 04/18 0800 04/18 0000 Intake Total 200 400 700 120 120 Output Total 650 1250 1800 1000 600 Balance -450 -850 -1100 -880 -480 Intake, Oral 200 400 700 120 120 Output, Urine 650 1250 1800 1000 600 Patient 275 lb 279 lb Weight Weight Bed scale Bed scale Measurement Method Physical Exam: General: Nontoxic, no apparent distress. HEENT: Sclera and conjunctiva within normal limits, without xanthelasmas. Neck: Carotids 2+ without bruits. Respiratory: Clear to auscultation, air movement is good, without accessory respiratory muscle use. Heart: Irregularly irregular, bradycardic rate and rhythm, without murmurs, without JVD. Abdomen: Soft, nontender, no masses, normoactive bowel sounds. Extremities: Without clubbing, cyanosis, without edema. Neuro: Nonfocal exam, strength, 5 out of 5 Skin: Within normal limits without lesions. Psych: Mood and affect: Normal Current Medications: Current Medications Sig/Berhane Start time Last Medication Dose Route Stop Time Status Admin Acetaminophen 650 MG Q6P PRN 04/17 2115 AC PO Atropine Sulfate 0.5 MG DAILY PRN 04/18 0000 AC IV Buspirone HCl 7.5 MG BID 04/18 09 AC 04/19 PO 0928 Dextrose 25 GM .STK-MED ONE 04/18 1829 DC IV 04/18 1830 Duloxetine HCl 60 MG DAILY 04/18 09 AC 04/19 PO 0928 Furosemide 20 MG DAILY 04/20 09 AC PO Furosemide 20 MG DAILY 04/18 0900 DC 04/19 IV 0618 Gabapentin 400 MG BID 04/17 2131 AC 04/19 PO 0928 Insulin Aspart 0 TIDAC 04/18 08 AC 04/19 SC 0929 Insulin Detemir 20 UNITS BID 04/18 09 AC 04/19 SC 0929 Omeprazole 40 MG DAILY AC 04/18 07 AC 04/19 PO 0618 Patient Medication 1 ED ONE ONE 04/18 1715 DC Teaching ED 04/18 1716 Phytonadione 5 MG ONCE ONE 04/19 930 DC 04/19 PO 04/19 0931 0934 Pravastatin Sodium 40 MG 1700 04/18 1700 AC 04/18 PO 1737 Tamsulosin HCl 0.4 MG DAILY 04/18 09 AC 04/19 PO 0928 Tramadol HCl 50 MG Q8P PRN 04/17 2145 AC PO Results Last 48 Hrs of Labs/Mics: Laboratory Tests 04/19/18 0615: Anion Gap 12, Estimated GFR 30 L, BUN/Creatinine Ratio 20.5, PT 25.0 H, INR 2.27 H, CBC w Diff NO MAN DIFF REQ, RBC 3.58 L, MCV 87.7, MCH 29.1, MCHC 33.1, RDW 18.1 H, MPV 8.0, Gran % 66.0, Lymphocytes % 20.2 L, Monocytes % 9.9 H, Eosinophils % 3.4, Basophils % 0.5, Absolute Granulocytes 4.3, Absolute Lymphocytes 1.3, Absolute Monocytes 0.6, Absolute Eosinophils 0.2, Absolute Basophils 0 04/18/18 1600: Ferritin Cancelled 04/18/18 1555: CBC w Diff NO MAN DIFF REQ, RBC 3.28 L, MCV 86.9, MCH 29.0, MCHC 33.4, RDW 18.1 H, MPV 7.7, Gran % 63.6, Lymphocytes % 21.8, Monocytes % 11.0 H, Eosinophils % 3.1, Basophils % 0.5, Absolute Granulocytes 3.9, Absolute Lymphocytes 1.3, Absolute Monocytes 0.7 H, Absolute Eosinophils 0.2, Absolute Basophils 0 04/18/18 0815: Anion Gap 11, Estimated GFR 28 L, BUN/Creatinine Ratio 20.4 04/18/18 0800: Troponin I Cancelled 04/18/18 0640: PT 29.1 H, INR 2.64 H, CBC w Diff NO MAN DIFF REQ, RBC 3.42 L, MCV 87.8, MCH 29.0, MCHC 33.1, RDW 17.9 H, MPV 8.1, Gran % 61.4, Lymphocytes % 23.5, Monocytes % 11.1 H, Eosinophils % 3.5, Basophils % 0.5, Absolute Granulocytes 4.0, Absolute Lymphocytes 1.5, Absolute Monocytes 0.7 H, Absolute Eosinophils 0.2, Absolute Basophils 0, Retic Count 3.37 H, Lyme Disease Antibody 0.32 04/18/18 0000: Anion Gap 13, Glucose 85, Magnesium 2.2, Iron 54, TIBC 343, % Saturation 15 L, Ferritin 30.9, Troponin I 0.01 04/17/18 2006: PT 31.7 H, INR 2.88 H, APTT 42 H 04/17/18 1908: Zlt-M-Sfwhsrbdfnl Pept Cancelled 04/17/18 1805: Anion Gap 10, Estimated GFR 26 L, BUN/Creatinine Ratio 22.0, Glucose 103 H, Calcium 8.5, Magnesium 2.2, Total Bilirubin 0.3, AST 19, ALT 38, Alkaline Phosphatase 69, Troponin I < 0.01, Jqx-B-Kxdgrwgugwh Pept 3400 H, Total Protein 6.5, Albumin 3.3 L, Globulin 3.2, Albumin/Globulin Ratio 1.0 L, TSH &T3 &Free T4 Intrp 3.400, CBC w Diff NO MAN DIFF REQ, RBC 3.09 L, MCV 87.2, MCH 29.2, MCHC 33.5, RDW 17.6 H, MPV 7.9, Gran % 62.8, Lymphocytes % 23.4, Monocytes % 10.0 H, Eosinophils % 3.0, Basophils % 0.8, Absolute Granulocytes 3.9, Absolute Lymphocytes 1.5, Absolute Monocytes 0.6, Absolute Eosinophils 0.2, Absolute Basophils 0, Lyme Disease Antibody Cancelled Assessment/Plan Assessment/Plan 72-year-old gentleman with a past medical history of atrial fibrillation, chronic congestive heart failure with preserved LV systolic function, type 2 diabetes mellitus and hypertension. He presents to our hospital with symptoms of increasing dyspnea, severe fatigue as well as lower extremity edema Dyspnea: The patient presents with dyspnea, consistent with acute on chronic congestive heart failure with preserved LV systolic function. His presenting BNP was elevated; however, this is in the setting of chronic renal insufficiency. He has been diuresed, and has subjectively improved. The underlying acute trigger for his congestive heart failure may be secondary to bradycardia. Atrial fibrillation/bradycardia: The patient has had long-standing bradycardia with atrial fibrillation; however, is currently demonstrating increasing symptoms with fatigue as well as congestive heart failure, including a slower rate response despite not being on rate control agents. There may as well be a component of significant cardiac output reduction due to bradycardia affecting his kidney function. At this time, we will hold his anticoagulation of warfarin, with added 5 mg of vitamin K given his current INR level and plan on transferring to [facility] on April 20 for a pacemaker implantation of either a his lead placement pacemaker, or biventricular device if a his lead is unable to be implanted Hypertension: Suboptimally controlled. The addition of an agent such as amlodipine may be used. Further titration was made as an outpatient. Continue telemetry? Yes
--- NOTE | 2018-04-19 11:42 | Patient Discharge Instructions ---
Discharge Instructions General Discharge Information You were seen/treated for: Heart failure with preserved ejection fraction, severe bradycardia. Watch for these problems: With sudden shortness of breath, severe swelling of your legs, dizziness, fainting/feeling flush, or chest pain please go to your nearest emergency department. Special Instructions: Please follow-up with your primary care doctor and tableau architect about your recent hospitalization. Diet Continue normal diet: Yes Recommended Diet: Heart Healthy (CHF Diet) Activity Full Activity/No Limits: No Activity Self Limited: Yes Acute Coronary Syndrome Inclusion Criteria At DC or during hospital stay patient has or had the following: ACS DIAGNOSIS No Discharge Core Measures Meds if any: Prescribed or Continued at Discharge Meds if any: NOT Prescribed or Continued at Discharge Congestive Heart Failure Inclusion Criteria At DC or during hospital stay patient has or had the following: CHF DIAGNOSIS Yes Discharge Core Measures Meds if any: Prescribed or Continued at Discharge ALEXIS/ARB for EF <40% No Meds if any: NOT Prescribed or Continued at Discharge No ALEXIS/ARB d/t Renal Failure/Azotemia Cerebrovascular accident Inclusion Criteria At DC or during hospital stay patient has or had the following: CVA/TIA Diagnosis No Discharge Core Measures Meds if any: Prescribed or Continued at Discharge Meds if any: NOT Prescribed or Continued at Discharge Venous thromboembolism Inclusion Criteria VTE Diagnosis No VTE Type NONE VTE Confirmed by (Test) NONE Discharge Core Measures - Per Current guidelines, there needs to be overlap - treatment for the first 5 days of Warfarin therapy. - If discharged on Warfarin prior to 5 days of - overlap therapy, the patient will need to be - assessed for post discharge needs including - *Post discharge parental anticoagulation - *Warfarin and/or parental anticoagulation education - *Follow up date to check INR post discharge At least 5 days overlap therapy as Inpatient No Meds if any: Prescribed or Continued at Discharge Note: Overlap Therapy is Warfarin and Anticoagulant Meds if any: NOT Prescribed or Continued at Discharge
[2018-04-19 14:35] VITALS: BP 144/72
[2018-04-19 23:00] VITALS: BP 142/76
[2018-04-20 06:35] VITALS: BP 144/80
--- NOTE | 2018-04-20 06:44 | Discharge Summary ---
Visit Information Visit Dates Admission Date: 04/17/18 Discharge Date: 04/20/19 Hospital Course Course Attending Physician: Coty JACINTO,Sybil Sanches Primary Care Physician: Tiffani Corona MD Consulting Request: Consulting Specialty: Cardiology Hospital Course: 72-year-old male with history of heart failure with preserved ejection fraction, chronic kidney disease stage IV, atrial fibrillation on anticoagulation, insulin -dependent diabetes mellitus, gastrointestinal bleed during last hospitalization with EGD revealing nonbleeding antral erosions as well as duodenitis. He was also noted to have mild internal hemorrhoids at that time with no active bleeding. Was in his usual state of health for the past few days but has been complaining of progressively worsening lower extremity swelling and progressively worsening dyspnea on exertion. He also reports having dark stools recently. He saw his primary care provider and reported the above complaints and was promptly referred to the emergency room for further evaluation. He arrived emergency room afebrile hemodynamically table. Did not appear to be in any respiratory distress. He did not require oxygen supplementation. He was given Lasix 20 mg intravenously and referred to the medical service for further management. On evaluation by the medical team we found the patient in no distress. He denies any history of chest pain or palpitations. Denied any bright red blood per rectum. Reports compliance with his medications including his diuretics. He has never been referred to the CHF clinic according to the patient. Records reveal that he was on Eliquis in the past but appears at some point following discharge he was transitioned to Coumadin. He is also on atenolol. On examination we found him sitting up comfortably in his chair speaking in complete sentences. Not requiring oxygen supplementation. He had adequate entry bilaterally with no added sounds. He had no jugular venous distention. He did have bilateral lower extremity pedal edema of 1-2+. No calf tenderness. Chest x-ray was reported as normal with no report of congestion. His BNP was elevated at over 3000 however this is in the setting of chronic kidney disease. Renal function is at baseline. Hemoglobin level is noted to be slightly lower at baseline. INR is therapeutic. He was guaiac positive in the emergency room. Hospital course 1. Atrial fibrillation with slow ventricular response and severe bradycardia symptomatic secondary to bradycardia 2. Acute on chronic exacerbation of HFpEF positive abdominal fluid wave, but is nondistended and does not complain of abdominal pain. Patient was initially treated with IV Lasix and then switched to p.o. Lasix. 3. Hypertension 70s. Hence decided to start him on calcium channel esteban. Amlodipine 2.5 mg p.o. was added. 4. Anemia 7.0 5. Chronic kidney disease Pt INR on discharge 1.5. Allergies: Coded Allergies: bacitracin (RASH 08/20/16) neomycin (From NEOSPORIN ([id number])) (RASH 08/20/16) polymyxin B (From NEOSPORIN ([id number])) (RASH 08/20/16) Pertinent Lab Results: Chest x-ray Unremarkable examination Disposition Summary Disposition Principal Diagnosis: Acute exacerbation of congestive heart failure Additional Diagnosis: Atrial fibrillation-tachybradycardia syndrome Discharge Disposition: other general hospital Discharge Instructions General Discharge Information Code Status: Full Code Patient's Diet: Heart healthy diet Patient's Activity: As tolerated Follow-Up Instructions/Appts: Follow-up with primary care physician/nitroglycerin neutralizer within 1-2 weeks of discharge Medications at Discharge Discharge Medications: Stop taking the following medications: Warfarin Sodium (Coumadin) 5 MG TABLET ORAL DAILY Continue taking these medications: Duloxetine HCl (Duloxetine HCl) 60 MG CAPSULE.DR 1 Capsule ORAL DAILY Qty = 30 Comments: NOT GIVEN IN HOSPITAL Tamsulosin HCl (Tamsulosin HCl) 0.4 MG CAP.ER.24H 1 Capsule ORAL DAILY Qty = 180 Comments: Last Taken: 04/19/18 Time: 9AM Buspirone HCl (Buspirone HCl) 15 MG TABLET 0.5 Tablet ORAL TWICE DAILY Qty = 90 Comments: Last Taken: 04/19/18 Time: 9PM Pravastatin Sodium (Pravastatin Sodium) 40 MG TABLET 1 Tablet ORAL Every night Qty = 90 Comments: Last Taken: 04/19/18 Time: 5PM Lisinopril (Lisinopril) 5 MG TABLET 5 Milligram ORAL DAILY Qty = 30 Comments: NOT GIVEN IN HOSPITAL Furosemide (Lasix) 20 MG TABLET 1 Tablet ORAL DAILY Qty = 30 Instructions: . Comments: NOT GIVEN IN HOSPITAL Glipizide (Glipizide) 5 MG TABLET 1 Tablet ORAL TWICE DAILY Qty = 90 Instructions: . Comments: NOT GIVEN IN HOSPITAL Ergocalciferol (Vitamin D2) (Vitamin D2) 50,000 UNIT CAPSULE 1 Capsule ORAL EVERY 2 WEEKS Qty = 60 Instructions: . Comments: NOT GIVEN IN HOSPITAL Gabapentin (Gabapentin) 400 MG CAPSULE 1 Capsule ORAL TWICE DAILY Qty = 30 Instructions: . Comments: Last Taken: 04/19/18 Time: 9PM Aspirin (Aspirin*) 81 MG TAB.CHEW 1 Tablet ORAL DAILY Qty = 30 Comments: NOT GIVEN IN HOSPITAL Pantoprazole Sodium (Protonix) 40 MG TABLET.DR 1 Tablet ORAL TWICE DAILY Qty = 30 Instructions: . Comments: Last Taken: 04/19/18 Time: 6AM Insulin Degludec (Tresiba Flextouch U-100) 100 UNIT/ML (3 ML) INSULN.PEN 44 Units SC DAILY Comments: NOT GIVEN IN HOSPITAL Copies To: Chloe JACINTO,Tiffani Leal; Paresh JACINTO,Oleksandr
--- NOTE | 2018-04-20 07:00 | PN- Housestaff ---
Hero Palma 04/20/18 0659: Subjective Follow-up For: Acute on chronic CHF exacerbation, atrial fibrillation, melena Tele-Events Since Last Visit: Atrial fibrillation with rate 36-49 overnight Subjective: Patient seen resting comfortably in the bed. No complaints overnight, heart rate still bradycardic. Patient is ready to be transferred for the pacemaker implantation. Denies chest pain, palpitations, shortness of breath. Patient does endorse some wheezing that started since yesterday, but denies cough, denies worsening swelling and no soreness in his bilateral lower extremities. Review of Systems Constitutional: Denies: chills, fever, weakness. Cardiovascular: Reports: orthopena, peripheral edema. Denies: chest pain, palpitations. Respiratory: Reports: orthopnea, wheezing. Denies: cough, short of breath. Gastrointestinal: Denies: abdominal pain, nausea, vomiting. Objective Last 24 Hrs of Vital Signs/I&O Vital Signs Date Time Temp Pulse Resp B/P B/P Pulse O2 O2 Flow FiO2 Mean Ox Delivery Rate 04/20 0635 98.4 46 20 144/80 98 Room Air 04/19 2300 98.1 44 20 142/76 96 Room Air 04/19 1704 154/78 04/19 1435 98.1 47 18 144/72 97 04/19 0928 154/68 Intake & Output 04/20 0800 04/20 0000 04/19 1600 Intake Total 600 240 600 Output Total 1200 700 325 Balance -600 -460 275 Intake, IV 600 Intake, Oral 0 240 600 Number 0 Bowel Movements Output, Urine 1200 700 325 Patient 121.591 kg Weight Weight Bed scale Measurement Method Physical Exam General Appearance: Alert, Oriented X3, Cooperative, No Acute Distress HEENT: Atraumatic, PERRLA, EOMI Neck: Supple, No JVD, No thryomegaly Cardiovascular: Normal S1, Normal S2, No Murmurs, Bradycardic Lungs: Increased breath sounds in bilateral lung bases Abdomen: Normal Bowel Sounds, Soft, No Tenderness Current Medications: Current Medications Sig/Berhane Start time Last Medication Dose Route Stop Time Status Admin Acetaminophen 650 MG Q6P PRN 04/17 2115 AC PO Amlodipine Besylate 2.5 MG DAILY 04/19 1200 AC 04/19 PO 1704 Atropine Sulfate 0.5 MG DAILY PRN 04/18 0000 AC IV Buspirone HCl 7.5 MG BID 04/18 0900 AC 04/19 PO 2133 Dextrose/Sodium 1,000 ML Q13H 04/20 0015 AC 04/20 Chloride IV 04/20 1314 0039 Duloxetine HCl 60 MG DAILY 04/18 09 AC 04/19 PO 0928 Furosemide 20 MG DAILY 04/20 09 AC PO Furosemide 20 MG DAILY 04/18 0900 DC 04/19 IV 0618 Gabapentin 400 MG BID 04/17 2131 AC 04/19 PO 2133 Insulin Aspart 0 TIDAC 04/18 08 DC 04/19 SC 1206 Insulin Detemir 10 UNITS BID 04/20 09 AC SC Insulin Detemir 20 UNITS BID 04/18 09 DC 04/19 SC 2133 Insulin Human Regular 0 Q6 04/20 0006 AC 04/20 SC 0611 Omeprazole 40 MG DAILY AC 04/18 07 AC 04/19 PO 0618 Phytonadione 5 MG ONCE ONE 04/19 0930 DC 04/19 PO 04/19 0931 0934 Pravastatin Sodium 40 MG 1700 04/18 1700 AC 04/19 PO 1703 Tamsulosin HCl 0.4 MG DAILY 04/18 09 AC 04/19 PO 0928 Tramadol HCl 50 MG Q8P PRN 04/17 2145 AC PO Last 24 Hrs of Lab/Nando Results Last 24 Hrs of Labs/Mics: Laboratory Tests 04/20/18 06: Sodium Pending, Potassium Pending, Chloride Pending, Carbon Dioxide Pending, Anion Gap Pending, BUN Pending, Creatinine Pending, BUN/Creatinine Ratio Pending Assessment/Plan Assessment: Patient is a 72-year-old male with heart failure with preserved ejection fraction, atrial fibrillation and severe bradycardia, presenting with worsening fatigue and shortness of breath. 1. Atrial fibrillation with slow ventricular response and severe bradycardia symptomatic secondary to bradycardia 2. Acute on chronic exacerbation of HFpEF current Lasix regimen 3. Hypertension 4. Anemia 7.0 5. Chronic kidney disease CKD, stable 6. Diabetes mellitus Problem List: 1. Atrial fibrillation with slow ventricular response 2. Chronic kidney disease (CKD) 3. Bradycardia 4. Hypertension 5. Diabetes 6. Anemia 7. Acute exacerbation of CHF (congestive heart failure) Pain Ratin Pain Location: none Pain Goal: Pain 4 or less Pain Plan: tylenol Tomorrow's Labs & Rationales: none Coty JACINTO,Sybil 04/20/18 0947: Attending MD Review Statement Attending Statement Attending MD Statement: examined this patient, discuss w/resident/PA/CENTRAL OFFICE OPERATOR, agreed w/resident/PA/CENTRAL OFFICE OPERATOR, reviewed EMR data (avail), discussed with nursing, discussed with case mgmt, reviewed images Attending Assessment/Plan: Patient is feeling well. His INR is 1.5. The plan is for transfer today for a pacemaker given his symptomatic bradycardia with underlying atrial fibrillation. Follow-up will be after the pacemaker.
[2018-04-20 08:23] LABS: PT 16.8 SEC (9.4-12.5)
== END 2018-04-20 10:25 | disposition short-term general hospital (02) | DRG 291 ==
LOC: ERH 17:38 → ERHI 20:16 → 1NO 20:16 → ENRESERV 20:45 → ENTRNSPT 21:37 → EDTRNSPTSTS 21:48 → EDTRNSPT 21:48 → 1NO 21:59 → CMPTRNSPT 22:08 → 1NO 04-18 08:12 → ENPENDDIS 04-20 08:50 → 1NO 04-20 10:25
PROVIDERS: Internal Medicine Endocrinology, Diabetes & Metabolism; Physician Assistant; Student in an Organized Health Care Education/Training Program
DX: I13.0 Hypertensive heart and chronic kidney disease with heart failure and stage 1 through stage 4 chronic kidney disease, or unspecified chronic kidney disease (principal); I50.33 Acute on chronic diastolic (congestive) heart failure; N18.4 Chronic kidney disease, stage 4 (severe); E11.22 Type 2 diabetes mellitus with diabetic chronic kidney disease; I49.5 Sick sinus syndrome; E11.42 Type 2 diabetes mellitus with diabetic polyneuropathy; E11.51 Type 2 diabetes mellitus with diabetic peripheral angiopathy without gangrene; I48.0 Paroxysmal atrial fibrillation; R00.1 Bradycardia, unspecified; E78.5 Hyperlipidemia, unspecified; F41.9 Anxiety disorder, unspecified; F32.9 Major depressive disorder, single episode, unspecified; D50.9 Iron deficiency anemia, unspecified; K64.8 Other hemorrhoids; Z79.4 Long term (current) use of insulin; Z88.1 Allergy status to other antibiotic agents
CPT/HCPCS: 1NP; 86618; 36592; 71046; 82436; 93005; 93010; J0461; J1940

== ENCOUNTER 2018-05-31 16:34 | Emergency (ER) | payer OTHER, MEDICARE ==
[~2018-05-31 16:34] MED LIST changes: +COUMADIN5 M2 PO; +TRESIBA FL100 UNIT/1 SC
--- NOTE | 2018-05-31 17:42 | ED ANKLE/FOOT INJURY COMPLAINT ---
History of Present Illness General Chief Complaint: Foot or Ankle Injury Stated Complaint: SIB PCP, BIG TOE INFECTED, PT DIABITIC Source: patient, family, old records Exam Limitations: no limitations Vital Signs & Intake/Output Vital Signs & Intake/Output Vital Signs Date Time Temp Pulse Resp B/P B/P Pulse O2 O2 Flow FiO2 Mean Ox Delivery Rate 05/31 2012 97.0 63 18 137/61 98 Room Air 05/31 1721 98.7 66 17 110/67 97 Room Air ED Intake and Output 06/01 0000 05/31 1200 Intake Total 100 Output Total Balance 100 Intake, IV 100 Allergies Coded Allergies: bacitracin (RASH 08/20/16) neomycin (From NEOSPORIN ([id number])) (RASH 08/20/16) polymyxin B (From NEOSPORIN ([id number])) (RASH 08/20/16) Reconcile Medications Aspirin (Aspirin*) 81 MG TAB.CHEW 1 TAB PO DAILY cad/pvd Buspirone HCl 15 MG TABLET 0.5 TAB PO BID SLEEP (Reported) Cephalexin (Keflex) 500 MG CAPSULE 1 CAP PO TID CELLULITIS Duloxetine HCl 60 MG CAPSULE.DR 1 CAP PO DAILY ANXIETY (Reported) Ergocalciferol (Vitamin D2) (Vitamin D2) 50,000 UNIT CAPSULE 1 CAP PO Q2W SUPPLEMENT . Furosemide (Lasix) 20 MG TABLET 1 TAB PO DAILY Fluid Retention . Gabapentin 400 MG CAPSULE 1 CAP PO BID Nerve Pain . Glipizide 5 MG TABLET 1 TAB PO BID DM . Insulin Degludec (Tresiba Flextouch U-100) 100 UNIT/ML (3 ML) INSULN.PEN 44 UNITS SC DAILY DIABETES (Reported) Lisinopril 5 MG TABLET 5 MG PO DAILY HTN Pantoprazole Sodium (Protonix) 40 MG TABLET.DR 1 TAB PO BID GI BLEED . Pravastatin Sodium 40 MG TABLET 1 TAB PO QPM CHOL (Reported) Tamsulosin HCl 0.4 MG CAP.ER.24H 1 CAP PO DAILY URINE (Reported) Triage Note: PT REFERRED TO ED MY MD DOMINIQUE FOR EVAL OF INFECTION TO LEFT GREAT TOE. STATES HE PICKED AT IT WITH NAIL CLIPPERS A WEEK AGO AND NOTICED INCREASED REDNESS, SWELLING, DISCHARGE SINCE THEN. DENIES FEVERS/ CHILLS. Triage Nurses Notes Reviewed? yes Duration: day(s): Timing: recent history HPI: 72-year-old male comes into the emergency room with redness and swelling to left great toe. Patient reports that he was using nail clippers on about a week ago. He's now developed some redness and swelling. Denies any fever chills. He has neuropathy. He denies any pain. Denies any fever chills. He was sent in by his PCP for further evaluation. He seen Dr. Santa in the past. (Mp Stevenson) Past History Travel History Traveled to [place] past 21 day No Medical History Any Pertinent Medical History? 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 FATHER (MA/CABG). , Age 80; Cause: ESRD (end stage renal disease). Hx Contributory? No (Mp Stevenson) Review of Systems Review of Systems Constitutional: Reports: no symptoms. EENTM: Reports: no symptoms. Respiratory: Reports: no symptoms. Cardiovascular: Reports: no symptoms. GI: Reports: no symptoms. Genitourinary: Reports: no symptoms. Musculoskeletal: Reports: no symptoms. Skin: Reports: see HPI. Neurological/Psychological: Reports: no symptoms. Hematologic/Endocrine: Reports: no symptoms. Immunologic/Allergic: Reports: no symptoms. All Other Systems: Reviewed and Negative (Mp Stevenson) Physical Exam Physical Exam General Appearance: well developed/nourished, mild distress Head: atraumatic Eyes: Bilateral: normal appearance. Ears, Nose, Throat: normal ENT inspection, hearing grossly normal Neck: normal inspection Cardiovascular/Respiratory: no respiratory distress Back: normal inspection Leg/Knee/Thigh Left: not exAMINED Foot Left: swelling and erythema to left great toe, cap refill intact, Neuro/Vascular: normal motor function Tendon: normal tendon function Psychiatric: awake, alert, oriented x 3 Skin: intact, normal color, warm/dry (Enoc BARBOZA,Mp) Progress Differential Diagnosis: cellulitis, gout, fracture, dislocation Plan of Care: Orders Procedure Date/time Status LACTIC ACID 05/31 1723 Complete WESTERGREN SED RATE 05/31 1723 Complete C-REACTIVE PROTEIN 05/31 1723 Complete CBC WITHOUT DIFFERENTIAL 05/31 1723 Complete BASIC METABOLIC PANEL 05/31 1723 Complete Laboratory Tests 05/31/182022: Lactic Acid Cancelled 05/31/181804: Anion Gap 9, Estimated GFR 22 L, BUN/Creatinine Ratio 18.6, Glucose 72, Lactic Acid 0.9, Calcium 9.1, C-Reactive Prot, Quant 0.7, CBC w Diff NO MAN DIFF REQ, RBC 3.57 L, MCV 87.5, MCH 29.8, MCHC 34.0, RDW 16.2 H, MPV 8.6, Gran % 62.8, Lymphocytes % 23.3, Monocytes % 9.2, Eosinophils % 4.2, Basophils % 0.5, Absolute Granulocytes 4.1, Absolute Lymphocytes 1.5, Absolute Monocytes 0.6, Absolute Eosinophils 0.3, Absolute Basophils 0, ESR Westergren 65 H Diagnostic Imaging: Viewed by Me: Radiology Read. Discussed w/RAD: Radiology Read. Radiology Impression: PATIENT: AJAY ARREDONDO PRESENT AGE: 72 PATIENT ACCOUNT NO: [id number] : 46 LOCATION: [facility] ORDERING PHYSICIAN: Mp BARBOZA SERVICE DATE: 05/31/18-1722 EXAM TYPE : RAD - XRY-TOES, LEFT EXAMINATION: XR TOES, LEFT CLINICAL INFORMATION: Osteomyelitis left great toe. COMPARISON: None TECHNIQUE: 3 views of the left toes were obtained. FINDINGS: There is no bone destruction. There is no radiographic evidence for osteomyelitis. There is mild joint narrowing of the IP joint of the toes and the metatarsal phalangeal joints but no significant erosions. No periarticular calcifications. No soft tissue abnormality. IMPRESSION: No acute abnormality. No radiographic evidence for osteomyelitis. DICTATED BY: Bora Bradford MD DATE/TIME DICTATED:05/31/181753 HUMAN MACHINE INTERFACE ENGINEER :OLIVIA DATE/TIME TRANSCRIBED:05/31/181753 CONFIDENTIAL, DO NOT COPY WITHOUT APPROPRIATE AUTHORIZATION. <Electronically signed in Other Vendor System> SIGNED BY: Bora Bradford MD 05/31/181758 (Mp Stevenson) Departure Departure Disposition: HOME OR SELF CARE Condition: Stable Clinical Impression Primary Impression: Cellulitis of great toe, left Referrals: Chloe JACINTO,Tiffani Lela (PCP/Family) Additional Instructions: Take Keflex as prescribed. Follow-up with Dr. Santa this week. Return if any concerns worsening symptoms. Please go over all results of today's visit with your primary care doctor. Contact your primary care doctor to let them know you were here in the emergency room. There may be nonspecific findings which may not be related to your visit today here in the emergency room but may require further evaluation and chronic monitoring by your primary care doctor. If you had a laceration today the chance of foreign body always remains. You should follow-up with your primary care doctor for recheck in 3-5 days for a wound check. If you had an x-ray done there is a chance that a fracture could have been missed on initial read and you should follow-up with your primary care doctor for repeat x-rays if symptoms persist. If your blood pressure was elevated here in the emergency room please have rechecked by [facility] primary care doctor within the next 48. If you were prescribed a narcotic here in the emergency room or any type of controlled substances you're not allowed to drive while taking this medication or operate any type of heavy machinery. Narcotics can make you feel lightheaded dizziness nausea and can cause constipation. You may need to black pickler a stool softener. Thank you for choosing [facility] emergency room. Please return to the emergency room immediately if you have any other concerns worsening of symptoms. Departure Forms: Customer Survey General Discharge Information Prescriptions: Current Visit Scripts Cephalexin (Keflex) 1 CAP PO TID #21 CAP Comments 05/31/2018 9:01:37 PM Patient clinically looks well. Patient is in no apparent distress. Patient is nontoxic-appearing. Rash is most consistent with cellulitis. Treated with oral antibiotics. Spoke with Dr. Santa. No concern for osteomyelitis. No white count. Afebrile. Normal CRP. Sedimentation rate elevated but could be elevated due to his other chronic medical issues. Spoke with Dr. Santa on the phone and he will follow up with him in the office this week. No evidence of gangrene. (Enoc BARBOZA,Mp) PA/STANDARDS ANALYST Co-Sign Statement Statement: ED Attending supervision documentation- [] I saw and evaluated the patient. I have also reviewed all the pertinent lab results and diagnostic results. I agree with the findings and the plan of care as documented in the PA's/STANDARDS ANALYST's documentation. [x] I have reviewed the ED Record and agree with the PA's/STANDARDS ANALYST's documentation. [] Additions or exceptions (if any) to the PAs/STANDARDS ANALYST's note and plan are summarized below: [] (Carey JACINTO,Kalpesh Deleon)
--- NOTE | 2018-05-31 17:59 | RADIOLOGY REPORT ---
EXAMINATION: XR TOES, LEFT CLINICAL INFORMATION: Osteomyelitis left great toe. COMPARISON: None TECHNIQUE: 3 views of the left toes were obtained. FINDINGS: There is no bone destruction. There is no radiographic evidence for osteomyelitis. There is mild joint narrowing of the IP joint of the toes and the metatarsal phalangeal joints but no significant erosions. No periarticular calcifications. No soft tissue abnormality. IMPRESSION: No acute abnormality. No radiographic evidence for osteomyelitis.
[2018-05-31 18:50] LABS: ABSOLUTE BASOPHIL COUNT 0 /CUMM (0.0-0.2); ABSOLUTE EOSINOPHIL COUNT 0.3 /CUMM (0.0-0.7); ABSOLUTE GRANULOCYTE CT 4.1 /CUMM (1.4-6.5); ABSOLUTE LYMPH COUNT 1.5 /CUMM (1.2-3.4); ABSOLUTE MONOCYTE COUNT 0.6 /CUMM (0.10-0.60); BASOPHIL % 0.5 % (0.0-2.0); EOSINOPHIL % 4.2 % (0-5); GRANULOCYTE % 62.8 % (42.2-75.2); HEMATOCRIT 31.3 % (42-52); MEAN CORPUSCULAR HGB 29.8 PG (27.0-31.0); MEAN CORPUSCULAR VOLUME 87.5 FL (80.0-94.0); MEAN PLATELET VOLUME 8.6 FL (7.4-10.4); PLATELET COUNT 207 /CUMM (130-400); RBC DISTRIBUTION WIDTH 16.2 % (11.5-14.5); RED BLOOD CELL CT 3.57 /CUMM (4.70-6.10); WHITE BLOOD CELL COUNT 6.5 /CUMM (4.8-10.8)
[2018-05-31 20:12] VITALS: BP 137/61
[2018-05-31] MEDS ORDERED: KEFLEX500 M1 PO (20:28)
== END 2018-05-31 21:05 ==
LOC: ERH 16:34
PROVIDERS: Physician Assistant Medical
DX: L03.032 Cellulitis of left toe (principal); E11.9 Type 2 diabetes mellitus without complications; I10 Essential (primary) hypertension; Z79.84 Long term (current) use of oral hypoglycemic drugs; E78.00 Pure hypercholesterolemia, unspecified; I50.9 Heart failure, unspecified; F41.9 Anxiety disorder, unspecified
CPT/HCPCS: 73660-LT; 96374